=== PATIENT | female | born 1975 | race Caucasian/White ===

== ENCOUNTER → 2019-10-15 14:30 | Outpatient (CLI) | payer OTHER, SELFPAY ==
--- NOTE | ~2019-10-15 | XR_ITS ---
XR chest 2V DATE: 10/15/2019 14:45 INDICATION: Cough for a few months. Smoker. History of COPD. TECHNIQUE: 2 views COMPARISON: 08/19/2018 2 view chest FINDINGS: There is moderate bilateral hyperinflation. No pulmonary infiltrate or consolidation, pleur al effusion or pulmonary vascular congestion or pneumothorax is detected. Normal heart size. No hilar or mediastinal enlargement. Moderate osteopenia. IMPRESSION: Moderate bilateral hyperinflation; no active cardiopulmonary disease Reviewed, dictated and finalized at location A. IMPRESSION: Moderate bilateral hyperinflation; no active cardiopulmonary diseas e
== END ==
PROVIDERS: PCP Emergency Medicine; Visit Provider Emergency Medicine
DX: R05 Cough (principal); R91.8 Other nonspecific abnormal finding of lung field
CPT/HCPCS: 71046

== ENCOUNTER 2019-10-26 08:35 | Outpatient (CLI) | payer OTHER, SELFPAY ==
--- NOTE | ~2019-10-26 | MM_ITS ---
EXAMINATION: MM screening [facility] BI w hiram HISTORY: Screening mammogram TECHNIQUE: Craniocaudal and mediolateral oblique 3-D tomosynthesis images were obtained and synthetic 2-D images were generated. CAD analysis was submitted and interpreted. COMPARISON: 09/07/2018, 08/25/2018 BREAST PARENCHYMAL COMPOSITION: The breasts are extremely dense, which lowers the sensitivity of mamm ography. FINDINGS: There are changes of interval right breast biopsy. Scattered benign-appearing calcification s are present. There is no evidence of suspicious mass, calcification, or architectural distortion t o suggest malignancy in either breast. There has been no suspicious interval change. IMPRESSION: 1. No mammographic evidence of malignancy. 2. Recommend routine screening mammography in one year. BI-RADS Category 2: Benign finding(s). Reviewed, dictated and finalized at location A.
== END 2019-10-26 08:36 | disposition home or self-care (01) ==
LOC: ANHIMG 08:38
PROVIDERS: PCP Emergency Medicine; Visit Provider Emergency Medicine
DX: Z12.31 Encounter for screening mammogram for malignant neoplasm of breast (principal)
CPT/HCPCS: 77063; 77067

== ENCOUNTER → 2019-12-23 18:48 | Outpatient (CLI) | payer OTHER, SELFPAY ==
--- NOTE | ~2019-12-23 | XR_ITS ---
EXAMINATION: XR foot RT min 3V, XR ankle RT min 3V EXAM DATE: 12/23/2019 19:17 (accession [id number]), 12/23/2019 19:19 (accession [id number]) INDICATION: No known recent injury provided at this time. Pain of the feet and ankles. TECHNIQUE: Right foot dorsoplantar, lateral and oblique projections obtained and reviewed. Right ank le frontal, lateral and oblique projections obtained and reviewed. There is no prior study for elie jones. FINDINGS: Right metatarsal bones unremarkable. The right ankle mortise appears intact. There are no bony erosions identified. The joint spaces are uniform. There are no acute fractures or dislocatio ns identified. There is no subcutaneous gas. The soft tissue is unremarkable. There are no radiop aque foreign bodies. IMPRESSION: 1. Unremarkable right foot, ankle exam. Reviewed, dictated and finalized at location . IMPRESSION: 1. Unremarkable right foot, ankle exam.
--- NOTE | ~2019-12-23 | XR_ITS ---
EXAMINATION: XR foot LT min 3V, XR ankle LT min 3V EXAM DATE: 12/23/2019 19:18 (accession [id number]), 12/23/2019 19:19 (accession [id number]) INDICATION: No known recent injury provided at this time. Pain of the left foot and ankle. Bilateral malleolar pain. Symptoms for years. TECHNIQUE: Left foot dorsoplantar, lateral and oblique projections obtained and reviewed. Left ankle frontal, lateral and oblique projections obtained and reviewed. Correlation is made to contralateral exams same date. FINDINGS: Left metatarsal bones unremarkable. The left ankle mortise appears intact. There are n o bony erosions identified. The joint spaces are uniform. There are no acute fractures or dislocation s identified. There is no subcutaneous gas. The soft tissue is unremarkable. There are no radiopa que foreign bodies. IMPRESSION: 1. Unremarkable left foot, ankle exam. Reviewed, dictated and finalized at location G. IMPRESSION: 1. Unremarkable left foot, ankle exam.
== END ==
DX: M15.0 Primary generalized (osteo)arthritis (principal); R60.0 Localized edema; R26.89 Other abnormalities of gait and mobility
CPT/HCPCS: 73610; 73630

== ENCOUNTER 2019-12-25 11:31 | Outpatient (CLI) | payer OTHER, SELFPAY ==
--- NOTE | ~2019-12-25 | CT_ITS ---
EXAMINATION: CT abdomen pelvis wo con DATE: 12/25/2019 11:56 INDICATION: Mid abdominal pain, diarrhea TECHNIQUE: Computed tomography (CT) of the abdomen and pelvis was performed without intravenous contr ast. Automated exposure control and iterative reconstruction technique were employed. Exam dose: 586 .79 mGy-cm total exam DLP. COMPARISON: None. FINDINGS: There is a 3 mm posteromedial right lower lobe nodule (series 4 image 10). There is a 4 mm likely partially calcified pulmonary granuloma in the posteromedial right lower lobe (series 4 image 13). Normal heart size. No pericardial or pleural effusion. The liver, gallbladder, bile ducts, spleen, pancreas, pancreatic duct, and adrenal glands and kidneys are unremarkable. Normal caliber of the abdominal aorta. No intraperitoneal or retroperitoneal or pelvic mass lesion or adenopathy or ascites. The urinary bladder is unremarkable. Status post hysterectomy. No bowel obstruction, bowel wall thickening, pneumatosis or intraperitoneal free air. Small fat-containing umbilical hernia. No suspicious osteolytic or osteoblastic lesions are noted. IMPRESSION: No significant intra-abdominal abnormality Reviewed, dictated and finalized at Location A. Reviewed, dictated and finalized at location A.
== END 2019-12-25 11:32 | disposition home or self-care (01) ==
PROVIDERS: PCP Emergency Medicine; Visit Provider Emergency Medicine
DX: R10.9 Unspecified abdominal pain (principal)
CPT/HCPCS: 74176

== ENCOUNTER 2020-02-15 14:00 | Outpatient (CLI) | payer OTHER, SELFPAY ==
[2020-02-15 14:19] LABS: Basophils Absolute Auto 0.1 K/mm3 (0.0-0.1); Basophils Percent Auto 0.6 % (0.2-1.2); Eosinophils Absolute Auto 0.2 K/mm3 (0-0.3); Eosinophils Percent Auto 1.6 % (0-4.4); Hematocrit 41.5 % (37.0-47.0); Hemoglobin 13.6 g/dL (12.0-15.0); Immature Granulocyte Absolute 0.03 K/mm3 (0.00-0.031); Immature Granulocyte Percent A 0.2 % (0-0.5); Lymphocytes Absolute Auto 5.82 K/mm3 (0.9-3.2); Lymphocytes Percent Auto 44.6 % (18.3-44.2); Mean Corpuscular HGB Conc 32.8 g/dl (32-36); Mean Corpuscular Hemoglobin 29.1 pg (26-34); Mean Corpuscular Volume 88.7 fl (80-100); Mean Platelet Volume 9.2 fl (7.4-10.4); Monocytes Absolute Auto 0.7 K/mm3 (0.1-0.6); Monocytes Percent Auto 5.5 % (2.6-8.5); Neutrophils Absolute Auto 6.2 K/mm3 (1.3-6.7); Neutrophils Percent Auto 47.5 % (45.5-73.1); Platelet Count Result 365 k/mm3 (150-375); Red Blood Count 4.68 M/mm3 (4.2-5.4); Red Cell Distribution Width 13.7 % (11.5-14.5); White Blood Count 13.1 K/mm3 (4.5-10.0)
[2020-02-15 14:27] LABS: Atypical Lymphocytes Present; Platelet Estimate Adequate (Adequate)
[2020-02-15 15:34] LABS: Alanine Aminotransferase 22 U/L (4-35); Albumin Level 4.3 g/dL (3.5-5.1); Alkaline Phosphatase 59 U/L (38-126); Anion Gap 12 mmol/L (8-16); Aspartate Amino Transferase 17 U/L (14-36); Bilirubin,Total 0.2 mg/dL (0.2-1.3); Blood Urea Nitrogen 18 mg/dL (7-17); CRP 0.7 mg/dL (<1.0); Calcium 9.5 mg/dL (8.4-10.2); Carbon Dioxide 25 mmol/L (22-30); Chloride 102 mmol/L (98-107); Estimated Glomerular Filt Rate > 60; Glucose 121 mg/dL (65-105); Lactate Dehydrogenase 371 U/L (313-618); Potassium 3.9 mmol/L (3.4-5.0); Sodium 139 mmol/L (137-145)
[2020-02-16 09:34] LABS: Erythrocyte Sedimentation Rate 14 mm/hr (0-20)
== END 2020-02-15 14:01 | disposition home or self-care (01) ==
LOC: ANHLAB 14:02
PROVIDERS: PCP Emergency Medicine; Visit Provider Internal Medicine Hematology & Oncology
DX: D72.829 Elevated white blood cell count, unspecified (principal)
CPT/HCPCS: 36415; 80053; 83615; 85025; 85652; 86140; 88184

== ENCOUNTER 2020-03-13 11:02 | Outpatient (CLI) | payer OTHER, SELFPAY ==
--- NOTE | ~2020-03-13 | CT_ITS ---
EXAMINATION: CT chest wo con DATE: 03/13/2020 11:42 INDICATION: Pulmonary nodule TECHNIQUE: Computed tomography (CT) of the chest was performed without intravenous contrast. The dose -length product (DLP) was 102.69 mGy-cm. Automated exposure control and iterative reconstruction tech [employer] were employed. COMPARISON: 12/25/2019 FINDINGS: The previously described subpleural nodule of the posterior medial right lower lobe is slig htly decreased in size. There is a 2 mm nodule in the right upper lobe mild dependent atelectasis is noted. The lungs are free of focal airspace opacities. There is no pleural effusion or pneumothorax. No pathologically enlarged thoracic lymph nodes are identified. The heart size is normal. There is mi ld thoracic spondylosis. IMPRESSION: 1. Pulmonary nodules likely reflecting old granulomatous disease. If the patient has no risk factors for malignancy, no further follow up is required. If there are risk factors for malignancy (i.e., hi story of smoking, asbestos or radiation exposure), consider followup CT in 12 months. Reviewed, dictated and finalized at location A. LE BENDER IMPRESSION: 1. Pulmonary nodules likely reflecting old granulomatous disease. If the patien t has no risk factors for malignancy, no further follow up is required. If the re are risk factors for malignancy (i.e., history of smoking, asbestos or radia tion exposure), consider followup CT in 12 months.
== END 2020-03-13 11:03 | disposition home or self-care (01) ==
PROVIDERS: PCP Emergency Medicine
DX: R91.8 Other nonspecific abnormal finding of lung field (principal)
CPT/HCPCS: 71250

== ENCOUNTER 2020-04-13 08:11 | Outpatient (CLI) | payer OTHER, SELFPAY ==
--- NOTE | 2020-05-17 20:04 | WPDHOMESLEEP ---
Sleep Study - Home Unattended Date of Study: 04/13/20 Ordering Provider: Jeff Duque MD Interpreting Physician: Lona Sanchez MD Home Sleep Study Type: Apnea Link Air Height: 1.73 m Weight: 83.007 kg Body Mass Index: 27.8 Marshall: 11 Reason for Sleep Study HAKEEM Sleep History Yanick Dan is a 44 year old female with constant loud snoring which always bothers others at night. She constantly awakening at night with heartburn, belching and coughing. she occasionally awakens from sleep feeling short of breath. She constantly has trouble sleeping with a cold. She occasionally gasp for breath at night. She really has breathing problems at night observed by others. She frequently sweats excessively at night. She occasionally notices her heart pounding or beating irregularly at night. She constantly falls asleep during the day, never involuntarily and never while driving. She does not fall asleep during physical effort. She rarely has loss of muscle tone with strong emotion. She rarely has daytime difficulties due to excessive sleepiness, is a ahjk-ry-yipi . she does not feel paralyzed on waking or falling asleep. She rarely has vivid dreamlike scenes upon awakening or falling asleep. She is not afraid to go to sleep. she rarely has nightmares. She occasionally remembers her dreams. She does not have racing thoughts. She occasionally has feelings of sadness depression and anxiety. She rarely has muscular tension. She does not notice parts of her body jerking. She denies kicking at night. She constantly has crawling and aching feelings in her legs at night and constantly has leg pain at night. She does not have morning jaw pain. She rarely grinds her teeth during sleep. She constantly is bothered by pain during the day, is awakened by pain at night, wakes up feeling stiff in the morning with sore or achy muscles and constantly wakes up with pain in the neck and spine. She has headaches, fatigue, bowel disturbances. She has gained 20 lb in the last year. Normal bedtime is between 10:00 p,m, and 11:00 p,m, falling asleep immediately, usually waking up 1-2 times at night to urinate, smoke or watch television. She wakes in the morning at 5:00 a.m.. She estimates that she gets between 5 and 6 hours of sleep at night. She does take naps in the early afternoon or evening. A short 10 or 15 minutes nap is not refreshing. She is usually drowsy in the morning for 2 hours. Habits: She smokes 1 pack per day cigarettes for about 30 years. She drinks more than 2 caffeinated beverages a day. No alcohol or recreational drugs. [facility] Past Medical History Medical History (Updated 05/17/20 @ 20:19 by Lona Sanchez MD) Allergic rhinitis Diabetes mellitus Hypercholesterolemia Hypertension Surgical History Surgical History (Updated 05/17/20 @ 20:13 by Lona Sanchez MD) History of partial hysterectomy Family History Family History (Updated 05/17/20 @ 20:14 by Lona Sanchez MD) Mother Heart disease Hypertension Diabetes mellitus COPD (chronic obstructive pulmonary disease) Father Heart disease Diabetes mellitus Cancer Other Acute myocardial infarction Medications Medications: hydrochlorothiazide 12.5 mg daily Claritin 10 mg daily metformin 500 mg daily with a meal simvastatin 40 mg a day tramadol 50 mg every 4 hours as needed for pain albuterol HFA 2 puffs Q 6 hours p.r.n. shortness of breath estradiol 0.1 milligram/gram vaginal cream 2-3 times a week at bedtime fluticasone propionate 50 mcg per spray 1 spray each nostril daily Sleep Procedure This test was performed using 4 channel monitoring including respiratory effort channel, snoring channel, heart rate channel, and oxygen saturation channel. This study was scored using [facility] guidelines. Sleep Architecture Not applicable for home sleep test. Respiratory Analysis The recording time is 6 hours 55 minutes. The evaluation time is 3 hours 3
[2020-05-17 20:24] VITALS: BMI 27.8
== END 2020-04-13 08:12 | disposition home or self-care (01) ==
LOC: ANHCSM 08:12
PROVIDERS: PCP Emergency Medicine
DX: G47.33 Obstructive sleep apnea (adult) (pediatric) (principal)
CPT/HCPCS: 95806

== ENCOUNTER 2020-04-18 12:39 | Outpatient (CLI) | payer OTHER, SELFPAY ==
--- NOTE | 2020-04-28 12:26 | WPDPFTINT ---
PFT Interpretation PFT Interpretation: This PFT met all criteria for ATS standards and reproducibility FEV/FVC 73% pre bronchodilator FEV1 109% FVC 106% FEV1 improved by 10% and 290 ml TLC 109% RV 107% RV/TLC 34% DLCO 76% when adjusted for alveolar volume but not adjusted for hemoglobin Flow volume loops were normal Impression: Possible mild small airway reactive disease. This pattern maybe seen in Asthma but mild/early COPD cannot be ruled out. Clinical correlation is advised.
== END 2020-04-18 12:40 | disposition home or self-care (01) ==
PROVIDERS: PCP Emergency Medicine
DX: J44.9 Chronic obstructive pulmonary disease, unspecified (principal)
CPT/HCPCS: 94060; 94726; 94729

== ENCOUNTER 2020-05-31 06:45 | Outpatient (CLI) | payer OTHER, SELFPAY ==
--- NOTE | ~2020-05-31 | MR_ITS ---
EXAMINATION: MR ankle LT wo con DATE: 05/31/2020 08:37 INDICATION: Left foot pain, edema and abnormal gait/mobility.. TECHNIQUE: Magnetic resonance imaging (MRI) of the left ankle was performed without intravenous contr ast. Sequences included sagittal, coronal, and axial proton-density weighted fast spin echo without a nd with fat saturation. COMPARISON: None. FINDINGS: Medial ankle ligaments: Deep and superficial deltoid ligaments as well as the spring ligament are normal. Lateral ankle ligaments: The anterior and posterior inferior tibiofibular ligaments are normal. The anterior talofibular, calc aneofibular and posterior talofibular ligaments are normal. Tendons: Tiny enthesophyte and minimal enthesopathic ossification at the calcaneal insertion of the otherwise normal Achilles tendon. The peroneus longus and brevis tendons are normal. The tibialis anterior and extensor hallucis longus and extensor digitorum longus tendons are normal. The tibialis posterior, fl exor digitorum longus and flexor hallucis longus tendons are normal. Plantar fascia: Latter aponeurosis is normal. Bones/other: Similar though less prominent pattern of edema at the sinus Tarsi without loss of T1 fat signal. Also similar though smaller are a few ganglion cysts and mild cystic change at the talar insertion of the interosseous talocalcaneal ligament with intact appearing ligament fibers. The cervical ligament and lateral, medial and intermediate roots of the inferior extensor retinaculum appear normal. Minimal t o mild osteoarthritis at the tibiotalar and subtalar joints. With small region of subarticular edema along the lateral process of the talus. No fracture or pathologic marrow replacing process. IMPRESSION: 1. Changes in the sinus Tarsi as detailed above consistent with sinus Tarsi which appear milder than in the contralateral right hindfoot. The bilaterality would favor inflammatory arthritides, crystalli ne arthropathy or altered biomechanics over trauma as potential etiologies. 2. Minimal to mild osteoarthritis at the ankle and subtalar joints. Reviewed, dictated and finalized at location A. RUNNER IMPRESSION: 1. Changes in the sinus Tarsi as detailed above consistent with sinus Tarsi whi ch appear milder than in the contralateral right hindfoot. The bilaterality wou ld favor inflammatory arthritides, crystalline arthropathy or altered biomechan ics over trauma as potential etiologies. 2. Minimal to mild osteoarthritis at the ankle and subtalar joints.
--- NOTE | ~2020-05-31 | MR_ITS ---
EXAMINATION: MR ankle RT wo con DATE: 05/31/2020 08:37 INDICATION: Right foot pain, edema and abnormal gait. TECHNIQUE: Magnetic resonance imaging (MRI) of the right ankle was performed without intravenous cont rast. Sequences included sagittal, coronal, and axial proton-density weighted fast spin echo without and with fat saturation. COMPARISON: Right foot and ankle radiographs dated 12/23/2019 FINDINGS: Medial ankle ligaments: Deep and superficial deltoid ligaments as well as the spring ligament are normal. Lateral ankle ligaments: The anterior and posterior inferior tibiofibular ligaments are normal. The anterior talofibular, calc aneofibular and posterior talofibular ligaments are normal. Tendons: Tiny enthesophyte and minimal enthesopathic ossification at the calcaneal insertion of the otherwise normal-appearing Achilles tendon. The peroneus longus and brevis tendons are normal. The tibialis ant erior and extensor hallucis longus and extensor digitorum longus tendons are normal. The tibialis pos terior, flexor digitorum longus and flexor hallucis longus tendons are normal. Plantar fascia: Plantar aponeurosis is normal. Bones/other: There is edema throughout the sinus Tarsi with ganglion cysts extending along the intact appearing fi bers of the intraosseous talocalcaneal ligament with cystic change at its calcaneal insertion. Additi onal small ganglion cyst extending along the periphery of the intact appearing fibers of the medial r oot of the intermediate root of the inferior extensor retinaculum. Increased signal throughout the ce rvical ligament with intact contiguous appearing ligament fibers. 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 Mild osteoarthritis of the right ankle and subtalar joints with mild nonunif orm joint space narrowing at the anteromedial aspect of the tibiotalar articulation and at the traffic engineering technician ior medial aspect of the posterior facet of the subtalar joint. There is an additional small ganglion cyst along the lateral aspect of the calcaneus arising from the subtalar joint at the lateral side o f the angle of Gissane. IMPRESSION: 1. 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 This could be rela garrett to either trauma although the ligaments appear grossly intact or other nonspecific inflammatory p rocess including inflammatory arthritides, crystalline arthropathy or altered biomechanics. 2. Mild osteoarthritis at the ankle and subtalar joints. Reviewed, dictated and finalized at location A. 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 This could be related to either trauma although the ligaments appear grossly intact or other nonspecific infla mmatory process including inflammatory arthritides, crystalline arthropathy or altered biomechanics. 2. Mild osteoarthritis at the ankle and subtalar joints.
== END 2020-05-31 06:46 | disposition home or self-care (01) ==
LOC: ANHIMG 07:01
PROVIDERS: PCP Emergency Medicine
DX: M79.672 Pain in left foot (principal); R26.89 Other abnormalities of gait and mobility; R60.0 Localized edema; M19.071 Primary osteoarthritis, right ankle and foot
CPT/HCPCS: 73721

== ENCOUNTER 2020-06-27 16:00 | Emergency (ER) | payer OTHER, SELFPAY ==
--- NOTE | ~2020-06-27 | CT_ITS ---
EXAMINATION: CT abdomen pelvis w con EXAM DATE: 06/27/2020 19:50 INDICATION: Right lower quadrant pain. TECHNIQUE: Spiral CT of the abdomen and pelvis was performed following intravenous injection of 100 m L Omnipaque 350. Axial, coronal and sagittal images were reviewed. The dose-length product (DLP) fo r this examination was 508.02 mGy-cm. The exposure was tailored according to patient size (auto mA e xposure control), and iterative reconstruction (ASIR) was used as additional dose reduction technique . Comparison is made to prior examination from 12/25/2019. FINDINGS: The liver, spleen, adrenal glands and pancreas are unremarkable. Gallbladder is unremarkab le. No biliary obstruction. Portal and splenic veins are patent. Kidneys enhance symmetrically. T here is no hydronephrosis. The uterus is not identified and has likely been surgically resected. T he bladder is unremarkable. There is no retroperitoneal or pelvic lymphadenopathy. There is mild s cattered arteriosclerotic disease. The appendix is not positively visualized. There is no pericecal inflammatory change to suggest appe ndicitis. The stomach and small bowel are unremarkable. There is expected amount of colonic stool. No free intraperitoneal gas. The heart is normal in size. There are no pericardial or pleural e ffusions. Some dependent groundglass opacity, atelectasis. The bones are unremarkable. IMPRESSION: 1. No acute intra-abdominal findings. Reviewed, dictated and finalized at location A. LOPMENT DIRECTOR
[2020-06-27 16:15] VITALS: BP 110/77; PULSE 83; RESP 18; TEMP 36.4; O2SAT 99
--- NOTE | 2020-06-27 16:15 | PC.NURSE ---
pt. give ua cup, aware need specimen. cannot cath at triage.
[2020-06-27 16:20] LABS: Basophils Absolute Auto 0.1 K/mm3 (0.0-0.1); Basophils Percent Auto 0.7 % (0.2-1.2); Eosinophils Absolute Auto 0.2 K/mm3 (0-0.3); Eosinophils Percent Auto 1.5 % (0-4.4); Hematocrit 39.2 % (37.0-47.0); Hemoglobin 13.4 g/dL (12.0-15.0); Immature Granulocyte Absolute 0.04 K/mm3 (0.00-0.031); Immature Granulocyte Percent A 0.3 % (0-0.5); Lymphocytes Absolute Auto 5.13 K/mm3 (0.9-3.2); Lymphocytes Percent Auto 44.7 % (18.3-44.2); Mean Corpuscular HGB Conc 34.2 g/dl (32-36); Mean Corpuscular Hemoglobin 30.6 pg (26-34); Mean Corpuscular Volume 89.5 fl (80-100); Monocytes Absolute Auto 0.7 K/mm3 (0.1-0.6); Monocytes Percent Auto 5.7 % (2.6-8.5); Neutrophils Absolute Auto 5.4 K/mm3 (1.3-6.7); Neutrophils Percent Auto 47.1 % (45.5-73.1); Platelet Count Result 345 k/mm3 (150-375); Red Blood Count 4.38 M/mm3 (4.2-5.4); Red Cell Distribution Width 13.2 % (11.5-14.5); White Blood Count 11.5 K/mm3 (4.5-10.0)
[2020-06-27 16:31] LABS: Alanine Aminotransferase 18 U/L (4-35); Albumin Level 3.9 g/dL (3.5-5.1); Alkaline Phosphatase 47 U/L (38-126); Anion Gap 7 mmol/L (8-16); Aspartate Amino Transferase 17 U/L (14-36); Bilirubin,Total 0.2 mg/dL (0.2-1.3); Blood Urea Nitrogen 12 mg/dL (7-17); Calcium 8.7 mg/dL (8.4-10.2); Carbon Dioxide 24 mmol/L (22-30); Chloride 107 mmol/L (98-107); Estimated CRCL calculation 77 ml/min; Estimated Glomerular Filt Rate > 60; Glucose 151 mg/dL (65-105); Lipase 169 U/L (23-300); Potassium 3.8 mmol/L (3.4-5.0); Sodium 138 mmol/L (137-145)
[2020-06-27 16:43] LABS: Add Urine Microscopic? YES; Appearance Urine Clear (Clear); Bilirubin Urine Negative (Negative); Blood Urine 1+ (Negative); Color Urine Yellow (Yellow); Glucose Urine UA Negative (Negative); Ketones Urine Negative (Negative); Leukocyte Esterase Ur Negative LEU/UL (Negative); Mucus Urine Rare /lpf; Nitrate Urine Negative (Negative); Protein Urine Negative (Negative); Specific Grav Ur 1.017 (1.001-1.035); Squamous Epithelial Cell Urine Few /hpf (Few); Urobilinogen Urine Negative mg/dL (<2.0); WBC Urine 0-3 /hpf
[2020-06-27 18:45] VITALS: PULSE 83; RESP 16; TEMP 36.2; O2SAT 100
--- NOTE | 2020-06-27 18:45 | PC.NURSE ---
patient brought back to ED room 1 with c/o abdomen pain. see initial notes. alert. oriented. denies N/V/D. denies known fever at home. patient has been in our waiting area for 2 hours due to no beds available in ED. on BP and O2 monitors now. no change in condition since triage done. patient updated on current treatment plan and expected wait time.
--- NOTE | 2020-06-27 18:46 | ED.ABDPAIN ---
HPI - Abdominal Pain General Chief Complaint: Abdominal Pain Stated Complaint: abd pain Time Seen by Provider: 06/27/20 18:43 Source: patient Mode of arrival: ambulatory Limitations: no limitations History of Present Illness HPI narrative: 44-year-old female Patient states that she has been seeing her PCP and complaining about lower abdominal pain for weeks Pain is relatively constant, daily, sometimes radiates around to the back, not really accompanied by any bowel or bladder symptoms She does not have periods and reports a prior hysterectomy She was in the office today and given requisitions for outpatient testing including extremity ultrasounds and a CT scan of the abdomen and pelvis however instead of going to radiology to schedule them she came to the ER Related Data Home Medications Medication Instructions Recorded Confirmed albuterol sulfate 90 mcg/actuation g INHALATION 06/19/20 aerosol inhaler bupropion HCl 150 mg tablet,12 hr 150 mg PO DAILY 06/19/20 sustained-release ergocalciferol (vitamin D2) 50,000 unit PO 06/19/20 unit tablet gabapentin 100 mg capsule 100 mg PO DAILY 06/19/20 hydrochlorothiazide 12.5 mg capsule 12.5 mg PO DAILY 06/19/20 metformin 500 mg tablet 500 mg PO DAILY 06/19/20 simvastatin 40 mg tablet 40 mg PO DAILY 06/19/20 Allergies Allergy/AdvReac Type Severity Reaction Status Date / Time omeprazole Allergy Unknown Verified 06/27/20 19:02 Review of Systems Review of Systems: All systems reviewed & are unremarkable except as noted in HPI and below Constitutional: Constitutional: Denies chills, Reports fatigue, Denies fever(s), Denies headache(s) and Denies weakness Eyes: Eyes: Reports no additional eye complaints and Denies change in vision ENT: Denies headache(s), Denies epistaxis, Denies nasal congestion and Denies sore throat Cardiovascular: Cardiovascular: Denies chest pain, Denies leg edema, Denies palpitations and Denies dyspnea Respiratory: Respiratory: Denies cough, Denies dyspnea and Denies wheezing Gastrointestinal: Gastrointestinal: Reports abdominal pain, Denies diarrhea, Reports nausea and Denies vomiting Genitourinary: Genitourinary: Denies abnormal vaginal bleeding, Denies hematuria, Denies urinary frequency, Denies dysuria, Reports flank pain and Denies vaginal discharge Musculoskeletal: Musculoskeletal: Denies deformity, Denies arthralgias, Denies joint swelling, Denies muscle weakness and Denies numbness Integumentary/Breasts: Skin/Breast: Denies rash and Denies wounds Neurologic: Denies headache(s), Denies focal weakness, Denies numbness and Denies weakness Psychiatric: Psychiatric: Reports no additional psychiatric complaints Endocrine: Endocrine: Denies fatigue and Denies palpitations Hematologic/Lymphatic: Hematologic/Lymphatic: Denies easy bleeding and Denies easy bruising Allergic/Immunologic: Allergic/Immunologic: Denies wheezing PMFSH Past Medical History Medical History Allergic rhinitis Bulging disc Diabetes mellitus Hypercholesterolemia Hypertension Plantar fasciitis, bilateral Surgical History Surgical History H/O tubal ligation History of partial hysterectomy Family History Family History Mother Heart disease Hypertension Diabetes mellitus COPD (chronic obstructive pulmonary disease) Kidney disease Father Heart disease Diabetes mellitus Cancer Sibling Lupus Other Acute myocardial infarction Social History Social History Smoking status: Current every day smoker Tobacco type: cigarettes Alcohol intake: never Substance use: never 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
--- NOTE | 2020-06-27 19:24 | PC.NURSE ---
unsuccessful for peripheral IV placement by this RN. report given to Sheeba KNOWLES.
[2020-06-27 20:42] VITALS: BP 117/78; PULSE 79; RESP 16; O2SAT 99
--- NOTE | 2020-06-27 20:59 | PC.NURSE ---
Pt states she feels like shes ready to leave. HAYLEE Gordon notified.
== END 2020-06-27 21:10 | disposition home or self-care (01) ==
PROVIDERS: Emergency Medicine; Emergency Provider Emergency Medicine; PCP Emergency Medicine
DX: R10.30 Lower abdominal pain, unspecified (principal); E11.9 Type 2 diabetes mellitus without complications; E78.00 Pure hypercholesterolemia, unspecified; I10 Essential (primary) hypertension; M72.2 Plantar fascial fibromatosis; F17.210 Nicotine dependence, cigarettes, uncomplicated; Z79.84 Long term (current) use of oral hypoglycemic drugs
CPT/HCPCS: 36415; 74177; 80053; 81001; 81025; 83690; 84443; 85025; 99284; Q9967

== ENCOUNTER 2020-08-28 13:14 | Outpatient (CLI) | payer OTHER, SELFPAY ==
[2020-08-28 13:33] LABS: Basophils Absolute Auto 0.1 K/mm3 (0.0-0.1); Basophils Percent Auto 0.4 % (0.2-1.2); Eosinophils Absolute Auto 0.3 K/mm3 (0-0.3); Eosinophils Percent Auto 1.4 % (0-4.4); Hematocrit 39.7 % (37.0-47.0); Hemoglobin 13.2 g/dL (12.0-15.0); Immature Granulocyte Absolute 0.06 K/mm3 (0.00-0.031); Immature Granulocyte Percent A 0.3 % (0-0.5); Lymphocytes Absolute Auto 6.52 K/mm3 (0.9-3.2); Lymphocytes Percent Auto 35.8 % (18.3-44.2); Mean Corpuscular HGB Conc 33.2 g/dl (32-36); Mean Corpuscular Hemoglobin 29.7 pg (26-34); Mean Corpuscular Volume 89.4 fl (80-100); Mean Platelet Volume 8.9 fl (7.4-10.4); Monocytes Absolute Auto 0.8 K/mm3 (0.1-0.6); Monocytes Percent Auto 4.3 % (2.6-8.5); Neutrophils Absolute Auto 10.5 K/mm3 (1.3-6.7); Neutrophils Percent Auto 57.8 % (45.5-73.1); Platelet Count Result 390 k/mm3 (150-375); Red Blood Count 4.44 M/mm3 (4.2-5.4); Red Cell Distribution Width 13.7 % (11.5-14.5); White Blood Count 18.2 K/mm3 (4.5-10.0)
== END 2020-08-28 13:15 | disposition home or self-care (01) ==
LOC: ANHLAB 13:15
PROVIDERS: PCP Emergency Medicine; Visit Provider Internal Medicine Hematology & Oncology
DX: D72.829 Elevated white blood cell count, unspecified (principal)
CPT/HCPCS: 36415; 85025

== ENCOUNTER 2020-11-27 12:16 | Outpatient (CLI) | payer OTHER, SELFPAY ==
--- NOTE | ~2020-11-27 | US_ITS ---
EXAMINATION: US arterial ankle brachial ind DATE: 11/27/2020 13:09 INDICATION: Diabetes, medicated hypercholesterolemia, 1 pack per day smoker. Atherosclerosis. TECHNIQUE: Segmental pressures and plethysmographic and Doppler waveforms of the brachial and lower e xtremity arteries were obtained. COMPARISON: None. FINDINGS: Right and left brachial artery pressures of 111 mm Hg and 108 mm Hg, respectively, are concordant (no rmal difference <= 30 mmHg). The right ankle-brachial index (ABA) is 1.22 (normal >= 0.9-1.0). The right great toe-brachial index (TBI) is 1.05 (normal >= 0.65). Arterial Doppler waveforms are biphasic. The left ABA is 1.21. The left TBI is 1.01. Arterial Doppler waveforms are biphasic. IMPRESSION: Bilateral normal ABA and TBI Reviewed, dictated and finalized at Location A. Reviewed, dictated and finalized at location A.
== END 2020-11-27 12:17 | disposition home or self-care (01) ==
LOC: ANHIMG 12:20
PROVIDERS: PCP Emergency Medicine
DX: I70.213 Atherosclerosis of native arteries of extremities with intermittent claudication, bilateral legs (principal); R26.89 Other abnormalities of gait and mobility; R60.0 Localized edema; M79.671 Pain in right foot; M79.672 Pain in left foot
CPT/HCPCS: 93922

== ENCOUNTER 2021-03-06 09:48 | Outpatient (CLI) | payer OTHER, SELFPAY ==
[2021-03-06 10:06] LABS: Basophils Absolute Auto 0.1 K/mm3 (0.0-0.1); Basophils Percent Auto 0.8 % (0.2-1.2); Eosinophils Absolute Auto 0.2 K/mm3 (0-0.3); Eosinophils Percent Auto 1.7 % (0-4.4); Hematocrit 38.2 % (37.0-47.0); Hemoglobin 12.5 g/dL (12.0-15.0); Immature Granulocyte Absolute 0.03 K/mm3 (0.00-0.031); Immature Granulocyte Percent A 0.3 % (0-0.5); Lymphocytes Absolute Auto 4.67 K/mm3 (0.9-3.2); Mean Corpuscular HGB Conc 32.7 g/dl (32-36); Mean Corpuscular Hemoglobin 30.4 pg (26-34); Mean Corpuscular Volume 92.9 fl (80-100); Mean Platelet Volume 8.9 fl (7.4-10.4); Monocytes Absolute Auto 0.8 K/mm3 (0.1-0.6); Monocytes Percent Auto 6.8 % (2.6-8.5); Neutrophils Absolute Auto 5.7 K/mm3 (1.3-6.7); Neutrophils Percent Auto 49.4 % (45.5-73.1); Platelet Count Result 357 k/mm3 (150-375); Red Blood Count 4.11 M/mm3 (4.2-5.4); Red Cell Distribution Width 14.1 % (11.5-14.5); White Blood Count 11.4 K/mm3 (4.5-10.0)
== END 2021-03-06 09:49 | disposition home or self-care (01) ==
LOC: ANHLAB 09:51
PROVIDERS: PCP Emergency Medicine; Visit Provider Internal Medicine Hematology & Oncology
DX: D72.829 Elevated white blood cell count, unspecified (principal)
CPT/HCPCS: 36415; 85025

== ENCOUNTER 2021-05-30 07:55 | Outpatient (CLI) | payer OTHER, SELFPAY ==
--- NOTE | ~2021-05-30 | MM_ITS ---
EXAMINATION: MM screening [facility] BI w hiram HISTORY: Screening TECHNIQUE: Craniocaudal and mediolateral oblique 3-D tomosynthesis images were obtained and synthetic 2-D images were generated. CAD analysis was submitted and interpreted. COMPARISON: Comparison to multiple prior studies sequentially, with oldest reviewed study dated 08/25. BREAST PARENCHYMAL COMPOSITION: The breasts are heterogeneously dense, which may obscure small masses . FINDINGS: There is no evidence of suspicious mass, calcification, or architectural distortion to sugg est malignancy in either breast. There has been no suspicious interval change. IMPRESSION: 1. No mammographic evidence of malignancy. 2. Recommend routine screening mammography in one year. BI-RADS Category 1: Negative Reviewed, dictated and finalized at location A. 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
== END 2021-05-30 07:56 | disposition home or self-care (01) ==
LOC: ANHIMG 07:58
PROVIDERS: PCP Emergency Medicine; Visit Provider Emergency Medicine
DX: Z12.31 Encounter for screening mammogram for malignant neoplasm of breast (principal)
CPT/HCPCS: 77063; 77067

== ENCOUNTER 2021-09-05 13:39 | Outpatient (CLI) | payer OTHER, SELFPAY ==
[2021-09-05 13:52] LABS: Basophils Absolute Auto 0.1 K/mm3 (0.0-0.1); Basophils Percent Auto 0.6 % (0.2-1.2); Eosinophils Absolute Auto 0.1 K/mm3 (0-0.3); Eosinophils Percent Auto 0.8 % (0-4.4); Hematocrit 42.4 % (37.0-47.0); Hemoglobin 13.7 g/dL (12.0-15.0); Immature Granulocyte Absolute 0.06 K/mm3 (0.00-0.031); Immature Granulocyte Percent A 0.5 % (0-0.5); Lymphocytes Absolute Auto 5.61 K/mm3 (0.9-3.2); Lymphocytes Percent Auto 43.4 % (18.3-44.2); Mean Corpuscular HGB Conc 32.3 g/dl (32-36); Mean Corpuscular Hemoglobin 32.8 pg (26-34); Mean Corpuscular Volume 101.4 fl (80-100); Mean Platelet Volume 9.1 fl (7.4-10.4); Monocytes Absolute Auto 0.9 K/mm3 (0.1-0.6); Monocytes Percent Auto 6.7 % (2.6-8.5); Neutrophils Absolute Auto 6.2 K/mm3 (1.3-6.7); Platelet Count Result 296 k/mm3 (150-375); Red Blood Count 4.18 M/mm3 (4.2-5.4); Red Cell Distribution Width 14.2 % (11.5-14.5); White Blood Count 12.9 K/mm3 (4.5-10.0)
[2021-09-05 17:07] LABS: Folic Acid > 20.0 ng/mL (2.76->20)
== END 2021-09-05 13:40 | disposition home or self-care (01) ==
PROVIDERS: PCP Emergency Medicine; Visit Provider Internal Medicine Hematology & Oncology
DX: D72.829 Elevated white blood cell count, unspecified (principal)
CPT/HCPCS: 36415; 82607; 82746; 84443; 85025

== ENCOUNTER 2021-09-12 07:54 | Outpatient (CLI) | payer OTHER, SELFPAY ==
[2021-09-12 08:48] LABS: Hematocrit 40.5 % (37.0-47.0); Hemoglobin 13.5 g/dL (12.0-15.0); Mean Corpuscular HGB Conc 33.3 g/dl (32-36); Mean Corpuscular Hemoglobin 32.8 pg (26-34); Mean Corpuscular Volume 98.3 fl (80-100); Mean Platelet Volume 9.1 fl (7.4-10.4); Platelet Count Result 293 k/mm3 (150-375); Red Blood Count 4.12 M/mm3 (4.2-5.4); Red Cell Distribution Width 14.3 % (11.5-14.5); White Blood Count 12.4 K/mm3 (4.5-10.0)
[2021-09-12 08:50] LABS: Alanine Aminotransferase 17 U/L (4-35); Albumin Level 4.4 g/dL (3.5-5.1); Alkaline Phosphatase 57 U/L (38-126); Anion Gap 5 mmol/L (8-16); Aspartate Amino Transferase 21 U/L (14-36); Bilirubin,Total 0.2 mg/dL (0.2-1.3); Blood Urea Nitrogen 20 mg/dL (7-17); Carbon Dioxide 26 mmol/L (22-30); Chloride 107 mmol/L (98-107); Cholesterol 135 mg/dL (0-200); Estimated Glomerular Filt Rate > 60; Glucose 117 mg/dL (65-110); HDL Direct 36 mg/dL; Potassium 3.8 mmol/L (3.4-5.0); Sodium 138 mmol/L (137-145); Triglycerides 118 mg/dL (<150)
[2021-09-12 08:52] LABS: Rheumatoid Factor < 8.6 IU/ML (<12)
[2021-09-12 09:04] LABS: LDL Cholesterol Direct 67 mg/dL
[2021-09-12 09:05] LABS: Creatinine Urine 51.1 mg/dL
[2021-09-12 09:21] LABS: Free T4 Free Thyroxine 1.23 ng/mL (0.78-2.19); Vitamin D 25 Hydroxy 61.1 ng/mL
[2021-09-12 10:05] LABS: MALB Creatinine Ratio < 11.7 mg/g (0-30); Microalbumin Urine Random < 6.0 mg/L (0-16.7)
[2021-09-12 10:19] LABS: Appearance Urine Clear (Clear); Bilirubin Urine Negative (Negative); Blood Urine Trace-lysed (Negative); Color Urine Yellow (Yellow); Glucose Urine UA Negative (Negative); Ketones Urine Negative (Negative); Leukocyte Esterase Ur Negative LEU/UL (NEGATIVE); Nitrate Urine Negative (Negative); Protein Urine Negative (Negative); Specific Grav Ur 1.015 (1.001-1.035); Urobilinogen Urine 0.2 mg/dL (<2.0)
[2021-09-12 10:28] LABS: Add Urine Microscopic? YES
[2021-09-12 10:42] LABS: Mucus Urine Rare /lpf; Squamous Epithelial Cell Urine Rare /hpf (Few); WBC Urine 0-3 /hpf (0-3)
[2021-09-12 10:56] LABS: Erythrocyte Sedimentation Rate 13 mm/hr (0-20)
[2021-09-16 13:52] LABS: ANA Pattern Nuclear, Speckled; ANA Titer 1:40 (Negative); Anti Nuclear Antibody Titer 1:40 (Negative)
== END 2021-09-12 07:55 | disposition home or self-care (01) ==
LOC: ANHLAB 07:57
PROVIDERS: PCP Emergency Medicine; Visit Provider Emergency Medicine
DX: R10.9 Unspecified abdominal pain (principal); R42 Dizziness and giddiness; E11.9 Type 2 diabetes mellitus without complications; G47.33 Obstructive sleep apnea (adult) (pediatric); K21.9 Gastro-esophageal reflux disease without esophagitis; D72.829 Elevated white blood cell count, unspecified
CPT/HCPCS: 36415; 80053; 80061; 81001; 82043; 82306; 83036; 84439; 84443; 85027; 85652; 86038; 86039; 86430

== ENCOUNTER 2021-09-20 14:01 | Outpatient (CLI) | payer OTHER, SELFPAY ==
--- NOTE | ~2021-09-20 | US_ITS ---
EXAMINATION: US art doppler w press LE BI DATE: 09/20/2021 15:07 INDICATION: Arterial atherosclerosis of the [place] arteries of the extremities. Diabetes, hypercholes terolemia and prior smoking TECHNIQUE: Segmental pressures and plethysmographic and Doppler waveforms of the brachial and lower e xtremity arteries were obtained. COMPARISON: None. FINDINGS: Right and left brachial artery pressures of 102 mm Hg and 112 mm Hg, respectively, are concordant (no rmal difference <= 30 mmHg). The right and left high-thigh pressure indices are 1.21 and 1.13, respec tively (normal > 1.2). The right ankle-brachial index (ABA) is 1.15 (normal >= 0.9-1). The right great toe-brachial index (T BI) is 0.63 (normal >= 0.6-0.8). The right lower extremity segmental pressure gradients are normal (n ormal gradients <= 20-30 mmHg between adjacent levels on the same leg or the same levels on the two l egs). Arterial waveforms are triphasic at the right common femoral, superficial femoral and popliteal arteries and biphasic at the right posterior tibial and dorsalis pedis arteries with brisk systolic upstrokes throughout. The left ABA is 1.17. The left TBI is 0.87. The left lower extremity segmental pressure gradients are normal. Arterial waveforms are triphasic at the left common femoral and superficial femoral arteries and biphasic at the left popliteal, posterior tibial and dorsalis pedis arteries with brisk systolic upstrokes throughout. IMPRESSION: 1. Normal ABA's and TBI's bilaterally. No significant occlusive disease. Reviewed, dictated and finalized at location A.
== END 2021-09-20 14:02 | disposition home or self-care (01) ==
PROVIDERS: PCP Emergency Medicine; Visit Provider Emergency Medicine
DX: I73.9 Peripheral vascular disease, unspecified (principal)
CPT/HCPCS: 93923

== ENCOUNTER 2021-09-25 08:02 | Outpatient (CLI) | payer OTHER, SELFPAY ==
--- NOTE | ~2021-09-25 | US_ITS ---
EXAMINATION: US aorta DATE: 09/25/2021 08:47 INDICATION: Arterial atherosclerosis per x-ray TECHNIQUE: Grayscale, color Doppler, and pulsed Doppler images of the aorta and common iliac arteries were obtained. COMPARISON: None. FINDINGS: The proximal aorta measures 2.2 cm. The mid aorta measures 1.5 cm. The distal aorta measures 1.8 cm. Minimal nonhemodynamically significant atherosclerotic plaque along the distal abdominal aorta. The r ight common iliac artery measures 11 mm. The left common iliac artery measures 11 mm. IMPRESSION: 1. Normal caliber abdominal aorta. Reviewed, dictated and finalized at location A.
== END 2021-09-25 08:03 | disposition home or self-care (01) ==
LOC: ANHIMG 08:06
PROVIDERS: PCP Emergency Medicine; Visit Provider Emergency Medicine
DX: I70.209 Unspecified atherosclerosis of native arteries of extremities, unspecified extremity (principal)
CPT/HCPCS: 76775

== ENCOUNTER 2021-09-26 07:47 | Outpatient (CLI) | payer OTHER, SELFPAY ==
--- NOTE | ~2021-09-26 | CT_ITS ---
EXAMINATION: CT chest abdomen pelvis w con DATE: 09/26/2021 08:17 INDICATION: Abdominal pain. Shortness of breath. TECHNIQUE: Computed tomography (CT) of the chest, abdomen, and pelvis was performed with 100 mL Omnip aque 300 intravenous contrast. Automated exposure control and iterative reconstruction technique were employed. The dose-length product was 442.21 mGy-cm. COMPARISON: CT abdomen and pelvis 06/27/2020 FINDINGS: CHEST CT: There is mild emphysema. There is mild dependent atelectasis bilaterally. No pleural effusion. The he art size is normal. No pericardial effusion. There are coronary artery calcifications. There is mild thoracic spondylosis. ABDOMEN/PELVIS CT: The liver, gallbladder, spleen, pancreas, adrenal glands, and kidneys are normal. There are no dilate d loops of bowel. The appendix is not visualized. There are no pathologically enlarged lymph nodes. T here is no free intraperitoneal fluid. There is mild lumbar spondylosis. IMPRESSION: 1. No etiology for the patient's symptoms. Reviewed, dictated and finalized at location B.
== END 2021-09-26 07:48 | disposition home or self-care (01) ==
PROVIDERS: PCP Emergency Medicine; Visit Provider Internal Medicine Hematology & Oncology
DX: R06.02 Shortness of breath (principal); R10.31 Right lower quadrant pain
CPT/HCPCS: 71260; 74177; Q9967

== ENCOUNTER 2022-03-11 09:27 | Outpatient (CLI) | payer OTHER, SELFPAY ==
--- NOTE | ~2022-03-11 | XR_ITS ---
EXAM: XR cervical spine 4-5V DATE: 03/11/2022 09:47 HISTORY: NON TRAUMA NECK PAIN FOR SEVERAL YEARS RADIATING DOWN ARMS . COMPARISON: None available. FINDINGS: Craniocervical association and atlantoaxial joint are aligned. No prevertebral soft tissue swelling. 2 mm anterolisthesis of C6 on C7, remaining vertebral bodies are aligned. Mild disc space narrowing at C6-7. Vertebral body heights and remaining disc spaces are maintained. Normal facets and posterior elements. IMPRESSION: Grade 1 anterolisthesis and mild degenerative disc disease at C6-7. Reviewed, dictated and finalized at location K.
== END 2022-03-11 09:28 | disposition home or self-care (01) ==
PROVIDERS: PCP Emergency Medicine; Visit Provider Emergency Medicine
DX: R20.2 Paresthesia of skin (principal); M50.323 Other cervical disc degeneration at C6-C7 level
CPT/HCPCS: 72050

== ENCOUNTER 2022-04-08 08:39 | Outpatient (CLI) | payer OTHER, SELFPAY ==
[2022-04-08 09:14] LABS: Basophils Absolute Auto 0.1 K/mm3 (0.0-0.1); Basophils Percent Auto 0.8 % (0.2-1.2); Eosinophils Absolute Auto 0.3 K/mm3 (0-0.3); Hematocrit 40.1 % (37.0-47.0); Hemoglobin 13.1 g/dL (12.0-15.0); Immature Granulocyte Absolute 0.02 K/mm3 (0.00-0.031); Immature Granulocyte Percent A 0.2 % (0-0.5); Lymphocytes Absolute Auto 3.63 K/mm3 (0.9-3.2); Lymphocytes Percent Auto 39.8 % (18.3-44.2); Mean Corpuscular HGB Conc 32.7 g/dl (32-36); Mean Platelet Volume 8.8 fl (7.4-10.4); Monocytes Absolute Auto 0.8 K/mm3 (0.1-0.6); Monocytes Percent Auto 8.4 % (2.6-8.5); Neutrophils Absolute Auto 4.4 K/mm3 (1.3-6.7); Neutrophils Percent Auto 47.8 % (45.5-73.1); Platelet Count Result 314 k/mm3 (150-375); Red Blood Count 4.22 M/mm3 (4.2-5.4); Red Cell Distribution Width 13.8 % (11.5-14.5); White Blood Count 9.1 K/mm3 (4.5-10.0)
[2022-04-08 18:38] LABS: Alanine Aminotransferase 35 U/L (6-35); Albumin Level 4.7 g/dL (3.5-5.1); Alkaline Phosphatase 57 U/L (38-126); Anion Gap 9 mmol/L (8-16); Aspartate Amino Transferase 27 U/L (14-36); Bilirubin,Total 0.4 mg/dL (0.2-1.3); Blood Urea Nitrogen 22 mg/dL (7-17); Calcium 9.3 mg/dL (8.4-10.2); Carbon Dioxide 24 mmol/L (22-30); Chloride 106 mmol/L (98-107); Estimated Glomerular Filt Rate > 60; Glucose 111 mg/dL (65-110); Sodium 139 mmol/L (137-145)
[2022-04-08 20:03] LABS: Folic Acid > 20.0 ng/mL (2.76->20)
== END 2022-04-08 08:40 | disposition home or self-care (01) ==
LOC: ANHLAB 08:40
PROVIDERS: PCP Emergency Medicine; Visit Provider Internal Medicine Hematology & Oncology
DX: R53.83 Other fatigue (principal); D72.829 Elevated white blood cell count, unspecified
CPT/HCPCS: 36415; 80053; 82607; 82746; 84443; 85025

== ENCOUNTER 2022-07-20 11:45 | Outpatient (CLI) | payer OTHER, SELFPAY ==
--- NOTE | ~2022-07-20 | XR_ITS ---
Left Knee Technique: AP, lateral, and sunrise views were obtained. Clinical History: Pain Findings: No fracture or dislocation is seen. Osseous alignment is anatomic. Joint spaces are preserv ed without degenerative or erosive change. Soft tissues are unremarkable. No joint effusion is seen. Impression: Unremarkable left knee radiographs. Reviewed, dictated and finalized at location . 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
--- NOTE | ~2022-07-20 | XR_ITS ---
Right Knee Technique: AP, lateral, and sunrise views were obtained. Clinical History: Pain Findings: No fracture or dislocation is seen. Osseous alignment is anatomic. Joint spaces are preserv ed without degenerative or erosive change. Soft tissues are unremarkable. No joint effusion is seen. Impression: Unremarkable right knee radiographs. Reviewed, dictated and finalized at location . 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
== END 2022-07-20 11:46 | disposition home or self-care (01) ==
PROVIDERS: PCP Emergency Medicine; Visit Provider Emergency Medicine
DX: M25.561 Pain in right knee (principal); M25.562 Pain in left knee; M79.89 Other specified soft tissue disorders
CPT/HCPCS: 73564

== ENCOUNTER 2022-11-20 08:00 | Outpatient (CLI) | payer OTHER, SELFPAY ==
--- NOTE | ~2022-11-20 | XR_ITS ---
EXAMINATION: XR chest 2V DATE: 11/20/2022 08:23 INDICATION: Left chest pain TECHNIQUE: PA and lateral views of the chest are obtained. COMPARISON: 10/15/2019 FINDINGS: The lungs are free of acute opacities. No pleural effusion or pneumothorax. The cardiomedia stinal silhouette is normal. There is mild thoracic spondylosis. IMPRESSION: 1. No acute cardiopulmonary abnormality. Reviewed, dictated and finalized at location B.
== END 2022-11-20 08:01 | disposition home or self-care (01) ==
PROVIDERS: PCP Emergency Medicine; Visit Provider Emergency Medicine
DX: R07.89 Other chest pain (principal)
CPT/HCPCS: 71046

== ENCOUNTER 2023-01-28 19:12 | Emergency (ER) | payer OTHER, SELFPAY ==
[2023-01-28 19:28] VITALS: BP 122/74; PULSE 79; RESP 16; TEMP 36.9; O2SAT 99
[2023-01-28 19:38] VITALS: BP 122/74; PULSE 79; RESP 16; TEMP 36.9; O2SAT 99
--- NOTE | 2023-01-28 19:44 | ED.EYEPROB ---
HPI - Eye Problem General Chief complaint: Eye Problems Stated complaint: Left Eye Irritation/Headache Time Seen by Provider: 01/28/23 19:44 Source: patient, RN notes reviewed and old records reviewed Mode of arrival: ambulatory Limitations: no limitations History of Present Illness HPI Narrative: 47-year-old female presents to the [facility] with left eye, temporal area headache. States that this feels similar to her eye migraines but not bilateral currently. Has taken her Imitrex and states it has gotten any better. Denies any blurry vision or change in vision. Patient is PERRLA. States that she is sensitive to light No conjunctival changes. Onset (ago): day(s) (1) Related Data Home Medications Medication Instructions Recorded Confirmed metformin 500 mg tablet 500 mg PO DAILY 06/19/20 04/30/21 simvastatin 40 mg tablet 40 mg PO DAILY 06/19/20 04/30/21 fluticasone propionate 50 1 spray intranasal BID 07/05/20 04/30/21 mcg/actuation nasal spray,suspension loratadine 10 mg capsule 10 mg PO DAILY 07/05/20 04/30/21 hydroxychloroquine 200 mg tablet 200 mg PO BID 04/30/21 04/30/21 etanercept 50 mg/mL (1 mL) 50 mg subcut WEEKLY 01/28/23 01/28/23 subcutaneous syringe (Enbrel) famotidine 40 mg tablet mg 01/28/23 gabapentin 300 mg capsule mg 01/28/23 leflunomide 10 mg tablet mg 01/28/23 meloxicam 7.5 mg tablet 7.5 mg PO BID 01/28/23 01/28/23 ropinirole 0.25 mg tablet 0.25 mg PO DAILY 01/28/23 01/28/23 sumatriptan 50 mg tablet and ea 01/28/23 menthol 10 %-camphor 4 % topical gel Allergies Allergy/AdvReac Type Severity Reaction Status Date / Time omeprazole Allergy Unknown Verified 01/28/23 19:32 Review of Systems Review of Systems: All systems reviewed & are unremarkable except as noted in HPI and below Constitutional: Constitutional: Reports no additional constitutional complaints Eyes: Eyes: Reports as per HPI ENT: Reports system reviewed and no additional complaints, except as documented Cardiovascular: Cardiovascular: Reports no additional cardiovascular complaints, Denies chest pain and Denies dyspnea Respiratory: Respiratory: Reports no additional respiratory complaints, Denies chest congestion, Denies cough and Denies dyspnea Gastrointestinal: Gastrointestinal: Reports no additional gastrointestinal complaints, Denies abdominal pain, Denies nausea and Denies vomiting Musculoskeletal: Musculoskeletal: Reports no additional musculoskeletal complaints Integumentary/Breasts: Skin/Breast: Reports system reviewed and no additional complaints, except as docu Neurologic: Reports system reviewed and no additional complaints, except as documented Psychiatric: Psychiatric: Reports no additional psychiatric complaints Allergic/Immunologic: Allergic/Immunologic: Reports no additional allergic/immunologic complaints [facility] Past Medical History Medical History Allergic rhinitis Bulging disc Diabetes mellitus Hypercholesterolemia Hypertension Plantar fasciitis, bilateral Surgical History Surgical History H/O tubal ligation History of partial hysterectomy Family History Family History Mother Heart disease Hypertension Diabetes mellitus COPD (chronic obstructive pulmonary disease) Kidney disease Father Heart disease Diabetes mellitus Cancer Sibling Lupus Other Acute myocardial infarction Social History Social History Smoking status: Current every day smoker Tobacco type: cigarettes Alcohol intake: never Substance use: never Occupation/Education: occupation 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 There is no
== END 2023-01-28 20:01 | disposition home or self-care (01) ==
PROVIDERS: Emergency Provider Nurse Practitioner; PCP Emergency Medicine
DX: H57.12 Ocular pain, left eye (principal); G43.909 Migraine, unspecified, not intractable, without status migrainosus; F17.210 Nicotine dependence, cigarettes, uncomplicated; E11.9 Type 2 diabetes mellitus without complications; E78.00 Pure hypercholesterolemia, unspecified; I10 Essential (primary) hypertension; Z90.711 Acquired absence of uterus with remaining cervical stump
CPT/HCPCS: 99212; G0463

== ENCOUNTER 2023-01-30 08:52 | Outpatient (CLI) | payer OTHER, SELFPAY ==
--- NOTE | ~2023-01-30 | MM_ITS ---
EXAMINATION: MM screening [facility] BI w hiram HISTORY: Screening TECHNIQUE: Craniocaudal and mediolateral oblique 3-D tomosynthesis images were obtained and synthetic 2-D images were generated. CAD analysis was submitted and interpreted. COMPARISON: Comparison to multiple prior studies sequentially, with oldest reviewed study dated 08/25. BREAST PARENCHYMAL COMPOSITION: The breasts are heterogeneously dense, which may obscure small masses FINDINGS: There are benign-appearing bilateral granular calcifications which are relatively symmetric and unchanged. There is no evidence of suspicious mass, calcification, or architectural distortion t o suggest malignancy in either breast. There has been no suspicious interval change. IMPRESSION: 1. No mammographic evidence of malignancy. 2. Recommend routine screening mammography in one year. BI-RADS Category 2: Benign finding(s). Reviewed, dictated and finalized at location A.
== END 2023-01-30 08:53 | disposition home or self-care (01) ==
PROVIDERS: PCP Emergency Medicine; Visit Provider Emergency Medicine
DX: Z12.31 Encounter for screening mammogram for malignant neoplasm of breast (principal)
CPT/HCPCS: 77063; 77067

== ENCOUNTER 2023-04-08 12:45 | Outpatient (CLI) | payer OTHER, SELFPAY ==
[2023-04-08 13:09] LABS: Basophils Absolute Auto 0.1 K/mm3 (0.0-0.1); Basophils Percent Auto 0.6 % (0.2-1.2); Eosinophils Absolute Auto 0.2 K/mm3 (0-0.3); Eosinophils Percent Auto 1.3 % (0-4.4); Hematocrit 40.3 % (37.0-47.0); Hemoglobin 13.1 g/dL (12.0-15.0); Immature Granulocyte Absolute 0.04 K/mm3 (0.00-0.031); Immature Granulocyte Percent A 0.3 % (0-0.5); Lymphocytes Absolute Auto 4.09 K/mm3 (0.9-3.2); Lymphocytes Percent Auto 33.1 % (18.3-44.2); Mean Corpuscular HGB Conc 32.5 g/dl (32-36); Mean Corpuscular Hemoglobin 31.7 pg (26-34); Mean Corpuscular Volume 97.6 fl (80-100); Mean Platelet Volume 8.7 fl (7.4-10.4); Monocytes Absolute Auto 0.8 K/mm3 (0.1-0.6); Monocytes Percent Auto 6.8 % (2.6-8.5); Neutrophils Absolute Auto 7.2 K/mm3 (1.3-6.7); Neutrophils Percent Auto 57.9 % (45.5-73.1); Platelet Count Result 281 k/mm3 (150-375); Red Blood Count 4.13 M/mm3 (4.2-5.4); Red Cell Distribution Width 13.9 % (11.5-14.5); White Blood Count 12.4 K/mm3 (4.5-10.0)
[2023-04-08 13:15] LABS: Blood Urea Nitrogen 12 mg/dL (8-26); Carbon Dioxide 28 mmol/L (22-30); Chloride 102 mmol/L (98-109); Estimated Glomerular Filt Rate > 60; Glucose 106 mg/dL (70-105); Ionized Calcium (POC) 1.18 mmol/L (1.11-1.31); Potassium 3.8 mmol/L (3.5-4.9); Sodium 142 mmol/L (138-146)
[2023-04-08 13:56] LABS: Alanine Aminotransferase 43 U/L (6-35); Albumin Level 4.2 g/dL (3.5-5.1); Alkaline Phosphatase 54 U/L (38-126); Anion Gap 6 mmol/L (8-16); Aspartate Amino Transferase 27 U/L (14-36); Bilirubin,Total 0.3 mg/dL (0.2-1.3); Blood Urea Nitrogen 12 mg/dL (7-17); Calcium 9.2 mg/dL (8.4-10.2); Carbon Dioxide 29 mmol/L (22-30); Chloride 104 mmol/L (98-107); Estimated Glomerular Filt Rate > 60; Glucose 109 mg/dL (65-110); Potassium 3.8 mmol/L (3.4-5.0); Sodium 139 mmol/L (137-145)
== END 2023-04-08 12:46 | disposition home or self-care (01) ==
PROVIDERS: PCP Emergency Medicine; Visit Provider Internal Medicine Hematology & Oncology
DX: D72.829 Elevated white blood cell count, unspecified (principal)
CPT/HCPCS: 36415; 80047; 80053; 85025

== ENCOUNTER 2023-04-22 10:57 | Emergency (ER) | payer OTHER, SELFPAY ==
[2023-04-22 10:58] VITALS: BP 112/74; PULSE 91; RESP 18; TEMP 36.7; O2SAT 100
--- NOTE | 2023-04-22 13:34 | ED.GENADULT ---
HPI - General Adult General Chief complaint: Unspecified Stated complaint: left sided facial swelling Time Seen by Provider: 04/22/23 13:11 History of Present Illness HPI narrative: Patient is a 47-year-old female with a history of rheumatoid arthritis, migraines, hypertension, diabetes presenting with facial swelling. Patient's son is at bedside and assists with the history. Patient has been struggling with intermittent left-sided facial swelling for the last 4 months. States that it seems to randomly worsen without obvious aggravating factors. States that she also often gets headaches with them. Today she woke up and the left side of her face is more swollen than normal so they became concerned and brought her in for evaluation. States that the swelling has gone down significantly since being here. She complains of a mild left-sided headache that is normal for her. She denies eye pain or drainage, painful EOM, dental pain, fevers, neck or back pain, numbness or weakness. No further complaints. Related Data Home Medications Medication Instructions Recorded Confirmed metformin 500 mg tablet 500 mg PO DAILY 06/19/20 04/30/21 simvastatin 40 mg tablet 40 mg PO DAILY 06/19/20 04/30/21 fluticasone propionate 50 1 spray intranasal BID 07/05/20 04/30/21 mcg/actuation nasal spray,suspension loratadine 10 mg capsule 10 mg PO DAILY 07/05/20 04/30/21 hydroxychloroquine 200 mg tablet 200 mg PO BID 04/30/21 04/30/21 etanercept 50 mg/mL (1 mL) 50 mg subcut WEEKLY 01/28/23 01/28/23 subcutaneous syringe (Enbrel) famotidine 40 mg tablet mg 01/28/23 gabapentin 300 mg capsule mg 01/28/23 leflunomide 10 mg tablet mg 01/28/23 meloxicam 7.5 mg tablet 7.5 mg PO BID 01/28/23 01/28/23 ropinirole 0.25 mg tablet 0.25 mg PO DAILY 01/28/23 01/28/23 sumatriptan 50 mg tablet and ea 01/28/23 menthol 10 %-camphor 4 % topical gel Allergies Allergy/AdvReac Type Severity Reaction Status Date / Time omeprazole Allergy Unknown Verified 01/28/23 19:32 Review of Systems Review of Systems: All systems reviewed & are unremarkable except as noted in HPI and below PMFSH Past Medical History Medical History Allergic rhinitis Bulging disc Diabetes mellitus Hypercholesterolemia Hypertension Plantar fasciitis, bilateral Surgical History Surgical History H/O tubal ligation History of partial hysterectomy Family History Family History Mother Heart disease Hypertension Diabetes mellitus COPD (chronic obstructive pulmonary disease) Kidney disease Father Heart disease Diabetes mellitus Cancer Sibling Lupus Other Acute myocardial infarction Social History Social History Smoking status: Current every day smoker Tobacco type: cigarettes Alcohol intake: never Substance use: never Occupation/Education: occupation 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 EYES: PERRLA and EOMI. normal conjunctiva ENT: Mucous membranes moist. +left sided facial swelling particularly around left eye, no erythema or tenderness, no right sided swelling, no pain with EOM, no proptosis; +dentures NECK: Supple. no nuchal rigidity CHEST: No respiratory distress. HEART: Regular rate and rhythm EXTREMITIES: Normal range of motion. SKIN: Warm, dry, no rash. NEURO: No focal deficits. Alert and oriented x3. 5/5 strength in all extremities, [id number] intact, no pronator drift PSYCH: Normal mood and affect. Course Vital Signs Vital signs: Vital Signs Temperature 98.1 F 04/22/23 10:58 Pulse Rate 91 04/22/23 10:58 Respiratory Rate 18 04/22/23
== END 2023-04-22 13:54 | disposition home or self-care (01) ==
PROVIDERS: Emergency Provider Emergency Medicine; PCP Emergency Medicine
DX: R51.9 Headache, unspecified (principal); R22.0 Localized swelling, mass and lump, head; I10 Essential (primary) hypertension; E11.9 Type 2 diabetes mellitus without complications; Z79.84 Long term (current) use of oral hypoglycemic drugs
CPT/HCPCS: 99281

== ENCOUNTER → 2023-09-30 12:26 | Outpatient (CLI) | payer OTHER, SELFPAY ==
--- NOTE | ~2023-09-30 | XR_ITS ---
XR hip LT min 2V DATE: 09/30/2023 13:15 INDICATION: Bilateral hip pain for years TECHNIQUE: AP and lateral views of each hip COMPARISON: None FINDINGS: Normal alignment at the pubic symphysis and sacroiliac joints. Hip joint spaces appear symm etric and relatively well preserved. There is minimal periarticular spurring of the left femoral head . No fracture, dislocation, avascular necrosis or bone destruction of either hip is detected. IMPRESSION: Mild left hip osteoarthritis Reviewed, dictated and finalized at location B.
--- NOTE | ~2023-09-30 | XR_ITS ---
EXAMINATION: XR chest 2V DATE: 09/30/2023 13:15 INDICATION: Cough. TECHNIQUE: Frontal and lateral views of the chest were obtained. COMPARISON: Chest 2 views 11/20/2022 FINDINGS: There is no pneumonia, pleural effusion, or pneumothorax. The heart size is normal. IMPRESSION: 1. No acute cardiopulmonary disease. Reviewed, dictated and finalized at location A.
--- NOTE | ~2023-09-30 | XR_ITS ---
EXAMINATION: XR hip RT min 2V DATE: 09/30/2023 13:15 INDICATION: Chronic bilateral hip pain TECHNIQUE: Anteroposterior , frog leg and cross-table lateral views of the right hip were obtained. COMPARISON: None. FINDINGS: Alignment is normal. No fracture or suspected osteonecrosis. Minimal right hip osteoarthritis with ti ny marginal osteophytes about the acetabulum and femoral head but with relatively preserved joint spa ce. Mild right sacroiliac osteoarthritis. Phlebolith in the right hemipelvis. Soft tissues are otherw ise unremarkable. IMPRESSION: 1. Minimal right hip osteoarthritis and mild osteoarthritis at the right sacroiliac joint. Reviewed, dictated and finalized at location A. IMPRESSION: 1. Minimal right hip osteoarthritis and mild osteoarthritis at the right sacroi liac joint.
== END ==
PROVIDERS: PCP Emergency Medicine; Visit Provider Emergency Medicine
DX: R05.3 Chronic cough (principal); M16.0 Bilateral primary osteoarthritis of hip
CPT/HCPCS: 71046; 73502

== ENCOUNTER 2023-10-27 16:25 | Emergency (ER) | payer OTHER, SELFPAY ==
--- NOTE | ~2023-10-27 | XR_ITS ---
EXAM: XR hip LT 2V w AP pelvis DATE: 10/27/2023 17:33 HISTORY: left groin pain, no injury . COMPARISON: 09/30/2023. FINDINGS: Normal mineralization. No fracture or dislocation. No lytic or blastic lesion. Mild degene rative changes in the bilateral hips. Minimal enthesopathy or tendon calcification at the left greate r trochanter. No erosion or periosteal change. Soft tissues within normal limits. IMPRESSION: No acute osseous finding in the pelvis or left hip. Reviewed, dictated and finalized at location K.
--- NOTE | ~2023-10-27 | US_ITS ---
EXAMINATION: US venous doppler [facility] DATE: 10/27/2023 17:44 INDICATION: pain, swelling . TECHNIQUE: Grayscale images without and with compression and Doppler images of the left lower extremi ty veins were obtained. COMPARISON: None FINDINGS: The left common femoral vein, profunda (deep) femoral vein, femoral vein, popliteal vein, peroneal v ein, posterior tibial veins, gastrocnemius vein, and greater saphenous vein are patent. IMPRESSION: Patent left lower extremity veins. No evidence of deep venous thrombosis. Reviewed, dictated and finalized at location K.
[2023-10-27 16:40] VITALS: BP 114/73; PULSE 88; RESP 16; TEMP 36.5; O2SAT 98
[2023-10-27 17:19] VITALS: BP 104/66; PULSE 80; RESP 15; O2SAT 97
--- NOTE | 2023-10-27 17:26 | ED.EXTPRO ---
HPI - Extremity Problem General Chief complaint: Extremity Problem,Nontraumatic Stated complaint: pain in leg Time Seen by Provider: 10/27/23 17:10 Source: patient Mode of arrival: ambulatory Limitations: no limitations History of Present Illness HPI Narrative: This is a 48-year-old female that presents to the emergency department for left hip pain. Ongoing over the last couple of days. No known injury or trauma. Does report history of pain in her back and left hip for which she is currently seeing orthopedics. She has a follow-up appointment with them next week and further imaging scheduled. Reports worsening pain in her left groin/hip the last couple of days. Reports some swelling in her leg that is not unusual. Denies fever, erythema, or numbness. Related Data Home Medications Medication Instructions Recorded Confirmed metformin 500 mg tablet 500 mg PO DAILY 06/19/20 04/30/21 simvastatin 40 mg tablet 40 mg PO DAILY 06/19/20 04/30/21 fluticasone propionate 50 1 spray intranasal BID 07/05/20 04/30/21 mcg/actuation nasal spray,suspension loratadine 10 mg capsule 10 mg PO DAILY 07/05/20 04/30/21 hydroxychloroquine 200 mg tablet 200 mg PO BID 04/30/21 04/30/21 etanercept 50 mg/mL (1 mL) 50 mg subcut WEEKLY 01/28/23 01/28/23 subcutaneous syringe (Enbrel) famotidine 40 mg tablet mg 01/28/23 gabapentin 300 mg capsule mg 01/28/23 leflunomide 10 mg tablet mg 01/28/23 meloxicam 7.5 mg tablet 7.5 mg PO BID 01/28/23 01/28/23 ropinirole 0.25 mg tablet 0.25 mg PO DAILY 01/28/23 01/28/23 sumatriptan 50 mg tablet and ea 01/28/23 menthol 10 %-camphor 4 % topical gel Allergies Allergy/AdvReac Type Severity Reaction Status Date / Time omeprazole Allergy Unknown Verified 01/28/23 19:32 Review of Systems Review of Systems: CONSTITUTIONAL: Denies fever SKIN: Denies rash MUSCULOSKELETAL: Reports back pain, joint pain, and myalgia. NEUROLOGIC: Denies numbness, or weakness. All systems reviewed & are unremarkable except as noted in HPI and below PMFSH Past Medical History Medical History Allergic rhinitis Bulging disc Diabetes mellitus Hypercholesterolemia Hypertension Plantar fasciitis, bilateral Surgical History Surgical History H/O tubal ligation History of partial hysterectomy Family History Family History Mother Heart disease Hypertension Diabetes mellitus COPD (chronic obstructive pulmonary disease) Kidney disease Father Heart disease Diabetes mellitus Cancer Sibling Lupus Other Acute myocardial infarction Social History Social History Smoking status: Current every day smoker Tobacco type: cigarettes Alcohol intake: never Substance use: never Occupation/Education: occupation 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 HEAD: Normocephalic, atraumatic. EYES: EOMI. CHEST: Clear to auscultation. No respiratory distress. No wheezes rales or rhonchi HEART: Regular rate and rhythm. No murmur heard. Normal peripheral pulses. BACK: No midline spinal tenderness EXTREMITIES: Normal range of motion. No edema or erythema. Normal DP pulse. Normal sensation SKIN: Warm, dry, no rash. NEURO: No focal deficits. Alert and oriented x3. PSYCH: Normal mood and affect Course Course Emergency Course: patient and family updated on workup and agree with plan of care Vital Signs Vital signs: Vital Signs Temperature 97.7 F 10/27/23 16:40 Pulse Rate 88 10/27/23 16:40 Respiratory Rate 16 10/27/23 16:40 Blood Pressure 114/73 10/27/23 16:40 Pulse Oximetry 98 10/27/23 16:40 Oxygen Delivery Room Air 10/27/23 16:40 Temperatur
[2023-10-27] MEDS: ACETAMINOPHEN 500 MG TABLET 1000 MG PO (17:49)
[2023-10-27] MEDS: diazePAM INJ (*CRX) 10 MG/2 ML SYRINGE 5 MG IM (17:50)
[2023-10-27 19:20] VITALS: BP 118/73; PULSE 70; RESP 16; O2SAT 100
== END 2023-10-27 19:21 | disposition home or self-care (01) ==
PROVIDERS: Emergency Provider Physician Assistant; PCP Emergency Medicine
DX: M25.552 Pain in left hip (principal); I10 Essential (primary) hypertension; E11.9 Type 2 diabetes mellitus without complications; E78.00 Pure hypercholesterolemia, unspecified; F17.210 Nicotine dependence, cigarettes, uncomplicated; Z90.710 Acquired absence of both cervix and uterus; Z79.84 Long term (current) use of oral hypoglycemic drugs; Z79.899 Other long term (current) drug therapy
CPT/HCPCS: 73502; 93971; 96372; 99284; A9270; J3360

== ENCOUNTER 2024-04-12 15:03 | Outpatient (CLI) | payer OTHER, SELFPAY ==
[2024-04-12 15:16] LABS: Basophils Absolute Auto 0.1 K/mm3 (0.0-0.1); Basophils Percent Auto 0.7 % (0.2-1.2); Eosinophils Absolute Auto 0.2 K/mm3 (0-0.3); Eosinophils Percent Auto 1.8 % (0-4.4); Hematocrit 37.6 % (37.0-47.0); Hemoglobin 12.7 g/dL (12.0-15.0); Immature Granulocyte Absolute 0.04 K/mm3 (0.00-0.031); Immature Granulocyte Percent A 0.4 % (0-0.5); Lymphocytes Absolute Auto 3.97 K/mm3 (0.9-3.2); Lymphocytes Percent Auto 43.6 % (18.3-44.2); Mean Corpuscular HGB Conc 33.8 g/dl (32-36); Mean Corpuscular Hemoglobin 30.6 pg (26-34); Mean Corpuscular Volume 90.6 fl (80-100); Mean Platelet Volume 8.3 fl (7.4-10.4); Monocytes Absolute Auto 0.7 K/mm3 (0.1-0.6); Monocytes Percent Auto 7.7 % (2.6-8.5); Neutrophils Absolute Auto 4.2 K/mm3 (1.3-6.7); Neutrophils Percent Auto 45.8 % (45.5-73.1); Platelet Count Result 337 k/mm3 (150-375); Red Blood Count 4.15 M/mm3 (4.2-5.4); Red Cell Distribution Width 13.9 % (11.5-14.5); White Blood Count 9.1 K/mm3 (4.5-10.0)
[2024-04-12 16:46] LABS: Anion Gap 5 mmol/L (4-12); Blood Urea Nitrogen 13 mg/dL (7-17); Calcium 9.7 mg/dL (8.4-10.2); Carbon Dioxide 27 mmol/L (22-30); Chloride 104 mmol/L (98-107); Estimated Glomerular Filt Rate > 60; Glucose 106 mg/dL (65-110); Sodium 136 mmol/L (137-145)
== END 2024-04-12 15:04 | disposition home or self-care (01) ==
LOC: ANHLAB 15:03
PROVIDERS: PCP Emergency Medicine; Visit Provider Internal Medicine Hematology & Oncology
DX: D72.829 Elevated white blood cell count, unspecified (principal)
CPT/HCPCS: 36415; 80048; 85025

== ENCOUNTER 2024-07-20 15:39 | Emergency (ER) | payer OTHER, SELFPAY ==
[2024-07-20 15:49] VITALS: BP 137/81; PULSE 96; RESP 16; TEMP 36.8; O2SAT 96
--- NOTE | 2024-07-20 16:50 | ED.ABDPAIN ---
HPI - Abdominal Pain General Chief Complaint: Abdominal Pain <Torie Webber PA-C - Last Filed: 07/23/24 13:01> Stated Complaint: abd pain, pain with urination <Torie Webber PA-C - Last Filed: 07/23/24 13:01> Time Seen by Provider: 07/20/24 16:50 <Torie Webber PA-C - Last Filed: 07/23/24 13:01> Focused HPI: This is a 48 year old female that presents to the ER for abdominal pain. Reports associated dysuria, nausea, chills. Ongoing over the last 4 days. Reports elevated blood sugars. GENERAL: Well-appearing, well-nourished, and in no acute distress. HEAD: Normocephalic, atraumatic. CHEST: Clear to auscultation. ?No respiratory distress. HEART: Regular rate and rhythm.? NEURO: ?Alert and oriented x3. Patient screened in triage and initial orders placed.? ?Additional care and disposition to be based upon?diagnostic testing and treatment. <Torie Webber PA-C - Last Filed: 07/23/24 13:01> History of Present Illness HPI narrative: Agree with the HPI above. Patient has no history of previous urinary infections, no recent urological procedures. Denies chance of . Was otherwise in her normal state of health. Endorses polyuria, incomplete voiding and dysuria with pain and burning with urination. No bleeding. <Neil Mayes MD - Last Filed: 07/20/24 20:23> Related Data Home Medications: Home Medications ?Medication ?Instructions ?Recorded ?Confirmed ?Last Taken ?Type metformin 500 mg tablet 500 mg PO DAILY 06/19/20 04/30/21 Unknown History simvastatin 40 mg tablet 40 mg PO DAILY 06/19/20 04/30/21 Unknown History fluticasone propionate 50 1 spray intranasal BID 07/05/20 04/30/21 Unknown History mcg/actuation nasal spray,suspension loratadine 10 mg capsule 10 mg PO DAILY 07/05/20 04/30/21 Unknown History hydroxychloroquine 200 mg tablet 200 mg PO BID 04/30/21 04/30/21 Unknown History etanercept 50 mg/mL (1 mL) 50 mg subcut WEEKLY 01/28/23 01/28/23 Unknown History subcutaneous syringe (Enbrel) famotidine 40 mg tablet mg 01/28/23 Unknown History gabapentin 300 mg capsule mg 01/28/23 Unknown History leflunomide 10 mg tablet mg 01/28/23 Unknown History meloxicam 7.5 mg tablet 7.5 mg PO BID 01/28/23 01/28/23 Unknown History ropinirole 0.25 mg tablet 0.25 mg PO DAILY 01/28/23 01/28/23 Unknown History sumatriptan 50 mg tablet and ea 01/28/23 Unknown History menthol 10 %-camphor 4 % topical gel <Torie Webber PA-C - Last Filed: 07/23/24 13:01> Allergies/Adverse Reactions: Allergies Allergy/AdvReac Type Severity Reaction Status Date / Time omeprazole Allergy Unknown Verified 01/28/23 19:32 <Torie Webber PA-C - Last Filed: 07/23/24 13:01> Review of Systems Review of Systems: As reviewed above in HPI <Neil Mayes MD - Last Filed: 07/20/24 20:23> [facility] Past Medical History Medical History: Medical History Plantar fasciitis, bilateral Bulging disc Allergic rhinitis Hypercholesterolemia Hypertension Diabetes mellitus <Torie Webber PA-C - Last Filed: 07/23/24 13:01> Surgical History Surgical History: Surgical History H/O tubal ligation History of partial hysterectomy <PATEL Richard Last Filed: 07/23/24 13:01> Family History Family History: Family History Mother Heart disease Hypertension Diabetes mellitus COPD (chronic obstructive pulmonary disease) Kidney disease Father Heart disease Diabetes mellitus Cancer Sibling Lupus Other Acute myocardial infarction <Torie Webber PA-C - Last Filed: 07/23/24 13:01> Social History Social History: Social History Smoking status: Current every day smoker Tobacco type: cigarettes Alcohol intake: never Substance use: never Occupation/Education: occupation 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 Mucous membranes moist. NECK: Supple. CHEST: [Clear to auscultation. No respiratory distress.] HEART: [Regular rate and rhythm]. No murmur heard. [Normal peripheral pulses.] ABDOMEN: [Soft, nondistended], [nontender], [No rigidity or guarding] negative CVA tenderness bilaterally. EXTREMITIES: Normal range of motion. [No edema.] SKIN: Warm, dry, no rash. NEURO: [No focal deficits]. Alert and oriented [x3.] PSYCH: [Normal mood and affect.] <Neil Mayes MD - Last Filed: 07/20/24 20:23> Course Vital Signs Vital signs: Vital Signs Temperature 98.3 F 07/20/24 15:49 Pulse Rate 96 07/20/24 15:49 Respiratory Rate 16 07/20/24 15:49 Blood Pressure 137/81 07/20/24 15:49 Pulse Oximetry 96 07/20/24 15:49 Oxygen Delivery Room Air 07/20/24 15:49 Temperature 98 F 07/20/24 19:53 Pulse Rate 91 07/20/24 19:53 Respiratory Rate 16 07/20/24 19:53 Blood Pressure 114/68 07/20/24 19:53 Pulse Oximetry 100 07/20/24 19:53 Oxygen Delivery Room Air 07/20/24 15:49 <Torie Webber PA-C - Last Filed: 07/23/24 13:01> Vital Signs Temperature 98.3 F 07/20/24 15:49 Pulse Rate 96 07/20/24 15:49 Respiratory Rate 16 07/20/24 15:49 Blood Pressure 137/81 07/20/24 15:49 Pulse Oximetry 96 07/20/24 15:49 Oxygen Delivery Room Air 07/20/24 15:49 Temperature 98 F 07/20/24 19:53 Pulse Rate 91 07/20/24 19:53 Respiratory Rate 16 07/20/24 19:53 Blood Pressure 114/68 07/20/24 19:53 Pulse Oximetry 100 07/20/24 19:53 Oxygen Delivery Room Air 07/20/24 15:49 <Neil Mayes MD - Last Filed: 07/20/24 20:23> MDM - Abdominal Pain MDM Narrative Medical decision making narrative: 48-year-old female presenting to the emergency department for dysuria and lower abdominal/pelvic pain. Endorses dysuria, incomplete voiding and pain during urination and after voiding. Denies any foul odor, fever, chills, back pain. She is otherwise well-appearing not any acute distress, normal vital signs without any fever, tachycardia, blood pressure concerns or hypoxia. She has a soft nontender nondistended abdomen. No appreciable CVA tenderness. No pelvic tenderness. Suspicion presently is for urinary tract infection, cystitis, low likelihood pyelonephritis. She reports a history of diabetes which makes her high risk for infection. CBC, CMP, urinalysis and test obtained. Workup shows a with small leukocytosis of 11.8, no anemia. Normal platelet count. Electrolytes within normal limits, normal glucose, normal LFTs and normal renal function panel. Negative lipase. Urinalysis shows leukocyte esterase, bacteria and greater than 100 white blood cells consistent with a urinary infection. test is negative. Patient will be started on Bactrim and be sent home with a prescription for this as well as return precautions and PCP follow-up instructions. Patient verbalized understanding of the diagnosis, instructions and return precautions and she was safely discharged home at this time. <Neil Mayes MD - Last Filed: 07/20/24 20:23> Medical Records Attestation: I reviewed the patient's medical records. <Neil Mayes MD - Last Filed: 07/20/24 20:23> Lab Data Attestation: I reviewed the patient's lab results. <Neil Mayes MD - Last Filed: 07/20/24 20:23> Result diagrams: 07/20/24 17:14 07/20/24 17:14 <Torie Webber PA-C - Last Filed: 07/23/24 13:01> Labs: Lab Results 07/20/24 Range/Units 17:14 WBC 11.8 H (4.5-10.0) K/mm3 RBC 4.36 (4.2-5.4) M/mm3 Hgb 13.1 (12.0-15.0) g/dL Hct 40.0 (37.0-47.0) % MCV 91.7 (80-100) fl MCH 30.0 (26-34) pg MCHC 32.8 (32-36) g/dl RDW 14.2 (11.5-14.5) % Plt Count 333 (150-375) k/mm3 MPV 8.3 (7.4-10.4) fl Immature Gran % (Auto) 0.3 (0-0.5) % Neut % (Auto) 59.9 (45.5-73.1) % Lymph % (Auto) 31.8 (18.3-44.2) % [place] % (Auto) 6.3 (2.6-8.5) % Eos % (Auto) 1.4 (0-4.4) % Baso % (Auto) 0.3 (0.2-1.2) % Lymph # (Auto) 3.76 H (0.9-3.2) K/mm3 [place] # (Auto) 0.7 H (0.1-0.6) K/mm3 Eos # (Auto) 0.2 (0-0.3) K/mm3 Baso # (Auto) 0.0 (0.0-0.1) K/mm3 Abs Immat Gran (auto) 0.03 (0.00-0.031) K/mm3 Absolute Neuts (auto) 7.1 H (1.3-6.7) K/mm3 Absolute Nucleated RBC 0.000 (0.0-0.012) K/mm3 Nucleated RBC % 0.0 (0.0-0.2) % Sodium 140 (137-145) mmol/L Potassium 3.7 (3.4-5.0) mmol/L Chloride 103 (98-107) mmol/L Carbon Dioxide 25 (22-30) mmol/L Anion Gap 12 (4-12) mmol/L BUN 11 (7-17) mg/dL Creatinine 0.71 (0.7-1.0) mg/dL Estim Creat Clear Calc 92 ml/min Estimated GFR > 60 (59 - ) Glucose 129 H (65-110) mg/dL Calcium 9.6 (8.4-10.2) mg/dL Total Bilirubin 0.4 (0.2-1.3) mg/dL AST 22 (14-36) U/L ALT 32 (6-35) U/L Alkaline Phosphatase 87 (38-126) U/L Total Protein 8.0 (6.3-8.2) g/dL Albumin 4.5 (3.5-5.1) g/dL Lipase 293 (23-300) U/L Urine Color Yellow (Yellow) Urine Appearance Clear (Clear) Urine pH 5.5 (5.0-9.0) Ur Specific [place] 1.006 (1.001-1.035) Urine Protein Trace (Negative) mg/dL Urine Glucose (UA) Negative (Negative) mg/dL Urine Ketones Negative (Negative) mg/dL Ur Blood (Man) 3+ H (Negative) Urine Nitrate Negative (Negative) Urine Bilirubin Negative (Negative) Urine Urobilinogen 0.2 (<2.0) mg/dL Leukocyte Esterase Rfl 3+ H (Negative) GLYNN/UL Urine RBC 3-5 H (0-2) /hpf Urine WBC >100 H (0-3) /hpf Ur Squamous Epith Cells None seen (Few) /hpf Urine Bacteria Rare /hpf Urine Casts 0-2 Urine Test Negative <Torie Webber PA-C - Last Filed: 07/23/24 13:01> Lab Results 07/20/24 Range/Units 17:14 WBC 11.8 H (4.5-10.0) K/mm3 RBC 4.36 (4.2-5.4) M/mm3 Hgb 13.1 (12.0-15.0) g/dL Hct 40.0 (37.0-47.0) % MCV 91.7 (80-100) fl MCH 30.0 (26-34) pg MCHC 32.8 (32-36) g/dl RDW 14.2 (11.5-14.5) % Plt Count 333 (150-375) k/mm3 MPV 8.3 (7.4-10.4) fl Immature Gran % (Auto) 0.3 (0-0.5) % Neut % (Auto) 59.9 (45.5-73.1) % Lymph % (Auto) 31.8 (18.3-44.2) % [place] % (Auto) 6.3 (2.6-8.5) % Eos % (Auto) 1.4 (0-4.4) % Baso % (Auto) 0.3 (0.2-1.2) % Lymph # (Auto) 3.76 H (0.9-3.2) K/mm3 [place] # (Auto) 0.7 H (0.1-0.6) K/mm3 Eos # (Auto) 0.2 (0-0.3) K/mm3 Baso # (Auto) 0.0 (0.0-0.1) K/mm3 Abs Immat Gran (auto) 0.03 (0.00-0.031) K/mm3 Absolute Neuts (auto) 7.1 H (1.3-6.7) K/mm3 Absolute Nucleated RBC 0.000 (0.0-0.012) K/mm3 Nucleated RBC % 0.0 (0.0-0.2) % Sodium 140 (137-145) mmol/L Potassium 3.7 (3.4-5.0) mmol/L Chloride 103 (98-107) mmol/L Carbon Dioxide 25 (22-30) mmol/L Anion Gap 12 (4-12) mmol/L BUN 11 (7-17) mg/dL Creatinine 0.71 (0.7-1.0) mg/dL Estim Creat Clear Calc 92 ml/min Estimated GFR > 60 (59 - ) Glucose 129 H (65-110) mg/dL Calcium 9.6 (8.4-10.2) mg/dL Total Bilirubin 0.4 (0.2-1.3) mg/dL AST 22 (14-36) U/L ALT 32 (6-35) U/L Alkaline Phosphatase 87 (38-126) U/L Total Protein 8.0 (6.3-8.2) g/dL Albumin 4.5 (3.5-5.1) g/dL Lipase 293 (23-300) U/L Urine Color Yellow (Yellow) Urine Appearance Clear (Clear) Urine pH 5.5 (5.0-9.0) Ur Specific [place] 1.006 (1.001-1.035) Urine Protein Trace (Negative) mg/dL Urine Glucose (UA) Negative (Negative) mg/dL Urine Ketones Negative (Negative) mg/dL Ur Blood (Man) 3+ H (Negative) Urine Nitrate Negative (Negative) Urine Bilirubin Negative (Negative) Urine Urobilinogen 0.2 (<2.0) mg/dL Leukocyte Esterase Rfl 3+ H (Negative) GLYNN/UL Urine RBC 3-5 H (0-2) /hpf Urine WBC >100 H (0-3) /hpf Ur Squamous Epith Cells None seen (Few) /hpf Urine Bacteria Rare /hpf Urine Casts 0-2 Urine Test Negative <Neil Mayes MD - Last Filed: 07/20/24 20:23> Critical Care Time Critical Care Time Critical Care Time: No <Torie Webber PA-C - Last Filed: 07/23/24 13:01> Discharge Plan Discharge Clinical Impression: Cystitis Urinary tract infection Qualifiers: Urinary tract infection type: acute cystitis Hematuria presence: without hematuria Qualified Code(s): N30.00 - Acute cystitis without hematuria <Torie Webber PA-C - Last Filed: 07/23/24 13:01> Patient Disposition: Home, Self-Care <Torie Webber PA-C - Last Filed: 07/23/24 13:01> Condition: Stable <Torie Webber PA-C - Last Filed: 07/23/24 13:01> Instructions: Antibiotic Form, Urinary Tract Infection in Women (DC) <Torie Webber PA-C - Last Filed: 07/23/24 13:01> Additional Instructions: You have a urinary tract infection consistent with her symptoms. We will send you home with antibiotics for next week. Take these as prescribed, follow-up with regular doctor. Return if you develop any back pain, fever, intractable nausea vomiting or any worsening abdominal pain. <Torie Webber PA-C - Last Filed: 07/23/24 13:01> Patient Language: Trinidadian <Torie Webber PA-C - Last Filed: 07/23/24 13:01> Prescriptions: New sulfamethoxazole-trimethoprim [Bactrim DS] 800-160 mg tablet 1 tablet PO Q12H Qty: 14 0RF No Action famotidine 40 mg tablet leflunomide 10 mg tablet meloxicam 7.5 mg Tablet 7.5 mg PO BID ropinirole 0.25 mg Tablet 0.25 mg PO DAILY gabapentin 300 mg capsule Enbrel 50 mg/mL (1 mL) Syringe 50 mg SUBCUT WEEKLY sumatriptan [id number] 50 mg- 10 %-4 % Kit,Gel And Tablet hydroxychloroquine 200 mg tablet 200 mg PO BID simvastatin 40 mg tablet 40 mg PO DAILY metformin 500 mg tablet 500 mg PO DAILY loratadine 10 mg capsule 10 mg PO DAILY fluticasone propionate 50 mcg/actuation spray,suspension 1 spray intranasal BID Rx Instructions: administer into each nostril cyclobenzaprine 10 mg tablet 10 mg PO TID PRN (Reason: muscle spasm) Qty: 14 0RF albuterol sulfate 90 mcg/actuation HFA aerosol inhaler See Rx Instructions .ROUTE .COMPLEX Qty: 8.5 3RF Dose Instruction: INHALE 2 PUFFS EVERY 4 HOURS NEEDED FOR SHORTNESS OF BREATH OR WHEEZING Rx Instructions: INHALE 2 PUFFS EVERY 4 HOURS NEEDED FOR SHORTNESS OF BREATH OR WHEEZING <Torie Webber PA-C - Last Filed: 07/23/24 13:01> Follow-up/Referrals: Jeff Duque MD [Primary Care Provider] - <Torie Webber PA-C - Last Filed: 07/23/24 13:01> Time of Disposition: 20:23 <Torie Webber PA-C - Last Filed: 07/23/24 13:01> 20:23 <Neil Mayes MD - Last Filed: 07/20/24 20:23>
[2024-07-20 17:22] LABS: Basophils Percent Auto 0.3 % (0.2-1.2); Eosinophils Absolute Auto 0.2 K/mm3 (0-0.3); Eosinophils Percent Auto 1.4 % (0-4.4); Hemoglobin 13.1 g/dL (12.0-15.0); Immature Granulocyte Absolute 0.03 K/mm3 (0.00-0.031); Immature Granulocyte Percent A 0.3 % (0-0.5); Lymphocytes Absolute Auto 3.76 K/mm3 (0.9-3.2); Lymphocytes Percent Auto 31.8 % (18.3-44.2); Mean Corpuscular HGB Conc 32.8 g/dl (32-36); Mean Corpuscular Volume 91.7 fl (80-100); Mean Platelet Volume 8.3 fl (7.4-10.4); Monocytes Absolute Auto 0.7 K/mm3 (0.1-0.6); Monocytes Percent Auto 6.3 % (2.6-8.5); Neutrophils Absolute Auto 7.1 K/mm3 (1.3-6.7); Neutrophils Percent Auto 59.9 % (45.5-73.1); Platelet Count Result 333 k/mm3 (150-375); Red Blood Count 4.36 M/mm3 (4.2-5.4); Red Cell Distribution Width 14.2 % (11.5-14.5); White Blood Count 11.8 K/mm3 (4.5-10.0)
[2024-07-20 17:29] LABS: Add Urine Microscopic? YES; Appearance Urine Clear (Clear); Bacteria Urine Rare /hpf; Bilirubin Urine Negative (Negative); Blood Urine 3+ (Negative); Color Urine Yellow (Yellow); Glucose Urine UA Negative (Negative); Ketones Urine Negative (Negative); Leukocyte Esterase Ur 3+ LEU/UL (Negative); Nitrate Urine Negative (Negative); Non Pathogenic Casts 0-2; Protein Urine Trace mg/dL (Negative); Specific Grav Ur 1.006 (1.001-1.035); Squamous Epithelial Cell Urine None Seen /hpf (Few); Urobilinogen Urine 0.2 mg/dL (<2.0); WBC Urine >100 /hpf (0-3); pH Urine 5.5 (5.0-9.0)
[2024-07-20 17:32] LABS: Alanine Aminotransferase 32 U/L (6-35); Albumin Level 4.5 g/dL (3.5-5.1); Alkaline Phosphatase 87 U/L (38-126); Anion Gap 12 mmol/L (4-12); Aspartate Amino Transferase 22 U/L (14-36); Bilirubin,Total 0.4 mg/dL (0.2-1.3); Blood Urea Nitrogen 11 mg/dL (7-17); Calcium 9.6 mg/dL (8.4-10.2); Carbon Dioxide 25 mmol/L (22-30); Chloride 103 mmol/L (98-107); Estimated CRCL calculation 92 ml/min; Estimated Glomerular Filt Rate > 60; Glucose 129 mg/dL (65-110); Lipase 293 U/L (23-300); Potassium 3.7 mmol/L (3.4-5.0); Sodium 140 mmol/L (137-145)
--- OUTSIDE RECORDS SUMMARY | 2024-07-20 17:38 | XMS_ITS | Patient Health Summary ---
Author Organization [facility] Address [address] [place] [place] [address] Care Team Providers Care Recruiting Specialist Name Role Phone Jeff Duque MD Primary Care Provider [phone] Jeff Duque MD Unavailable Note from Formerly named [facility],non-owned Affiliates and Associated Physician Practices is amultiple site organization consisting of ambulatory clinics and hospital sitesin [place], [place], [place] and [place]. This disclosure is being madepursuant to the Care Everywhere program and may not contain all information available regarding this patient. Last updated 18.[facility] Allergies * Omeprazole(Rash,Nausea and/or Vomiting,Dizziness) -Medium Criticality * Omeprazole,Inactive Medications * Be aware that medications may not be up to date on this document. Alwaysverify current medications with the patient. * albuterol HFA (PROVENTIL;VENTOLIN;PROAIR) 108 (90 Base) MCG/ACT inhaler (Started 11/12/2019) Inhale 2 (two) puffs by mouth every 6 hours as needed * metFORMIN (Glucophage) 500 MG tablet Take 1 (one) tablet by mouth once daily * fluticasone propionate (Flonase) 50 MCG/ACT nasal spray [place] 2 (two) sprays into each nostril once daily * loratadine (Claritin) 10 MG tablet(Started 05/17/2022) Take 1 (one) tablet by mouth once daily * Symbicort 160-4.5 MCG/ACT inhaler(Started 07/27/2023) INHALE 2 PUFFS BY MOUTH 2 TIMES A DAY RINSE MOUTH WITH WATER AFTER USE. DO NOT SWALLOW. * triamcinolone acetonide (Kenalog) 0.1 % ointment(Started 11/11/2023) Apply to affected area on body twice daily for 2 weeks. 30 day supply 4 refills by 11/10/2024 * rOPINIRole (Requip) 0.5 MG tablet(Started 01/20/2024) Take 1 (one) tablet by mouth once daily * hydroxychloroquine (Plaquenil) 200 MG tablet(Started 03/15/2024) Take 2 (two) tablets by mouth once daily 3 refills by 03/15/2025 * nortriptyline (Pamelor) 25 MG capsule(Started 04/15/2024) Take 1 (one) capsule by mouth at bedtime 4 refills by 04/15/2025 * SUMAtriptan (Imitrex) 50 MG tablet(Started 04/15/2024) 1 tablet at the onset of migraine; may repeat after 2 hours once in a 24 hour period if needed 5 refills by 04/15/2025 * gabapentin (Neurontin) 300 MG capsule(Started 04/15/2024) Take 300 mg in am, 300 mg in afternoon and 600 mg at night 5 refills by 04/15/2025 * rosuvastatin (Crestor) 20 MG tablet(Started 04/30/2024) rosuvastatin 20 mg tablet * cetirizine (ZyrTEC) 10 MG tablet(Started 06/03/2024) Take 1 (one) tablet by mouth 2 times daily Reasons: Angioedema 4 refills by 06/03/2025 * famotidine (Pepcid) 20 MG tablet(Started 07/05/2024) Take 1 (one) tablet by mouth 2 times daily Reasons: Hives, angioedema 4 refills by 07/05/2025 * atorvastatin (Lipitor) 20 MG tablet Take 1 (one) tablet by mouth at bedtime * abatacept (Orencia ClickJect) 125 MG/ML auto-injector pen(Started 07/12/2024) Inject 1 mL subcutaneously every 7 days Pen 5 refills by 07/12/2025 Ended Medications* famotidine (Pepcid) 40 MG tablet(Started 02/18/2024) (Discontinued) Take 0.5 (one-half) tablet by mouth once daily Reasons: Heartburn * famotidine (Pepcid) 20 MG tablet(Started 06/03/2024)(Discontinued) Take 1 (one) tablet by mouth at bedtime Reasons: Hives, angioedema 4 refills by 06/03/2025 Active Problems Problem Noted Date Diagnosed Date Periodic limb movement 01/08/2022 Hypersomnia 05/30/2021 Obstructive sleep apnea 05/30/2021 Psychophysiological insomnia 05/30/2021 Teeth grinding 05/30/2021 Inflammatory arthritis 03/05/2021 Asthma 09/08/2020 Chest pain 09/08/2020 Family history of stroke 09/08/2020 Fatigue 09/08/2020 Leg edema 09/08/2020 Nicotine dependence 09/08/2020 Palpitations 09/08/2020 Dyspnea on exertion 09/08/2020 Type 2 diabetes mellitus without complications 0 09/08/2020 Leukocytosis (leucocytosis) 08/29/2020 Chronic cough 03/02/2020 Pulmonary nodules 03/02/2020 Resolved Problems Problem Noted Date Diagnosed Date Resolved Date High blood pressure 10/19/2020 02/02/20 24 Social History Tobacco Use Types Packs/Day Years Used Date Smoking Tobacco: Every Day Cigarettes 1 37.2 Started: 1987 Smokeless Tobacco: Never Tobacco Cessation:Ready to Q uit: Not Asked; Counseling Given: Not Answered Alcohol Use Standard Drinks/Week Comments Never 0 (1 standard drink = 0.6 oz pur e alcohol) PHQ-2 Answer Date Recorded Patient Health Questionnaire-2 Score 0 07/12/2024 Sex and Gender Information Value Date Recorded Sex Assigned at Not on file Gender Identity Female 05/10/2021 10:24 PM DIRECTOR DIGITAL [employer]NALYTICS Sexual Orientation Not on file Last Filed Vital Signs Vital Sign Reading Time Taken Comments Blood Pressure 126/82 07/12/2024 3:00 PM DIRECTOR [employer]ITAL [employer] Pulse 90 07/12/2024 3:00 PM DIRECTOR [employer]NALYT[employer] Temperature 36.3 C (97.3 F) 07/12/2024 3:00 PM DIRECTOR [employer]ITAL [employer]LYT[employer] Respiratory Rate 16 07/12/2024 3:00 PM DIRECTOR [employer]ITAL [employer]NALYT[employer] Oxygen Saturation 95% 07/12/2024 3:00 PM DIRECTOR [employer]ITAL [employer] Inhaled Oxygen Concentration - - Weight 83 kg (183 lb) 07/12/2024 3:00 PM DIRECT[employer]ITAL [employer]NA[employer] Height 170.2 cm (5' 7 ) 07/06/2024 1:24 PM DIRECTOR [employer] Body Mass Index 28.66 07/06/2024 1:24 PM DIRECTOR [employer] Procedures * WI DRAIN INJ MAJOR JOINT BURSA W US(Performed 07/06/2024) Performed for Pain of both hip joints * FUNDUS PHOTO BOTH EYES(Performed 06/17/2024) Performed for Long-term use of Plaquenil * DORMAN AUTO VISUAL FIELD EXTENDED(Performed 06/17/2024) Performed for Long-term use of Plaquenil * RETINAL ANALYSIS OCT(Performed 06/17/2024) Performed for Long-term use of Plaquenil * XR HIP RIGHT 2VW OR MORE(Performed 06/15/2024) Performed for Groin pain, right * XR HIP LEFT 2VW OR MORE(Performed 06/15/2024) Performed for Groin pain, right * XR LUMBAR SPINE 2 OR 3VW(Performed 06/15/2024) Performed for Low back pain, unspecified back pain laterality, unspecified chronicity, unspecified whether sciatica present * FA ICG ANGIOGRAPHY(Performed 05/21/2024) Performed for Retinal lesion of both eyes * FUNDUS PHOTO BOTH EYES(Performed 05/21/2024) Performed for Retinal lesion of both eyes * RETINAL ANALYSIS OCT(Performed 05/21/2024) Performed for Retinal lesion of both eyes * TSH(Performed 04/20/2024) * T4 FREE(Performed 04/20/2024) * CORTISOL BLOOD AM(Performed 04/20/2024) * ACTH(Performed 04/20/2024) * FUNDUS PHOTO BOTH EYES(Performed 02/02/2024) Performed for Choroiditis of both eyes * VAS CAROTID DUPLEX BILATERAL(Performed 01/15/2024) Performed for Bilateral carotid artery stenosis * ENDOSCOPY, COLON, DIAGNOSTIC(Performed 01/13/2024) * PATHOLOGY TISSUE(Performed 01/13/2024) Performed for Generalized abdominal pain * EGD(Performed 01/13/2024) * WI COLONOSCOPY, DIAGNOSTIC(Performed 01/13/2024) Performed for Generalized abdominal pain * WI ED EGD FLEX TRANSORAL DX(Performed 01/13/2024) Performed for Generalized abdominal pain * GLUCOSE - POINT OF CARE(Performed 01/13/2024) * QUANTIFERON-TB GOLD PLUS 1-TUBE(Performed 11/18/2023) * C-REACTIVE PROTEIN(Performed 11/18/2023) Performed for 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 factor (HCC) * ERYTHROCYTE SEDIMENTATION RATE(Performed 11/18/2023) Performed for 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 factor (HCC) * COMPREHENSIVE METABOLIC PANEL(Performed 11/18/2023) Performed for 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 factor (HCC) * CBC W AUTO DIFFERENTIAL(Performed 11/18/2023) Performed for 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 factor (HCC) * VITAMIN B12(Performed 11/18/2023) Performed for 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 factor (HCC) * HEPATITIS SCREEN ACUTE(Performed 11/18/2023) Performed for 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 factor (HCC) * COMPLEMENT C3 C4 PANEL(Performed 11/18/2023) Performed for 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 factor (HCC) * HOLDEN PANEL COMPREHENSIVE(Performed 11/18/2023) Performed for 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 factor (HCC) * VAS ARTERIAL ANKLE ARM INDEX(Performed 11/14/2023) Performed for Claudication of both lower extremities (HCC) * PROC ENDOSCOPY-LARYNX(Performed 10/23/2023) Performed for Malika's edema of vocal folds, Hoarseness, Smoking, Chronic maxillary sinusitis, Chronic rhinitis, Nasal congestion, Deviated septum * XR CERVICAL SPINE 2 OR 3VW(Performed 10/14/2023) Performed for Low back pain, unspecified back pain laterality, unspecified chronicity, unspecified whether sciatica present * XR THORACIC SPINE 2VW(Performed 10/14/2023) Performed for Low back pain, unspecified back pain laterality, unspecified chronicity, unspecified whether sciatica present * XR LUMBAR SPINE 2 OR 3VW(Performed 10/14/2023) Performed for Low back pain, unspecified back pain laterality, unspecified chronicity, unspecified whether sciatica present * URINALYSIS AUTO - POINT OF CARE (AMB) [facility](Performed 09/25/2023) Performed for Adrenal mass (HCC) * CORTISOL BLOOD AM(Performed 08/29/2023) * METANEPHRINES FRACTIONATED PLASMA(Performed 08/29/2023) * ALDOSTERONE/RENIN RATIO PANEL(Performed 08/29/2023) * HOLDEN BLOOD TITER(Performed 08/26/2023) * EXTENDED MYOSITIS PANEL(Performed 08/26/2023) Performed for 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 factor (HCC) * HOLDEN PANEL COMPREHENSIVE(Performed 08/26/2023) Performed for 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 factor (HCC) * CK BLOOD(Performed 08/26/2023) Performed for 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 factor (HCC) * COMPLEMENT C3 C4 PANEL(Performed 08/26/2023) Performed for 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 factor (HCC) * HISTONE ANTIBODY(Performed 08/26/2023) Performed for 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 factor (HCC) * URINALYSIS AUTO - POINT OF CARE (AMB) [facility](Performed 08/14/2023) Performed for Gross hematuria * WI PUNCH BX SKIN SINGLE LESION(Performed 08/06/2023) Performed for Rash and other nonspecific skin eruption * WI PUNCH BX SKIN EA SEP ADDL(Performed 08/06/2023) Performed for Rash and other nonspecific skin eruption * DERMATOPATHOLOGY(Performed 08/05/2023) Performed for Rash and other nonspecific skin eruption * CT ABDOMEN PELVIS W CONTRAST(Performed 07/11/2023) Performed for Generalized abdominal pain * CALPROTECTIN FECAL(Performed 07/11/2023) Performed for Generalized abdominal pain * HEPATITIS A ANTIBODY(Performed 07/04/2023) Performed for Generalized abdominal pain * CELIAC DISEASE PROFILE W RFLX(Performed 07/04/2023) Performed for Generalized abdominal pain * HEPATITIS B CORE ANTIBODY TOTAL(Performed 07/04/2023) Performed for Generalized abdominal pain * CBC W AUTO DIFFERENTIAL(Performed 07/04/2023) Performed for Inflammatory arthritis * COMPREHENSIVE METABOLIC PANEL(Performed 07/04/2023) Performed for Inflammatory arthritis * C-REACTIVE PROTEIN(Performed 07/04/2023) Performed for Inflammatory arthritis * ERYTHROCYTE SEDIMENTATION RATE(Performed 07/04/2023) Performed for Inflammatory arthritis * CT SINUS WO CONTRAST(Performed 04/28/2023) Performed for Hoarseness, Malika's edema of vocal folds, Smoking, Left facial swelling * ERYTHROCYTE SEDIMENTATION RATE(Performed 04/25/2023) Performed for 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 factor (HCC) * C-REACTIVE PROTEIN(Performed 04/25/2023) Performed for 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 factor (HCC) * COMPREHENSIVE METABOLIC PANEL(Performed 04/25/2023) Performed for 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 factor (HCC) * CBC W AUTO DIFFERENTIAL(Performed 04/25/2023) Performed for 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 factor (HCC) * ANGIOTENSIN CONVERTING ENZYME BLOOD(Performed 04/25/2023) Performed for 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 factor (HCC) * WI LARYNGOSCOPY,FLEX FIBER,DIAGNOSTIC(Performed 04/14/2023) Performed for Hoarseness, Malika's edema of vocal folds, Smoking, Left facial swelling * C-REACTIVE PROTEIN(Performed 01/20/2023) Performed for 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 factor (HCC) * ERYTHROCYTE SEDIMENTATION RATE(Performed 01/20/2023) Performed for 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 factor (HCC) * COMPREHENSIVE METABOLIC PANEL(Performed 01/20/2023) Performed for 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 factor (HCC) * CBC W AUTO DIFFERENTIAL(Performed 01/20/2023) Performed for 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 factor (HCC) * VAS CAROTID DUPLEX BILATERAL(Performed 01/15/2023) Performed for Bilateral carotid artery stenosis * COMPREHENSIVE METABOLIC PANEL(Performed 11/26/2022) Performed for 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 factor (HCC) * CBC W AUTO DIFFERENTIAL(Performed 11/26/2022) Performed for 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 factor (HCC) * WI LARYNGOSCOPY,FLEX FIBER,DIAGNOSTIC(Performed 10/28/2022) Performed for Hoarseness, Malika's edema of vocal folds, Smoking * WI LARYNGOSCOPY,FLEX FIBER,DIAGNOSTIC(Performed 08/01/2022) Performed for Hoarseness, Malika's edema of vocal folds * QUANTIFERON TB-GOLD(Performed 07/15/2022) Performed for Inflammatory arthritis * INTERPRETATION REFLEXED(Performed 07/15/2022) Performed for Inflammatory arthritis * HEPATITIS SCREEN ACUTE ([facility])(Performed 07/15/2022) Performed for Inflammatory arthritis * VITAMIN B12(Performed 07/15/2022) Performed for Inflammatory arthritis * VITAMIN D 25-HYDROXY(Performed 07/15/2022) Performed for Inflammatory arthritis * COMPREHENSIVE METABOLIC PANEL(Performed 05/08/2022) Performed for 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 factor (HCC), Cough, unspecified type * CBC W AUTO DIFFERENTIAL(Performed 05/08/2022) Performed for 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 factor (HCC), Cough, unspecified type * CBC W AUTO DIFFERENTIAL(Performed 03/28/2022) Performed for High risk medication use * COMPREHENSIVE METABOLIC PANEL(Performed 03/28/2022) Performed for High risk medication use * LAB(Performed 02/12/2022) * C-REACTIVE PROTEIN(Performed 11/14/2021) Performed for Inflammatory arthritis * ERYTHROCYTE SEDIMENTATION RATE(Performed 11/14/2021) Performed for Inflammatory arthritis * ANCA VASCULITIS PANEL(Performed 11/14/2021) Performed for Inflammatory arthritis * COMPREHENSIVE METABOLIC PANEL(Performed 11/14/2021) Performed for Inflammatory arthritis * CBC W AUTO DIFFERENTIAL(Performed 11/14/2021) Performed for Inflammatory arthritis * LAB(Performed 09/12/2021) * LAB(Performed 09/12/2021) * LAB(Performed 09/12/2021) * AUDIOLOGY/TYMPANOMETRY ORDER(Performed 09/06/2021) * LAB(Performed 09/06/2021) * ANGIOTENSIN CONVERTING ENZYME BLOOD(Performed 08/08/2021) Performed for 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 factor (HCC) * COMPREHENSIVE METABOLIC PANEL(Performed 08/08/2021) Performed for 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 factor (HCC) * CBC W AUTO DIFFERENTIAL(Performed 08/08/2021) Performed for 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 factor (HCC) * C-REACTIVE PROTEIN(Performed 05/09/2021) Performed for Inflammatory arthritis * ERYTHROCYTE SEDIMENTATION RATE(Performed 05/09/2021) Performed for Inflammatory arthritis * COMPREHENSIVE METABOLIC PANEL(Performed 05/09/2021) Performed for Inflammatory arthritis * CBC W AUTO DIFFERENTIAL(Performed 05/09/2021) Performed for Inflammatory arthritis * WI MSR PVR U&/BLADD CAPCTY US NON(Performed 04/12/2021) Performed for Hematuria, unspecified type * PROC UROFLOWMETRY(Performed 04/12/2021) Performed for Hematuria, unspecified type * WI CYSTOURETHROSCOPY(Performed 04/12/2021) Performed for Hematuria, unspecified type * URINALYSIS AUTO - POINT OF CARE (AMB) [facility](Performed 04/12/2021) Performed for Hematuria, unspecified type * PATHOLOGY/CYTOLOGY REPORT ORDER(Performed 03/27/2021) * PATHOLOGY/CYTOLOGY REPORT ORDER(Performed 03/26/2021) * CULTURE URINE(Performed 03/22/2021) * URINALYSIS AUTO - POINT OF CARE (AMB) [facility](Performed 03/22/2021) Performed for Hematuria, unspecified type * CT UROGRAM(Performed 03/21/2021) Performed for Hematuria, unspecified type * CREATININE - POCT INTERFACED(Performed 03/21/2021) * LAB RESULTS ORDER(Performed 03/13/2021) * LAB RESULTS ORDER(Performed 03/13/2021) * URINALYSIS W/MICROSCOPIC NO CULTURE(Performed 03/08/2021) * URINALYSIS AUTO - POINT OF CARE (AMB) [facility](Performed 03/08/2021) Performed for Hematuria, unspecified type * HEPATITIS SCREEN ACUTE(Performed 02/12/2021) Performed for Inflammatory arthritis * C-REACTIVE PROTEIN(Performed 02/12/2021) Performed for Inflammatory arthritis * ERYTHROCYTE SEDIMENTATION RATE(Performed 02/12/2021) Performed for Inflammatory arthritis * COMPREHENSIVE METABOLIC PANEL(Performed 02/12/2021) Performed for Inflammatory arthritis * CBC W AUTO DIFFERENTIAL(Performed 02/12/2021) Performed for Inflammatory arthritis * TRYPTASE(Performed 11/22/2020) Performed for Inflammatory arthritis * EARLY SJOGREN'S SYNDROME PROFILE(Performed 11/22/2020) Performed for Inflammatory arthritis * IGG SUBCLASSES PANEL(Performed 11/22/2020) Performed for Inflammatory arthritis * VITAMIN D 25-HYDROXY(Performed 11/22/2020) Performed for Polyarthralgia * ANCA VASCULITIS PANEL(Performed 11/22/2020) Performed for Inflammatory arthritis * CYTOMEGALOVIRUS QUAL PCR(Performed 11/22/2020) Performed for Inflammatory arthritis * URINALYSIS MICROSCOPIC ONLY REFLEXED(Performed 11/22/2020) Performed for Frequent urination * QUANTIFERON TB-GOLD(Performed 11/22/2020) Performed for Cough * URINALYSIS REFLEX MICROSCOPIC REFLEX CULTURE(Performed 11/22/2020) Performed for Frequent urination * XR WRIST BILAT 3VW OR MORE(Performed 10/11/2020) Performed for Polyarthralgia * XR HAND BILAT 3VW OR MORE(Performed 10/11/2020) Performed for Polyarthralgia * XR SI JOINTS 3VW OR MORE(Performed 10/11/2020) Performed for Polyarthralgia * URINALYSIS MICROSCOPIC ONLY REFLEXED(Performed 10/11/2020) Performed for Polyarthralgia * URIC ACID BLOOD(Performed 10/11/2020) Performed for Polyarthralgia * URINALYSIS REFLEX MICROSCOPIC REFLEX CULTURE(Performed 10/11/2020) Performed for Polyarthralgia * CYCLIC CITRUL PEPTIDE ANTIBODY IGG/IGA ([facility])(Performed 10/11/2020) Performed for Polyarthralgia * RHEUMATOID FACTOR BLOOD QUANTITATIVE(Performed 10/11/2020) Performed for Polyarthralgia * INES ANTIBODY PANEL(Performed 10/11/2020) Performed for Polyarthralgia * BETA-2 GLYCOPROTEIN 1 ANTIBODY IGG/IGM PANEL(Performed 10/11/2020) Performed for Polyarthralgia * CARDIOLIPIN ANTIBODY IGG/IGM PANEL(Performed 10/11/2020) Performed for Polyarthralgia * LUPUS ANTICOAGULANT PANEL W RFLX(Performed 10/11/2020) Performed for Polyarthralgia * HOLDEN BLOOD SCREEN W/REFLEX TITER(Performed 10/11/2020) Performed for Polyarthralgia * C-REACTIVE PROTEIN(Performed 10/11/2020) Performed for Polyarthralgia * ERYTHROCYTE SEDIMENTATION RATE(Performed 10/11/2020) Performed for Polyarthralgia * HLA TYPING B27(Performed 10/11/2020) Performed for Polyarthralgia * COMPREHENSIVE METABOLIC PANEL(Performed 10/11/2020) Performed for Polyarthralgia * CBC W AUTO DIFFERENTIAL(Performed 10/11/2020) Performed for Polyarthralgia Results * WI DRAIN INJ MAJOR JOINT BURSA W US (07/06/2024 1:53 PM DIRECTOR [employer]ITAL [employer]LYTICS) Narrative Darion Camp MD - 07/06/2024 1:53 PM DIRECTOR [employer]ITAL [employer]NALYTICS Darion Camp MD 07/07/2024 5:11 PM U/S-GUIDED INJECTION PROCEDURE NOTE Risks/benefits of injection discussed, including bleeding, infection, site reaction, and possible flare. Pt. Expresses understanding and verbally consents for injection. U/S used to visualize anatomic area first. Next area prepped with chloroprep in usual sterile fashion. Ethyl chloride for local anesthesia. 2 cc of Kenalog (triamcinalone 40mg/ml) + 3 cc of bupivacaine .5% was injected into Bilateral hip Joint using a anterior approach under ultrasound guidance. Pt. Tolerated well. No complications. An ultrasound image was saved demonstrating the successful needle localization. Darion Camp MD PROCEDURE/MINOR LAINEZ RGICAL ORDERABLES * FUNDUS PHOTO BOTH EYES (06/17/2024 11:00 AM DIRECTOR [employer]ITAL [employer]LYTICS) Anatomical Region Laterality Modality Head External-Camera Photography Narrative 06/17/2024 12:40 PM DIRECTOR [employer]ITAL [employer]LYTICS Images from the original result were not included. Jose Newby MD OPHTHALMOLOGY SCHED ORD W PACS * DORMAN AUTO VISUAL FIELD EXTENDED (06/17/2024 10:17 AM DIRECTOR [employer]ITAL [employer]) Anatomical Region Laterality Modality Head External-Camera Photography Narrative 06/17/2024 12:40 PM DIRECTOR [employer]ITAL [employer]LYTICS Images from the original result were not included. Jose Newby MD OPHTHALMOLOGY SCHED ORD W PACS * RETINAL ANALYSIS OCT (06/17/2024 10:17 AM DIRECTOR [employer]LYT[employer]) Anatomical Region Laterality Modality Head External-Camera Photography Narrative 06/17/2024 12:32 PM DIRECTOR [employer]ITAL [employer]LYTICS Images from the original result were not included. Jose Newby MD OPHTHALMOLOGY SCHED ORD W PACS * XR Hip Right 2Vw or More (06/15/2024 12:42 PM DIRECTOR [employer]LY[employer]) Anatomical Region Laterality Modality Pelvis, Lower Extremity Computed Radiography 06/15/2024 2:24 PM DIRECTOR [employer] Impressions 06/15/2024 2:27 PM DIRECTOR [employer]ITAL [employer]LYTICS IMPRESSION: No acute osseous abnormality. Mild degenerative changes. Report dictated by Won Pastrana MD (president ceo & founder). IRisa MD have personally reviewed and interpreted this examination/study. > Interpreting Provider: Risa No MD on 06/15/2024 2:27 PM Narrative 06/15/2024 2:27 PM DIRECTOR [employer] PROCEDURE: XR HIP RIGHT 2VW OR MORE, DATE/TIME OF EXAM: 06/15/2024 12:43 PM, LOCATION [facility] INDICATION: R10.31: Groin pain, right ADDITIONAL CLINICAL INFORMATION: Ordering Provider Reason For Exam: right hip pain COMPARISON: None. FINDINGS: No acute fracture or dislocation. Mild degenerative changes small spurring along the lateral acetabular margin. The hip joint space is preserved. Bone density and texture are normal. Procedure Note Risa No MD - 06/15/2024 PROCEDURE: XR HIP RIGHT 2VW OR MORE, DATE/TIME OF EXAM: 06/15/2024 12:43 PM, LOCATION [facility] INDICATION: R10.31: Groin pain, right ADDITIONAL CLINICAL INFORMATION: Ordering Provider Reason For Exam: right hip pain COMPARISON: None. FINDINGS: No acute fracture or dislocation. Mild degenerative changes smallspurring along the lateral acetabular margin. The hip joint space is preserved.Bone density and texture are normal. IMPRESSION: No acute osseous abnormality. Mild degenerative changes. Report dictated by Won Pastrana MD (president ceo & founder). Risa Prescott MD have personally reviewed and interpreted this examination/study. > Interpreting Provider: Risa No MD on 06/15/2024 2:27 PM Frantz Nicole MD DIAGNOSTIC IMAGING O RDERABLES * XR Hip Left 2Vw or More (06/15/2024 12:42 PM DIRECTOR [employer]LYT[employer]) Anatomical Region Laterality Modality Pelvis, Lower Extremity Computed Radiography 06/15/2024 2:23 PM DIRECTOR [employer] Impressions 06/15/2024 2:28 PM DIRECTOR [employer]ITAL [employer]NALYTICS IMPRESSION: No acute osseous abnormality. Mild degenerative changes. Report dictated by Won Pastrana MD (president ceo & founder). Risa Prescott MD have personally reviewed and interpreted this examination/study. > Interpreting Provider: Risa No MD on 06/15/2024 2:28 PM Narrative 06/15/2024 2:28 PM DIRECTOR [employer]ICS PROCEDURE: XR HIP LEFT 2VW OR MORE, DATE/TIME OF EXAM: 06/15/2024 12:42 PM, LOCATION [facility] INDICATION: R10.31: Groin pain, right ADDITIONAL CLINICAL INFORMATION: Ordering Provider Reason For Exam: left hip pain COMPARISON: None. FINDINGS: No acute fracture or dislocation. Mild degenerative changes with small osteophytosis along the superior acetabular margin. The hip joint space is preserved. Bone density is normal. Procedure Note Risa No MD - 06/15/2024 PROCEDURE: XR HIP LEFT 2VW OR MORE, DATE/TIME OF EXAM: 06/15/2024 12:42PM, LOCATION [facility] INDICATION: R10.31: Groin pain, right ADDITIONAL CLINICAL INFORMATION: Ordering Provider Reason For Exam: left hip pain COMPARISON: None. FINDINGS: No acute fracture or dislocation. Mild degenerative changes with small osteophytosis along the superior acetabular margin. The hip joint spaceis preserved. Bone density is normal. IMPRESSION: No acute osseous abnormality. Mild degenerative changes. Report dictated by Won Pastrana MD (president ceo & founder). Risa Prescott MD have personally reviewed and interpreted this examination/study. > Interpreting Provider: Risa No MD on 06/15/2024 2:28 PM Frantz Nicole MD DIAGNOSTIC IMAGING O RDERABLES * XR Lumbar Spine 2 or 3Vw (06/15/2024 11:26 AM DIRECTOR DIGITAL ANALYTICS) Only the most recent of2 resultswithin the time period is included. Anatomical Region Laterality Modality Spine Computed Radiogr aphy 06/15/2024 11:5 1 AM DIRECTOR DIGITAL ANALYTICS Impressions 06/15/2024 1:00 PM DIRECT[employer]ITAL [employer]LYT[employer] IMPRESSION: Grade 1 anterolisthesis of L5 on S1, unchanged. Mild multilevel degenerative changes. Report dictated by Won Pastrana MD, (president ceo & founder). Risa Prescott MD have personally reviewed and interpreted this examination/study. > Interpreting Provider: Risa No MD on 06/15/2024 1:00 PM Narrative 06/15/2024 1:00 PM [employer]LYT[employer] PROCEDURE: XR LUMBAR SPINE 2 OR 3VW, DATE/TIME OF EXAM: 06/15/2024 11:26 AM, LOCATION [facility] INDICATION: M54.50: Low back pain, unspecified back pain laterality, unspecified chronicity, unspecified whether sciatica present ADDITIONAL CLINICAL INFORMATION: Ordering Provider Reason For Exam: low back pain COMPARISON: Lumbar spine radiographs dated 10/14/2023. FINDINGS: Grade 1 anterolisthesis of L5 on S1, unchanged. Lumbar lordosis is maintained. There is no fracture or compression deformity. Mild multilevel degenerative disc and joint disease. Procedure Note Risa No MD - 06/15/2024 PROCEDURE: XR LUMBAR SPINE 2 OR 3VW, DATE/TIME OF EXAM: 06/15/2024 11:26 AM, LOCATION [facility] INDICATION: M54.50: Low back pain, unspecified back pain laterality, unspecified chronicity, unspecified whether sciatica present ADDITIONAL CLINICAL INFORMATION: Ordering Provider Reason For Exam: low back pain COMPARISON: Lumbar spine radiographs dated 10/14/2023. FINDINGS: Grade 1 anterolisthesis of L5 on S1, unchanged. Lumbar lordosis is maintained. There is no fracture or compression deformity. Mildmultilevel degenerative disc and joint disease. IMPRESSION: Grade 1 anterolisthesis of L5 on S1, unchanged. Mild multilevel degenerative changes. Report dictated by Won Pastrana MD, (president ceo & founder). I, Risa No MD have personally reviewed and interpreted this examination/study. > Interpreting Provider: Risa No MD on 06/15/2024 1:00 PM Frantz Nicole MD DIAGNOSTIC IMAGING O RDERABLES * FA ICG ANGIOGRAPHY (05/21/2024 11:56 AM DIRECTOR DIGITAL ANALYTICS) Anatomical Region Laterality Modality Head External-Camera Photography Narrative 05/22/2024 3:51 PM DIRECTOR DIGITAL ANALYTICS Images from the original result were not included. indocyanine green angiography (05/21/2024) - no hypocyanescence seen in late stage- these findings confirm no choroiditis where lesions are seen in retina Fluorescein Angiography (05/21/2024) - no vascular leakage seen Reina Beckford MD OPHTHALMOLOGY SCHED ORD W PACS * FUNDUS PHOTO BOTH EYES (05/21/2024 10:51 AM DIRECTOR DIGITAL ANALYTICS) Anatomical Region Laterality Modality Head External-Camera Photography Narrative 05/22/2024 3:51 PM DIRECTOR DIGITAL ANALYTICS Images from the original result were not included. Fundus photo (05/21/2024) - Yellow stippling seen nasally OU- stable Reina Beckford MD OPHTHALMOLOGY SCHED ORD W PACS * RETINAL ANALYSIS OCT (05/21/2024 8:50 AM DIRECTOR DIGITAL ANALYTICS) Anatomical Region Laterality Modality Head External-Camera Photography Narrative 05/22/2024 3:52 PM DIRECTOR DIGITAL ANALYTICS Images from the original result were not included. OD (top 02/02/24, bottom 05/21/2024) Normal retina crosssection with preservation of fovea, clivus, and cellular lamina OS (top 02/02/24, bottom 05/21/2024) Normal retina crosssection with preservation of fovea, clivus, and cellular lamina Reina Beckford MD OPHTHALMOLOGY SCHED ORD W PACS * ACTH (04/20/2024 7:58 AM DIRECTOR DIGITAL ANALYTICS) ACTH 29 6 - 50 pg/mL [facility] Comment: Reference range applies only to specimens collected between 7am-10am. Test Performed at: [facility] [address] TAMERA ADKINS MD,PHD 04/20/2024 7:58 AM DIRECTOR DIGITAL ANALYTICS 04/20/2024 7:59 AM DIRECTOR DIGITAL ANALYTICS Naseem Garcia MD LAB - CHEMISTRY MICHAEL NELSON [facility] [address] [place] [address] * TSH (04/20/2024 7:58 AM DIRECTOR DIGITAL ANALYTICS) TSH 2.45 mIU/L [facility] Comment: Reference Range > or = 20 Years 0.40-4.50 Ranges First trimester 0.26-2.66 Second trimester 0.55-2.73 Third trimester 0.43-2.91 Test Performed at: [facility] [address] ASIF BLACKWOOD MD 04/20/2024 7:58 AM DIRECTOR DIGITAL ANALYTICS 04/20/2024 7:59 AM DIRECTOR DIGITAL ANALYTICS Naseem Garcia MD LAB - CHEMISTRY MICHAEL NELSON Performing Organization Address [facility] Co de Phone Number [address] [address] * T4 FREE (04/20/2024 7:58 AM DIRECTOR DIGITAL ANALYTICS) T4 Free 1.1 0.8 - 1.8 ng/dL [facility] Comment: Test Performed at: [facility] [address] ASIF BLACKWOOD MD 04/20/2024 7:58 AM DIRECTOR DIGITAL ANALYTICS 04/20/2024 7:59 AM DIRECTOR DIGITAL ANALYTICS Naseem Garcia MD LAB - CHEMISTRY MICHAEL NELSON Performing Organization Address [facility] de Phone Number [address] [address] * CORTISOL BLOOD AM (04/20/2024 7:58 AM DIRECTOR DIGITAL ANALYTICS) Only the most recent of2 resultswithin the time period is included. Cortisol AM 16.9 mcg/dL [facility] Comment: Reference Range 8 a.m. (7-9 a.m.) Specimen: 4.0-22.0 Test Performed at: [facility] [address] [address] ASIF BLACKWOOD MD 04/20/2024 7:58 AM DIRECTOR DIGITAL ANALYTICS 04/20/2024 7:59 AM DIRECTOR DIGITAL ANALYTICS Naseem Garcia MD LAB - CHEMISTRY MICHAEL NELSON Performing Organization Address [facility] Co de Phone Number [address] [address] * FUNDUS PHOTO BOTH EYES (02/02/2024 1:52 PM CDT) Anatomical Region Laterality Modality Head External-Camera Photography Narrative 02/09/2024 1:08 PM CDT Images from the original result were not included. Fundus photo OU deep nasal midperipheral yellow spots Reina Beckford MD OPHTHALMOLOGY SCHED ORD W PACS * VAS CAROTID DUPLEX BILATERAL (01/15/2024 9:46 AM CDT) Only the most recent of2 resultswithin the time period is included. Anatomical Region Laterality Modality Neck Intravascular Ul trasound 01/15/2024 9:17 AM CDT Narrative Procedure Note Terence Gleason MD - 01/15/2024 Tg Mckee MD VASCULAR LAB ORDERA BLES * ENDOSCOPY, COLON, DIAGNOSTIC (01/13/2024 11:04 AM CDT) Report Endoscopy POC Endoscopy Department Report _ Patient Name: Yanick Chou Procedure Date: 01/13/2024 11:04 AM Date of : 1975 Classification: Outpatient Gender: Female Ethnicity: Not or Race: White _ Providers: Samara Carrero (Fellow) Referring MD: Jeff Duque (Referring MD) Procedure: Colonoscopy Indications: Screening for colorectal malignant neoplasm Medications: Propofol per Anesthesia Description of Procedure: After I obtained informed consent, the scope was passed under direct vision. Throughout the procedure, the patient's blood pressure, pulse, and oxygen saturations were monitored continuously. The Colonoscope was introduced through the anus and advanced to the cecum, identified by appendiceal orifice and ileocecal valve. The colonoscopy was performed without difficulty. The patient tolerated the procedure well. The quality of the bowel preparation was evaluated using the BBPS ([place] Bowel Preparation Scale) with scores of: Right Colon = 1 (portion of mucosa seen, but other areas not well seen due to staining, residual stool and/or opaque liquid), Transverse Colon = 2 (minor amount of residual staining, small fragments of stool and/or opaque liquid, but mucosa seen well) and Left Colon = 2 (minor amount of residual staining, small fragments of stool and/or opaque liquid, but mucosa seen well). The total BBPS score equals 5. The quality of the bowel preparation was fair. Findings: The perianal and digital rectal examinations were normal. Three sessile polyps were found in the cecum. The polyps were 2 to 4 mm in size. These polyps were removed with a cold snare. Resection and retrieval were complete. Three sessile polyps were found in the sigmoid colon and ascending colon. The polyps were 2 to 5 mm in size. These polyps were removed with a cold snare. Resection and retrieval were complete. Estimated Blood Loss: Estimated blood loss: none. Complications: No immediate complications. Impression: - Preparation of the colon was fair. - Three 2 to 4 mm polyps in the cecum, removed with a cold snare. Resected and retrieved. - Three 2 to 5 mm polyps in the sigmoid colon and in the ascending colon, removed with a cold snare. Resected and retrieved. Recommendation: - Await pathology results. - Repeat colonoscopy in 1 year because the bowel preparation was poor. Attending Participation: I was present and participated during the entire procedure, including non-mcfarland portions. Procedure Code(s): --- Professional --- 63800, Colonoscopy, flexible; with removal of tumor(s), polyp(s), or other lesion(s) by snare technique Diagnosis Code(s): --- Professional --- Z12.11, Encounter for screening for malignant neoplasm of colon D12.0, Benign neoplasm of cecum D12.5, Benign neoplasm of sigmoid colon D12.2, Benign neoplasm of ascending colon CPT copyright 2021 [employer]. All rights reserved. The codes documented in this report are preliminary and upon oyster farmer review may be revised to meet current compliance requirements. Dylan Jessica, 01/13/2024 11:59:59 AM Note Initiated On: 01/13/2024 11:04 AM Number of Addenda: [id number] [place] [address] [employer]ATION 01/13/2024 11:0 4 AM CDT Dylan Jessica MD GI PROCEDURE O RDERABLES [facility] * PATHOLOGY TISSUE (01/13/2024 10:55 AM CDT) Case Report Surgical Pathology Report Case: [id number] Authorizing Provider: Dylan Jessica, Collected: 01/13/2024 10:55 AM Ordering Location: [facility] ENDOSCOPY Received: 01/13/2024 01:42 PM Pathologist: Taya Currie MD Specimens: A) - Duodenum, duodenal biopsies B) - Gastric, gastric biopsies r/o H. Pylori C) - Polyp Rectal, rectal polyps D) - Polyp Cecum, cecal polyps 01/14/2024 1:55 PM CDT [facility] Final Diagnosis Small intestine, duodenum, biopsy (A): - Focal peptic injury (scant sample) Stomach, biopsy (B): - No histopathologic abnormality - No active inflammation or H. pylori organisms (H&E examination) Large intestine, rectal polyps, biopsy (C): - Hyperplastic polyp Large intestine, cecal polyps, biopsy (D): - Tubular adenoma(s), fragmented 01/14/2024 1:55 PM CDT [facility] Microscopic Description and Comment Microscopic examination including multiple deeper levels on parts C and D substantiates the final diagnosis. 01/14/2024 1:55 PM CDT [facility] Clinical History The patient is a 48-year-old woman with generalized abdominal pain and suspected gastroesophageal reflux disease who also presents for screening for colorectal malignant neoplasm. Operative procedure/findings: EGD - irregular Z-line 34 cm from the incisors, 2 cm hiatal hernia; gastritis, biopsied to rule out H. pylori; erythematous duodenopathy, biopsied. Colonoscopy - three 2-4 mm cecal polyps and three 2-5 mm sigmoid and ascending colon polyps, all resected and retrieved. 01/14/2024 1:55 PM [facility] Gross Description The requisition and specimen(s) are identified with the patient's name, Yanick Chou. Received in formalin, specimen A , is a single fragment of fisher-pink tissue, measuring 0.4 x 0.3 x 0.2 cm. The specimen is submitted in toto in cassette A1. Received in formalin, specimen B is 2 fisher-white fragments of tissue, ranging from 0.4 to 0.5 cm in greatest dimension and measuring 0.5 x 0.5 x 0.2 cm in aggregate. The specimen is submitted in toto in cassette B1. Received in formalin, specimen C is a single fisher-white tissue fragment, measuring 0.4 x 0.2 x 0.2 cm. The specimen is submitted in toto in cassette C1. Received in formalin, specimen D is 5 fisher-white tissue fragments admixed with mucus material, ranging from 0.2 to 0.6 cm in greatest dimension and measuring 1.1 x 0.6 x 0.2 cm in aggregate. The specimen is submitted in toto in cassette D1. 01/14/2024 1:55 PM [facility] Pathologist Location at [facility] 01/14/2024 1:55 PM [facility] Disclaimer The performance characteristics of all immunohistochemical and indirect immunofluorescence stains (if any) cited in this report were determined by the Histopathology Laboratory of [facility]. Some of these tests were developed by our own laboratory and have not been cleared or approved by the US Food and Drug Administration. The FDA does not require this test to go through premarket FDA review. These tests are used for clinical purposes. They should not be regarded as investigational or for research. This laboratory is certified under the Clinical Laboratory Improvement Amendments (CLIA) as qualified to perform high complexity clinical laboratory testing. This case has been personally reviewed and interpreted by the attending (teaching) pathologist. 01/14/2024 1:55 PM CDT [facility] Embedded Images 01/14/2024 1:55 PM CDT [facility] Biopsy, NOS PART OF DUODENUM / Unknown 01/13/2024 10:55 AM CDT 01/13/2024 1:42 PM CDT Comment:Pre-op diagnosis: Generalized abdominal pain [R10.84] Biopsy, NOS GASTRIC CONTENTS SPECIMEN / Unknown 01/13/2024 10:57 AM CDT 01/13/2024 1:42 PM CDT Comment:Pre-op diagnosis: Generalized abdominal pain [R10.84] Biopsy, NOS POLYP OF CECUM / Unknown 01/13/2024 11:22 AM CDT 01/13/2024 1:42 PM CDT Comment:Pre-op diagnosis: Generalized abdominal pain [R10.84] Biopsy, NOS RECTAL POLYP / Unknown 01/13/2024 11:55 AM CDT 01/13/2024 1:42 PM CDT Comment:Pre-op diagnosis: Generalized abdominal pain [R10.84] Dylan Jessica MD LAB - PATHOLOG Y/CYTOLOGY ORDERABLES Performing Organization Address City/State/[facility] Co de Phone Number [facility] [address] [phone] * EGD (01/13/2024 10:41 AM CDT) Report Endoscopy POC Endoscopy Department Report _ Patient Name: Yanick Chou Procedure Date: 01/13/2024 10:41 AM Date of : 1975 Classification: Outpatient Gender: Female Ethnicity: Not or Race: White _ Providers: Samara Carrero (Fellow) Referring MD: Jeff Duque (Referring MD) Procedure: Upper GI endoscopy Indications: Generalized abdominal pain, Suspected gastro-esophageal reflux disease Medications: Propofol per Anesthesia Description of Procedure: Pre-Anesthesia Assessment: - Prior to the procedure, a History and Physical was performed, and patient medications and allergies were reviewed. The patient's tolerance of previous anesthesia was also reviewed. The risks and benefits of the procedure and the sedation options and risks were discussed with the patient. All questions were answered, and informed consent was obtained. Prior Anticoagulants: The patient has taken no anticoagulant or antiplatelet agents. ASA Grade Assessment: III - A patient with severe systemic disease. After reviewing the risks and benefits, the patient was deemed in satisfactory condition to undergo the procedure. After obtaining informed consent, the endoscope was passed under direct vision. Throughout the procedure, the patient's blood pressure, pulse, and oxygen saturations were monitored continuously. The [id number]-[id number] was introduced through the mouth, and advanced to the second part of duodenum. The upper GI endoscopy was accomplished without difficulty. The patient tolerated the procedure well. Findings: The Z-line was regular and was found 34 cm from the incisors. A 2 cm hiatal hernia was present. The exam of the esophagus was otherwise normal. Diffuse mild inflammation characterized by congestion (edema), erythema, friability, granularity and mucus was found in the gastric antrum and at the pylorus. Biopsies were taken with a cold forceps for Helicobacter pylori testing. Patchy mildly erythematous mucosa without active bleeding and with no stigmata of bleeding was found in the duodenal bulb. Biopsies were taken with a cold forceps for histology. The first portion of the duodenum and second portion of the duodenum were normal. Estimated Blood Loss: Estimated blood loss: none. Complications: No immediate complications. Impression: - Z-line regular, 34 cm from the incisors. - 2 cm hiatal hernia. - Gastritis. Biopsied. - Erythematous duodenopathy. Biopsied. - Normal first portion of the duodenum and second portion of the duodenum. Recommendation: - Resume previous diet. - Await pathology results. - Return to GI office. Attending Participation: I was present and participated during the entire procedure, including non-mcfarland portions. Procedure Code(s): --- Professional --- 07684, Esophagogastroduo denoscopy, flexible, transoral; with biopsy, single or multiple Diagnosis Code(s): --- Professional --- K44.9, Diaphragmatic hernia without obstruction or gangrene K29.70, Gastritis, unspecified, without bleeding K31.89, Other diseases of stomach and duodenum R10.84, Generalized abdominal pain CPT copyright 2021 [employer]. All rights reserved. The codes documented in this report are preliminary and upon oyster farmer review may be revised to meet current compliance requirements. Dylan Jessica, 01/13/2024 11:06:04 AM Note Initiated On: 01/13/2024 10:41 AM Number of Addenda: [id number] [place] [address] 01/13/2024 10:4 1 AM CDT Dylan Jessica MD GI PROCEDURE O RDERABLES Performing Organization Address [facility] Co de Phone Number [facility] * GLUCOSE - POINT OF CARE (01/13/2024 9:10 AM CDT) Glucose WB/POC 109 70 - 115 mg/dL 01/13/2024 9:38 AM CDT [facility] Specimen Type Venous 01/13/2024 9:38 AM CDT [facility] Blood BLOOD SPECIMEN / Unknown 01/13/2024 9:10 AM CDT 01/13/2024 9:38 AM CDT Dylan Jessica MD LAB - POINT OF CARE ORDERABLES Performing Organization Address [facility]/ZIP Co de Phone Number [address] [address] [phone] * QUANTIFERON-TB GOLD PLUS 1-TUBE (11/18/2023 8:13 AM CDT) [facility] QuantiFERON TB Gold Plus NEGATIVE NEGATIVE [facility] Comment: Negative test result. M. tuberculosis complex infection unlikely. NIL 0.16 IU/mL [facility] MITOGEN MINUS NIL RESULT >10.00 IU/mL [facility] TB1-NIL 0.06 IU/mL [facility] TB2-NIL 0.00 IU/mL [facility] Comment: The Nil tube value reflects the background interferon gamma immune response of the patient's blood sample. This value has been subtracted from the patient's displayed TB and Mitogen results. Lower than expected results with the Mitogen tube prevent false-negative Quantiferon readings by detecting a patient with a potential immune suppressive condition and/or suboptimal pre-analytical specimen handling. The TB1 Antigen tube is coated with the M. tuberculosis-specific antigens designed to elicit responses from TB antigen primed CD4+ helper T-lymphocytes. The TB2 Antigen tube is coated with the M. tuberculosis-specific antigens designed to elicit responses from TB antigen primed CD4+ helper and CD8+ cytotoxic T-lymphocytes. For additional information, please refer to https://education.Brainloop/faq/DEY030 (This link is being provided for informational/ educational purposes only.) REPORT COMMENT: FASTING:YES Test Performed at: [facility] [address] [place] [address] ASIF BLACKWOOD MD 11/18/2023 8:13 AM CDT 11/18/2023 8:14 AM CDT Mikala العلي MD LAB - CHEMISTRY MICHAEL NELSON [facility] Organization Address City/State/ZIP Co de Phone Number [facility] [address] [place] [address] * HOLDEN PANEL COMPREHENSIVE (11/18/2023 8:13 AM CDT) Only the most recent of2 resultswithin the time period is included. [facility] HOLDEN Screen NEGATIVE NEGATIVE [facility] Comment: HOLDEN IFA is a first line screen for detecting the presence of up to approximately 150 autoantibodies in various autoimmune diseases. A negative HOLDEN IFA result suggests an HOLDEN-associated autoimmune disease is not present at this time, but is not definitive. If there is high clinical suspicion for Sjogren's syndrome, testing for anti-SS-A/Ro antibody should be considered. Anti-Wendy-1 antibody should be considered for clinically suspected inflammatory myopathies. AC-0: Negative International Consensus on HOLDEN Patterns (https://doi.org/10.1515/fiih-5343-3575) For additional information, please refer to http://education.MediSafe Project/faq/RRX993 (This link is being provided for informational/ educational purposes only.) dsDNA Antibody 4 IU/mL [facility] Comment: IU/mL Interpretation < or = 4 Negative 5-9 Indeterminate > or = 10 Positive SCL-70 Antibody <1.0 NEG <1.0 NEG AI [facility] SM Antibody <1.0 NEG <1.0 NEG AI [facility] SM/RN [facility] Antibody <1.0 NEG <1.0 NEG AI [facility] Sjogren's Antibodies (SSA) <1.0 NEG <1.0 NEG AI [facility] Sjogren's Antibodies (SSB) <1.0 NEG <1.0 NEG AI [facility] Comment: Test Performed at: [place] [address] ASIF BLACKWOOD MD Blood BLOOD SPECIMEN / Unknown 11/18/2023 8:13 AM CDT 11/18/2023 8:14 AM CDT Mikala العلي MD LAB - SEROLOGY ORDER OLAMIDE [facility] [address] [place] [address] * C-REACTIVE PROTEIN (11/18/2023 8:13 AM CDT) Only the most recent of8 resultswithin the time period is included. C-Reactive Protein <3.0 <8.0 mg/L [facility] Comment: Test Performed at: [facility] [address] [place] [employer] [address] ASIF BLACKWOOD MD Blood BLOOD SPECIMEN / Unknown 11/18/2023 8:13 AM CDT 11/18/2023 8:14 AM CDT Mikala العلي MD LAB - CHEMISTRY MICHAEL NELSON Performing Organization Address [facility]/ZIP Co de Phone Number [address] [address] * ERYTHROCYTE SEDIMENTATION RATE (11/18/2023 8:13 AM CDT) Only the most recent of8 resultswithin the time period is included. [facility] Erythrocyte Sedimentation Rate Westergren 11 < OR = 20 mm/h [facility] Comment: Test Performed at: [facility] [address] ASIF BLACKWOOD MD Blood BLOOD SPECIMEN / Unknown 11/18/2023 8:13 AM CDT 11/18/2023 8:14 AM CDT Mikala العلي MD LAB - HEMATOLOGY [facility] Performing Organization Address [facility] Co de Phone Number [address] [address] * CBC WITH DIFFERENTIAL (11/18/2023 8:13 AM CDT) Only the most recent of12 resultswithin the time period is included. [facility] White Blood Cell Count 8.9 3.8 - 10.8 Thousand/u L [facility] RBC 3.83 3.80 - 5.10 Million/uL [facility] Hemoglobin 12.2 11.7 - 15.5 g/dL [facility] Hematocrit 36.8 35.0 - 45.0 % [facility] MCV 96.1 80.0 - 100.0 fL [facility] MCH 31.9 27.0 - 33.0 pg [facility] MCHC 33.2 32.0 - 36.0 g/dL [facility] RDW 13.5 11.0 - 15.0 % [facility] Platelet Count 300 140 - 400 Thousand/u L [facility] MPV 9.2 7.5 - 12.5 fL [facility] Neutrophil Absolute 4601 1500 - 7800 cells/uL [facility] Lymphocytes Absolute 3240 850 - 3900 cells/uL [facility] Absolute Monocytes 846 200 - 950 cells/uL [facility] Eosinophils Absolute 151 15 - 500 cells/uL [facility] Basophils Absolute 62 0 - 200 cells/uL [facility] Granulocytes % 51.7 % [facility] Lymphocytes % 36.4 % [facility] Monocytes % 9.5 % [facility] Eosinophils % 1.7 % [facility] Basophils % 0.7 % [facility] Comment: Test Performed at: [facility] [address] [place] [address] ASIF BLACKWOOD MD Blood BLOOD SPECIMEN / Unknown 11/18/2023 8:13 AM CDT 11/18/2023 8:14 AM CDT Mikala العلي MD LAB - HEMATOLOGY ORD ERABLES [address] [address] * (ABNORMAL) COMPREHENSIVE METABOLIC PANEL (11/18/2023 8:13 AM CDT) Only the most recent of12 resultswithin the time period is included. Glucose 115(H) 65 - 99 mg/dL [facility] Comment: Fasting reference interval For someone without known diabetes, a glucose value between 100 and 125 mg/dL is consistent with prediabetes and should be confirmed with a follow-up test. BUN 15 7 - 25 mg/dL [facility] Creatinine 0.73 0.50 - 1.03 mg/dL [facility] eGFR by Cystatin C 100 > OR = 60 mL/min/1. 73m2 [facility] BUN/Creatinine Ratio SEE NOTE: 6 - 22 (calc) [facility] Comment: Not Reported: BUN and Creatinine are within reference range. Sodium 138 135 - 146 mmol/L [facility] Potassium 4.1 3.5 - 5.3 mmol/L [facility] Chloride 103 98 - 110 mmol/L [facility] CO2 27 20 - 32 mmol/L [facility] Calcium 9.7 8.6 - 10.4 mg/dL [facility] Protein Total 6.6 6.1 - 8.1 g/dL [facility] Albumin 4.4 3.6 - 5.1 g/dL [facility] Globulin Total 2.2 1.9 - 3.7 g/dL (calc) [facility] Albumin/Globulin Ratio 2.0 1.0 - 2.5 (calc) [facility] Bilirubin Total 0.4 0.2 - 1.2 mg/dL [facility] Alkaline Phosphatase 48 37 - 153 U/L [facility] AST 16 10 - 35 U/L [facility] ALT 33(H) 6 - 29 U/L [facility] Comment: Test Performed at: [facility] [address] ASIF BLACKWOOD MD Blood BLOOD SPECIMEN / Unknown 11/18/2023 8:13 AM CDT 11/18/2023 8:14 AM CDT Mikala العلي MD LAB - CHEMISTRY MICHAEL NELSON Performing Organization Address [facility]/ZIP Co de Phone Number [facility] [address] [place] [phone] * VITAMIN B12 (11/18/2023 8:13 AM CDT) Only the most recent of2 resultswithin the time period is included. Pathologist [facility] Vitamin B12 572 200 - 1100 pg/mL [facility] Comment: Test Performed at: [facility] [address] [place] [address] ASIF BLACKWOOD MD Blood BLOOD SPECIMEN / Unknown 11/18/2023 8:13 AM CDT 11/18/2023 8:14 AM CDT Mikala العلي MD LAB - CHEMISTRY MICHAEL NELSON Performing Organization Address [facility] de Phone Number [address] [address] * COMPLEMENT C3 C4 PANEL (11/18/2023 8:13 AM CDT) Only the most recent of2 resultswithin the time period is included. Pathologist [facility] Complement C3 100 83 - 193 mg/dL [facility] Complement C4 25 15 - 57 mg/dL [facility] Comment: Test Performed at: [facility] [address] [facility] [place] [address] ASIF BLACKWOOD MD Blood BLOOD SPECIMEN / Unknown 11/18/2023 8:13 AM CDT 11/18/2023 8:14 AM CDT Mikala العلي MD LAB - CHEMISTRY MICHAEL NELSON Performing Organization Address [facility] Co de Phone Number [facility] [address] [place] [address] * HEPATITIS SCREEN ACUTE (11/18/2023 8:13 AM CDT) Only the most recent of2 resultswithin the time period is included. Hepatitis A Virus Antibody IgM NON-REACTI VE NON-REACT AZUL [facility] Comment: For additional information, please refer to http://Informative/faq/TIN362 (This link is being provided for informational/ educational purposes only.) Hepatitis B Virus Surface Antigen NON-REACTI VE NON-REACT AZUL [facility] Comment: For additional information, please refer to http://Informative/faq/MNO184 (This link is being provided for informational/ educational purposes only.) Hepatitis B Core Virus Antibody IgM NON-REACTI VE NON-REACT AZUL [facility] Comment: For additional information, please refer to http://Informative/faq/NZR387 (This link is being provided for informational/ educational purposes only.) Hepatitis C Antibody NON-REACTI VE NON-REACT AZUL [facility] Comment: HCV antibody was non-reactive. There is no laboratory evidence of HCV infection. In most cases, no further action is required. However, if recent HCV exposure is suspected, a test for HCV RNA (test code 71064) is suggested. For additional information please refer to http://Informative/faq/OJD28a7 (This link is being provided for informational/ educational purposes only.) Test Performed at: [facility] [place] [address] [place] [address] ASIF BLACKWOOD MD Blood BLOOD SPECIMEN / Unknown 11/18/2023 8:13 AM CDT 11/18/2023 8:14 AM CDT Mikala العلي MD LAB - CHEMISTRY MICHAEL NELSON [facility] Organization Address City/State/ZIP Co de Phone Number [facility] [address] [place] [address] * VAS ARTERIAL ANKLE ARM INDEX (11/14/2023 11:53 AM CDT) Anatomical Region Laterality Modality Ankle / Foot, Upper Extremity In travascular Ultrasound 11/14/2023 11:0 0 AM CDT Narrative Procedure Note Miguel Barfield MD - 11/18/2023 Frantz Nicole MD VASCULAR LAB ORDERAB LES * PROC ENDOSCOPY-LARYNX (10/23/2023 9:00 AM CDT) Narrative Vinny Milner MD - 10/23/2023 9:00 AM CDT Vinny Milner MD 10/23/2023 9:03 AM Due to the findings on physical examination, in correlation with the patient's symptomatology, the decision was made to perform a procedure today in clinic. Verbal consent obtained prior to starting procedure. Procedure note: Pre Op Dx: nasal congestion, deviated septum, renke's edema Post Op: Same Procedure: Flexible laryngoscopy Surgeon: Annia After consent was obtained, a flexible fiberoptic endoscopy was performed. The patient's nose was sprayed with lidocaine and decongestant. After giving several minutes to allow the medications to work, the scope was introduced into the biltateral nasal cavity. Normal mucosa was identified, there were no masses, no pus or polyps were seen. Next we proceeded with the remainder of laryngoscopy. The hypopharynx was normal. The bilateral vocal cords were mobile and symmetric with significant renke's edema. There was significant reflux/smoking changes, including edema of the cords and/or supraglottic swelling. No masses or lesions were identified. The remainder of the flexible laryngoscopy was normal. I (Dr. Milner), was present for the entire procedure and verify that the patient tolerated the procedure well. Vinny Milner MD PROCEDURE/MINOR LAINEZ RGICAL ORDERABLES * XR CERVICAL SPINE 2 OR 3VW (10/14/2023 8:27 AM CDT) Anatomical Region Laterality Modality Spine Radiographic Petrona ging 10/14/2023 8:37 AM CDT Impressions 10/14/2023 1:25 PM CDT IMPRESSION: Trace anterolisthesis of C6 on C7 possibly related to slight rotation on the lateral view. Otherwise relatively normal-appearing examination. Report dictated by Christiano Gallo MD (president ceo & founder). IZen MD have personally reviewed and interpreted this examination/study. > Interpreting Provider: Zen Hudson MD on 10/14/2023 1:25 PM Narrative 10/14/2023 1:25 PM CDT PROCEDURE: XR CERVICAL SPINE 2 OR 3VW, DATE/TIME OF EXAM: 10/14/2023 8:28 AM, LOCATION [facility] INDICATION: M54.50: Low back pain, unspecified back pain laterality, unspecified chronicity, unspecified whether sciatica present ADDITIONAL CLINICAL INFORMATION: Ordering Provider Reason For Exam: neck pain COMPARISON: None. FINDINGS: There is questionable trace anterolisthesis of C6 on C7 possibly related to slight rotation on the lateral projection. No acute fracture or compression deformity is identified. No evidence of significant disc height loss. The predental interval and prevertebral soft tissues are normal. Bone density and texture are normal. AP alignment appear normal. The C1 ring, C1-C2 articulation and C2 and C3 levels cannot be adequately assessed on the AP view. Procedure Note Zen Hudson MD - 10/14/2023 PROCEDURE: XR CERVICAL SPINE 2 OR 3VW, DATE/TIME OF EXAM: 48:28 AM, LOCATION [facility] INDICATION: M54.50: Low back pain, unspecified back pain laterality, unspecified chronicity, unspecified whether sciatica present ADDITIONAL CLINICAL INFORMATION: Ordering Provider Reason For Exam: neck pain COMPARISON: None. FINDINGS: There is questionable trace anterolisthesis of C6 on C7 possibly relatedto slight rotation on the lateral projection. No acute fracture orcompression deformity is identified. No evidence of significant disc height loss.The predental interval and prevertebral soft tissues are normal. Bonedensity and texture are normal. AP alignment appear normal. The C1 ring, C1-C2 articulation and C2 and C3 levels cannot be adequately assessed on theAP view. IMPRESSION: Trace anterolisthesis of C6 on C7 possibly related to slight rotation on the lateral view. Otherwise relatively normal-appearing examination. Report dictated by Christiano Gallo MD (president ceo & founder). I, Zen Hudson MD have personally reviewed and interpreted this examination/study. > Interpreting Provider: Zen Hudson MD on 10/14/2023 1:25 PM Frantz Nicole MD DIAGNOSTIC IMAGING O RDERABLES * XR THORACIC SPINE 2VW (10/14/2023 8:27 AM CDT) Anatomical Region Laterality Modality Spine Radiographic Petrona ging 10/14/2023 8:39 AM CDT Impressions 10/14/2023 1:22 PM CDT IMPRESSION: No acute fracture, significant compression deformity, or malalignment identified. Minimal scattered endplate spurring noted. Report dictated by Christiano Gallo MD (president ceo & founder). Zen Prescott MD have personally reviewed and interpreted this examination/study. > Interpreting Provider: Zen Hudson MD on 10/14/2023 1:22 PM Narrative 10/14/2023 1:22 PM CDT PROCEDURE: XR THORACIC SPINE 2VW, DATE/TIME OF EXAM: 10/14/2023 8:27 AM, LOCATION [facility] INDICATION: M54.50: Low back pain, unspecified back pain laterality, unspecified chronicity, unspecified whether sciatica present ADDITIONAL CLINICAL INFORMATION: Ordering Provider Reason For Exam: back pain COMPARISON: None. FINDINGS: The vertebral bodies are normally aligned and appear normal in height. There is no fracture or compression deformity. The intervertebral disc spaces are maintained. Procedure Note Zen Hudson MD - 10/14/2023 PROCEDURE: XR THORACIC SPINE 2VW, DATE/TIME OF EXAM: 10/14/2023 8:27 AM, LOCATION [facility] INDICATION: M54.50: Low back pain, unspecified back pain laterality, unspecified chronicity, unspecified whether sciatica present ADDITIONAL CLINICAL INFORMATION: Ordering Provider Reason For Exam: back pain COMPARISON: None. FINDINGS: The vertebral bodies are normally aligned and appear normal in height. There is no fracture or compression deformity. The intervertebral disc spaces are maintained. IMPRESSION: No acute fracture, significant compression deformity, or malalignment identified. Minimal scattered endplate spurring noted. Report dictated by Christiano Gallo MD (president ceo & founder). Zen Prescott MD have personally reviewed and interpreted this examination/study. > Interpreting Provider: Zen Hudson MD on 10/14/2023 1:22 PM Frantz Nicole MD DIAGNOSTIC IMAGING O RDERABLES * URINALYSIS AUTO - POINT OF CARE (AMB) [facility] (09/25/2023 8:50 AM CDT) Only the most recent of5 resultswithin the time period is included. Glucose UA - [facility] [address] Bilirubin UA POCT - [facility] [address] Ketones UA POCT - [facility] [address] Specific [place] UA 1.[address] [facility] [address] Blood Urine POCT + [facility] [address] pH UA 6.0 [facility] [address] Protein UA - [facility] [address] Urobilinogen UA - [facility] ARE [address] Nitrite UA - [facility] [address] WBC UA - [facility] [address] Urine URINE / Unknown 09/25/2023 8 :50 AM CDT Courtney Palumbo DO LAB - POINT OF CAR E ORDERABLES [facility] [address] [place] [address], [facility] [phone] * METANEPHRINES FRACTIONATED PLASMA (08/29/2023 8:31 AM CDT) Pathologist [facility] Metanephrine Fract Free <25 <=57 pg/mL [facility] Comment: This test was developed and its analytical performance characteristics have been determined by [employer] [place], [place]. It has not been cleared or approved by the U.S. Food and Drug Administration. This assay has been validated pursuant to the CLIA regulations and is used for clinical purposes. Normetanephrine Free 45 <=148 pg/mL [facility] Comment: This test was developed and its analytical performance characteristics have been determined by [employer] [place], [place]. It has not been cleared or approved by the U.S. Food and Drug Administration. This assay has been validated pursuant to the CLIA regulations and is used for clinical purposes. Free Metanephrine + Normetanephrine 45 <=205 pg/mL [facility] Comment: For additional information, please refer to http://education.[employer]/faq/MetFractFree (This link is being provided for informational/educatio informational/educational purposes only.) Elevations >4-fold upper reference range: strongly suggestive of a pheochromocytoma(1). Elevations >1- 4-fold upper reference range: significant but not diagnostic, may be due to medications or stress. Suggest running 24 hr urine fractionated metanephrines and/or serum Chromagranin A for confirmation. Reference: (1)Teddy Lopez et al, Plasma Chromogranin A or Urine Fractionated Metanephrines Follow-Up Testing Improves the Diagnostic Accuracy of Plasma Fractionated Metanephrines for Pheochromocytoma. The Journal of Clinical Endocrinology # Metabolism 93(1), 91-95, 2008. This test was developed and its analytical performance characteristics have been determined by [employer] [place], [place]. It has not been cleared or approved by the U.S. Food and Drug Administration. This assay has been validated pursuant to the CLIA regulations and is used for clinical purposes. Test Performed at: [facility] [address] TAMERA ADKINS MD,PHD 08/29/2023 8:31 AM CDT 08/29/2023 8:32 AM CDT Courtney Palumbo DO LAB - CHEMISTRY OR DERABLES Performing Organization Address City/State/[facility] Co de Phone Number [facility] [address] [place] [address] * ALDOSTERONE/RENIN RATIO PANEL (08/29/2023 8:31 AM CDT) Aldosterone 8 ng/dL [facility] Comment: Adult Reference Ranges for Aldosterone: Upright 8:00-10:00 am < or = 28 ng/dL Upright 4:00-6:00 pm < or = 21 ng/dL Supine 8:00-10:00 am 3-16 ng/dL This test was developed and its analytical performance characteristics have been determined by [employer]. It has not been cleared or approved by FDA. This assay has been validated pursuant to the CLIA regulations and is used for clinical purposes. Plasma Renin Activity 2.03 0.25 - 5.82 ng/mL/h [facility] ODUG/PRA Ratio 3.9 0.9 - 28.9 Ratio [facility] Comment: Test Performed at: [facility] [address] [place] [address] MARTA KESSLER MD,PHD,JAQUI 08/29/2023 8:31 AM CDT 08/29/2023 8:32 AM CDT Courtney Palumbo DO LAB - CHEMISTRY OR DERABLES [facility] [address] [place] [address] * EXTENDED MYOSITIS PANEL (08/26/2023 11:56 AM CDT) Wendy-1 Antibody <11 <[address]-7 Antibody <11 <[address]-12 Antibody <11 <11 SI [facility] EJ Antibody <11 <11 SI [facility] OJ Antibody <11 <11 SI [facility] SRP Antibody <11 <11 SI [facility] VT-2 Alpha Antibody <11 <11 SI [facility] VT-2 Beta Antibody <11 <11 SI [facility] MDA-5 Antibody <11 <11 SI [facility] TIF-1Y Antibody <11 <11 SI [facility] NXP-2 Antibody <11 <11 SI [facility] Comment: Myositis-specific autoantibodies (MSAs) are highly selective, generally mutually exclusive, and are associated with a particular clinical phenotype within the myositis spectrum. Anti-synthetase syndrome is associated with MSAs to cytoplasmic enzymes and tRNAs involved with the synthesis of proteins. Target antigens include Wendy-1, PL-7, PL-12, EJ, and OJ. Clinically, anti-synthetase syndrome is primarily characterized by myositis and lung inflammation. Dermatomyositis is associated with MSAs to SRP, Mi-2A, Mi-2B, and clinically this disease is characterized by myositis in association with a rash. Additionally, MSAs to MDA5 ([id number]) have been identified in patients with clinically amyopathic dermatomyositis and rapidly progressive lung disease. MSAs to TIF1-y and NXP-2, collectively, are seen in >40% of children with dermatomyositis and appear to identify those with more severe disease. Finally, TIF1-y Ab has been reported in adults with dermatomyositis and is associated with malignancy, but not in children. SRP Ab has also been associated with necrotizing myopathy, a disease with unique histological features and an aggressive clinical course. This test was developed and its analytical performance characteristics have been determined by [employer]. It has not been cleared or approved by the FDA. This assay has been validated pursuant to the CLIA regulations and is used for clinical purposes. HMGCR AB IGG <2 <20 CU [facility] Comment: 6-Ugtlexl-4-Methylglutaryl-Coenzyme A Reductase (HMGCR) Ab is associated with necrotizing myopathy and is often found with the use of statin medications. Rarely, HMGCR Ab associated myositis has also been seen in patients ingesting mushrooms and other foods. Anti-cN-1A IGG <5 Units [facility] Comment: Reference Range: <15: NEGATIVE 15-19: BORDERLINE > OR = 20: POSITIVE The cN-1A Ab assay is a useful aid for the diagnosis of inclusion body myositis (IBM). The analytical sensitivity of this assay is 35-70%, based on published reports. In our internal validation study with 120 healthy adult subjects, 1.7% had a positive cN-1A Ab result and 6.7% had an equivocal result. However, published reports and our own internal studies suggest that patients with Sjogren's syndrome, systemic lupus erythematosus, dermatomyositis (DM), or polymyositis (PM), are significantly more likely to have a positive cN-1A Ab result. In contrast, patients presenting clinically with IBM rarely produce autoantibodies associated with a diagnosis of DM or PM. Therefore, cN-1A Ab results must be interpreted in context with other details of the patient's clinical evaluation. This test was developed and its analytical performance characteristics have been determined by [employer]. It has not been cleared or approved by FDA. This assay has been validated pursuant to the CLIA regulations and is used for clinical purposes. Test Performed at: [facility] [address] [place] [address] MARTA KESSLER MD,PHD,JAQUI Blood BLOOD SPECIMEN / Unknown 08/26/2023 11:56 AM CDT 08/26/2023 11:56 AM CDT Mikala Song MD LAB - CHEMISTRY MICHAEL NELSON Performing Organization Address [facility] Co de Phone Number [facility] [address] [place] [address] * (ABNORMAL) HOLDEN BLOOD TITER (08/26/2023 11:56 AM CDT) HOLDEN 1:80(H) titer [facility] Comment: A low level HOLDEN titer may be present in pre-clinical autoimmune diseases and normal individuals. Reference Range <1:40 Negative 1:40-1:80 Low Antibody Level >1:80 Elevated Antibody Level HOLDEN Pattern Nuclear, Speckled( A) [facility] Comment: Speckled pattern is associated with mixed connective tissue disease (MCTD), systemic lupus erythematosus (SLE), Sjogren's syndrome, dermatomyositis, and systemic sclerosis/polymyositis overlap. AC-2,4,5,29: Speckled International Consensus on HOLDEN Patterns (https://doi.org/10.1515/gbuq-0455-5047) HOLDEN Titer 1:80(H) titer [facility] Comment: A low level HOLDEN titer may be present in pre-clinical autoimmune diseases and normal individuals. Reference Range <1:40 Negative 1:40-1:80 Low Antibody Level >1:80 Elevated Antibody Level HOLDEN Pattern Mitotic, Centrosom e(A) [facility] Comment: Distinct centrioles (1-2/cell) in cytoplasm and at the poles of mitotic spindle. Pattern is rare in systemic sclerosis, Raynaud's phenomenon, and some infections (viral and mycoplasma). AC-24: Centrosome International Consensus on HOLDEN Patterns (https://doi.org/10.1515/yoza-1395-4573) Test Performed at: [facility] [address] [address] ASIF BLACKWOOD MD 08/26/2023 11:5 6 AM CDT 08/26/2023 11:56 AM CDT Mikala العلي MD LAB - CHEMISTRY MICHAEL NELSON Performing Organization Address [facility]/ZIP Co de Phone Number [facility] [address] [place] [address] * HISTONE ANTIBODY (08/26/2023 11:56 AM CDT) Pathologist [facility] Histone Antibodies <1.0 U [facility] Comment: Value Explanation of Results ------ <1.0 Negative 1.0-1.5 Weak Positive 1.6-2.5 Moderate Positive >2.5 Strong Positive Test Performed at: [facility] [place] [address] [place] [phone] ALLEN HENDRIX Blood BLOOD SPECIMEN / Unknown 08/26/2023 11:56 AM CDT 08/26/2023 11:56 AM CDT Mikala العلي MD LAB - CHEMISTRY MICHAEL NELSON Performing Organization Address [facility] Co de Phone Number [address] [address] * CK BLOOD (08/26/2023 11:56 AM CDT) Pathologist [facility] CK 42 29 - 143 U/L [facility] Comment: Test Performed at: [address] [address] ASIF BLACKWOOD MD Blood BLOOD SPECIMEN / Unknown 08/26/2023 11:56 AM CDT 08/26/2023 11:56 AM CDT Mikala العلي MD LAB - CHEMISTRY MICHAEL NELSON Performing Organization Address [facility] Co de Phone Number [address] [address] * WI PUNCH BX SKIN EA SEP ADDL, WI PUNCH BX SKIN SINGLE LESION (08/06/2023 9:35 AM CDT) Narrative Torie Holm MD - 08/06/2023 9:35 AM CDT Zay Chavez DO 08/06/2023 9:39 AM Risks, benefits and alternatives to punch biopsy were discussed with the patient. Verbal consent was obtained. Encounter Diagnoses Name Primary? Rash and other nonspecific skin eruption Yes Seborrheic keratoses Location: 2 total: L shoulder, L mid back Punch biopsy: 4 mm Skin prep: Alcohol Anesthesia: 1% lidocaine with epinephrine 1:100,000 buffered with sodium bicarbonate 8.4% in a 1:10 ratio, 1.5 mL used in total Closure: 4-0 nylon suture Dressing and wound care discussed. Specimen(s) placed in a patient labeled container and sent to [facility] Dermatopathology. Patient agrees to phone call for results and message if not available. Zay Chavez DO PGY-4 Dermatology Resident Torie Holm MD PROCEDURE/MINOR SURG ICAL ORDERABLES * DERMATOPATHOLOGY (08/05/2023 3:30 PM CDT) Case Report Dermatopathology Report Case: [id number] Authorizing Provider: Torie Holm MD Collected: 08/05/2023 03:30 PM Ordering Location: [facility] - Received: 08/06/2023 07:04 AM Dermatology Pathologist: Flor Sharma MD Specimens: A) - Skin, left shoulder B) - Skin, left mid back 4 5:11 PM CDT DERMATOPATHOLOGY LABORATORY Final Diagnosis Specimen A. SKIN, left shoulder: SUPERFICIAL AND DEEP PERIVASCULAR LYMPHOCYTIC INFILTRATE (R21) (see microscopic description and comment) Specimen B. 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 other CTD vs. Other B: r/o nmsc 4 5:11 PM CDT DERMATOPATHOLOGY LABORATORY Gross Description Specimen A: Received is one formalin filled container labeled with the patient's name and designated left shoulder. The specimen consists of a punch biopsy measuring 4x4x6 mm. Jar 0. Specimen B: Received is one formalin filled container labeled with the patient's name and designated left mid back. The specimen consists of a punch biopsy measuring 4x4x6 mm. Jar 0. 4 5:11 PM CDT DERMATOPATHOLOGY LABORATORY Microscopic Description Specimen A. SKIN, left shoulder: The epidermis is unremarkable. In the dermis there is a superficial and deep perivascular lymphocytic infiltrate without eosinophils. Colloidal iron shows increased mucin. COMMENT: The histological differential diagnosis is extensive and includes an infectious related exanthem, a drug eruption, gyrate erythemas, and a connective tissue disorder such as tumid lupus which is favored due to the increased mucin.. Clinical correlation is recommended. Specimen B. SKIN, left mid back: In the dermis, there is a perivascular, mainly lymphohistiocytic inflammatory infiltrate. Colloidal iron shows increased mucin. COMMENT: The histologic findings in Specimen B are less developed than in Specimen A. The findings are favored to be those of an early or resolving lesion. 4 5:11 PM CDT DERMATOPATHOLOGY LABORATORY Disclaimer An external and internal positive and negative controls are appropriate for the histochemical, immunohistochemical and immunofluorescence stain(s) in this case (if any), except where stated explicitly. The performance characteristics of the stain(s) cited in this report were developed and its performance characteristic determined by the Dermatopathology Laboratory at [facility], directed by Dr. Stephanie Sharma. These tests need not be, and therefore are not, approved by the [place] Food and Drug Administration. The tests are used for clinical purposes. Billing Codes Specimen Charges Stain Charges 61816 84776 1 1 98588 04140 1 1 4 5:11 PM CDT DERMATOPATHOLOGY LABORATORY Embedded Images 4 5:11 PM CDT DERMATOPATHOLOGY LABORATORY Pathology/Cytology TISSUE SPECIMEN FROM SKIN / Unknown 08/05/2023 3:30 PM CDT 08/06/2023 7:04 AM CDT Miscellaneous samples (specimen) TISSUE SPECIMEN FROM SKIN / Unknown 08/05/2023 3:30 PM CDT 08/06/2023 7:04 AM CDT Torie Holm MD LAB - PATHOLOGY/CYTO LOGY ORDERABLES DERMATOPATHOLOGY LABORATORY [facility] - Department of Dermatology [address], [address] [phone] * CT ABDOMEN PELVIS W CONTRAST (07/11/2023 7:15 AM DIRECTOR DIGITAL ANALYTICS) Anatomical Region Laterality Modality Abdomen, Pelvis Computed Tomogra phy 07/11/2023 7:24 AM DIRECTOR DIGITAL ANALYTICS Impressions 07/11/2023 9:20 AM DIRECTOR DIGITAL ANALYTICS Impression: 1.No acute process identified in the abdomen or pelvis. > Dictated by Garth Mera MD (president ceo & founder). I, Brandon Andersen MD have personally reviewed and interpreted this examination/study. > Interpreting Provider: Brandon Andersen MD on 07/11/2023 9:20 AM Narrative 07/11/2023 9:20 AM DIRECTOR DIGITAL ANALYTICS PROCEDURE: CT ABDOMEN PELVIS W CONTRAST, DATE/TIME OF EXAM: 07/11/2023 7:16 AM, LOCATION [facility] INDICATION: R10.84: Generalized abdominal pain ADDITIONAL CLINICAL INFORMATION: Ordering Provider Reason For Exam: abdominal pain, smoker, mutliple rhemuatological disorders, paternal history of pancreas cancer COMPARISON: CT urogram from 03/21/2021 TECHNIQUE: CT of the abdomen and pelvis was performed following the uneventful administration of 100 mL of Isovue 370 intravenous contrast according to standard protocol. Findings: Lower Chest: Mild bilateral dependent atelectasis is present in the visualized lung bases. Liver: Patchy enhancement noted in the segment 4 and 2 of the left lobe, likely perfusion change. Gallbladder and Bile Ducts: Normal without CT evidence of cholelithiasis, wall thickening or pericholecystic fluid. Spleen: Normal. Pancreas: Normal. Adrenals: Stable mild nodularity of the adrenal glands bilaterally up to 1.[address] urogram from 2020, likely adrenal adenomas. Kidneys: No evidence of nephrolithiasis or hydronephrosis. Gastrointestinal: The stomach and visualized loops of large and small bowel are unremarkable. The appendix is not seen; however, no inflammatory changes are seen in the right lower quadrant. Mesentery/Peritoneum/Retroperitoneum: Normal. Bladder: Normal. Reproductive Organs: The uterus is surgically absent. Vasculature: Atherosclerotic calcification of the aorta and its branch vessels. Bones: Bone windows demonstrate no suspicious lytic or blastic lesions. The visible osseous structures are intact. Mild degenerative changes are seen in the spine. Soft tissues: Tiny fat-containing umbilical hernia, otherwise normal. Procedure Note Brandon Andersen MD - 07/11/2023 PROCEDURE: CT ABDOMEN PELVIS W CONTRAST, DATE/TIME OF EXAM: 47:16 AM, LOCATION [facility] INDICATION: R10.84: Generalized abdominal pain ADDITIONAL CLINICAL INFORMATION: Ordering Provider Reason For Exam: abdominal pain, smoker, mutliple rhemuatological disorders, paternal history of pancreas cancer COMPARISON: CT urogram from 03/21/2021 TECHNIQUE: CT of the abdomen and pelvis was performed following the uneventful administration of 100 mL of Isovue 370 intravenous contrast according to standard protocol. Findings: Lower Chest: Mild bilateral dependent atelectasis is present in the visualized lung bases. Liver: Patchy enhancement noted in the segment 4 and 2 of the left lobe, likely perfusion change. Gallbladder and Bile Ducts: Normal without CT evidence of cholelithiasis, wall thickening or pericholecystic fluid. Spleen: Normal. Pancreas: Normal. Adrenals: Stable mild nodularity of the adrenal glands bilaterally up to 1.[address] urogram from 2020, likely adrenal adenomas. Kidneys: No evidence of nephrolithiasis or hydronephrosis. Gastrointestinal: The stomach and visualized loops of large and small bowel areunremarkable. The appendix is not seen; however, no inflammatory changes are seen inthe right lower quadrant. Mesentery/Peritoneum/Retroperitoneum: Normal. Bladder: Normal. Reproductive Organs: The uterus is surgically absent. Vasculature: Atherosclerotic calcification of the aorta and its branch vessels. Bones: Bone windows demonstrate no suspicious lytic or blastic lesions. The visible osseous structures are intact. Mild degenerative changes areseen in the spine. Soft tissues: Tiny fat-containing umbilical hernia, otherwise normal. Impression: 1.No acute process identified in the abdomen or pelvis. > Dictated by Garth Mera MD (president ceo & founder). I, Brandon Andersen MD have personally reviewed and interpreted this examination/study. > Interpreting Provider: Brandon Andersen MD on 07/11/2023 9:20AM Provider Unknown CT ORDERABLES * CALPROTECTIN FECAL (07/11/2023 6:58 AM DIRECTOR DIGITAL ANALYTICS) Calprotectin Fecal 9 <=49 ug/g 07/14/2023 9:25 PM DIRECTOR DIGITAL ANALYTICS [employer] ([facility]) Comment: REFERENCE INTERVAL: Calprotectin, Fecal by Immunoassay Less than 50 ug/g.........Normal 50-120 ug/g...............Borderline elevated, test should be re-evaluated in 4-6 weeks. 121 ug/g or greater.......Elevated Performed By: [facility] [address] [place] [address] Asthma Educator: Iker Fraga MD, PhD CLIA Number: [id number] Stool STOOL SPECIMEN / Unknown Collection / Unknown 07/11/2023 6:58 AM DIRECTOR DIGITAL ANALYTICS 07/11/2023 7:58 AM DIRECTOR DIGITAL ANALYTICS Provider Unknown LAB - BODY FLUID ORD ERABLES [facility] Tellyo [facility]) [address] [place] [address], [facility] * CELIAC DISEASE PROFILE W RFLX (07/04/2023 9:15 AM DIRECTOR DIGITAL ANALYTICS) Endomysial Antibody IgA Negative Negative 07/07/2023 2:09 PM DIRECTOR DIGITAL ANALYTICS [facility] ([facility]) TTG Antibody IgA <2 0 - 3 U/mL 07/07/19 2:09 PM [facility] ([facility]) Comment: Negative 0 - 3 Weak Positive 4 - 10 Positive >10 Tissue Transglutaminase (tTG) has been identified as the endomysial antigen. Studies have demonstr- ated that endomysial IgA antibodies have over 99% specificity for gluten sensitive enteropathy. IgA Quantitative 230 87 - 352 mg/dL 07/07/2023 2:09 PM DIRECTOR DIGITAL ANALYTICS [facility] ([facility]) Blood BLOOD SPECIMEN / Unknown Lab Venipuncture / Unknown 07/04/2023 9:15 AM DIRECTOR DIGITAL ANALYTICS 07/04/2023 9:19 AM DIRECTOR DIGITAL ANALYTICS Narrative [facility] ([facility]) - 07/07/2023 2:09 PM DIRECTOR DIGITAL ANALYTICS Performed at: [address] [place] [address] [id number] Transportation Escort: Jr Be PhD, Phone: [phone] Provider Unknown LAB - CHEMISTRY ORDE OMAR [facility] ([facility]) [address] [place] [address] * HEPATITIS B CORE ANTIBODY TOTAL (07/04/2023 9:15 AM DIRECTOR DIGITAL ANALYTICS) HBc Antibody Total Non-reacti ve Non-reacti ve 07/04/2023 11:23 AM DIRECTOR DIGITAL ANALYTICS [facility] Blood BLOOD SPECIMEN / Unknown Lab Venipuncture / Unknown 07/04/2023 9:15 AM DIRECTOR DIGITAL ANALYTICS 07/04/2023 9:19 AM DIRECTOR DIGITAL ANALYTICS Provider Unknown LAB - CHEMISTRY ORDE OMAR Performing Organization Address City/[facility] Co de Phone Number [address] [address], [facility] [phone] * (ABNORMAL) HEPATITIS A ANTIBODY (07/04/2023 9:15 AM DIRECTOR DIGITAL ANALYTICS) Pathologist [facility] Hepatitis A Virus Antibody Total Positive( A) Negative 07/05/2023 5:04 PM DIRECTOR DIGITAL ANALYTICS [employer] ([facility]) Comment: The positive anti-HAV is consistent with recent or remote Hepatitis A infection or antibody response to HAV vaccination. False positive anti-HAV can occur. Performed By: [facility] [address] [place] [address] Asthma Educator: Iker Fraga MD, PhD CLIA Number: [id number] Blood BLOOD SPECIMEN / Unknown Lab Venipuncture / Unknown 07/04/2023 9:15 AM DIRECTOR DIGITAL ANALYTICS 07/04/2023 9:19 AM DIRECTOR DIGITAL ANALYTICS Provider Unknown LAB - CHEMISTRY ORDE OMAR Performing Organization Address City/[facility]/ZIP Co de Phone Number [employer] [facility]) [address] [place] [address] * CT SINUS WO CONTRAST (04/28/2023 1:22 PM DIRECTOR DIGITAL ANALYTICS) Anatomical Region Laterality Modality Head Computed Tomogra phy 04/28/2023 3:19 PM DIRECTOR DIGITAL ANALYTICS Impressions 04/28/2023 3:22 PM DIRECTOR DIGITAL ANALYTICS IMPRESSION: 1. No acute facial bone fractures identified. 2. Mild left preseptal periorbital soft tissue swelling, which could represent mild cellulitis. 3. Mild mucosal thickening in the dependent portion of the left maxillary sinus. The paranasal sinuses are otherwise clear. 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 COMPARISON: No prior study is available for comparison at the time of this dictation. FINDINGS: There is mild left preseptal periorbital soft tissue swelling, which could represent mild cellulitis. There is mild mucosal thickening in the dependent portion of the left maxillary sinus. The paranasal sinuses are otherwise clear. No bone erosions. The ostiomeatal complexes are patent. The frontal recesses are patent. The sphenoethmoidal recesses are patent. The nasal septum is at midline. The orbits including the globes, optic nerves, retrobulbar fat and extraocular muscles appear otherwise normal. The hard palate, mandible, and temporomandibular joints appear normal. The mastoid air cells are clear. No acute facial bone fractures are identified. No soft tissue abnormality is identified. 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 COMPARISON: No prior study is available for comparison at the time ofthis dictation. FINDINGS: There is mild left preseptal periorbital soft tissue swelling, whichcould represent mild cellulitis. There is mild mucosal thickening in the dependent portion of the left maxillary sinus. The paranasal sinuses are otherwise clear. No bone erosions. The ostiomeatal complexes arepatent. The frontal recesses are patent. The sphenoethmoidal recesses arepatent. The nasal septum is at midline. The orbits including the globes, optic nerves, retrobulbar fat and extraocular muscles appear otherwise normal. The hard palate, mandible,and temporomandibular joints appear normal. The mastoid air cells are clear.No acute facial bone fractures are identified. No soft tissue abnormality is identified. IMPRESSION: 1. No acute facial bone fractures identified. 2. Mild left preseptal periorbital soft tissue swelling, which could represent mild cellulitis. 3. Mild mucosal thickening in the dependent portion of the leftmaxillary sinus. The paranasal sinuses are otherwise clear. > Interpreting Provider: Loan Meyer MD on 04/28/2023 3:22 PM Vinny Milner MD CT ORDERABLES * ANGIOTENSIN CONVERTING ENZYME BLOOD (04/25/2023 11:59 AM DIRECTOR DIGITAL ANALYTICS) Only the most recent of2 resultswithin the time period is included. Angiotensin-Conv erting Enzyme 39 9 - 67 U/L [facility] Comment: Test Performed at: [facility] [id number] [place] [phone] ASIF BLACKWOOD MD Blood BLOOD SPECIMEN / Unknown 04/25/2023 11:59 AM DIRECTOR DIGITAL ANALYTICS 04/25/2023 12:00 PM DIRECTOR DIGITAL ANALYTICS Mikala العلي MD LAB - CHEMISTRY MICHAEL NELSON [facility] [address] [place] [address] * WI LARYNGOSCOPY,FLEX FIBER,DIAGNOSTIC (04/14/2023 1:20 PM DIRECTOR DIGITAL ANALYTICS) Narrative Vinny Milner MD - 04/14/2023 1:20 PM DIRECTOR DIGITAL ANALYTICS Vinny Milner MD 04/14/2023 1:24 PM Due to the findings on physical examination, in correlation with the patient's symptomatology, the decision was made to perform a procedure today in clinic. Verbal consent obtained prior to starting procedure. Procedure note: Pre Op Dx: smoker, left facial swelling, septal deviation Post Op: Same Procedure: Flexible laryngoscopy Surgeon: Annia After consent was obtained, a flexible fiberoptic endoscopy was performed. The patient's nose was sprayed with lidocaine and decongestant. After giving several minutes to allow the medications to work, the scope was introduced into the bilateral nasal cavity. Left severe nasal septal deviation Next we proceeded with the remainder of laryngoscopy. The hypopharynx was normal. The bilateral vocal cords were mobile and symmetric. There was her chronic edema of the cords and/or supraglottic swelling. No masses or lesions were identified. The remainder of the flexible laryngoscopy was normal. Findings: 1. Severe left septal deviation, 2. Known stable vocal cord edema. I (Dr. Milner), was present for the entire procedure and verify that the patient tolerated the procedure well. Vinny Milner MD PROCEDURE/MINOR LAINEZ RGICAL ORDERABLES * WI LARYNGOSCOPY,FLEX FIBER,DIAGNOSTIC (10/28/2022 3:37 PM CDT) Narrative Vinny Milner MD - 10/28/2022 3:37 PM CDT Vinny Milner MD 10/28/2022 3:39 PM Due to the findings on physical examination, in correlation with the patient's symptomatology, the decision was made to perform a procedure today in clinic. Verbal consent obtained prior to starting procedure. Procedure note: Pre Op Dx: Malika's edema Post Op: Same Procedure: Flexible laryngoscopy Surgeon: Annia After consent was obtained, a flexible fiberoptic endoscopy was performed. The patient's nose was sprayed with lidocaine and decongestant. After giving several minutes to allow the medications to work, the scope was introduced into the right nasal cavity. Normal mucosa was identified, there were no masses, no pus or polyps were seen. Next we proceeded with the remainder of laryngoscopy. The hypopharynx was normal. The bilateral vocal cords were mobile and symmetric. There was no significant reflux changes, including edema of the cords and/or supraglottic swelling. No masses or lesions were identified. The remainder of the flexible laryngoscopy was normal. Findings: 1. No abnormalities found. Normal flexible laryngoscopy. Improved from prior scope exam. I (Dr. Milner), was present for the entire procedure and verify that the patient tolerated the procedure well. Vinny Milner MD PROCEDURE/MINOR LAINEZ RGICAL ORDERABLES * WI LARYNGOSCOPY,FLEX FIBER,DIAGNOSTIC (08/01/2022 9:23 AM CDT) Narrative Larisa Segura MD - 08/01/2022 9:23 AM CDT Lairsa Segura MD 08/01/2022 9:31 AM Due to the findings on physical examination, in correlation with the patient's symptomatology, the decision was made to perform a procedure today in clinic. Consent obtained prior to starting procedure. Procedure Note: Pre Op Dx: Hoarseness, chronic smoker Post Op Dx: same Surgeon: Annia Procedure in detail: Yanick Chou is a 46 year old female with a history of chronic smoking who presented today with a chief complaint of hoarseness. The risks, benefits, alternatives, and indications of the procedure were discussed in great detail and the patient understood these and wished to proceed. Endoscopy Type: Laryngoscopy without stroboscopy Endoscope: Flexible 4mm Scope Anesthesia: Lidocaine 2% and Neosynephrine 1/2% (nasal) Procedure Details: The patient was sitting upright in a chair with the head in a slightly anterior sniffing position. The topical anesthesia was administered and then adequate time was allowed for an anesthetic effect. The endoscope was passed through the nasal cavity with the tongue retracted anteriorly. The tip of the endoscope was positioned in the oropharynx which allowed a complete view of the base of tongue, vallecula, pyriform recesses, epiglottis, bilateral true and false vocal folds, the interarytenoid and post cricoid region, and the immediate subglottis. Findings: Malika's edema of bilateral vocal cords with hemorrhagic appearance of the right vocal cord, no definitive masses or lesions. Bilateral TVC mobile. Condition: Stable. Patient tolerated procedure well. Complications: None Dr. Milner was present for the entire procedure Vinny Milner MD PROCEDURE/MINOR LAINEZ RGICAL ORDERABLES * QUANTIFERON TB-GOLD (07/15/2022 3:46 PM DIRECTOR DIGITAL ANALYTICS) Only the most recent of2 resultswithin the time period is included. QuantiFERON Incubation Incubation performed. [facility] ACCOUNT BILL QuantiFERON Criteria [facility] ACCOUNT BILL Comment: QuantiFERON-TB Gold Plus is a qualitative indirect test for M tuberculosis infection (including disease) and is intended for use in conjunction with risk assessment, radiography, and other medical and diagnostic evaluations. The QuantiFERON-TB Gold Plus result is determined by subtracting the Nil value from either TB antigen (Ag) value. The Mitogen tube serves as a control for the test. QuantiFERON TB1 Ag Value 0.07 IU/mL [facility] ACCOUNT BILL QuantiFERON TB2 Ag Value 0.07 IU/mL [facility] ACCOUNT BILL QuantiFERON Nil Value 0.06 IU/mL [facility] ACCOUNT BILL QuantiFERON Mitogen Value >10.00 IU/mL [facility] ACCOUNT BILL QuantiFERON-TB Gold Plus Negative Negative [facility] ACCOUNT BILL Comment: No response to M tuberculosis antigens detected. Infection with M tuberculosis is unlikely, but high risk individuals should be considered for additional testing (ATS/IDSA/CDC Clinical Practice Guidelines, 2017). The reference range is an Antigen minus Nil result of <0.35 IU/mL. Chemiluminescence immunoassay methodology Blood BLOOD SPECIMEN / Unknown 07/15/2022 3:46 PM DIRECTOR DIGITAL ANALYTICS 07/15/2022 Narrative Resulting Agency Comment Lab Testing performed at: [facility] [address] [facility] [phone] Mikala العلي MD LAB - CHEMISTRY MICHAEL NELSON [facility] Organization Address City/State/ZIP Co de Phone Number [facility] ACCOUNT BILL [address] [place] [address] * HEPATITIS SCREEN ACUTE ([facility]) (07/15/2022 3:45 PM DIRECTOR DIGITAL ANALYTICS) Pathologist [facility] Hepatitis A Virus Antibody IgM Negative Negative [facility] INSURANCE BILL Hepatitis B Virus Surface Antigen Negative Negative [facility] INSURANCE BILL Hepatitis B Core Virus Antibody IgM Negative Negative [facility] INSURANCE BILL Hepatitis C Antibody Non Reactive Non Reactive [facility] INSURANCE BILL Blood BLOOD SPECIMEN / Unknown 07/15/2022 3:45 PM DIRECTOR DIGITAL ANALYTICS 07/15/2022 Narrative Resulting Agency Comment Lab Testing performed at: [facility] [address] [facility] [phone] Mikala العلي MD LAB - CHEMISTRY ORDE RABLES [facility] INSURANCE BILL [address] [place] [address] * INTERPRETATION REFLEXED (07/15/2022 3:45 PM DIRECTOR DIGITAL ANALYTICS) Interpretation [facility] INSURANCE BILL Comment: Not infected with HCV unless early or acute infection is suspected (which may be delayed in an immunocompromised individual), or other evidence exists to indicate HCV infection. 07/15/2022 3:45 PM DIRECTOR DIGITAL ANALYTICS 07/15/2022 Narrative Resulting Agency Comment Lab Testing performed at: [facility] [address] [facility] [phone] Mikala العلي MD LAB - SEROLOGY ORDER OLAMIDE Performing Organization Address [facility] Co de Phone Number [facility] INSURANCE BILL [address] [place] [address] * VITAMIN D 25-HYDROXY (07/15/2022 3:45 PM DIRECTOR DIGITAL ANALYTICS) Only the most recent of2 resultswithin the time period is included. Vitamin D, 25 Hydroxy 45.9 30.0 - 100.0 ng/mL [facility] ACCOUNT BILL Comment: Vitamin D deficiency has been defined by the [place] of [employer] and an Endocrine Society practice guideline as a level of serum 25-OH vitamin D less than 20 ng/mL (1,2). The Endocrine Society went on to further define vitamin D insufficiency as a level between 21 and 29 ng/mL (2). 1. IOM ([place] of [employer]). 2010. Dietary reference intakes for calcium and D. [place]: The National Academies Press. 2. Julianne MF, Madeline BENITO, Kieran JAIME, et al. Evaluation, treatment, and prevention of vitamin D deficiency: an Endocrine Society clinical practice guideline. JCEM. 2010; 96(7):1911-30. Blood BLOOD SPECIMEN / Unknown 07/15/2022 3:45 PM DIRECTOR DIGITAL ANALYTICS 07/15/2022 Narrative Resulting Agency Comment Lab Testing performed at: [facility] [place] [address] [facility] [phone] Mikala العلي MD LAB - CHEMISTRY MICHAEL NELSON [facility] ACCOUNT BILL [address] [place] [address] * LAB (02/12/2022) Only the most recent of5 resultswithin the time period is included. Mikala العلي MD SCANNING ONLY * ANCA VASCULITIS PANEL (11/14/2021 10:01 AM CDT) Only the most recent of2 resultswithin the time period is included. Myeloperoxidase Antibody <0.2 0.0 - 0.9 units [facility] INSURANCE BILL Proteinase 3 Antibody <0.2 0.0 - 0.9 units [facility] INSURANCE BILL Cytoplasmic (C-ANCA) <1:20 Neg:<1:20 titer [facility] INSURANCE BILL p-ANCA Titer <1:20 Neg:<1:20 titer [facility] INSURANCE BILL Comment: The presence of positive fluorescence exhibiting P-ANCA or C-ANCA patterns alone is not specific for the diagnosis of Veronica's Granulomatosis (WG) or microscopic polyangiitis. Decisions about treatment should not be based solely on ANCA IFA results. The International ANCA Group Consensus recommends follow up testing of positive sera with both WI-3 and MPO-ANCA enzyme immunoassays. As many as 5% serum samples are positive only by EIA. Ref. AM J Clin Pathol 1999;111:507-513. Atypical p-ANCA Titer <1:20 Neg:<1:20 titer [facility] INSURANCE BILL Comment: The atypical pANCA pattern has been observed in a significant percentage of patients with ulcerative colitis, primary sclerosing cholangitis and autoimmune hepatitis. Blood BLOOD SPECIMEN / Unknown 11/14/2021 10:01 AM CDT 11/14/2021 Narrative Resulting Agency Comment Lab Testing performed at: [employer] [address] [phone] Mikala العلي MD LAB - CHEMISTRY MICHAEL NELSON [facility] INSURANCE BILL [address] [place] [address] * AUDIOLOGY/TYMPANOMETRY ORDER (09/06/2021 11:17 AM CDT) Gely Santiago AuD - 09/06/2021 11:18 AM CDT History: Yanick Chou arrived for a hearing evaluation. Patient reports issues with hearing loss, dizziness, and otalgia. She reports sharp, shooting ear pain as well as ear pressure. She denies tinnitus and ototoxicity. There is not a history of noise exposure. There is not a family history of hearing loss. There is not a history of surgery on either ear(s). Results: Puretone air/bone conduction testing revealed normal sloping to mild SN hearing loss at 8000 Hz in the right ear and a normal sloping to mild SN hearing loss at 8000 Hz in the left ear. Speech understanding was excellent in the right ear and excellent in the left ear. Immittance measures revealed a Type A tympanogram in the right ear, indicating normal middle ear function. Results for the left ear revealed a Type A tympanogram, indicating normal middle ear function in that ear. These results were discussed in detail with the patient and all pertinent questions were answered. Recommendations: 1) ENT consult. 2) Hearing evaluation annually or if a change in hearing is suspected. Anna Arechiga. CCC-A Clinical Ring Attacher [facility]-Department of Otolaryngology/[facility] [address] [place] [id number] Gely Castillo AUDIOLOGY SERVICES O RDERABLES * [place] MSR PVR U&/BLADD CAPCTY US NON (04/12/2021 11:59 AM DIRECTOR DIGITAL ANALYTICS) Myah Middleton - 04/12/2021 11:59 AM DIRECTOR DIGITAL ANALYTICS Myah Callahan 04/12/2021 12:00 PM PVR = 18 mL Courtney Palumbo DO PROCEDURE/MINOR LAINEZ RGICAL ORDERABLES * PROC UROFLOWMETRY (04/12/2021 11:59 AM DIRECTOR DIGITAL ANALYTICS) Myah Middleton - 04/12/2021 11:59 AM DIRECTOR DIGITAL ANALYTICS Myah Callahan 04/12/2021 11:59 AM Voided Volume (mL) = 241 (Qmax - mL/s) = 19 Avg. Flow (Qavg - mL/s) = 11 Voided Time (s) = 22 Flow Time (s) = 22 Time to Peak (s) = 6 Hesitancy (s) = 0 Courtney Palumbo DO PROCEDURE/MINOR LAINEZ RGICAL ORDERABLES * WI CYSTOURETHROSCOPY (04/12/2021 11:50 AM DIRECTOR DIGITAL ANALYTICS) Narrative Courtney Palumbo DO - 04/12/2021 11:50 AM DIRECTOR DIGITAL ANALYTICS Courtney Palumbo DO 04/12/2021 12:04 PM DOS : 04/12/2021 Indication for procedure: Microscopic hematuria. Cystoscopy: The urethral meatus was cleaned with betadine and the patient was draped. Lidocaine urojet was injected into the urethra and given sufficient time to take effect. The flexible cystoscope was passed through the urethral meatus and carried proximally to reveal a normal urethra. There was a well coapting sphincter.The bladder was entered and carefully inspected. Bladder wall was mildly trabeculated. Bladder mucosa was normal with no tumors, polyps, inflammatory changes or other abnormalities. No bladder stones or bladder diverticuli. The ureteral orifices were easily identified. There was no bloody efflux appreciated from either ureteral orifice. I retroflexed the scope and looked at the bladder outlet and saw no abnormal lesions. I removed the cystoscope. The patient tolerated the procedure well. CTU negative. 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 No sloughed papillae identified in the renal collecting system. No mass lesions seen in the kidneys and urinary system. 2.Soft tissue stranding noted in the upper retroperitoneum along with mildly enlarged lymph nodes. Uroflow: voided 241cc Max flow 19 PVR per bladder scanner 18ml Plan: She is voiding well. Reassured regarding voiding symptoms Hematuria workup negative. Continue microscopic UAs annually with PCP. If still positive in 3 years, will need repeat workup. Can consider Cxbladder triage/detect. RTC pRN Courtney Palumbo DO 04/12/2021 11:51 AM Courtney Palumbo DO PROCEDURE/MINOR LAINEZ RGICAL ORDERABLES * PATHOLOGY/CYTOLOGY REPORT ORDER (03/27/2021) Only the most recent of2 resultswithin the time period is included. 03/27/2021 Narrative 03/27/2021 Ordered by an unspecified provider. Scanned Document LAB - PATHOLOGY/CYTO LOGY ORDERABLES * CULTURE URINE (03/22/2021 11:33 AM DIRECTOR DIGITAL ANALYTICS) Culture [facility] Comment: CULTURE, URINE, ROUTINE Micro Number: [id number] Test Status: Final Specimen Source: Urine, clean catch Specimen Quality: Adequate Result: No Growth Test Performed at: [facility] [id number] ASIF BLACKWOOD MD 03/22/2021 11:3 3 AM DIRECTOR DIGITAL ANALYTICS 03/23/2021 5:29 AM DIRECTOR DIGITAL ANALYTICS Courtney Ray Linwood [facility] - MICROBIOLOGY ORDERABLES [address] [address] * CT UROGRAM (03/21/2021 11:15 AM DIRECTOR DIGITAL ANALYTICS) Anatomical Region Laterality Modality Abdomen, Pelvis Computed Tomogra phy 03/21/2021 2:06 PM DIRECTOR DIGITAL ANALYTICS Impressions 03/21/2021 5:08 PM DIRECTOR DIGITAL ANALYTICS Impression: 1.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 No sloughed papillae identified in the renal collecting system. No mass lesions seen in the kidneys and urinary system. 2.Soft tissue stranding noted in the upper retroperitoneum along with mildly enlarged lymph nodes. Report drafted by Trevon Vang (resident) Dr. BRANDON Prescott MD, FRCR have personally reviewed and interpreted this examination/study. This report was electronically signed by BRANDON ANDERSEN MD, FRCR on 03/21/2021 5:08 PM . Narrative 03/21/2021 5:08 PM DIRECTOR DIGITAL ANALYTICS Procedure Information DATE: 03/21/2021 11:16 AM EXAMINATION: Computed tomography (CT) urography of the abdomen and pelvis without and with contrast TECHNIQUE: CT urography of the abdomen and pelvis was performed prior to and after the uneventful administration of 100 mL of Isovue 370 intravenous contrast according to a urography protocol. Multiplanar reconstructions and MIP images were produced. Clinical Information HISTORY: R31.9: Hematuria, unspecified type COMPARISON: None. Findings Lower Chest: There are bullae in the posterior right lower lobe. Bilateral dependent atelectasis. Hepatobiliary: The liver is normal with no focal liver lesions. The main portal vein is patent. The gallbladder is partially decompressed with no evidence of cholelithiasis. Pancreas: There is no pancreatic duct dilation. Spleen: There are no focal lesions. Genitourinary The kidneys are symmetric in size exhibit with no nephrolithiasis, no hydronephrosis. During nephrogenic phase, the kidneys exhibit symmetric contrast enhancement. 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 No significant papillary seen in the renal collecting system. The ureters are not dilated. Urinary bladder was partially distended at the time of examination. Adrenals: Normal. Retroperitoneum/Peritoneum: Soft tissue stranding noted in the retroperitoneum along with a few mildly enlarged lymph nodes. Gastrointestinal: The stomach and visualized loops of large and small bowel are unremarkable. The appendix is normal (series 7, image 40). Pelvic Structures: Pelvic structures are unremarkable. Vasculature: There are scattered mild atherosclerotic vasculature changes. Bones: The visible osseous structures are intact. There are mild degenerative changes of the spine. Soft tissues: Normal. Procedure Note Brandon Andersen MD - 03/21/2021 Procedure Information DATE: 03/21/2021 11:16 AM EXAMINATION: Computed tomography (CT) urography of the abdomen andpelvis without and with contrast TECHNIQUE: CT urography of the abdomen and pelvis was performed prior to and after the uneventful administration of 100 mL of Isovue 370 intravenouscontrast according to a urography protocol. Multiplanar reconstructions and MIP images were produced. Clinical Information HISTORY: R31.9: Hematuria, unspecified type COMPARISON: None. Findings Lower Chest: There are bullae in the posterior right lower lobe. Bilateral dependent atelectasis. Hepatobiliary: The liver is normal with no focal liver lesions. The main portal vein is patent. The gallbladder is partially decompressed with no evidence of cholelithiasis. Pancreas: There is no pancreatic duct dilation. Spleen: There are no focal lesions. Genitourinary The kidneys are symmetric in size exhibit with no nephrolithiasis, no hydronephrosis. During nephrogenic phase, the kidneys exhibit symmetric contrast enhancement. 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 No significant papillary seenin the renal collecting system. The ureters are not dilated. Urinary bladder was partially distended at the time of examination. Adrenals: Normal. Retroperitoneum/Peritoneum: Soft tissue stranding noted in the retroperitoneum along with a fewmildly enlarged lymph nodes. Gastrointestinal: The stomach and visualized loops of large and small bowel are unremarkable. The appendix is normal (series 7, image 40). Pelvic Structures: Pelvic structures are unremarkable. Vasculature: There are scattered mild atherosclerotic vasculature changes. Bones: The visible osseous structures are intact. There are mild degenerative changes of the spine. Soft tissues: Normal. 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 No sloughed papillae identified in the renal collecting system. No mass lesions seen in the kidneys and urinary system. 2.Soft tissue stranding noted in the upper retroperitoneum along with mildly enlarged lymph nodes. Report drafted by Trevon Vang (resident) Dr. BRANDON Prescott MD, FRCR have personally reviewedand interpreted this examination/study. This report was electronically signed by BRANDON ANDERSEN MD, FRCR on 03/21/2021 5:08 PM . [facility] ORDERABLES * CREATININE - POCT INTERFACED (03/21/2021 10:48 AM DIRECTOR DIGITAL ANALYTICS) Creatinine POCT 0.65 0.30 - 1.30 mg/dL 03/21/2021 10:50 AM [facility] eGFR >60 >60 mL/min/1.7 3 m2 03/21/2021 10:50 AM [facility] Blood BLOOD SPECIMEN / Unknown 03/21/2021 10:48 AM DIRECTOR DIGITAL ANALYTICS 03/21/2021 10:50 AM DIRECTOR DIGITAL ANALYTICS Courtney Palumbo DO LAB - POINT OF CAR E ORDERABLES [facility] [address] [place] [address], [facility] [phone] * LAB RESULTS ORDER (03/13/2021) Only the most recent of2 resultswithin the time period is included. 03/13/2021 Narrative 03/13/2021 Ordered by an unspecified provider. Scanned Document LAB - THERAPEUTIC DR BETRA MONITORING ORDERABLES * URINALYSIS W/MICROSCOPIC NO CULTURE (03/08/2021 9:33 AM CDT) Pathologist [facility] Color UA YELLOW YELLOW [facility] Appearance CLEAR CLEAR [facility] Specific [place] UA 1.004 1.001 - 1.035 [facility] pH UA 6.0 5.0 - 8.0 [facility] Glucose UA NEGATIVE NEGATIVE [facility] Bilirubin UA NEGATIVE NEGATIVE [facility] Ketone UA NEGATIVE NEGATIVE [facility] Blood UA NEGATIVE NEGATIVE [facility] Protein UA NEGATIVE NEGATIVE [facility] Nitrite UA NEGATIVE NEGATIVE [facility] Leukocyte UA NEGATIVE NEGATIVE [facility] WBC UA NONE SEEN < OR = 5 /HPF [facility] RBC UA NONE SEEN < OR = 2 /HPF [facility] Epithelial Cell UA NONE SEEN < OR = 5 /HPF [facility] Bacteria UA NONE SEEN NONE SEEN /HPF [facility] Hyaline Casts NONE SEEN NONE SEEN /LPF [facility] Comment: Test Performed at: [facility] [id number] ASIF BLACKWOOD MD 03/08/2021 9:33 AM CDT 03/09/2021 5:13 AM CDT Courtney M Linwood DO LAB - URINALYSIS O RDERABLES [facility] [address] [place] [address] * EARLY SJOGREN'S SYNDROME PROFILE (11/22/2020 10:48 AM CDT) Salivary Protein 1 Antibody IgG 6.6 EU/ml [facility] INSURANCE BILL Comment: Reference Range: Negative:< 20 EU/ml Borderline:20-25 EU/ml Positive:> 25 EU/ml Salivary Protein 1 Antibody IgA 1.2 EU/ml [facility] INSURANCE BILL Comment: Reference Range: Negative:< 20 EU/ml Borderline:20-25 EU/ml Positive:> 25 EU/ml Salivary Protein 1 Antibody IgM 3.7 EU/ml [facility] INSURANCE BILL Comment: Reference Range: Negative:< 20 EU/ml Borderline:20-25 EU/ml Positive:> 25 EU/ml Carbonic Anhydrase Antibody IgG 10.7 EU/ml [facility] INSURANCE BILL Comment: Reference Range: Negative:< 20 EU/ml Borderline:20-25 EU/ml Positive:> 25 EU/ml Carbonic Anhydrase Antibody IgA <1.0 EU/ml [facility] INSURANCE BILL Comment: Reference Range: Negative:< 20 EU/ml Borderline:20-25 EU/ml Positive:> 25 EU/ml Carbonic Anhydrase Antibody IgM 6.0 EU/ml [facility] INSURANCE BILL Comment: Reference Range: Negative:< 20 EU/ml Borderline:20-25 EU/ml Positive:> 25 EU/ml Parotid Specific Protein Antibody IgG 8.1 EU/ml [facility] INSURANCE BILL Comment: Reference Range: Negative:< 20 EU/ml Borderline:20-25 EU/ml Positive:> 25 EU/ml Parotid Specific Protein Antibody IgA <1.0 EU/ml [facility] INSURANCE BILL Comment: Reference Range: Negative:< 20 EU/ml Borderline:20-25 EU/ml Positive:> 25 EU/ml Parotid Specific Protein Antibody IgM <1.0 EU/ml [facility] INSURANCE BILL Comment: Reference Range: Negative:< 20 EU/ml Borderline:20-25 EU/ml Positive:> 25 EU/ml The novel antibodies salivary gland protein 1 (SP-1), carbonic anhydrase 6 (CA ) and parotid secretory protein (PSP) have shown to be present in animal models for Sjogren's syndrome (SS) and patients with the disease. The antibodies SP-1, CA and PSP occurred earlier in the course of the disease than antibodies to Ro or La. These antibodies were found in 45% of patients meeting the criteria for SS who lacked antibodies to Ro or La. Furthermore, in patients with idiopathic xerostomia and xerophthalmia for less than 2 years, 76% had antibodies to SP-1 and/or CA while only 31% had antibodies to Ro or La. Antibodies to SP-1, CA and PSP may be useful markers for identifying patients with SS at early stages of the disease or those that lack antibodies to either Ro or La. The presence of the antibodies to SP-1, CA and PSP should be correlated with clinical (dry mouth, dry eyes), serological (Ro, La, HOLDEN, RF) and histological (positive lymphocytic focus scores) findings in establishing a definitive diagnosis for SS. Aline Dias et al. (2010). A role of lymphotxin in primary sjogren's syndrome. J Immunol; 185: 5002-0085. Aline Dias et al. (2012). Novel autoantibodies in Sjogren's syndrome. Clinical Immunology;145, 251-255. *This test has been developed and performance parameters have been validated by [employer], [employer]. This test has not been approved by the U.S. Food and Drug Administration (FDA); however, US FDA approval is not required for clinical use. It is not intended that clinical diagnosis and patient management decisions be made using these results alone. This test has been validated using serum samples. The pattern checker has not determined the efficacy of this test when performed on CSF, plasma, joint or pleural fluid specimens. The performance characteristics of this test were determined by [employer]. Blood BLOOD SPECIMEN / Unknown 11/22/2020 10:48 AM CDT 11/22/2020 Narrative Resulting Agency Comment Lab Testing performed at: [employer] [address] [place] [id number] Mikala العلي MD LAB - SEROLOGY ORDER [facility] INSURANCE BILL [address] [place] [address] * IGG SUBCLASSES PANEL (11/22/2020 10:48 AM CDT) IgG Quantitative 792 586 - 1,602 mg/dL [facility] INSURANCE BILL IgG Subclass 1 448 248 - 810 mg/dL [facility] INSURANCE BILL IgG Subclass 2 200 130 - 555 mg/dL [facility] INSURANCE BILL IgG Subclass 3 87 15 - 102 mg/dL [facility] INSURANCE BILL IgG Subclass 4 13 2 - 96 mg/dL [facility] INSURANCE BILL Blood BLOOD SPECIMEN / Unknown 11/22/2020 10:48 AM CDT 11/22/2020 Narrative Resulting Agency Comment Lab Testing performed at: [facility] [address] [facility] [phone] Mikala العلي MD LAB - CHEMISTRY MICHAEL NELSON Performing Organization Address City/[facility]/ZIP Co de Phone Number [facility] INSURANCE BILL [address] [place] [address] * TRYPTASE (11/22/2020 10:48 AM CDT) Pathologist [facility] Tryptase 6.9 2.2 - 13.2 ug/L [facility] INSURANCE BILL Blood BLOOD SPECIMEN / Unknown 11/22/2020 10:48 AM CDT 11/22/2020 Narrative Resulting Agency Comment Lab Testing performed at: [facility] [id number] Mikala العلي MD LAB - CHEMISTRY MICHAEL NELSON Performing Organization Address City/[facility]/ZIP Co de Phone Number [facility] INSURANCE BILL [address] [place] [address] * CYTOMEGALOVIRUS QUAL PCR (11/22/2020 10:47 AM CDT) Pathologist [facility] Cytomegalovirus Detection PCR Negative Negative [facility] INSURANCE BILL Comment: No Cytomegalovirus DNA Detected. This test was developed and its performance characteristics determined by [facility]. It has not been cleared or approved by the Food and Drug Administration. The FDA has determined that such clearance or approval is not necessary. Microbiology BLOOD SPECIMEN / Unknown 11/22/2020 10:47 AM CDT 11/22/2020 Narrative Resulting Agency Comment Lab Testing performed at: [facility] [address] [id number] Mikala العلي MD LAB - BODY FLUID ORD ERABLES [facility] INSURANCE BILL [address] [place] [address] * URINALYSIS MICROSCOPIC ONLY REFLEXED (11/22/2020 10:46 AM CDT) Only the most recent of2 resultswithin the time period is included. WBC UA None seen 0 - 5 /hpf [facility] INSURANCE BILL RBC UA 0-2 0 - 2 /hpf [facility] INSURANCE BILL Epithelial Cells (non renal) 0-10 0 - 10 /hpf [facility] INSURANCE BILL Epithelial Cells (renal) NOT NEEDED [facility] INSURANCE BILL Comment:Ancillary determined the test is not needed. Casts ua None seen None seen /lpf [facility] INSURANCE BILL Casts UA NOT NEEDED [facility] INSURANCE BILL Comment:Ancillary determined the test is not needed. Crystals UA NOT NEEDED [facility] INSURANCE BILL Comment:Ancillary determined the test is not needed. Crystals UA NOT NEEDED [facility] INSURANCE BILL Comment:Ancillary determined the test is not needed. Mucus UA NOT NEEDED [facility] INSURANCE BILL Comment:Ancillary determined the test is not needed. Bacteria UA None seen None seen/Few [facility] INSURANCE BILL Yeast UA NOT NEEDED [facility] INSURANCE BILL Comment:Ancillary determined the test is not needed. Trichomonas UA NOT NEEDED [facility] INSURANCE BILL Comment:Ancillary determined the test is not needed. Comment Urine NOT NEEDED [facility] INSURANCE BILL Comment:Ancillary determined the test is not needed. 11/22/2020 10:4 6 AM CDT 11/22/2020 Narrative Resulting Agency Comment Lab Testing performed at: [facility] [address] [facility] [phone] Mikala العلي MD LAB - URINALYSIS ORD ERABLES Performing Organization Address City/[facility]/ZIP Co de Phone Number [facility] INSURANCE BILL [address] [place] [address] * URINALYSIS REFLEX MICROSCOPIC REFLEX CULTURE (11/22/2020 10:46 AM CDT) Only the most recent of2 resultswithin the time period is included. Specific [place] UA 1.012 1.005 - 1.030 [facility] INSURANCE BILL pH UA 6.5 5.0 - 7.5 [facility] INSURANCE BILL Color UA Yellow Yellow [facility] INSURANCE BILL Appearance Clear Clear [facility] INSURANCE BILL Leukocyte UA Negative Negative [facility] INSURANCE BILL Protein UA Negative Negative/Tra ce [facility] INSURANCE BILL Glucose UA Negative Negative [facility] INSURANCE BILL Ketone UA Negative Negative [facility] INSURANCE BILL Occult Blood Urine Negative Negative [facility] INSURANCE BILL Bilirubin UA Negative Negative [facility] INSURANCE BILL Urobilinogen 0.2 0.2 - 1.0 mg/dL [facility] INSURANCE BILL Nitrite UA Negative Negative [facility] INSURANCE BILL Microscopic Examination Urine [facility] INSURANCE BILL Comment:Microscopic follows if indicated. Microscopic Examination Urine See below: [facility] INSURANCE BILL Comment:Microscopic was roberto cated and was performed. Urinalysis Reflex [facility] INSURANCE BILL Comment:This specimen will n ot reflex to a Urine Culture. Urine URINE SPECIMEN OBTAINED BY CLEAN CATCH PROCEDURE / Unknown 11/22/2020 10:46 AM CDT 11/22/2020 Narrative Resulting Agency Comment [facility] performed [facility]: [facility] [address] [facility] [phone] Mikala العلي MD LAB - URINALYSIS ORD ERABLES [facility] INSURANCE BILL [address] [place] [address] * XR WRIST BILAT 3VW OR MORE (10/11/2020 3:03 PM CDT) Anatomical Region Laterality Modality Wrist / Hand, Upper Extremity Ra diographic Imaging 10/11/2020 4:22 PM CDT Narrative 10/11/2020 4:42 PM CDT EXAM: Bilateral wrists, three views. HISTORY: Wrist pain. FINDINGS/IMPRESSION: No acute fracture or dislocation is identified. The soft tissues appear unremarkable. No focal erosions are seen. Edited by Zoe Bassett on 10/11/2020 4:41 PM *Reading Radiologist: Jayson Maher on 10/11/2020 at 4:42 PM Procedure Note Jayson Maher MD - 10/11/2020 EXAM: Bilateral wrists, three views. HISTORY: Wrist pain. FINDINGS/IMPRESSION: No acute fracture or dislocation is identified. The soft tissues appear unremarkable. No focal erosions are seen. Edited by Zoe Bassett on 10/11/2020 4:41 PM *Reading Radiologist: Jayson Maher on 10/11/2020 at 4:42 PM Mikala العلي MD DIAGNOSTIC IMAGING O RDERABLES * XR HAND BILAT 3VW OR MORE (10/11/2020 3:03 PM CDT) Anatomical Region Laterality Modality Upper Extremity, Wrist / Hand Ra diographic Imaging 10/11/2020 4:22 PM CDT Narrative 10/11/2020 4:42 PM CDT EXAM: Bilateral hands, two views. HISTORY: Hand pain. FINDINGS/IMPRESSION: No definite acute fracture or dislocation is seen in the right hand or the left hand. The soft tissues appear unremarkable. No focal erosions are identified. Edited by Zoe Bassett on 10/11/2020 4:41 PM *Reading Radiologist: Jayson Maher on 10/11/2020 at 4:42 PM Procedure Note Jayson Maher MD - 10/11/2020 EXAM: Bilateral hands, two views. HISTORY: Hand pain. FINDINGS/IMPRESSION: No definite acute fracture or dislocation is seen in the right hand or the left hand. The soft tissues appear unremarkable. No focal erosions are identified. Edited by Zoe Bassett on 10/11/2020 4:41 PM *Reading Radiologist: Jayson Maher on 10/11/2020 at 4:42 PM Mikala العلي MD DIAGNOSTIC IMAGING O RDERABLES * XR SI JOINTS 3VW OR MORE (10/11/2020 3:03 PM CDT) Anatomical Region Laterality Modality Pelvis, Lower Extremity Radiogra phic Imaging 10/11/2020 3:36 PM CDT Impressions 10/11/2020 3:47 PM CDT Minimal degenerative change. Edited by Belkis Jett on 10/11/2020 3:45 PM *Reading Radiologist: Frantz Jones on 10/11/2020 at 3:47 PM Narrative 10/11/2020 3:47 PM CDT SACROILIAC JOINTS, 3 VIEW HISTORY: Pain There is minimal degenerative change without evidence of erosions or joint space narrowing. Procedure Note Frantz Jones MD - 10/11/2020 SACROILIAC JOINTS, 3 VIEW HISTORY: Pain There is minimal degenerative change without evidence of erosions or joint space narrowing. IMPRESSION Minimal degenerative change. Edited by Belkis Jett on 10/11/2020 3:45 PM *Reading Radiologist: Frantz Jones on 10/11/2020 at 3:47 PM Mikala العلي MD DIAGNOSTIC IMAGING O RDERABLES * CYCLIC CITRUL PEPTIDE ANTIBODY IGG/IGA (CCP) (10/11/2020 2:20 PM CDT) CCP Antibodies IgG/IgA 4 0 - 19 units [facility] INSURANCE BILL Comment: Negative <20 Weak positive 20 - 39 Moderate positive 40 - 59 Strong positive >59 Blood BLOOD SPECIMEN / Unknown 10/11/2020 2:20 PM CDT 10/11/2020 Narrative Resulting Agency Comment Lab Testing performed at: [facility] [phone] Mikala العلي MD LAB - SEROLOGY ORDER OLAMIDE [facility] INSURANCE BILL [address] [place] [address] * URIC ACID BLOOD (10/11/2020 2:20 PM CDT) Uric Acid 3.0 2.6 - 6.2 mg/dL [facility] INSURANCE BILL Comment:Therapeutic target f or gout patients: <6.0 Blood BLOOD SPECIMEN / Unknown 10/11/2020 2:20 PM CDT 10/11/2020 Narrative Resulting Agency Comment Lab Testing performed at: [facility] [address] [facility] [phone] Mikala العلي MD LAB - CHEMISTRY ORDE RABLES Performing Organization Address City/[facility]/ZIP Co de Phone Number [facility] INSURANCE BILL [address] [place] [address] * CARDIOLIPIN ANTIBODY IGG/IGM PANEL (10/11/2020 2:20 PM CDT) Pathologist [facility] Cardiolipin Antibody IgG <9 0 - 14 GPL U/mL [facility] INSURANCE BILL Comment: Negative: <15 Indeterminate: 15 - 20 Low-Med Positive: >20 - 80 High Positive: >80 Cardiolipin Antibody IgM 9 0 - 12 MPL U/mL [facility] INSURANCE BILL Comment: Negative: <13 Indeterminate: 13 - 20 Low-Med Positive: >20 - 80 High Positive: >80 Blood BLOOD SPECIMEN / Unknown 10/11/2020 2:20 PM CDT 10/11/2020 Narrative Resulting Agency Comment Lab Testing performed at: [facility] [address] [facility] [id number] Mikala العلي MD LAB - SEROLOGY ORDER OLAMIDE Performing Organization Address [facility] Co de Phone Number [facility] INSURANCE BILL [address] [place] [address] * LUPUS ANTICOAGULANT PANEL W RFLX (10/11/2020 2:20 PM CDT) Pathologist [facility] PTT-LA 33.7 0.0 - 51.9 sec [facility] INSURANCE BILL dRVVT 28.3 0.0 - 47.0 sec [facility] INSURANCE BILL Interpretation Comment: [facility] INSURANCE BILL Comment:No lupus anticoagula nt was detected. Blood BLOOD SPECIMEN / Unknown 10/11/2020 2:20 PM CDT 10/11/2020 Narrative Resulting Agency Comment Lab Testing performed at: [facility] [id number] Mikala العلي MD LAB - HEMATOLOGY ORD ERABLES Performing Organization Address City/[facility]/ZIP Co de Phone Number [facility] INSURANCE BILL [address] [place] [address] * RHEUMATOID FACTOR BLOOD QUANTITATIVE (10/11/2020 2:20 PM CDT) Pathologist [facility] Rheumatoid Factor <10.0 0.0 - 13.9 IU/mL [facility] INSURANCE BILL Blood BLOOD SPECIMEN / Unknown 10/11/2020 2:20 PM CDT 10/11/2020 Narrative Resulting Agency Comment Lab Testing performed at: [facility] [address] [facility] [id number] Mikala العلي MD LAB - CHEMISTRY MICHAEL NELSON Performing Organization Address City/[facility]/ZIP Co de Phone Number [facility] INSURANCE BILL [address] [place] [address] * HOLDEN BLOOD SCREEN W/REFLEX TITER (10/11/2020 2:20 PM CDT) Pathologist [facility] HOLDEN Negative [facility] INSURANCE BILL Comment: Negative <1:80 Borderline 1:80 Positive >1:80 Blood BLOOD SPECIMEN / Unknown 10/11/2020 2:20 PM CDT 10/11/2020 Narrative Resulting Agency Comment Lab Testing performed at: [facility] [address] [place] [id number] Mikala العلي MD LAB - CHEMISTRY MICHAEL NELSON [facility] INSURANCE BILL [address] [place] [address] * INES ANTIBODY PANEL (10/11/2020 2:20 PM CDT) Pathologist [facility] RN [facility] Antibody 0.3 0.0 - 0.9 AI [facility] INSURANCE BILL Holm (INES) Antibody <0.2 0.0 - 0.9 AI [facility] INSURANCE BILL Sjogren's Antibodies (SSA) <0.2 0.0 - 0.9 AI [facility] INSURANCE BILL Sjogren's Antibodies (SSB) <0.2 0.0 - 0.9 AI [facility] INSURANCE BILL Blood BLOOD SPECIMEN / Unknown 10/11/2020 2:20 PM CDT 10/11/2020 Narrative Resulting Agency Comment Lab Testing performed at: [facility] [address] [facility] [id number] Mikala العلي MD LAB - CHEMISTRY MICHAEL NELSON Performing Organization Address [facility] de Phone Number [facility] INSURANCE BILL [address] [place] [address] * BETA-2 GLYCOPROTEIN 1 ANTIBODY IGG/IGM PANEL (10/11/2020 2:20 PM CDT) Beta-2 Glycoprotein I Antibody IgG <9 0 - 20 GPI IgG units [facility] INS[facility] B[facility] Comment: The reference interval reflects a 3SD or 99th percentile interval, which is thought to represent a potentially clinically significant result in accordance with the International Consensus Statement on the classification criteria for definitive antiphospholipid syndrome (APS). J Thromb Haem 2006;4:295-306. Beta-2 Glycoprotein I Antibody IgM <9 0 - 32 GPI IgM units [facility] INSURANCE BILL Comment: The reference interval reflects a 3SD or 99th percentile interval, which is thought to represent a potentially clinically significant result in accordance with the International Consensus Statement on the classification criteria for definitive antiphospholipid syndrome (APS). J Thromb Haem 2006;4:295-306. Blood BLOOD SPECIMEN / Unknown 10/11/2020 2:20 PM CDT 10/11/2020 Narrative Resulting Agency Comment Lab Testing performed at: [address] [id number] Mikala العلي MD LAB - CHEMISTRY MICHAEL NELSON Performing Organization Address [facility] Co de Phone Number [facility] INSURANCE BILL [address] [place] [address] * HLA TYPING B27 (10/11/2020 2:19 PM CDT) HLA-B27 Negative [facility] INSURANCE BILL Comment: HLA-B*27 Negative B27 allele interpretation for all loci based on IMGT/HLA database version 3.38 This test was developed and its performance characteristics determined by [employer]. It has not been cleared or approved by the Food and Drug Administration. [facility] CLIA ID Number [id number] . This test was performed using PCR (Polymerase Chain Reaction)/SSOP (Sequence Specific Oligonucleotide Probes) technique. SBT (Sequence Based Typing) and/or SSP (Sequence Specific Primers) may be used as supplemental methods when necessary. Please contact [facility] Customer Service at if you have any questions. . Director of HLA Laboratory Dr Nicanor Aaron, PhD Blood BLOOD SPECIMEN / Unknown 10/11/2020 2:19 PM CDT 10/11/2020 Narrative Resulting Agency Comment Lab Testing performed at: [facility] [address] [facility] [id number] Mikala العلي MD LAB - CHEMISTRY MICHAEL NELSON [facility] INSURANCE BILL [address] [place] [address] Care Teams Recruiting Specialist Relationship Specialty Start Date End Date Jeff Duque MD [address] [facility] [address] [place] [address] PCP - General 08/30/21 Jeff Duque MD [address] [facility] [address] [place] [address] Family Medicine 08/30/21
--- OUTSIDE RECORDS SUMMARY | 2024-07-20 17:38 | XMS_ITS | Referral Summary ---
Author Organization [facility] Address [address] [place] [address] Care Team Providers Care Manager Community Name Role Phone Jeff Duque MD Primary Care Provider Encounters Date Type Department Care Team Description 06/01/2024 3:00 PM [employer] Imaging Exam [facility] Ophthalmology [facility] [address] [phone] Retinal lesion 05/24/2024 Telephone [facility] Ophthalmology [address] [phone] Alexandre Ames MD 04/27/2024 11:30 AM [employer] Office Visit [facility] Pulmonology [address] [facility] [address] [place] [phone] Danny Cunningham MD Obstructive sleep apnea (Primary Dx); Chronic cough; Multiple pulmonary nodules; Psychophysiological insomnia; Restless legs; Hyperinflation of lungs; Pulmonary air trapping; Mucopurulent chronic bronchitis (HCC); Non-seasonal allergic rhinitis due to pollen; Personal history of nicotine dependence from Last 3 Months Allergies Active Allergy Reactions Criticality Noted Date Comments Omeprazole Rash,Dizziness,Nausea And Vomiting Medium 0 12/18/2020 Medications albuterol 1.25 mg/3 mL nebulizer solution Inhale 0 Active albuterol HFA (PROVENTIL HFA,VENTOLIN HFA,PROAIR HFA) 90 mcg/actuation inhaler Inhale 2 puffs every 6 (six) hours as needed 0 Active folic acid (FOLVITE) 1 mg tablet Take by mouth daily 1 Active metFORMIN (GLUCOPHAGE) 500 mg tablet TAKE 1 TABLET BY MOUTH DAILY WITH A MEAL 0 Active methotrexate 2.5 mg tablet TAKE 4 TABLETS BY MOUTH ONCE IN WEEK 1, AND THEN 6 TABLETS BY MOUTH ONCE EVERY WEEK 1 Active dicyclomine (BENTYL) syrup 10 mg/5 mL Take 10 mg by mouth 4 (four) times a day Active leflunomide (ARAVA) 10 mg tablet Take 1 tablet (10 mg total) by mouth daily 1 Active famotidine (PEPCID) 40 mg tablet Take 1 tablet (40 mg total) by mouth daily Active hydrOXYchloroQU INE (PLAQUENIL) 200 mg tablet Take by mouth daily Active leflunomide (ARAVA) 20 mg tablet Take 1 tablet (20 mg total) by mouth daily 2 Active dicyclomine (BENTYL) 10 mg capsule TAKE 1 CAPSULE (10 MG) BY ORAL ROUTE 4 TIMES PER DAY NEEDED FOR ABDOMINAL PAIN. 1 Active adalimumab (HUMIRA, CF, PEN) 40 mg/0.4 mL pen injector kit Inject 0.4 mL (40 mg total) under the skin once a week 2 Active atorvastatin (LIPITOR) 40 mg tablet Take 1 tablet (40 mg total) by mouth daily 3 Active EnbreL SureClick 50 mg/mL (1 mL) pen injector 3 Active gabapentin (NEURONTIN) 300 mg capsule Take 1 capsule (300 mg total) by mouth 3 (three) times a day 3 Active simvastatin (ZOCOR) 20 mg tablet Take 1 tablet (20 mg total) by mouth daily 3 Active SUMAtriptan (IMITREX) 50 mg tablet Take 1 tablet (50 mg total) by mouth once as needed for migraine 3 Active rOPINIRole (REQUIP) 0.25 mg tablet TAKE 1 TABLET BY MOUTH EVERY DAY tablet 3 3 Active fluticasone propionate (FLONASE) 50 mcg/actuation nasal spray ADMINISTER 1 SPRAY INTO EACH NOSTRIL 2 TIMES A DAY. 48 mL 2 4 Active meloxicam (MOBIC) 7.5 mg tabletIndicatio ns:Chronic neck and back pain TAKE 1 TABLET BY MOUTH TWICE A DAY NEEDED 60 tablet 3 4 Active rOPINIRole (REQUIP) 0.5 mg tablet TAKE 1 TABLET BY MOUTH EVERY DAY 30 tablet 6 4 Active loratadine (CLARITIN) 10 mg tablet TAKE 1 TABLET BY MOUTH EVERY DAY 30 tablet 3 4 Active Symbicort 160-4.5 mcg/actuation inhaler INHALE 2 PUFFS BY MOUTH 2 TIMES A DAY RINSE MOUTH WITH WATER AFTER USE. DO NOT SWALLOW. 10.2 each 4 4 Active Active Problems Problem Noted Date Diagnosed Date Chronic bronchitis 03/04/2024 Allergic rhinitis 03/04/2024 Hyperinflation of lungs 12/30/2023 Mucopurulent chronic bronchitis 06/18/2022 Pulmonary air trapping 06/18/2022 Periodic limb movement 01/08/2022 Obstructive sleep apnea 05/30/2021 Psychophysiological insomnia 05/30/2021 Teeth grinding 05/30/2021 Restless legs 05/30/2021 Hypersomnia 05/30/2021 Inflammatory arthritis 03/05/2021 Multiple pulmonary nodules 12/18/2020 High blood pressure 10/19/2020 Dyspnea on exertion 09/08/2020 Nicotine dependence 09/08/2020 Type 2 diabetes mellitus without complications 0 09/08/2020 Asthma 09/08/2020 Chest wall pain 09/08/2020 Family history of stroke 09/08/2020 Family history of cardiovascular disease 021 Fatigue 09/08/2020 Palpitations 09/08/2020 Leg edema 09/08/2020 Leukocytosis (leucocytosis) 08/29/2020 Chronic cough 03/02/2020 Immunizations Immunization Administration Dates Next Due Pfizer SARS-CoV-2 Monovalent Vaccination (12+ Yrs) PURPLE 09/09/2020,08/19/2020 Social History Tobacco Use Types Packs/Day Years Used Date Smoking Tobacco: Every Day Cigarettes 1 30.5 Started: 01/01/1994 Smokeless Tobacco: Never Tobacco Cessation:Ready to Q uit: Not Asked; Counseling Given: Not Answered AUDIT-C Answer Date Recorded Q1: How often do you have a drink containing alcohol? Never 12/24/2022 Q2: How many drinks containi ng alcohol do you have on a typical day when you are drinking? Patient does not drink Q3: How often do you have si x or more drinks on one occasion? Never 12/24/2022 Personal Safety Answer Date Recorded Have you ever been in or are you currently in a harmful physical or emotional relationship or is someone making you feel afraid or unsafe? 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 Not on file Not on file Not on file Last Filed Vital Signs Vital Sign Reading Time Taken Comments Blood Pressure 118/62 04/27/2024 11:26 AM [employer] Pulse 90 04/27/2024 11:26 AM [employer] Temperature 36.2 C (97.2 F) 04/27/2024 11:26 AM [employer] Respiratory Rate 16 04/27/2024 11:26 AM [employer] Oxygen Saturation 93% 04/27/2024 11:26 AM [employer] Inhaled Oxygen Concentration - - Weight 80.9 kg (178 lb 6.4 oz) 04/27/2024 11:26 AM [employer] Height 170.2 cm (5' 7 ) 04/27/2024 11:26 AM [employer] Body Mass Index 27.94 04/27/2024 11:26 AM [employer] Plan of Treatment Not on file Procedures Procedure Name Priority Date/Time Associated Diagnosis Comments MULTIFOCAL ELECTRORETINOGRAPHY (ERG) - OU - BOTH EYES Routine 06/01/2024 3:48 PM [employer] Retinal lesion CT CHEST WO CONTRAST F/U LUNG SCREEN PROTOCOL Schedule Routine, Read Routine (OP Routine) 04/20/2024 10:31 AM [employer] Abnormal CT lung screening EGFR STAT 08/29/2022 1:38 PM CDT HEMOGLOBIN A1C Routine 01/18/2022 9:11 AM CDT LIPID PANEL Routine 01/18/2022 9:11 AM CDT ALBUMIN CREATININE RATIO, URINE Routine 01/18/2022 9:11 AM CDT from Last 3 Months or Most Recently Relevant to Health Maintenance Results * Multifocal Electroretinography (ERG) - OU - Both Eyes (06/01/2024 3:48 PM [employer]) Anatomical Region Laterality Modality Head Other Narrative 06/08/2024 2:31 PM [employer] VISUAL DIAGNOSTIC REPORT: Patient: Yanick Dan : 71 Referring Physician: Reina Beckford MD Date of Examination: 06/01/24 Clinical History: This is a 48 y/o woman referred for Visual Diagnostic testing 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 Multi-focal ERG was performed. Multi-focal ERG: Multifocal ERG testing was conducted using the Archive Electrodiagnostic Imaging System with 61hexagons covering the central 45 of the visual field. This was performed according to standard ISCEV protocol. Both eyes were fully dilated. Responses were obtained and analyzed with trace array and two-dimensional P1 latency plots. Cooperation and fixation were felt to be good for each eye. Ring averages were compared with normative control data from this laboratory. Results: Multifocal ERG recordings demonstrated normal ERG signal across the entire testing field. Ring averages 4 rings 1-5 were normal OU. Impression: There is no electrophysiologic evidence of central cone or macular dysfunction in either eye. These results significantly lower the likelihood of Plaquenil related maculopathy. Clinical correlation is recommended. Thank you so much for referring this patient for electrodiagnostic testing. If you would like to review the full set of tracings from this study, please contact our office at [phone], and we would be happy to send these to your office. Please feel free to contact my office if you would like to discuss these results further. Alexandre Ames M.D. Professor, Departments of Ophthalmology and Visual Sciences and Neurology Director, Visual Electrophysiology Service [facility] E-mail: [email or web address] Alexandre Ames MD OPHTH ELECTRORETINOG GWENDOLYN Final Result * CT Chest WO Contrast F/U Lung Screen Protocol (04/20/2024 10:31 AM [employer]) Anatomical Region Laterality Modality Chest N/A Computed Tomogra phy 04/26/2024 8:10 AM [employer] Narrative 04/26/2024 8:56 AM [employer] EXAM DESCRIPTION: CT CHEST WO CONTRAST F/U LUNG SCREEN PROTOCOL REASON FOR STUDY: Screening CT of the chest in a current smoker with a 30 pack year smoking history. Additional history: Chronic cough. TECHNIQUE: Low dose CT scan of the chest was performed without intravenous contrast using helical scanning technique. The exam extends from the lung apices through the lung bases. Automatic exposure control was used as a dose optimization technique. NOTE: This study was performed for the specific purposes of lung cancer screening and is not an alternative to diagnostic chest CT. RADIATION DOSE: CT dose index volume (CTDIvol) = 2.05 mGy COMPARISON: Chest CT 01/16/2024 FINDINGS: SMOKING RELATED LUNG DISEASE: Mild emphysema. Bronchial wall thickening with persistent mucous plugging in the left lower lobe. LUNG NODULES: Several small pulmonary nodules that are unchanged from the prior. For example a 4 mm right upper lobe nodule, image 72. 3 mm subpleural right upper lobe nodule, image 100. 4 mm subpleural anterior right upper lobe nodule, image 131. 3 mm left upper lobe nodule, image 62. 3 mm left lower lobe nodule is grossly unchanged but partially obscured by opacity, image 176. No new suspicious nodules. CORONARY ARTERY CALCIFICATION: Mild. OTHER: Large airways are patent. Persistent but improved bibasilar ground-glass opacities with bandlike opacities in the left lower lobe are likely subsegmental atelectasis. No evidence of pneumonia. Unchanged prominent mediastinal, right hilar, and axillary lymph nodes. Normal heart size with no pericardial effusion. Normal diameter aorta. No significant finding in the imaged abdomen. No acute fracture or aggressive osseous lesion. IMPRESSION: Stable small pulmonary nodules measuring up to 4 mm. No new suspicious pulmonary nodule. Mild emphysema. Persistent bronchial wall thickening and mucous plugging with decreased ground-glass opacities in the left lower lobe compared to 01/16/2024. Lung-RADS category 2: Benign appearance or behavior. Recommendation: Low dose Screening CT of chest in 12 months. THIS IS AN ELECTRONICALLY VERIFIED FINAL REPORT 04/26/2024 8:56 AM - Electronically signed by Juan Novoa M.D. AG T: Report ID: [id number] Reading Location: [place] [address] us Danny Cunningham MD IMG CT PROCEDURES Final Res ult * eGFR (08/29/2022 1:38 PM CDT) eGFR 107 mL/min/1. 73 m2 [facility] FRANKLIN Comment: Interpretive Data Reference Interval Normal >/= 90 mL/min/1.73m2 Mildly decreased* 60 - 89 mL/min/1.73m2 Mildly to moderately decreased 45 - 59 mL/min/1.73m2 Moderately to severely decreased 30 - 44 mL/min/1.73m2 Severely decreased 15 - 29 mL/min/1.73m2 Kidney Failure < 15 mL/min/1.73m2 *Relative to young adult level Estimated glomerular filtration rate is determined by the 2020 CKD-EPI equation recommended by the National Kidney Foundation (A Unifying Approach to GFR Estimation: Recommendations of the NKF-ASK Task Force on Reassessing the Inclusion of Race in Diagnosing Kidney Disease, JASN 202). The CKD-EPI equation should not be used for patients with unstable renal function and has not been validated in children and those over 70. Current interpretive data was last reviewed 2021. Blood 08/29/2022 1:38 PM CDT 08/29/2022 1:42 PM CDT us Misty FUNES LAB BLOOD ORDERABLES Final Resul t DINESH [address] [facility] Department [place] [address] * Albumin Creatinine Ratio, Urine (01/18/2022 9:11 AM CDT) Albumin Ur <12.0 mg/L DINESH Comment: Interpretive Data No reference range established. Current interpretive data was last revised 2018. Creatinine Ur 120.0 mg/dL DINESH Comment: Interpretive Data No reference range established. Current interpretive data was last revised 2018. Albumin Creatinine Ratio, Ur <10 1 - 29 mg/g DINESH Urine 01/18/2022 9:11 AM CDT 01/18/2022 9:17 AM CDT Jeff Duque MD LAB URINE ORDERABLES Final Resul t Performing Organization Address City/[facility] de Phone Number [address] [place] [address] * (ABNORMAL) Hemoglobin A1c (01/18/2022 9:11 AM CDT) [facility] Hgb A1C 5.7(H) 4.0 - 5.6 % DINESH Estimated Average Glucose 117 mg/dL DINESH Comment: The ADA recommends reporting an estimated Average Glucose (eAG) with all Hemoglobin A1c results using the equation derived from a study of 507 normal and diabetic adults. Minority populations were underrepresented and children were not included. (Diabetes Care 31:3245-8860, 2008). The eAG is not equivalent to a fasting glucose. Blood 01/18/2022 9:11 AM CDT 01/18/2022 9:44 AM CDT Jeff Duque MD LAB BLOOD ORDERABLES Final Resul t Performing Organization Address City/[facility] Co de Phone Number [address] [place] [address] * (ABNORMAL) Lipid panel (01/18/2022 9:11 AM CDT) [facility] Cholesterol 169 30 - 199 mg/dL DINESH Comment: Interpretive Data Ages < or = 19 years Acceptable: <170 mg/dL Borderline high: 170-199 mg/dL High: >or= 200 mg/dL Ages > or = 20 years Desirable: <200 mg/dL Borderline high: 200-239 mg/dL High: >or= 240 mg/dL Literature References: 1. Expert Panel on Integrated Guidelines for Cardiovascular Health and Risk Reduction in Children and Adolescents. Pediatrics 2011;128:S213 2. NCEP Expert Panel. Circulation 2004;110:227 Current Interpretive Data was last revised on 2017. Triglycerides 159(H) <=149 mg/dL DINESH Comment: Interpretive Data Ages < or = 9 years Acceptable: <75 mg/dL Borderline high: 75-99 mg/dL High: >or= 100 mg/dL Ages 10 to 20 years Acceptable: <90 mg/dL Borderline high: 90-129 mg/dL High: >or= 130 mg/dL Ages > or = 20 years Desirable: <150 mg/dL Borderline high: 150-199 mg/dL High: 200-499 mg/dL Very high: >or= 499 mg/dL Literature References: 1. Expert Panel on Integrated Guidelines for Cardiovascular Health and Risk Reduction in Children and Adolescents. Pediatrics 2011;128:S213 2. NCEP Expert Panel. Circulation 2003;110:227 Current Interpretive Data was last revised on 2017. HDL 39(L) >=40 mg/dL DINESH Comment: Interpretive Data Ages < or = 19 years Acceptable: >45 mg/dL Borderline low: 40-45 mg/dL Low: <40 mg/dL Ages > or = 20 years Desirable: >or= 60 mg/dL Low: <40 mg/dL Literature References: 1. Expert Panel on Integrated Guidelines for Cardiovascular Health and Risk Reduction in Children and Adolescents. Pediatrics 2011;128:S213 2. NCEP Expert Panel. Circulation 2004;110:227 Current Interpretive Data was last revised on 2017. LDL, calculated 98 <=129 mg/dL DINESH Comment: Interpretive Data Ages < or = 19 years Acceptable: <110 mg/dL Borderline high: 110-129 mg/dL High: >or= 130 mg/dL Ages > or = 20 years Optimal: <100 mg/dL Near optimal: 100-129 mg/dL Borderline high: 130-159 mg/dL High: >160 mg/dL Literature References: 1. Expert Panel on Integrated Guidelines for Cardiovascular Health and Risk Reduction in Children and Adolescents. Pediatrics 2011;128:S213 2. NCEP Expert Panel. Circulation 2004;110:227 Current Interpretive Data was last revised on 2017. Non-HDL Cholesterol 130 mg/dL DINESH FRANKLIN Comment: Interpretive Data Ages < or = 19 years Acceptable: <120 mg/dL Borderline high: 120-144 mg/dL High: >145 mg/dL Ages > or = 20 years When triglycerides are >200 mg/dL, Non-HDL cholesterol is a secondary target of therapy with treatment goals that are 30 mg/dL greater than the LDL cholesterol target. Literature References: 1. Expert Panel on Integrated Guidelines for Cardiovascular Health and Risk Reduction in Children and Adolescents. Pediatrics 2011;128:S213 2. NCEP Expert Panel. Circulation 2004;110:227 Current Interpretive Data was last revised on 2017. Chol/HDL ratio 4 DINESH FRANKLIN Blood 01/18/2022 9:11 AM CDT 01/18/2022 9:44 AM CDT us Jeff Duque MD LAB BLOOD ORDERABLES Final Resul t DINESH FRANKLIN [address] [facility] Department [place] [address] from Last 3 Months or Most Recently Relevant to Health Maintenance Insurance [facility] Care Teams Manager Community Relationship Specialty Start Date End Date Jeff Duque MD PCP - General 10/14/19
--- OUTSIDE RECORDS SUMMARY | 2024-07-20 17:38 | XMS_ITS | Clinical Summary ---
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 This disclosure is being madepursuant to the Care Everywhere program and may not contain all information available regarding this patient. Last updated 18.[facility] Allergies Active Allergy Reactions Criticality Noted Date Comments Omeprazole Rash,Nausea and/or Vomiting,Dizziness Medium 12/18/2020 Medications * Be aware that medications may not be up to date on this document. Alwaysverify current medications with the patient. Medication Sig Dispensed Refills Start Date End Date Status albuterol HFA (PROVENTIL;VENTOL IN;PROAIR) 108 (90 Base) MCG/ACT inhaler Inhale 2 (two) puffs by mouth every 6 hours as needed 11/12/19 20 Active metFORMIN (Glucophage) 500 MG tablet Take 1 (one) tablet by mouth once daily Active fluticasone propionate (Flonase) 50 MCG/ACT nasal spray [place] 2 (two) sprays into each nostril once daily Active loratadine (Claritin) 10 MG tablet Take 1 (one) tablet by mouth once daily 05/17/19 23 Active Symbicort 160-4.5 MCG/ACT inhaler INHALE 2 PUFFS BY MOUTH 2 TIMES A DAY RINSE MOUTH WITH WATER AFTER USE. DO NOT SWALLOW. 07/27/19 24 Active triamcinolone acetonide (Kenalog) 0.1 % ointmentIndicatio ns:Lupus erythematosus tumidus Apply to affected area on body twice daily for 2 weeks. 30 day supply 80 g 4 11/11/19 24 Active rOPINIRole (Requip) 0.5 MG tablet Take 1 (one) tablet by mouth once daily 01/20/20 24 Active hydroxychloroquin e (Plaquenil) 200 MG tabletIndications :Inflammatory arthritis Take 2 (two) tablets by mouth once daily 180 tablet 3 03/15/20 24 Active nortriptyline (Pamelor) 25 MG capsuleIndication s:Migraine equivalent,Migrai ne without aura and without status migrainosus, not intractable,Cervi calgia,Cervicogen ic headache,Rebound headache Take 1 (one) capsule by mouth at bedtime 30 capsule 4 04/15/20 24 Active Additional Information Patient not taking.Reported on 07/05/2024 SUMAtriptan (Imitrex) 50 MG tabletIndications :Migraine equivalent,Migrai ne without aura and without status migrainosus, not intractable,Cervi calgia,Cervicogen ic headache,Rebound headache 1 tablet at the onset of migraine; may repeat after 2 hours once in a 24 hour period if needed 9 tablet 5 04/15/20 24 Active Additional Information Patient not taking.Reported on 07/12/2024 gabapentin (Neurontin) 300 MG capsuleIndication s:Migraine equivalent,Migrai ne without aura and without status migrainosus, not intractable,Cervi calgia,Cervicogen ic headache,Rebound headache Take 300 mg in am, 300 mg in afternoon and 600 mg at night 120 capsule 5 04/15/20 24 Active rosuvastatin (Crestor) 20 MG tablet rosuvastatin 20 mg tablet 04/30/20 24 Active cetirizine (ZyrTEC) 10 MG tabletIndications :Angioedema Take 1 (one) tablet by mouth 2 times daily Reasons: Angioedema 180 tablet 4 06/03/19 25 Active famotidine (Pepcid) 20 MG tabletIndications :Urticaria,angioe sheyla Take 1 (one) tablet by mouth 2 times daily Reasons: Hives, angioedema 180 tablet 4 07/05/19 25 Active atorvastatin (Lipitor) 20 MG tablet Take 1 (one) tablet by mouth at bedtime Active abatacept (Orencia ClickJect) 125 MG/ML auto-injector penIndications:Rh eumatoid arthritis of multiple sites with negative rheumatoid factor (HCC) Inject 1 mL subcutaneously every 7 days Pen 4 mL 5 07/13/19 25 Active famotidine (Pepcid) 40 MG tabletIndications :Heartburn Take 0.5 (one-half) tablet by mouth once daily Reasons: Heartburn 15 tablet 02/18/20 24 025 Discontinued([facility] Clean-Up) famotidine (Pepcid) 20 MG tabletIndications :Urticaria,angioe sheyla Take 1 (one) tablet by mouth at bedtime Reasons: Hives, angioedema 180 tablet 4 06/03/19 25 025 Discontinued Hospital, Clinic, or Other Facility Administered Medication Ordered Dose Route Frequency Start Date End Date Status BUPivacaine PF (Marcaine PF) 0.5 % injectionIndications :Pain of both hip joints IX NOW FOR MULTIPLE DOSES 07/06/2024 07/06/2024 Ended triamcinolone acetonide (Kenalog-40) injection 80 mgIndications:Pain of both hip joints 80 mg IX NOW FOR MULTIPLE DOSES 07/06/2024 07/06/2024 Ended Active Problems Problem Noted Date Diagnosed Date [...] Date High blood pressure 10/19/2020 02/02/20 24 Encounters Date Type Department Care Team Description 07/12/2024 3:00 PM PROCESS DEVELOPMENT ASSOCIATE Office Visit [facility] - Rheumatology [address], [address] [place] [phone] Mikala العلي MD 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 factor (HCC) (Primary Dx) 07/08/2024 Telephone [facility] - Rheumatology [address], [address] [place] [phone] Mikala العلي MD Appointment 07/06/2024 1:00 PM PROCESS DEVELOPMENT ASSOCIATE Office Visit [facility] - Family Medicine [address] [place] [phone] Darion Camp MD Pain of both hip joints (Primary Dx) 07/06/2024 Travel 07/05/2024 3:30 PM PROCESS DEVELOPMENT ASSOCIATE Office Visit [facility] - GI [address] [place] [phone] Generalized abdominal pain (Primary Dx) 07/05/2024 Travel 06/17/2024 11:00 AM PROCESS DEVELOPMENT ASSOCIATE Clinical Support [facility] - Ophthalmology [address] [place] [phone] Jose Newby MD Long-term use of Plaquenil (Primary Dx) 06/17/2024 10:30 AM PROCESS DEVELOPMENT ASSOCIATE Office Visit [facility] - Ophthalmology [address] [place] [phone] Jose Newby MD Long-term use of Plaquenil (Primary Dx); Diabetes mellitus without ophthalmic manifestations (HCC) 06/17/2024 10:25 AM PROCESS DEVELOPMENT ASSOCIATE Clinical Support [facility] - Ophthalmology [address] [place] [phone] Jose Newby MD Long-term use of Plaquenil (Primary Dx) 06/17/2024 10:20 AM PROCESS DEVELOPMENT ASSOCIATE Clinical Support [facility] - Ophthalmology [address] [place] [phone] Jose Newby MD Long-term use of Plaquenil (Primary Dx) 06/15/2024 12:32 PM PROCESS DEVELOPMENT ASSOCIATE - 06/15/2024 11:59 PM PROCESS DEVELOPMENT ASSOCIATE Hospital Encounter [facility] [address] [place] [phone] Fratnz Nicole MD Discharge Disposition: Home or Self Care 06/15/2024 12:31 PM PROCESS DEVELOPMENT ASSOCIATE Hospital Encounter [facility] [address] [facility] [phone] Frantz Nicole MD Discharge Disposition: Home or Self Care 06/15/2024 11:19 AM PROCESS DEVELOPMENT ASSOCIATE - 06/15/2024 12:30 PM PROCESS DEVELOPMENT ASSOCIATE Hospital Encounter [facility] [address] [facility] [place] [phone] Frantz Nicole MD Discharge Disposition: Home or Self Care 06/15/2024 10:30 AM PROCESS DEVELOPMENT ASSOCIATE Office Visit [facility] - Orthopedics [address] [place] [address], [place] [phone] Frantz Nicole MD Low back pain, unspecified back pain laterality, unspecified chronicity, unspecified whether sciatica present (Primary Dx); Groin pain, right 06/15/2024 Travel 06/14/2024 Orders Only [facility] - Orthopedics [address] [place] [phone] Frantz Nicole MD Low back pain, unspecified back pain laterality, unspecified chronicity, unspecified whether sciatica present 06/03/2024 2:00 PM PROCESS DEVELOPMENT ASSOCIATE Office Visit [facility] - Allergy [address] [place] [address], [place] [phone] Eleno Montoya MD Non-seasonal allergic rhinitis due to other allergic trigger (Primary Dx); Angioedema, subsequent encounter; Asthma-COPD overlap syndrome (HCC) 06/03/2024 Travel 05/24/2024 Telephone [facility] - Rheumatology [address] [place] [address], [address] [place] [address] Mikala العلي MD Medication Problem 05/21/2024 12:00 PM PROCESS DEVELOPMENT ASSOCIATE Clinical Support [facility] - Ophthalmology [address] [place] [phone] Reina Beckford MD Retinal lesion of both eyes (Primary Dx) 05/21/2024 11:00 AM PROCESS DEVELOPMENT ASSOCIATE Clinical Support [facility] - Ophthalmology [address] [place] [phone] Reina Beckford MD Retinal lesion of both eyes (Primary Dx); Choroiditis of both eyes 05/21/2024 10:55 AM PROCESS DEVELOPMENT ASSOCIATE Clinical Support [facility] - Ophthalmology [address] [place] [phone] Reina Beckford MD Choroiditis of both eyes (Primary Dx) 05/21/2024 9:15 AM PROCESS DEVELOPMENT ASSOCIATE Office Visit [facility] - Ophthalmology [address] [place] [phone] Reina Beckford MD Retinal lesion of both eyes (Primary Dx); Diabetes mellitus without ophthalmic manifestations (HCC) 05/21/2024 8:50 AM PROCESS DEVELOPMENT ASSOCIATE Clinical Support [facility] - Ophthalmology [address] [place] [phone] Reina Beckford MD Retinal lesion of both eyes (Primary Dx); Choroiditis of both eyes 05/21/2024 Travel 05/18/2024 1:20 PM PROCESS DEVELOPMENT ASSOCIATE Office Visit [facility] - Dermatology [address] [place] [phone] Torie Holm MD Lupus erythematosus tumidus (Primary Dx) 05/18/2024 Travel from Last 3 Months Family History Medical History Relation Name Comments Asthma Father Cancer - Pancreatic Father Diabetes - Type 2 Father Diabetes - Type 2 Mother Hypertension Mother Thyroid Disease Mother Lupus Sister 1 Sister S Thyroid Disease Sister 1 Sister S Thyroid Disease Sister 2 Sister M Relation Name Status Comments Father Mother Alive Sister 1 Sister S Sister 2 Sister M Alive Social History Tobacco Use Types Packs/Day Years [...] file Gender Identity Female 05/10/2021 10:24 PM PROCESS DEVELOPMENT ASSOCIATE Sexual Orientation Not on file Last Filed Vital Signs Vital Sign Reading Time Taken Comments Blood Pressure 126/82 07/12/2024 3:00 PM PROCESS DEVELOPMENT ASSOCIATE Pulse 90 07/12/2024 3:00 PM PROCESS DEVELOPMENT ASSOCIATE Temperature 36.3 C (97.3 F) 07/12/2024 3:00 PM PROCESS DEVELOPMENT ASSOCIATE Respiratory Rate 16 07/12/2024 3:00 PM PROCESS DEVELOPMENT ASSOCIATE Oxygen Saturation 95% 07/12/2024 3:00 PM PROCESS DEVELOPMENT ASSOCIATE Inhaled Oxygen Concentration - - Weight 83 kg (183 lb) 07/12/2024 3:00 PM PROCESS DEVELOPMENT ASSOCIATE Height 170.2 cm (5' 7 ) 07/06/2024 1:24 PM PROCESS DEVELOPMENT ASSOCIATE Body Mass Index 28.66 07/06/2024 1:24 PM PROCESS DEVELOPMENT ASSOCIATE Plan of Treatment Upcoming Encounters Date Type Department Care Team (Late st Contact Info) Description 08/05/2024 3:00 PM CDT Office Visit [facility] - Allergy [address] [place] [phone] Eleno Montoya MD [address] [place] [address] 08/17/2024 11:30 AM CDT Office Visit [facility] - Orthopedics [address] [place] [phone] Frantz Nicole MD [address] [place] [phone] 08/19/2024 10:30 AM CDT Office Visit [facility] - Neurology [address] [place] [phone] Moiz Briones, [employer] ADMINISTRATOR-[employer]ENCH WEAVER [address] [place] [address] [address] [place] [phone] 08/19/2024 11:20 AM CDT Office Visit [facility] - Endocrinology [address] [place] [address] [place] [phone] Naseem Garcia MD [address] [place] [address] [address] [place] [phone] 10/21/2024 10:00 AM CDT Office Visit [facility] - ENT [address] [place] [phone] Vinny Milner MD [address] [place] [address] 2[address] [place] [address] 11/01/2024 3:20 PM CDT Office Visit [facility] - Rheumatology [address] [place] [address], [address] [place] [phone] Mikala العلي MD [address] [place] [phone] 11/16/2024 1:00 PM CDT Office Visit [facility] - Dermatology [address] [place] [phone] Torie Holm MD [address] [place], [place] [address]T [place] [phone] 11/19/2024 9:45 AM CDT Office Visit [facility] - Ophthalmology [address] [place] [phone] Reina Beckford MD [address] [place] [address] DE[place] [phone] 01/20/2025 10:00 AM CDT Office Visit [facility] - Ophthalmology [address], [place] [phone] Jose Newby MD [address] [place] [address] [place] [phone] 01/24/2025 3:00 PM CDT Office Visit [facility] - GI [address] [place] [phone] Health Maintenance Due Date Last Done Comments COLOGUARD (AGES 45-75) - COLON CA SCREENING 1973 CT COLONOGRAPHY - COLON CA SCREENING 1973 FIT - COLON CA SCREENING 1973 FLEX SIG - COLON CA SCREENING 1973 MAMMOGRAM 1973 PAP SMEAR 1973 HIV SCREENING 1988 DTAP/TDAP/TD VACCINES (1 - Tdap) 1992 HEPATITIS B VACCINE (1 of 3 - 19+ 3-dose series) 1992 PNEUMOCOCCAL VACCINE 50+ (1 of 2 - PCV) 1992 DIABETES-FOOT EXAM WITH MONOFILAMENT 03/14/2022 DIABETES-HGB A1C 07/18/2022 01/18/2022 ZOSTER VACCINE (1 of 2) 09/05/2023 COVID-19 VACCINE (3 - season) 2024 09/09/2020, 08/19/2020 INFLUENZA VACCINE (#1) 2024 DIABETES - URINE PROTEIN SCREENING 05/12/2024 03/12/2022 DIABETES-SERUM CREATININE 11/17/20242023, 07/04/2023, 04/25/2023, Additional history exists LUNG CANCER SCREENING 01/15/2025 01/16/2024 DIABETES RETINOPATHY SCREENING 06/17/2026 06/17/2024, 06/17/2024, 05/21/2024, Additional history exists COLON MONITORING 01/12/2034 01/13/2024, 01/13/2024 COLONOSCOPY - COLON CA SCREENING 01/12/2034 01/13/2024, 01/13/2024 Colorectal Cancer Screening 01/12/2034 HEPATITIS C SCREENING Completed 11/18/2023 , 07/15/2022, 02/12/2021 DEPRESSION SCREENING Completed 07/12/2024, 07/15/2022, 05/08/2022 HIB VACCINE Aged Out No longer eligi ble based on patient's age to complete this topic HPV VACCINE Aged Out No longer eligi ble based on patient's age to complete this topic MENINGOCOCCAL (Group B) VACCINE Aged Out No longer eligible based on patient's age to complete this topic MENINGOCOCCAL VACCINE Aged Out No maura sissy eligible based on patient's age to complete this topic Goals Goal Patient Goal Type Associated Problems Recent Progress Patient-Stated? Author Medication Management General On track( 025 3:22 PM PROCESS DEVELOPMENT ASSOCIATE) No Melonie Lynch, RN Note: Expected end date: Ongoing Interventions: Take all medications as prescribed Let your doctor know right away about any changes in your medications Make sure to request a refill of your medication at least one week prior to your last dose Procedures Procedure Name Priority Date/Time Associated Diagnosis Comments [place] DRAIN INJ MAJOR JOINT BURSA W US Routine 07/06/2024 1:53 PM PROCESS DEVELOPMENT ASSOCIATE Pain of both hip joints FUNDUS PHOTO BOTH EYES Routine 11:00 AM PROCESS DEVELOPMENT ASSOCIATE Long-term use of Plaquenil DORMAN AUTO VISUAL FIELD EXTENDED Routine 06/17/2024 10:17 AM PROCESS DEVELOPMENT ASSOCIATE Long-term use of Plaquenil RETINAL ANALYSIS OCT Routine 06/17/2024 10:17 AM PROCESS DEVELOPMENT ASSOCIATE Long-term use of Plaquenil XR HIP RIGHT 2VW OR MORE Routine 06/15/2024 12:42 PM PROCESS DEVELOPMENT ASSOCIATE Groin pain, right XR HIP LEFT 2VW OR MORE Routine 06/15/2024 12:42 PM PROCESS DEVELOPMENT ASSOCIATE Groin pain, right XR LUMBAR SPINE 2 OR 3VW Routine 06/15/2024 11:26 AM PROCESS DEVELOPMENT ASSOCIATE Low back pain, unspecified back pain laterality, unspecified chronicity, unspecified whether sciatica present FA ICG ANGIOGRAPHY Routine 05/21/2024 11 :56 AM PROCESS DEVELOPMENT ASSOCIATE Retinal lesion of both eyes FUNDUS PHOTO BOTH EYES Routine 10:51 AM PROCESS DEVELOPMENT ASSOCIATE Retinal lesion of both eyes RETINAL ANALYSIS OCT Routine 05/21/2024 8:50 AM PROCESS DEVELOPMENT ASSOCIATE Retinal lesion of both eyes ENDOSCOPY, COLON, DIAGNOSTIC Routine 01/13/2024 11:04 AM CDT COMPREHENSIVE METABOLIC PANEL Routine 11/18/2023 8:13 AM CDT 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 factor (HCC) HEPATITIS SCREEN ACUTE Routine 8:13 AM CDT 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 factor (HCC) from Last 3 Months or Most Recently Relevant to Health Maintenance Results * [place] DRAIN INJ MAJOR JOINT BURSA W US (07/06/2024 1:53 PM PROCESS DEVELOPMENT ASSOCIATE) Narrative Darion Camp MD - 07/06/2024 1:53 PM PROCESS DEVELOPMENT ASSOCIATE Darion Camp MD 07/07/2024 5:11 PM U/S-GUIDED [...] FUNDUS PHOTO BOTH EYES (06/17/2024 11:00 AM PROCESS DEVELOPMENT ASSOCIATE) Anatomical Region Laterality Modality Head External-Camera Photography Narrative 06/17/2024 12:40 PM PROCESS DEVELOPMENT ASSOCIATE Images from the original result were not included. Jose Newby MD OPHTHALMOLOGY SCHED ORD W PACS * DORMAN AUTO VISUAL FIELD EXTENDED (06/17/2024 10:17 AM PROCESS DEVELOPMENT ASSOCIATE) Anatomical Region Laterality Modality Head External-Camera Photography Narrative 06/17/2024 12:40 PM PROCESS DEVELOPMENT ASSOCIATE Images from the original result were not included. Jose Newby MD OPHTHALMOLOGY SCHED ORD W PACS * RETINAL ANALYSIS OCT (06/17/2024 10:17 AM PROCESS DEVELOPMENT ASSOCIATE) Anatomical Region Laterality Modality Head External-Camera Photography Narrative 06/17/2024 12:32 PM PROCESS DEVELOPMENT ASSOCIATE Images from the original result were not included. Jose Newby MD OPHTHALMOLOGY SCHED ORD W PACS * XR Hip Right 2Vw or More (06/15/2024 12:42 PM PROCESS DEVELOPMENT ASSOCIATE) Anatomical Region Laterality Modality Pelvis, Lower Extremity Computed Radiography 06/15/2024 2:24 PM PROCESS DEVELOPMENT ASSOCIATE Impressions 06/15/2024 2:27 PM PROCESS DEVELOPMENT ASSOCIATE IMPRESSION: No acute osseous abnormality. Mild degenerative changes. Report dictated by Won Pastrana MD (resident associate). IRisa MD have personally reviewed and interpreted this examination/study. > Interpreting Provider: Risa No MD on 06/15/2024 2:27 PM Narrative 06/15/2024 2:27 PM PROCESS DEVELOPMENT ASSOCIATE PROCEDURE: XR HIP RIGHT 2VW OR MORE, DATE/TIME OF EXAM: 06/15/2024 12:43 PM, LOCATION [facility] INDICATION: R10.31: Groin pain, right ADDITIONAL [...] DATE/TIME OF EXAM: 06/15/2024 12:43 PM, LOCATION [facility] INDICATION: R10.31: Groin pain, right ADDITIONAL CLINICAL INFORMATION: Ordering Provider Reason For Exam: right hip pain COMPARISON: None. FINDINGS: No acute fracture or dislocation. Mild degenerative changes smallspurring along the lateral acetabular margin. The hip joint space is preserved.Bone density and texture are normal. IMPRESSION: No acute osseous abnormality. Mild degenerative changes. Report dictated by Won Pastrana MD (resident associate). Risa Prescott MD have personally reviewed and interpreted this examination/study. > Interpreting Provider: Risa No MD on 06/15/2024 2:27 PM Frantz Nicole MD DIAGNOSTIC IMAGING O RDERABLES * XR Hip Left 2Vw or More (06/15/2024 12:42 PM PROCESS DEVELOPMENT ASSOCIATE) Anatomical Region Laterality Modality Pelvis, Lower Extremity Computed Radiography 06/15/2024 2:23 PM PROCESS DEVELOPMENT ASSOCIATE Impressions 06/15/2024 2:28 PM PROCESS DEVELOPMENT ASSOCIATE IMPRESSION: No acute osseous abnormality. Mild degenerative changes. Report dictated by Won Pastrana MD (resident associate). Risa Prescott MD have personally reviewed and interpreted this examination/study. > Interpreting Provider: Risa No MD on 06/15/2024 2:28 PM Narrative 06/15/2024 2:28 PM PROCESS DEVELOPMENT ASSOCIATE PROCEDURE: XR HIP LEFT 2VW OR MORE, DATE/TIME OF EXAM: 06/15/2024 12:42 PM, LOCATION [facility] INDICATION: R10.31: Groin pain, right ADDITIONAL [...] MORE, DATE/TIME OF EXAM: 06/15/2024 12:42PM, LOCATION [facility] INDICATION: R10.31: Groin pain, right ADDITIONAL CLINICAL INFORMATION: Ordering Provider Reason For Exam: left hip pain COMPARISON: None. FINDINGS: No acute fracture or dislocation. Mild degenerative changes with small osteophytosis along the superior acetabular margin. The hip joint spaceis preserved. Bone density is normal. IMPRESSION: No acute osseous abnormality. Mild degenerative changes. Report dictated by Won Pastrana MD (resident associate). Risa Prescott MD have personally reviewed and interpreted this examination/study. > Interpreting Provider: Risa No MD on 06/15/2024 2:28 PM Frantz Nicole MD DIAGNOSTIC IMAGING O RDERABLES * XR Lumbar Spine 2 or 3Vw (06/15/2024 11:26 AM PROCESS DEVELOPMENT ASSOCIATE) Anatomical Region Laterality Modality Spine Computed Radiogr aphy 06/15/2024 11:5 1 AM PROCESS DEVELOPMENT ASSOCIATE Impressions 06/15/2024 1:00 PM PROCESS DEVELOPMENT ASSOCIATE IMPRESSION: Grade 1 anterolisthesis of L5 on S1, unchanged. Mild multilevel degenerative changes. Report dictated by Won Pastrana MD, (resident associate). Risa Prescott MD have personally reviewed and interpreted this examination/study. > Interpreting Provider: Risa No MD on 06/15/2024 1:00 PM Narrative 06/15/2024 1:00 PM PROCESS DEVELOPMENT ASSOCIATE PROCEDURE: XR LUMBAR SPINE 2 OR 3VW, DATE/TIME OF EXAM: 06/15/2024 11:26 AM, LOCATION [facility] INDICATION: M54.50: Low back pain, unspecified [...] DATE/TIME OF EXAM: 06/15/2024 11:26 AM, LOCATION [facility] INDICATION: M54.50: Low back pain, unspecified [...] changes. Report dictated by Won Pastrana MD, (resident associate). I, Risa No MD have personally reviewed and interpreted this examination/study. > Interpreting Provider: Risa No MD on 06/15/2024 1:00 PM Frantz Nicole MD DIAGNOSTIC IMAGING O RDERABLES * FA ICG ANGIOGRAPHY (05/21/2024 11:56 AM PROCESS DEVELOPMENT ASSOCIATE) Anatomical Region Laterality Modality Head External-Camera Photography Narrative 05/22/2024 3:51 PM PROCESS DEVELOPMENT ASSOCIATE Images from the original result were not included. indocyanine green angiography (05/21/2024) - no hypocyanescence seen in late stage- these findings confirm no choroiditis where lesions are seen in retina Fluorescein Angiography (05/21/2024) - no vascular leakage seen Reina Beckford MD OPHTHALMOLOGY SCHED ORD W PACS * FUNDUS PHOTO BOTH EYES (05/21/2024 10:51 AM PROCESS DEVELOPMENT ASSOCIATE) Anatomical Region Laterality Modality Head External-Camera Photography Narrative 05/22/2024 3:51 PM PROCESS DEVELOPMENT ASSOCIATE Images from the original result were not included. Fundus photo (05/21/2024) - Yellow stippling seen nasally OU- stable Reina Beckford MD OPHTHALMOLOGY SCHED ORD W PACS * RETINAL ANALYSIS OCT (05/21/2024 8:50 AM PROCESS DEVELOPMENT ASSOCIATE) Anatomical Region Laterality Modality Head External-Camera Photography Narrative 05/22/2024 3:52 PM PROCESS DEVELOPMENT ASSOCIATE Images from the original result were not included. OD (top 02/02/24, bottom 05/21/2024) Normal retina crosssection with preservation of fovea, clivus, and cellular lamina OS (top 02/02/24, bottom 05/21/2024) Normal retina crosssection with preservation of fovea, clivus, and cellular lamina Reina Beckford MD OPHTHALMOLOGY SCHED ORD W PACS * ENDOSCOPY, COLON, DIAGNOSTIC (01/13/2024 11:04 AM [...] bowel preparation was evaluated using the BBPS (Canmer Bowel Preparation Scale) with scores of: Right [...] non-mcfarland portions. Procedure Code(s): --- Professional --- 55309, Colonoscopy, flexible; with removal of tumor(s), polyp(s), or other lesion(s) by snare technique Diagnosis Code(s): --- Professional --- Z12.11, Encounter for screening for malignant neoplasm of colon D12.0, Benign neoplasm of cecum D12.5, Benign neoplasm of sigmoid colon D12.2, Benign neoplasm of ascending colon CPT copyright 2021 [employer]. All rights reserved. The codes documented in this report are preliminary and upon clay plant treater review may be revised to meet current compliance requirements. Dylan Jessica, 01/13/2024 11:59:59 AM Note Initiated On: 01/13/2024 11:04 AM Number of Addenda: [id number] [place] [address] BARB 01/13/2024 11:0 4 AM CDT Dylan Jessica MD GI PROCEDURE O RDERABLES [facility] BARB * (ABNORMAL) COMPREHENSIVE METABOLIC PANEL (11/18/2023 8:13 AM CDT) Glucose 115(H) 65 - 99 mg/dL [facility] [...] 29 U/L [facility] Comment: Test Performed at: [facility] [id number] [place] [phone] ASIF BLACKWOOD MD Blood BLOOD SPECIMEN / Unknown 11/18/2023 8:13 AM CDT 11/18/2023 8:14 AM CDT Mikala العلي MD LAB - CHEMISTRY MICHAEL NELSON Performing Organization Address [facility] [place] [address] [place] [address] * HEPATITIS SCREEN ACUTE (11/18/2023 8:13 AM CDT) Hepatitis A Virus Antibody IgM NON-REACTI VE NON-REACT AZUL [facility] Comment: For additional information, please refer to http://[employer]faq/DHJ987 (This link is being provided for informational/ educational purposes only.) Hepatitis B Virus Surface Antigen NON-REACTI VE NON-REACT AZUL [facility] Comment: For additional information, please refer to http://[employer]faq/DAG399 (This link is being provided for informational/ educational purposes only.) Hepatitis B Core Virus Antibody IgM NON-REACTI VE NON-REACT AZUL [facility] Comment: For additional information, please refer to http://[employer]faq/AFD471 (This link is being provided for informational/ educational purposes only.) Hepatitis C Antibody NON-REACTI VE NON-REACT AZUL [facility] Comment: HCV antibody was non-reactive. There is no laboratory evidence of HCV infection. In most cases, no further action is required. However, if recent HCV exposure is suspected, a test for HCV RNA (test code 33026) is suggested. For additional information please refer to http://[employer]faq/MBD20p3 (This link is being provided for informational/ educational purposes only.) Test Performed at: [employer] [facility] [address] [place] [address] ASIF BLACKWOOD MD Blood BLOOD SPECIMEN / Unknown 11/18/2023 8:13 AM CDT 11/18/2023 8:14 AM CDT Mikala العلي MD LAB - CHEMISTRY MICHAEL NELSON Performing Organization Address [facility]/[place] [address] [place] [address] from Last 3 Months or Most Recently Relevant to Health Maintenance Insurance Payer Benefit Plan / Group Subscriber ID Effective Dates Phone Address Type [facility] [facility] MEDICAID [id number] 02/15/2020-Pre sent 132 ATTN CLAIMS DEPARTMENT [address] [place] [address] Medicaid Managed Care [facility] [facility] MEDICAID [id number] 02/15/2020-Pre sent 132 ATTN CLAIMS DEPARTMENT [address] [place] [address] Medicaid Managed Care [facility] [place] [facility] MEDICAID [id number] 02/15/2020-Pre sent 132 ATTN CLAIMS DEPARTMENT [address] [place] [address] Medicaid Managed Care [facility] MEDICAID [id number] 02/15/2020-Pre sent 132 ATTN CLAIMS DEPARTMENT [address] [place] [address] Medicaid Managed Care [facility] [facility] MEDICAID [id number] 02/15/2020-Pre sent 132 ATTN CLAIMS DEPARTMENT [address] [place] [address] Medicaid Managed Care [facility] MEDICAID [id number] 02/15/2020-Pre sent 132 ATTN CLAIMS DEPARTMENT [address] [place] [address] Medicaid Managed Care [facility] [place] [facility] MEDICAID [id number] 02/15/2020-Pre sent 132 ATTN CLAIMS DEPARTMENT [address] [place] [address] Medicaid Managed Care [facility] [place] [facility] MEDICAID [id number] 02/15/2020-Pre sent 132 ATTN CLAIMS DEPARTMENT [address] [place] [address] Medicaid Managed Care [facility] [place] [facility] MEDICAID [id number] 02/15/2020-Pre sent 132 ATTN CLAIMS DEPARTMENT [address] [place] [address] Medicaid Managed Care [facility] [place] [facility] MEDICAID [id number] 02/15/2020-Pre sent ATTN CLAIMS DEPARTMENT [address] [place] [address] Medicaid Managed Care [facility] [place] MEDICAID [id number] 11/09/2020-Pres ent ATTN CLAIMS DEPARTMENT [address] [place] [address] Medicaid Managed Care Care Teams Auger Mill Operator Relationship Specialty Start Date End Date Jeff Duque MD [address] [facility] [address] [place] [address] PCP - General 08/30/21 Jeff Duque MD [address] [facility] [address] [place] [address] Family Medicine 08/30/21
--- OUTSIDE RECORDS SUMMARY | 2024-07-20 17:38 | XMS_ITS | Clinical Summary ---
Author Organization [facility] Address [address] [place] [address] Care Team Providers Care Vocational Nurse Name Role Phone Jeff Duque MD Primary Care Provider Allergies No known active allergies Medications estradiol 0.1 MG/GM vaginal cream APPLY 1 GRAM NIGHTLY 2 3 TIMES PER WEEK AT BEDTIME 0 Active simvastatin 40 MG tablet TAKE 1 TABLET BY MOUTH EVERY DAY IN THE EVENING 0 Active nystatin cream APPLY TO AFFECTED AREA TWICE A DAY 0 Active traMADol 50 MG tablet Take 50 mg by mouth every 4 (four) hours as needed. 0 Active metFORMIN 500 MG tablet TAKE 1 TABLET BY MOUTH DAILY WITH A MEAL 0 Active hydroCHLOROthiaz darrell 12.5 MG tablet Take 12.5 mg by mouth every morning. 0 Active albuterol sulfate HFA 108 (90 Base) MCG/ACT inhaler Inhale 2 puffs into the lungs every 6 (six) hours as needed. 0 Active loratadine (CLARITIN) 10 MG tabletIndication s:Allergic rhinitis, unspecified seasonality, unspecified trigger Take 1 tablet (10 mg total) by mouth daily. 90 tablet 3 0 Active fluticasone propionate (FLONASE) 50 MCG/ACT nasal sprayIndications :Allergic rhinitis, unspecified seasonality, unspecified trigger 1 spray by Nasal route daily. 50 mL 3 0 Active Active Problems Problem Noted Date Diagnosed Date Chronic cough 03/02/2020 Pulmonary nodules 03/02/2020 Family History Medical History Relation Comments Cancer Father Diabetes Father Heart Disease Father COPD Mother Diabetes Mother Heart Disease Mother Hypertension Mother Relation Status Comments Father Mother Social History Tobacco Use Types Packs/Day Years Used Date Smoking Tobacco: Every Day Cigarettes 2 30 Smokeless Tobacco: Never Alcohol Use Standard Drinks/Week Comments Not Currently 0 (1 standard drink = 0.6 oz pur e alcohol) PHQ-2 Answer Date Recorded PHQ-2 Score - If the patient scores above 3, please move on to questions 3-9 0 03/02/2020 Comments Unknown Sex and Gender Information Value Date Recorded Sex Assigned at Not on file Legal Sex Female 11:53 AM CDT Gender Identity Not on file Sexual Orientation Not on file Last Filed Vital Signs Vital Sign Reading Time Taken Comments Blood Pressure 124/82 03/02/2020 2:07 PM CDT Pulse 99 03/02/2020 2:07 PM CDT Temperature 36.2 C (97.1 F) 03/02/2020 2:07 PM CDT Respiratory Rate 16 03/02/2020 2:07 PM CDT Oxygen Saturation 98% 03/02/2020 2:07 PM CDT Inhaled Oxygen Concentration - - Weight 81.6 kg (180 lb) 03/02/2020 2:07 PM CDT Height 170.2 cm (5' 7 ) 03/02/2020 2:07 PM CDT Body Mass Index 28.19 03/02/2020 2:07 PM CDT Plan of Treatment Health Maintenance Due Date Last Done Comments Colorectal Cancer Screening Colonoscopy (10 Years) 1973 Annual Physical 1976 Pneumococcal Vaccine: Pediat rics (0 to 5 Years) and At-Risk Patients (6 to 64 Years) (1 of 2 - PCV) 09/05/1979 Hepatitis C 09/05/1991 DTaP, Tdap and Td Vaccines ( 1 - Tdap) 1992 Hepatitis B Vaccines (1 of 3 - 19+ 3-dose series) 1992 Mammogram Screening 2013 Zoster Vaccines (1 of 2) 09/05/2023 COVID-19 Vaccine ( - 2023-2 5 season) 2024 Influenza Adult (#1) 2024 Meningococcal B Vaccine Aged Out No l onger eligible based on patient's age to complete this topic Meningococcal Vaccine Aged Out No maura sissy eligible based on patient's age to complete this topic RSV Immunizations Under 20 Months Aged Out No longer eligible based on patient's age to complete this topic Insurance [employer] Care Teams Vocational Nurse Relationship Specialty Start Date End Date Jeff Duque MD [address] [address] PCP - General FAMILY PRACTICE 03/02/20
--- OUTSIDE RECORDS SUMMARY | 2024-07-20 17:38 | XMS_ITS | Encounter Summary ---
Author Organization [facility] Address [address] [facility] [place] [address] Care Team Providers Care Profile Stitching Machine Operator Name Role Phone Jeff Duque MD Primary Care Provider [phone] Jeff Duque MD Unavailable Reason for Referral * Consultation (Routine) - Closed Specialty Diagnoses / Procedures Referred By Contac t Referred To Contact Allergy and Immunology Diagnoses Swollen face Jeff Duque MD [address] [place] [address] [facility] [address] [place] [address] Referral ID Status Reason Start Date Expiration Date V isits Requested Visits Authorized [id number] Closed Specialty Services Required 04/12/2024 04/12/2025 1 1 LE EXAMINER Encounter Details Date Type Department Care Team ([facility] st Contact Info) Description 04/12/2024 Transcribe Orders [facility] - Centralized Scheduling [address] [place] [phone] Jeff Duque MD [address] [place] [address] Swollen face Social History Tobacco Use Types Packs/Day Years Used Date Smoking Tobacco: Every Day Cigarettes Smokeless Tobacco: Never Alcohol Use Standard Drinks/Week Comments Never 0 (1 standard drink = 0.6 oz pur e alcohol) PHQ-2 Answer Date Recorded Patient Health Questionnaire-2 Score 6 10/28/2023 Sex and Gender Information Value Date Recorded Sex Assigned at Not on file Gender Identity Female 05/10/2021 10:24 PM SAMPLE EXAMINER Sexual Orientation Not on file documented as of this encounter Functional Status Functional Status Response Date of Assess ment Is person deaf or have serious hearing difficult y? No 01/13/2024 Is person blind or have serious difficulty seein g? No 01/13/2024 Does person have serious dif ficulty walking/climbing stairs? No 01/13/2024 Does person have difficulty dressing/bathing? No 01/13/2024 Does person have difficulty doing errands alone? No 01/13/2024 Cognitive Status Response Date of Assessm ent Does person have difficulty concentrating/remembering/making decisions? No 01/13/2024 documented as of this encounter Plan of Treatment Upcoming Encounters Date Type Department Care Team (Late st Contact Info) Description 08/05/2024 3:00 PM CDT Office Visit [facility] - Allergy [address] [place] [phone] Eleno Montoya MD [address] [place] [address] 08/17/2024 11:30 AM CDT Office Visit [facility] - Orthopedics [address] [place] [phone] Frantz Nicole MD [address] [place] [address] 08/19/2024 10:30 AM CDT Office Visit [facility] - Neurology [address] [place] [phone] Moiz Briones, LOG HOOKER-ENGINEER ASSISTANT [address] [place] [address] [place] [phone] 08/19/2024 11:20 AM CDT Office Visit [facility] - Endocrinology [address] [place] [address] [place] [phone] Naseem Garcia MD [address] [place] [address] [address] [place] [phone] 10/21/2024 10:00 AM CDT Office Visit [facility] - ENT [address] [place] [phone] Vinny Milner MD [address] [place] [address] [place] [address] 11/01/2024 3:20 PM CDT Office Visit [facility] - Rheumatology [address] [place] [address], [address] [place] [phone] Mikala العلي MD [facility] [place] [phone] 11/16/2024 1:00 PM CDT Office Visit [facility] - Dermatology [address] [place] [phone] Torie Holm MD [address] [place] [address] [place] [phone] 11/19/2024 9:45 AM CDT Office Visit [facility] - Ophthalmology [address] [place] [phone] Reina Beckford MD [address] [place] [address] [place] [phone] 01/20/2025 10:00 AM CDT Office Visit [facility] - Ophthalmology [address] [facility] [place] [phone] Jose Newby MD [address] [place] [address] [place] [phone] 01/24/2025 3:00 PM CDT Office Visit [facility] - GI [address] [place] [phone] Scheduled Referrals Name Type Priority Associated Diagnoses Order Schedule AMB REFERRAL TO ALLERGY Outpatient Referral Routine Swollen face 1 Occurrences starting 04/12/2024 until 04/12/2025 documented as of this encounter Goals Goal Patient Goal Type Associated Problems Recent Progress Patient-Stated? Author Medication Management General On track( 025 3:22 PM SAMPLE EXAMINER) Melonie Castillo, RN Note: Expected end date: Ongoing Interventions: Take all medications as prescribed Let your doctor know right away about any changes in your medications Make sure to request a refill of your medication at least one week prior to your last dose documented as of this encounter Visit Diagnoses Diagnosis Swollen face- Primary Swelling, mass, or lump in head and neck documented in this encounter Care Teams Profile Stitching Machine Operator Relationship Specialty Start Date End Date Jeff Duque MD [address] [address] PCP - General 08/30/21 Jeff Duque MD [address] [address] Family Medicine 08/30/21 documented as of this encounter
--- OUTSIDE RECORDS SUMMARY | 2024-07-20 17:38 | XMS_ITS | Clinical Summary ---
Author Organization [facility] Address [address] [place] [address] Care Team Providers Care Cloth Colors Examiner Name Role Phone Jeff Duque MD Primary Care Provider [phone] Allergies Active Allergy Reactions Criticality Noted Date [...] BY MOUTH EVERY DAY 30 tablet 3 3 Active fluticasone propionate (FLONASE) [...] 09/08/2020 Leukocytosis (leucocytosis) 08/29/2020 Chronic cough 03/02/2020 Encounters Date Type Department Care Team Description 06/01/2024 3:00 PM SALES OPERATIONS MANAGER Imaging Exam [facility] [address] [phone] Retinal lesion 05/24/2024 Telephone [facility] [address] [phone] Alexandre Ames MD 04/27/2024 11:30 AM SALES OPERATIONS MANAGER Office Visit [facility] Pulmonology [facility] [address] [place] [phone] Danny Cunningham MD Obstructive sleep apnea (Primary Dx); Chronic cough; Multiple pulmonary nodules; Psychophysiological insomnia; Restless legs; Hyperinflation of lungs; Pulmonary air trapping; Mucopurulent chronic bronchitis (HCC); Non-seasonal allergic rhinitis due to pollen; Personal history of nicotine dependence from Last 3 Months Immunizations Immunization Administration Dates Next Due Pfizer SARS-CoV-2 Monovalent Vaccination (12+ Yrs) PURPLE 09/09/2020,08/19/2020 Surgical History Surgery Date Site/Laterality Comments HYSTERECTOMY APPENDECTOMY BREAST BIOPSY 09/21/2018 Right Medical History Medical History Date Comments Diabetes (HCC) Asthma DDD (degenerative disc disease), thoracic 2020 Multilevel, mild Arterial atherosclerosis DDD (degenerative disc disease), lumbar Cigarette nicotine dependence Emphysema of lung (HCC) DDD (degenerative disc disease), cervical Family History Medical History Relation Name Comments Cancer Father Diabetes Father Heart disease Father Pancreatic cancer Father Stroke Father Arthritis Mother Diabetes Mother Heart disease Mother Hypertension Mother Stroke Mother Lupus Sister Relation Name Status Comments Father Mother Sister Social History Tobacco Use Types Packs/Day Years [...] 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 Not on file Not on file Obstetrics History Last Filed Vital Signs Vital Sign Reading Time Taken Comments Blood Pressure 118/62 04/27/2024 11:26 AM SALES OPERATIONS MANAGER Pulse 90 04/27/2024 11:26 AM SALES OPERATIONS MANAGER Temperature 36.2 C (97.2 F) 04/27/2024 11:26 AM SALES OPERATIONS MANAGER Respiratory Rate 16 04/27/2024 11:26 AM SALES OPERATIONS MANAGER Oxygen Saturation 93% 04/27/2024 11:26 AM SALES OPERATIONS MANAGER Inhaled Oxygen Concentration - - Weight 80.9 kg (178 lb 6.4 oz) 04/27/2024 11:26 AM SALES OPERATIONS MANAGER Height 170.2 cm (5' 7 ) 04/27/2024 11:26 AM SALES OPERATIONS MANAGER Body Mass Index 27.94 04/27/2024 11:26 AM SALES OPERATIONS MANAGER Plan of Treatment Health Maintenance Due Date Last Done Comments Breast Cancer Screening-Mammogram 1973 Colon Cancer Screening-Colonoscopy 1973 Depression Screening 1973 Hepatitis C Screening 1973 Dilated Eye Exam 1973 Foot Exam 1973 DTaP/Tdap/Td Vaccine (1 - Tdap) 1984 Hepatitis B Screening 09/05/1991 Regular Well Visit/Exam 18-64 09/05/1991 Pneumococcal vaccine <65 (1 of 2 - PCV) 1992 Zoster Vaccine (1 of 2) 1992 Covid-19 Vaccine (3 - Pfizer risk series) 10/07/2020 09/09/2020, 08/19/2020 Hemoglobin A1C 07/18/2022 01/18/2022 Albumin Creatinine Ratio, Urine 01/18/2023 Lipid Panel 01/18/2023 01/18/2022 eGFR 08/30/2023 08/29/2022, 09/0 01/2022, 01/08/2022 Influenza Vaccine (#1) 2024 Lung Cancer Screening 04/21/2025 04/20/2024, 024 Procedures Procedure Name Priority Date/Time Associated Diagnosis Comments MULTIFOCAL ELECTRORETINOGRAPHY (ERG) - OU - BOTH EYES Routine 06/01/2024 3:48 PM SALES OPERATIONS MANAGER Retinal lesion CT CHEST WO CONTRAST F/U LUNG SCREEN PROTOCOL Schedule Routine, Read Routine (OP Routine) 04/20/2024 10:31 AM SALES OPERATIONS MANAGER Abnormal CT lung screening EGFR STAT 08/29/2022 1:38 PM CDT HEMOGLOBIN A1C Routine 01/18/2022 9:11 AM CDT LIPID PANEL Routine 01/18/2022 9:11 AM CDT ALBUMIN CREATININE RATIO, URINE Routine 01/18/2022 9:11 AM CDT from Last 3 Months or Most Recently Relevant to Health Maintenance Results * Multifocal Electroretinography (ERG) - OU - Both Eyes (06/01/2024 3:48 PM SALES OPERATIONS MANAGER) Anatomical Region Laterality Modality Head Other Narrative 06/08/2024 2:31 PM SALES OPERATIONS MANAGER VISUAL DIAGNOSTIC REPORT: Patient: Yanick Dan : 71 Referring Physician: Reina Beckford MD Date of Examination: 06/01/24 Clinical History: This is a 48 y/o woman referred for Visual Diagnostic testing 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 Multi-focal ERG was performed. Multi-focal ERG: Multifocal ERG testing was conducted using the [employer] Electrodiagnostic Imaging System with 61hexagons covering the [...] this study, please contact our office at [phone], and we would be happy to send these to your office. Please feel free to contact my office if you would like to discuss these results further. Alexandre Ames M.D. Professor, Departments of Ophthalmology and Visual Sciences and Neurology Director, Visual Electrophysiology Service [facility] E-mail: [email or web address] Alexandre Ames MD OPHTH ELECTRORETINOG GWENDOLYN Final Result * CT Chest WO Contrast F/U Lung Screen Protocol (04/20/2024 10:31 AM SALES OPERATIONS MANAGER) Anatomical Region Laterality Modality Chest N/A Computed Tomogra phy 04/26/2024 8:10 AM SALES OPERATIONS MANAGER Narrative 04/26/2024 8:56 AM SALES OPERATIONS MANAGER EXAM DESCRIPTION: CT CHEST WO CONTRAST F/U [...] Juan Novoa M.D. AG T: Report ID: [id number] Reading Location: [place] [address] Danny Cunningham MD [facility] [place]EDURES Final Res ult * eGFR (08/29/2022 1:38 PM CDT) eGFR 107 mL/min/1. 73 m2 DINESH FRANKLIN Comment: Interpretive Data Reference Interval Normal [...] of Race in Diagnosing Kidney Disease, JASN 2020). The CKD-EPI equation should not be used for patients with unstable renal function and has not been validated in children and those over 70. Current interpretive data was last reviewed 2021. Blood 08/29/2022 1:38 PM CDT 08/29/2022 1:42 PM CDT Misty FUNES LAB BLOOD ORDERABLES Final Resul t DINESH [address] [facility] Department of Laboratories [place], [place] [id number] * Albumin Creatinine Ratio, Urine (01/18/2022 9:11 AM CDT) Albumin Ur <12.0 mg/L DINESH FRANKLIN Comment: Interpretive Data No reference range established. Current interpretive data was last revised 2018. Creatinine Ur 120.0 mg/dL DINESH FRANKLIN Comment: Interpretive Data No reference range established. Current interpretive data was last revised 2018. Albumin Creatinine Ratio, Ur <10 1 - 29 mg/g DINESH FRANKLIN Urine 01/18/2022 9:11 AM CDT 01/18/2022 9:17 AM CDT Jeff Duque MD LAB URINE ORDERABLES Final Resul t Performing Organization Address [facility] Co de Phone Number DINESH [address] [place] [address] * (ABNORMAL) Hemoglobin A1c (01/18/2022 9:11 AM CDT) Hgb A1C 5.7(H) 4.0 - 5.6 % DINESH Estimated Average Glucose 117 mg/dL DINESH Comment: The ADA recommends reporting an estimated Average Glucose (eAG) with all Hemoglobin A1c results using the equation derived from a study of 507 normal and diabetic adults. Minority populations were underrepresented and children were not included. (Diabetes Care 31:9056-9778, 2008). The eAG is not equivalent to a fasting glucose. Blood 01/18/2022 9:11 AM CDT 01/18/2022 9:44 AM CDT Jeff Duque MD LAB BLOOD ORDERABLES Final Resul t Performing Organization Address [facility] Co de Phone Number DINESH [address] [place] [address] * (ABNORMAL) Lipid panel (01/18/2022 9:11 AM CDT) Cholesterol 169 30 - 199 mg/dL DINESH [...] on 2017. Non-HDL Cholesterol 130 mg/dL DINESH Comment: Interpretive Data Ages < [...] BLOOD ORDERABLES Final Resul t DINESH FRANKLIN [address] [facility] Department [place] [address] from Last 3 Months or Most Recently Relevant to Health Maintenance Insurance [facility] Care Teams Cloth Colors Examiner Relationship Specialty Start Date End Date Jeff Duque MD PCP - General 10/14/19
--- OUTSIDE RECORDS SUMMARY | 2024-07-20 17:38 | XMS_ITS | CONTINUITY OF CARE DOCUMENT ---
Author Name kyle pollyemily Address Unknown Organization [facility] Address [address] [place] [address] Phone [phone] Care Team Providers Care Chuck Tender Name Role Phone Bassam Wright MD Unavailable LETICIA KEY MD Unavailable [phone] LETICIA KEY MD Unavailable [phone] PROBLEMS Condition Status Date Provider Notes Family History of CVA or Stroke: active Mary Ann Damon MD Family History of Hypertension: active Javy Damon MD Shortness of breath active Humaira mendoza MD Diabetes, Type 2 active Humaira [place] Tobacco abuse active Humaira Damon MD Leg edema active Humaira Damon MD Asthma active Humaira Damon MD Chest pain; L sided chest tightness active Humaira Damon MD Palpitations active Humaira Damon MD Dyspnea on exertion active Humaira mendoza MD Fatigue active Humaira Damon MD High blood pressure active Bassam Wright MD Hyperlipidemia active Bassam Wright MD Mental confusion active Bassam Wright MD Diabetes mellitus, Type II active Bassam valencia MD Abnormal routine stress active Bassam Wright MD ENCOUNTERS Date Type Provider Location Encounter Diag nosis - In-person encounter Office Visit Bassam Wright MD [facility] - In-person encounter Office Visit Bassam Wright MD [facility] Abnormal routine stress - In-person encounter Office Visit Bassam Wright MD [facility] Diabetes mellitus, Type II - In-person encounter Office Visit Bassam Wright MD [facility] - In-person encounter Office Visit Bassam Wright MD [facility] Mental confusion - In-person encounter Office Visit Bassam Wright MD [facility] Hyperlipidemia - In-person encounter Office Visit Bassam Wright MD [facility] High blood pressure - In-person encounter Office Visit Humaira Damon MD [facility] Family History of CVA or Stroke:Family History of Hypertension:Shortness of breathDiabetes, Type 2Tobacco abuseLeg edemaAsthmaChest pain; L sided chest tightnessPalpitationsDyspnea on exertionFatigue VITAL SIGNS Date Observation Value Provider Body Mass Index (Ratio) 27.72 kg/m2 Tammy Wright MD blood pressure, cuff size regular Ke rri Yany blood pressure, diastolic 62 mm[Hg] Ke rri Yany blood pressure, systolic 110 mm[Hg] Barbara Slade pulse rate 60 /min Cecy Alfaro lder weight E&M 177 [lb_av] Cecy soner height E&M 67 [in_i] Cecy Alfaro lder Body Mass Index (Ratio) 25.53 kg/m2 Tammy Wright MD blood pressure, cuff size regular Ja rr blood pressure, diastolic 77 mm[Hg] Ja rr blood pressure, systolic 106 mm[Hg] Jar pulse rate 75 /min Valente respiratory rate E&M 16 /min Valente oxygen saturation, oximetry 98 % weight E&M 163 [lb_av] Valente y height E&M 67 [in_i] Valente y weight E&M 168 [lb_av] Maria Esther Rollins g Body Mass Index (Ratio) 26.31 kg/m2 Tammy Wright MD blood pressure, cuff size regular [facility] blood pressure, diastolic 73 mm[Hg] Ja rr blood pressure, systolic 102 mm[Hg] Jar pulse rate 84 /min Valente y oxygen saturation, oximetry 99 % respiratory rate E&M 12 /min weight E&M 168 [lb_av] Valente y height E&M 67 [in_i] Valente y Body Mass Index (Ratio) 25.68 kg/m2 Tammy Wright MD pulse rate 81 /min Sandra Suresh blood pressure, diastolic 77 mm[Hg] Luann Suresh blood pressure, systolic 107 mm[Hg] Esther Suresh oxygen saturation, oximetry 98 % Sandra Suresh respiratory rate E&M 20 /min Sandra Suresh weight E&M 164 [lb_av] Sandra Suresh height E&M 67 [in_i] Sandra Suresh Body Mass Index (Ratio) 27.09 kg/m2 Tammy Wright MD blood pressure, diastolic 84 mm[Hg] [facility] mackenzie Col[place] blood pressure, systolic 116 mm[Hg] Vito negron [place] oxygen saturation, oximetry 96 % Ivelisse Echevarriaman respiratory rate E&M 16 /min Luis F ordonez [place] pulse rate 92 /min Ivelisse Scruggs zully weight E&M 173 [lb_av] Ivelisse Kael andrea blood pressure, cuff size large St mann [place] height E&M 67 [in_i] Ivelisse Kael andrea Body Mass Index (Ratio) 27.56 kg/m2 Tammy Wright MD blood pressure, diastolic 76 mm[Hg] An oren Gleason blood pressure, systolic 110 mm[Hg] Suma Gleason oxygen saturation, oximetry 95 % Christy Gleason pulse rate 99 /min Christy Gleason weight E&M 176 [lb_av] Christy Gleason blood pressure, cuff size large An oren Gleason height E&M 67 [in_i] Christy Gleason Body Mass Index (Ratio) 28.03 kg/m2 Tammy Wright MD blood pressure, resting No Dre ty Antonella blood pressure, cuff size regular Kr isty Romulus blood pressure, diastolic 80 mm[Hg] Kr isty Antonella blood pressure, systolic 110 mm[Hg] Kri stroni Romulus oxygen saturation, oximetry 97 % Marlene Antonella pulse rate 87 /min Marlene Romulus respiratory rate E&M 18 /min Marlene Berman weight E&M 179 [lb_av] Marlene Berman height E&M 67 [in_i] Marlene Berman weight E&M 179 [lb_av] Dre Iban eid Body Mass Index (Ratio) 28.16 kg/m2 Javy Damon MD blood pressure, diastolic 60 mm[Hg] Jose L Subramanian blood pressure, systolic 114 mm[Hg] Tamera Montesinosenson oxygen saturation, oximetry 96 % Brandi Subramanian respiratory rate E&M 16 /min Sharri Subramanian pulse rate 61 /min Brandi Leung ericliam weight E&M 179.8 [lb_av] Brandi juarez height E&M 67 [in_i] Brandi fernandez ALLERGIES Allergy Name Onset Date Reaction Criticality Status OMEPRAZOLE Low Criticality active RESULTS Date Observation Value Provider Reference Range Interpretation Location 1 alanine aminotransferase (SGPT), serum 28 1/L [facility] 6-29 Normal 1 aspartate aminotransferase (SGOT), serum 19 1/L [facility] 10-35 Normal 1 alkaline phosphatase, serum 70 1/L [facility] 37-153 Normal 1 bilirubin, serum, total 0.3 mg/dL [facility] 0.2-1.2 Normal 1 albumin/globulin ratio, serum 1.7 (calc) [facility] 1.0-2.5 Normal 1 globulins, serum, total 2.6 G/DL (CALC) [facility] 1.9-3.7 Normal 1 albumin, serum 4.3 g/dL [facility] 3.6-5.1 Normal 1 protein, total, serum 6.9 g/dL [facility] 6.1-8.1 Normal 1 calcium, serum 9.7 mg/dL [facility] 8.6-10.4 Normal 1 carbon dioxide, venous blood 30 mmol/L [facility] 20-32 Normal 1 chloride, serum 102 mmol/L [facility] 98-110 Normal 1 potassium, serum 4.1 mmol/L [facility] 3.5-5.3 Normal 1 sodium, serum 140 mmol/L [facility] 135-146 Normal 1 urea nitrogen/creatinine ratio, serum SEE NOTE: (calc) [facility] 6-22 1 creatinine, serum 0.71 mg/dL [facility] 0.50-1.03 Normal 1 urea nitrogen, blood 11 mg/dL [facility] 7-25 Normal 1 blood glucose, random 116 mg/dL [facility] 65-99 High 1 cholesterol, non-HDL, total 94 MG/DL (CALC) [facility] <130 Normal 1 cholesterol/HDL ratio, serum, percent 3.2 (calc) [facility] <5.0 Normal 1 LDL cholesterol, serum 75 MG/DL (CALC) [facility] Normal 1 triglyceride, serum, fasting 108 mg/dL [facility] <150 Normal 1 HDL cholesterol, serum 42 mg/dL [facility] > OR = 50 Low 1 cholesterol, serum 136 mg/dL [facility] <200 Normal 1 magnesium, serum 2.0 mg/dL [facility] 1.6-2.3 1 free thyroxine index 1.8 [facility] 1.2-4.9 1 triiodothyronine resin uptake 25 % [facility] 24-39 1 thyroxine, serum, total 7.3 ug/dL [facility] 4.5-12.0 1 thyroid stimulating hormone, serum 1.540 u[IU]/mL [facility] 0.450-4.500 1 lipoprotein, beta, serum, point, quantitative, calculated 107 mg/dL [facility] 0-99 High 1 HDL cholesterol, serum 36 mg/dL [facility] >39 Low 1 triglyceride, serum, random 101 mg/dL [facility] 0-149 1 cholesterol, serum 162 mg/dL [facility] 839-406 0431/05/0 1 platelet count 377 X10E3/UL [facility] 610-653 1660/05/0 1 red blood cell distribution width 13.6 % [facility] 11.7-15.4 1 mean corpuscular hemoglobin concentration, RBC 33.5 G/DL [facility] 31.5-35.7 1 mean corpuscular hemoglobin, RBC 30.7 pg [facility] 26.6-33.0 1 mean corpuscular volume, RBC 92 fL [facility] 79-97 1 hematocrit, blood 40.3 % [facility] 34.0-46.6 1 hemoglobin, blood 13.5 g/dL [facility] 11.1-15.9 1 erythrocyte (RBC) count 4.40 X10E6/UL [facility] 3.77-5.28 1 leukocyte count, blood 11.5 X10E3/UL [facility] 3.4-10.8 High 1 alanine aminotransferase (SGPT), serum 25 1/L [facility] 0-32 1 aspartate aminotransferase (SGOT), serum 17 1/L [facility] 0-40 1 alkaline phosphatase, serum 60 1/L [facility] 39-117 1 bilirubin, serum, total <0.2 mg/dL [facility] 0.0-1.2 1 albumin/globulin ratio, serum 1.8 [facility] 1.2-2.2 1 globulin, serum 2.4 [facility] 1.5-4.5 1 albumin, serum 4.3 g/dL [facility] 3.8-4.8 1 protein, total, serum 6.7 g/dL [facility] 6.0-8.5 1 calcium, serum 9.0 mg/dL [facility] 8.7-10.2 1 carbon dioxide, venous blood 22 mmol/L [facility] 20-29 1 chloride, serum 104 mmol/L [facility] 96-106 1 potassium, serum 4.0 mmol/L [facility] 3.5-5.2 1 sodium, serum 138 mmol/L [facility] 844-922 3318/05/0 1 urea nitrogen/creatinine ratio, serum 21 [facility] 9-23 1 eGFR if 94 mL/min/{1 .73_m2} [facility] >59 1 eGFR if not 82 mL/min/{1 .73_m2} [facility] >59 1 creatinine, serum 0.85 mg/dL [facility] 0.57-1.00 1 urea nitrogen, blood 18 mg/dL [facility] 6-24 1 blood glucose, random 144 mg/dL [facility] 65-99 High HISTORY OF MEDICATION USE Medication Status Instructions Dates Provider Indications Com ments rosuvastatin 20 mg tablet active Take 1 tablet by mouth once a day Bassam Wright MD simvastatin 20 mg tablet completed TAKE 1 TABLET BY MOUTH EVERY DAY - Bassam Wright MD metformin 500 mg tablet active Bassam Wright MD simvastatin 20 mg tablet completed Take 1 tablet by mouth once a day - Maria Esther Barron atorvastatin 40 mg tablet completed Take 1 tablet by mouth once a day - Bassam Wright MD naproxen 500 mg tablet active tablet by mouth as needed Marlene Berman #21, 21 days supply, Prescribed by RASHID HINES, Filled 07/28/2020 albuterol sulfate 90 mcg/actuation HFA aerosol inhaler active Inhale 2 puff every four hours as needed Marlene Berman #8.5, 17 days supply, Prescribed by MARILIA MARQUEZ, Filled 08/16/2020 simvastatin 40 mg tablet completed Take 1 tablet by mouth once a day - Bassam Wright MD #90, 90 days supply, Prescribed by LETICIA KEY, Filled 09/05/2020 methotrexate sodium 2.5 mg tablet active Take 1 tablet by mouth once a day Marlene Berman #30, 30 days supply, Prescribed by PAULINA BROWER, Filled 10/11/2020 gabapentin 300 mg capsule active capsule by mouth Marlene Berman Chest pain; L sided chest tightness #42, 21 days supply, Prescribed by RASHID HINES, Filled 10/12/2020 folic acid 1 mg tablet active Take 1 tablet by mouth once a day Marlene Berman #30, 30 days supply, Prescribed by PAULINA BROWER, Filled 10/12/2020 aspirin 81 mg tablet,chewable active Take 1 tablet by mouth once a day Marlene Berman #30, 30 days supply, Prescribed by HUMAIRA DAMON, Filled 10/15/2020 aspirin 81 mg tablet,chewable active Take 1 tablet by mouth once a day Humaira Damon MD losartan 50 mg tablet completed 1 tablet by mouth every night - Bassam Wright MD albuterol sulfate 1.25 mg/3 mL solution for nebulization active twice a day Brandi Subramanian fluticasone propionate 50 mcg/actuation spray,suspensio n active into both nostrils twice a day Brandi Subramanian Bevespi Aerosphere 9-4.8 mcg HFA aerosol inhaler active 2 puff twice a day Brandi Subramanian Spiriva with HandiHaler 18 mcg capsule, w/inhalation device active twice a day Brandi Subramanian Claritin 10 mg tablet active once a day Brandi Subramanian SOCIAL HISTORY Date Observation Value Provider quit smoking, stage precontemplative Tammy Wright MD smoking/tobacco cess ation, patient education and counseling yes Bassam Wright MD number of years as a smoker 30 a Bassam rWight MD smoking history, tot al pack/day 1 pkg cigs a day Bassam Wright MD cigarette use yes Bassam [place] smoking status Current every day smoker U hiwot Wright MD smoking/tobacco cess ation, patient education and counseling yes Bassam Wright MD number of years as a smoker 30 a Bassam Wright MD smoking history, tot al pack/day 1 pkg cigs a day Bassam Wright MD cigarette use yes Bassam [place] smoking status Current every day smoker U hiwot Wright MD smoking/tobacco cess ation, patient education and counseling yes Bassam Wright MD number of years as a smoker 30 a Bassam Wright MD smoking history, tot al pack/day 1 pkg cigs a day Bassam Wright MD cigarette use yes Bassam [place] smoking status Current every day smoker Natan Wright MD smoking/tobacco cess ation, patient education and counseling yes Bassam Wright MD social history revie wed E&M reviewed - no changes required Bassam Wright MD social history E&M S moking History: Toribio juan currently smokes every day. Toribio pradogold has been counseled to quit. Bassam Wright MD smoking history, tot al pack/day 1 pkg cigs a day Sandra Suresh cigarette use yes Sandra Suresh smoking status Current every day smoker S [place] Suresh social history E&M S moking History: P atient currently smokes every day. P atient has been counseled to quit. Bassam Wright MD social history revie wed E&M reviewed - no changes required Bassam Wright MD smoking/tobacco cess ation, patient education and counseling yes Ivelisse Murdock number of years as a smoker 30 a Ivelisse Murdock smoking history, tot al pack/day 1 Ivelisse Murdock cigarette use yes Ivelisse edward smoking status Current every day smoker S emperatriz Murdock social history E&M S moking History: P atient currently smokes every day. P atient has been counseled to quit. Bassam Wright MD social history revie wed E&M reviewed - no changes required Bassam Wright MD smoking/tobacco cess ation, patient education and counseling yes Christy Victorino number of years as a smoker 30 a Christy Victorino smoking history, tot al pack/day 1 Christy Victorino cigarette use yes Christy Victorino smoking status Current every day smoker A adenike Victorino smoking/tobacco cess ation, patient education and counseling yes Bassam Wright MD smoking status Current every day smoker U hiwot Wright MD social history revie wed E&M reviewed - no changes required Bassam Wright MD social history E&M S moking History: P atient currently smokes every day. P atient has been counseled to quit. Bassam Wright MD number of years as a smoker 30 a Marlene Romulus smoking history, tot al pack/day 1 Marlene Romulus cigarette use yes Marlene Romulus social history E&M S moking History: P atient currently smokes every day. P atient has been counseled to quit. Sandra Garrison NP smoking/tobacco cess ation, patient education and counseling yes Sandra Garrison NP social history revie janae E&M reviewed - no changes required Sandra Garrison NP number of grandchildren Bassam Wright MD [place] Bladimir GALLAGHER number of years as a smoker 30 a Brandi Subramanian smoking history, tot al pack/day 1 Brandi Subramanian cigarette use yes Brandi juarez smoking status Current every day smoker Flor Subramanian FAMILY HISTORY Family Member Condition Mother Family History of Hy pertension: Mother Family History of Di abetes: Father Family History of Di abetes: Father Family History of CV A or Stroke: Father Family History of Di abetes: INSURANCE PROVIDERS Payer name Policy type / Coverage type [place] [employer] [place] [employer] (2) Medicaid [id number] ADVANCE DIRECTIVES Name Date DISCUSSED - NO DECISION MADE TREATMENT PLAN Date Name Performer [id number],C,none today Us piedad Wright MD [id number],C, H er updated medication list for this problem includes: Simvastatin 20 Mg Tablet (Simvastatin) ..... Take 1 tablet by mouth once a day Bassam Wright MD [id number],C,w ell controlled today B P today: 107/77 P rior BP: 116/84 (07/12/2022) Labs Reviewed: C reat: 0.85 (09/09/2020) C hol: 162 (09/09/2020) HDL: 36 (09/09/2020) Bassam Wright MD [id number],C,T he Patient was reencouraged to stop smoking. Bassam Wright MD [id number],C,t his is spisodic and I ordered a ct head to rule out a cva but delicia denied and told us to order an mri. I ordered that and they denied that. so they are not interested in diagnosing a possible structural brain issue. Not sure what to do. Bassam Wright MD [id number],S,T he Patient was reencouraged to stop smoking. Bassam Wright MD [id number],B, B P today: 116/84 P rior BP: 110/76 (06/21/2022) Labs Reviewed: C reat: 0.85 (09/09/2020) C hol: 162 (09/09/2020) HDL: 36 (09/09/2020) Bassam Wright MD [id number],C,c ouldn't tolerate her lipitor but will restart her simva Bassam Wright MD [id number],C,W ill check an echo and carotid H er updated medication list for this problem includes: Aspirin Low Dose 81 Mg Oral Tablet Chewable (Aspirin) ..... Take one tablet by mouth once daily Aspirin 81 Mg Chw Tab (Aspirin) ..... Take one (1) tablet by mouth daily Losartan Potassium 50 Mg Oral Tablet (Losartan potassium) ..... One tablet each night Bassam Wright MD [id number],S,W ill STOP simvastatin and START atorvastatin 40mg once daily The following medications were removed from the medication list: Simvastatin 40 Mg Tablet (Simvastatin) ..... Take 1 tablet by mouth once a day Her updated medication list for this problem includes: Atorvastatin 40 Mg Tablet (Atorvastatin) ..... Take 1 tablet by mouth once a day Bassam Wright MD [id number],S, H er updated medication list for this problem includes: Simvastatin 40 Mg Oral Tablet (Simvastatin) ..... Take one tablet by mouth once daily Bassam Wright MD Cardiology:holter un remarkable Bassam Wright MD Cardiology: H er updated medication list for this problem includes: Simvastatin 20 Mg Tablet (Simvastatin) ..... Take 1 tablet by mouth every day Bassam Wright MD Cardiology: T he Patient was reencouraged to stop smoking. Bassam Wright MD Cardiology:Most recent A1c 6.8% Bassam Wright MD Cardiology:atypical for coronary cause of chest pain Bassam Wright MD Cardiology:She had a nuclear stress that was negative for ischemia N O further workup indicated Bassam Wright MD Cardiology: T he Patient was reencouraged to stop smoking. Bassam Wright MD Cardiology Bassam Wright MD Cardiology: H er updated medication list for this problem includes: Simvastatin 20 Mg Tablet (Simvastatin) ..... Take 1 tablet by mouth once a day Bassam Wright MD Cardiology:Routine s tress test abnormal and showed ischemic response to exericse. Arrange for nuclear stress test. Bassam Wright MD Cardiology: p er PCP H er updated medication list for this problem includes: Metformin 500 Mg Tablet (Metformin) Aspirin 81 Mg Tablet,chewable (Aspirin) ..... Take 1 tablet by mouth once a day Aspirin 81 Mg Tablet,chewable (Aspirin) ..... Take 1 tablet by mouth once a day Losartan 50 Mg Tablet (Losartan) ..... 1 tablet by mouth every night Bassam Wright MD Cardiology:The Patie nt was reencouraged to stop smoking. Bassam Wright MD Cardiology:per PCP H er updated medication list for this problem includes: Metformin 500 Mg Tablet (Metformin) Aspirin 81 Mg Tablet,chewable (Aspirin) ..... Take 1 tablet by mouth once a day Aspirin 81 Mg Tablet,chewable (Aspirin) ..... Take 1 tablet by mouth once a day Losartan 50 Mg Tablet (Losartan) ..... 1 tablet by mouth every night Bassam Wright MD Cardiology: H er updated medication list for this problem includes: Aspirin 81 Mg Tablet,chewable (Aspirin) ..... Take 1 tablet by mouth once a day Aspirin 81 Mg Tablet,chewable (Aspirin) ..... Take 1 tablet by mouth once a day Losartan 50 Mg Tablet (Losartan) ..... 1 tablet by mouth every night BP today: 102/73 P rior BP: 107/77 (01/09/2023) Labs Reviewed: Creat: 0.85 (09/09/2020) C hol: 162 (09/09/2020) HDL: 36 (09/09/2020) LDL: 107 (09/09/2020) T (09/09/2020) Bassam Wright MD Cardiology:The patie nt is on a statin H er updated medication list for this problem includes: Simvastatin 20 Mg Tablet (Simvastatin) ..... Take 1 tablet by mouth once a day Bassam Wright MD Cardiology:check 2 day monitor Natan Wright MD Cardiology:arrange f or routine stress test and 2 day monitor Bassam Wright MD Cardiology:none today Bassam aparicio MD Cardiology: H er updated medication list for this problem includes: Simvastatin 20 Mg Tablet (Simvastatin) ..... Take 1 tablet by mouth once a day Bassam Wright MD Cardiology:well cont rolled today B P today: 107/77 P rior BP: 116/84 (07/12/2022) Labs Reviewed: C reat: 0.85 (09/09/2020) C hol: 162 (09/09/2020) HDL: 36 (09/09/2020) Bassam Wright MD Cardiology:The Patie nt was reencouraged to stop smoking. Bassam Wright MD Cardiology:this is s pisodic and I ordered a ct head to rule out a cva but delicia denied and told us to order an mri. I ordered that and they denied that. so they are not interested in diagnosing a possible structural brain issue. Not sure what to do. Bassam Wright MD Cardiology:The Patie nt was reencouraged to stop smoking. Bassam Wright MD Cardiology: B P today: 116/84 P rior BP: 110/76 (06/21/2022) Labs Reviewed: C reat: 0.85 (09/09/2020) C hol: 162 (09/09/2020) HDL: 36 (09/09/2020) Bassam Wright MD Cardiology:couldn't tolerate her lipitor but will restart her simva Bassam Wright MD Cardiology:Will chec k an echo and carotid H er updated medication list for this problem includes: Aspirin Low Dose 81 Mg Oral Tablet Chewable (Aspirin) ..... Take one tablet by mouth once daily Aspirin 81 Mg Chw Tab (Aspirin) ..... Take one (1) tablet by mouth daily Losartan Potassium 50 Mg Oral Tablet (Losartan potassium) ..... One tablet each night Bassam Wright MD Cardiology:Will STOP simvastatin and START atorvastatin 40mg once daily The following medications were removed from the medication list: Simvastatin 40 Mg Tablet (Simvastatin) ..... Take 1 tablet by mouth once a day Her updated medication list for this problem includes: Atorvastatin 40 Mg Tablet (Atorvastatin) ..... Take 1 tablet by mouth once a day Bassam Wright MD Cardiology: H er updated medication list for this problem includes: Simvastatin 40 Mg Oral Tablet (Simvastatin) ..... Take one tablet by mouth once daily Bassam Wright MD Cardiology:PCP Bassam Wright MD Cardiology Bassam Wright MD Cardiology:She was p ut on losartan 50 mg at bedtime. Told to stop meds and monitor BP at home. Bassam Wright MD Cardiology:stress te st and echo are nml. Would not eval for CAD unless she has new sx Bassam Wright MD Cardiology :Patient is fatigued despite sleeping 12+ hours per night. Sandra Garrison NP Cardiology :Benefits from inhalers Her updated medication list for this problem includes: Albuterol Sulfate 1.25 Mg/3ml Inhalation Nebulization Solution (Albuterol sulfate) ..... Twice daily Bevespi Aerosphere 9-4.8 Mcg/act Inhalation Aerosol (Glycopyrrolate-formoterol) ..... 2 puffs twice daily Spiriva Handihaler 18 Mcg Inhalation Capsule (Tiotropium bromide monohydrate) ..... Twice daily Sandra Garrison NP Cardiology :Worsens throughout the day. As above, will evaluate LV function with Echo Sandra Garrison NP Cardiology :Managed by Dr. Key. Most recent A1c 6.1 Sandra Garrison NP Cardiology :Patient is experiencing multiple sx that may be related to her cardiovascular system including shortness of breath, palpitations, fatigue and L sided chest pressure. We will evalute her cardiac condition with a regadenoson, echocardiogram and obtain LABS. I dr. damon saw and personally discussed problems and plans H er updated medication list for this problem includes: Aspirin 81 Mg Chw Tab (Aspirin) ..... Take one (1) tablet by mouth daily Humaira Damon MD Cardiology :Mild whe ezing bl, sees pulmonary Orders: 9 9204 MOD 45-59 min (CPT-34292) C omplete Echo (CPT-94754) S tress Regadenoson (CPT-70467) C OMPREHENSIVE METABOLIC PANEL, W/EGFR (93138) L IPID PANEL (7600) C BC (H/H, RBC, INDICES, WBC, PLT) (1759) M AGNESIUM (622) T SH, free T4, total T3 (7444) Humaira Damon MD Date Name LIPID PANEL COMPREHENSIVE METABO LIC PANEL, W/EGFR Stress Regadenoson Holter Monitor [address] Head without cont rast Carotid Duplex Bilat eral Complete Echo TSH, free T4, total T3 MAGNESIUM CBC (H/H, RBC, INDIC ES, WBC, PLT) LIPID PANEL COMPREHENSIVE METABO LIC PANEL, W/EGFR Stress Regadenoson Complete Echo HISTORY OF PROCEDURES Procedure Date Procedure Name Provider Procedure Notes S tatus Complex e/m visit ad d on Humaira Damon MD completed EKG Bassam Wright MD completed EKG Bassam Wright MD completed EKG Humaira Damon MD comp leted
--- OUTSIDE RECORDS SUMMARY | 2024-07-20 17:38 | XMS_ITS | Data Portability ---
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 Patient will come back in a year unless there are new symptoms. [email or web address] Not available 11/11/2019 13:19:37 12/21/2020 12/21/2020 Time spent in visit is a total of 28 mins with at least 50% of visit consisting of counseling and review of plan of care. Additional precautionary measures were taken to minimize potential exposure to the Covid-19 virus during this patient s visit, including available hand ladler upon arrive, temperature check and being asked a series of screening questions. All staff wore face coverings during this encounter, as well as provided additional cleaning and sanitizing of all surfaces, including countertops, pens, chairs, door handles, light switches, etc, prior to and following the patient s visit. [email or web address] Not available 12/21/2020 14:50:44 Plan of Treatment Reminders Order Date Submit Date Provider Last Modified By Organization Details Last Modified Time Details Appointments None recorded. Lab lh + FSH, serum 2019 020 [place] ([facility]), [address], [place], [address], 0 04:58:39 Referral None recorded. Procedures None recorded. Surgeries None recorded. Imaging US, pelvis 2020 021 [email or web address], [address], [place], [address], 1 18:31:51 US, transvagina l 2020 021 [email or web address] [address], [address], [place], [address], 18:31:51 US, pelvis, complete 2020 021 [email or web address], [address], [place], [address], 2 11:39:43 Medication Orders estradiol 0.01% (0.1 mg/gram) vaginal cream 2020 021 [id number], [address] [place], [address], 1 14:47:58 Estrace 0.01% (0.1 mg/gram) vaginal cream 2019 020 [id number], [address] [place], [address], 1 14:20:53 Patient TargetsNo targets recorded. Patient Instructions Encounter Date Encounter Id Patient Instructions Last Modified By Organization Details Last Modified Time 02/18/2020 [id number] [email or web address] Not available 14:27:19 Reason for Referral None Reported. Results Created Date Observation Date Name Description Value Unit Range Abnormal Flag Note LastModifiedBy Organization Detail LastModifiedTime 11/11/19 20 11/12/2019 lh + FSH, serum luteinizing hormone 53.10 mIU/m L LH Refer ence Range Men: 1.7 - 8.6 Women : Folli cular phase 2.4 - 12.6 Ovula tion phase 14.0 - 95.6 Lutea l phase 1.0 - 11.4 Postm enopa use 7.7 - 58.5 Not Available [facility] ([facility]) [address], [place], [address], 11/12/2019 04:58:39 11/11/19 20 11/12/2019 lh + FSH, serum FSH 37.40 mIU/m L FSH Refer ence Range Men: 1.5 - 12.4 Women : Folli cular phase 3.5 - 12.5 Ovula tion phase 4.7 - 21.5 Lutea l phase 1.7 - 7.7 Postm enopa use 25.8 - 134.8 Not Available [facility]) [address], [place], [address], 11/12/2019 04:58:39 11/11/1911/15/2019 pap, LB Pap test thin prep Negati ve for Intrae pithel ial Lesion or Malign terry normal ACCES ROLANDO #: [id number] Sour e: Cervi kaden/E ndoce rvica l LMP: 09/28 Date Taken : 11/10 Speci men Type: ThinP rep Vial Date Repor mitchel: 020 Clini kaden Data: Cytot ech: Venus Peter , CT( CP) Date Repor mitchel: Speci men Adequ acy: Satis facto ry for evalu ation No endoc ervic al/tr ansfo rmati on zone compo nent prese nt Gener al Categ oriza tion: NEGAT AZUL FOR INTRA EPITH ELIAL LESIO N OR MALIG SHELBY This speci men has been marnie zed by the ThinP rep Imagi ng Syste m, an inter activ e compu ter syste m which mary ts [facility] of ThinP rep Pap Test slide sAlexis limon imagi ng, the slide was revie wed by a Cytot echno logis t and/o r Patho logis t. D N A A S S A Y S R E P O R T TEST NAME RESUL TS ----- ---- ----- -- HPV High Risk Scree n (TMA) ThinP rep Vial The human papil lomav irus (HPV) High Risk Scree n is an FDA-a pprov ed in-vi tro ampli fied nucle ic acid test for the quali tativ e detec tion of E6/E7 viral mRNA. Resul ts shoul d be corre lated with patie nt prese ntati on, histo ry, cervi kaden cytol ogy and other clini kaden and labor atory findi ngs. See https ://[employer]/s ites/ defau lt/fi les2 018-0 AW- 90844 _002_ 01.pd f for furth er infor matio n. Test perfo rmed by [employer], d/b/a Path rou, [address], [place] [address] , Radhika Sweet ra, DO, Labor atory Direc tor. HPV High Risk *HPV NOT DETEC MITCHEL (TYPE S 16, 18, 31, 33, 35, 39, 45, 51, 52, 56, 58, 59, 66, 68) *HPV: The human papil lomav irus (HPV) High Risk Scree n is an FDA-a pprov ed in-vi tro ampli fied nucle ic acid test for the quali tativ e detec tion of E6/E7 viral mRNA. Resul ts shoul d be corre lated with patie nt prese ntati on, histo ry, cervi kaden cytol ogy and other clini kaden and labor atory findi ngs. See https ://[employer]/s ites/ defau lt/fi 018-0 - 93997 _002_ 01.pd f for furth er infor matio n. Test perfo rmed by [employer], d/b/a [facility], [address], [place] [place] [address] , Radhika Sweet ra, DO, Labor atory Direc tor. End of Repor t Techn ical servi anthony provi ded by [facility], [facility], d/b/a [facility]oup, [address] [place] [address] Chapincito Abernathy MD, [facility]. Case revie wed and diagn osis rende red at [facility] iated Patho logis ts, [employer], d/b/a PathG roup, [address] [place] [address] Chapincito Abernathy MD, [facility] tor. CONFI DENTI AL Not Available [facility] ([facility]) [address], [place], [address], 11/15/2019 14:25:16 11/11/19 20 11/14/2019 HPV DNA, high- risk HPV high risk NOT DETECT ED normal Not Available [facility] ([facility]) [address], [place], [address], 11/15/2019 14:25:16 02/18/20 20 02/19/2020 bacte rial vagin osis + vagin itis panel , vagin al trichomonas vaginalis, aptima (panther) NOT DETECT ED normal Trich omona s vagin tera: DNA testi ng perfo rmed by Trans cript ion Media mitchel Ampli ficat ion (TMA) These resul ts shoul d be inter prete d in light of all clini kaden and labor ator findi ngs. This assay is highl y accur ate, but rare false posit azul and negat azul resul ts may occur . Posit azul resul ts in low preva lence popul ation s may requi re re-ev aluat ion. A negat azul resul t does not precl ude a possi ble infec tion due to a speci men inade quacy or sampl ing error . Test perfo rmed by [facility]o logis ts, [facility], d/b/a [facility]oup, [address], [place] [address] , Radhika Sweet ra, DO, Labor atory Dire tor. Gardn erell a vagin tera, Fern da speci es: Genom ic DNA is isola mitchel from patie nt speci mens by stand sylvia labor atory techn iques and marnie zed using custo m OpenA rray plate s, perfo rmed on the Quant Stud[employer] o 12K Flex Real Time PCR syste m. A posit azul resul t is provi ded for patho genic bacte alison, virus and/o r funga l speci es based on detec tion of ampli ficat ion produ cts. Lesa l vagin al angel resul ts of Lesa l or [place] mitchel are deter mined by calcu latin g the ratio of the organ ism to the total bacte alison prese nt in the speci men, and elie ring that ratio to a PathG roup patie nt popul ation . Overa ll resul ts of Lesa l, Borde rline and Abnor mal are deter mined using a proba bilit y model which was devel oped by an exten sive marnie sis and integ ratio n of clini kaden thres holds for marke r organ isms on a large set of sympt omati c & asymp tomat ic speci mens. Patie nt popul ation s with diffe rent demog raphi cs from the PathG roup model popul ation may have diffe rent indic ator organ isms with diffe rent relat azul ratio s, which would influ ence the final resul ts. Resul ts shoul d be inter prete d in the malik xt of all clini kaden and labor atory findi ngs. The test was devel oped and its perfo rmanc e russel cteri stics deter mined by [employer] [facility] [employer] d/b/a PathG roumichelle. It has not been clear ed or appro violet by the U.S. Food and Drug Admin istra tion. The FDA has deter mined that such clear ance or appro veronique is not neces pebbles. Perti nent refer ence inter vals are avail able from the labor atorroni on reque st. Test( s) perfo rmed by [employer] [facility] log[facility], [facility], d/b/a [facility], [address], [place] [address] , Radhika Sweet ra, DO, Labor atory Direc tor. Not Available [facility] ([facility]) [address], [place], [address], 02/21/2020 16:50:37 02/18/20 20 02/21/2020 bacte rial vagin osis + vagin itis panel , vagin al jackelyn sp. Not Detect ed normal Trich omona s vagin tera: DNA testi ng perfo rmed by Trans cript ion Media mitchel Ampli ficat ion (TMA) These resul ts shoul d be inter prete d in light of all clini kaden and labor atory findi ngs. This assay is highl y accur ate, but rare false posit azul and negat azul resul ts may occur . Posit azul resul ts in low preva lence popul ation s may requi re re-ev aluat ion. A negat azul resul t does not precl ude a possi ble infec tion due to a speci men inade quacy or sampl ing error . Test perfo rmed by [facility], [facility], d/b/a Tracy marcus, [address], [place] [address] , Radhika Sweet ra, DO, Labor atory Direc tor. Gardn erell a vagin tera, Fern da speci es: Genom ic DNA is isola mitchel from patie nt speci mens by stand sylvia labor atory techn iques and marnie zed using custo m OpenA rray plate s, perfo rmed on the Quant Stud[employer] o 12K Flex Real Time PCR syste m. A posit azul resul t is provi ded for patho genic bacte alison, virus and/o r funga l speci es based on detec tion of ampli ficat ion produ cts. Lesa l vagin al angel resul ts of Lesa l or [place] mitchel are deter mined by calcu latin g the ratio of the organ ism to the total bacte alison prese nt in the speci men, and elie ring that ratio to a PathG roup patie nt popul ation . Overa ll resul ts of Lesa l, Borde rline and Abnor mal are deter mined using a proba bilit y model which was devel oped by an exten sive marnie sis and integ ratio n of clini kaden thres holds for marke r organ isms on a large set of sympt omati c & asymp tomat ic speci mens. Patie nt popul ation s with diffe rent demog raphi cs from the PathG roup model popul ation may have diffe rent indic ator organ isms with diffe rent relat azul ratio s, which would influ ence the final resul ts. Resul ts shoul d be inter prete d in the malik xt of all clini kaden and labor atory findi ngs. The test was devel oped and its perfo rmanc e russel cteri stics deter mined by [employer], [employer] d/b/a [facility]Lock[facility] roup. It has not been clear ed or appro violet by the U.S. Food and Drug Admin istra tion. The FDA has deter mined that such clear ance or appro veronique is not neces pebbles. Perti nent refer ence inter vals are avail able from the labor atory on reque st. Test( s) perfo rmed by [employer], [employer], d/b/a [facility], [address], [place] [address] , Radhika Sweet ra, DO, Labor atory Direc tor. Not Available [facility] ([facility]) [address], [place], [address], 02/21/2020 16:50:37 02/18/20 20 02/21/2020 bacte rial vagin osis + vagin itis panel , vagin al gardnerella vaginalis Not Detect ed normal Trich omona s vagin tera: DNA testi ng perfo rmed by Trans cript ion Media mitchel Ampli ficat ion (TMA) These resul ts shoul d be inter prete d in light of all clini kaden and labor atory findi ngs. This assay is highl y accur ate, but rare false posit azul and negat azul resul ts may occur . Posit azul resul ts in low preva lence popul ation s may requi re re-ev aluat ion. A negat azul resul t does not precl ude a possi ble infec tion due to a speci men inade quacy or sampl ing error . Test perfo rmed by [facility], d/b/a Path[facility] roup, [address], [place] [place] [address] , Radhika Sweet ra, DO, Labor atory Direc tor. Dom randolph a vagin tera, Fern da speci es: Genom ic DNA is isola mitchel from patie nt speci mens by stand sylvia labor atory techn iques and marnie zed using custo m OpenA rray plate s, perfo rmed on the Quant Studi o 12K Flex Real Time PCR syste m. A posit azul resul t is provi ded for patho genic bacte alison, virus and/o r funga l speci es based on detec tion of ampli ficat ion produ cts. Lesa l vagin al angel resul ts of Lesa l or [place] mitchel are deter mined by calcu latin g the ratio of the organ ism to the total bacte alison prese nt in the speci men, and elie ring that ratio to a PathG roup patie nt popul ation . Overa ll resul ts of Lesa l, Borde rline and Abnor mal are deter mined using a proba bilit y model which was devel oped by an exten sive marnie sis and integ ratio n of clini kaden thres holds for marke r organ isms on a large set of sympt omati c & asymp tomat ic speci mens. Patie nt popul ation s with diffe rent demog raphi cs from the PathG roup model popul ation may have diffe rent indic ator organ isms with diffe rent relat azul ratio s, which would influ ence the final resul ts. Resul ts shoul d be inter prete d in the malik xt of all clini kaden and labor atory findi ngs. The test was devel oped and its perfo rmanc e russel cteri stics deter mined by [employer] [facility]o logis [employer] d/b/a PathG rou. It has not been clear ed or appro violet by the U.S. Food and Drug Admin istra tion. The FDA has deter mined that such clear ance or appro veronique is not neces pebbles. Perti nent refer ence inter vals are avail able from the labor atory on reque st. Test( s) perfo rmed by [email or web address] [facility] logis [employer], d/b/a PathG rou, [address] [place] [address] , Radhika Sweet ra, DO, Labor atory Direc tor. Not Available [facility] ([facility]) [address], [place], [address], 02/21/2020 16:50:37 12/22/19 21 12/21/2020 CT/GC AND TRICH OMONA S VAGIN TERA (RRNA ), SWAB chlamydia trachomatis, PCR Negati ve negati ve Not Available [facility] (Lab) [address] [place], [address], 12/22/2020 20:14:31 12/22/19 21 12/21/2020 CT/GC AND TRICH OMONA S VAGIN TERA (RRNA ), SWAB neisseria gonorrhoeae, PCR Negati ve negati ve Not Available [facility] (Lab) [address], [place], [address], 12/22/2020 20:14:31 12/22/19 21 12/21/2020 CT/GC AND TRICH OMONA S VAGIN TERA (RRNA ), SWAB trichomonas vaginalis ribosomal RNA (rrna) Negati ve negati ve Not Available [facility] (Lab) [address], [place], [address], 12/22/2020 20:14:31 12/22/19 21 12/21/2020 VAGIN ITIS/ VAGIN OSIS, DNA PROBE jackelyn sp. detection, direct probe Negati ve negati ve Not Available [facility] (Lab) [address], [place], [address], 12/22/2020 20:14:32 12/22/19 21 12/21/2020 VAGIN ITIS/ VAGIN OSIS, DNA PROBE gardnerella vag. detection, direct probe Negati ve negati ve Not Available [facility] (Lab) [address] [facility], [place], [address], 12/22/2020 20:14:32 12/22/19 21 12/21/2020 VAGIN ITIS/ VAGIN OSIS, DNA PROBE trichomonas vag. detection, direct probe Negati ve negati ve Not Available [facility] (Lab) [address], [place], [address], 12/22/2020 20:14:32 12/26/19 21 12/25/2020 US, pelvi s No observ ation record ed. [facility] [address], [place], [address], 12/25/2020 13:12:13 12/26/19 21 12/25/2020 US, trans vagin al No observ ation record ed. [facility] [address], [place], [address], 12/25/2020 13:12:23 12/26/19 21 12/25/2020 US, pelvi s No observ ation record ed. iam [address], [place], [address], 12/27/2020 15:48:04 Result Notes None recorded. Problems Name Problem SNOMED Code Status Onset Date Resolution Date Notes Provider Name and Address Organization Details Recorded Time History of endometrio sis [id number] Active 2019 Stacie Callaway [facility] 0 13:20:44 Problem Notes None recorded. Procedures Surgical History Date Name Laterality Status Provider Name and Address Organization Details Recorded Time 11/11/19 Date of Last Pap Smear completed [facility] 12/21/2020 13:53:43 05/12/19 Date of Last Mammogram completed [facility] 12/21/2020 14:18:49 05/12/19 05 Laparoscopy completed Staciejacinto Callaway [facility] 11/11/2019 13:30:17 05/12/19 04 Laparoscopy completed Stacie [facility] 11/11/2019 13:30:00 05/12/19 03 [facility] 13:29:12 05/12/19 02 Laparoscopy completed Stacie [facility] 11/11/2019 13:28:44 05/12/19 01 Partial Hysterectomy completed [facility] 11/11/2019 13:26:49 05/12/19 01 Laparoscopy completed [facility] 11/11/2019 13:27:48 05/12/19 00 Tubal Ligation completed [facility] 11/11/2019 13:27:03 05/12/18 96 [facility] 11/11/2019 13:27:16 Tubal Ligation completed [facility] 12/21/2020 14:20:35 Partial Hysterectomy completed [facility] 12/21/2020 14:20:35 Appendectomy completed [facility] 12/21/2020 14:20:35 Laparoscopy completed Christina Johnson [facility] 12/21/2020 14:20:35 Imaging Results Imaging Date Name Status LastModified by Organization Details LastModified Time 12/25/2020 US, pelvis completed areli [place] [address], [place], [address], 12/25/2020 13:12:13 12/25/2020 US, transvaginal completed aerli montalvo [address], [place], [address], 12/25/2020 13:12:23 12/25/2020 [facility] [address], [place], [address], 12/27/2020 15:48:04 Procedure Notes None recorded. Medical Equipment None Reported. Allergies Allergen ID Allergen Name Allergen Category Reaction Reaction Severity Criticality Documentation Date Start Date Code Code System Note Provider Name and Address Organization Details Recorded Time 1187 [facility] n Not available Not available Not available 11/11/201967039 5 RxNorm Stacie Callaway [facility] 0 13:20:22 Medications Name Sig Start Date Stop Date Status Note LastModified by Organization Details LastModified Time losartan 50 mg tablet TAKE 1 TABLET BY MOUTH EACH NIGHT 12/21 completed Not Available Not Available Not Available metformin 500 mg tablet TAKE 1 TABLET BY MOUTH DAILY WITH A MEAL active Not Available Not Available No t Available azithromyci n 250 mg tablet 12/21 completed Not Available Not Available Not Available tramadol 50 mg tablet 02/17 completed Not Available Not Available Not Available simvastatin 40 mg tablet TAKE 1 TABLET BY MOUTH EVERY DAY IN THE EVENING active Not Available Not Available No t Available methotrexat e sodium 2.5 mg tablet TAKE 4 TABLETS BY MOUTH ONCE IN WEEK 1, AND THEN 6 TABLETS BY MOUTH ONCE EVERY WEEK active Not Available Not Available No t Available cephalexin 500 mg capsule 02/17 completed Not Available Not Available Not Available nystatin 100,000 unit/gram topical cream APPLY 1 APPLICATI ON ON THE SKIN TWICE A DAY active Not Available Not Available No t Available gabapentin 300 mg capsule TAKE 1 CAPSULE BY MOUTH TWICE A DAY active Not Available Not Available No t Available aspirin 81 mg chewable tablet TAKE 1 TABLET BY MOUTH EVERY DAY 12/21 completed Not Available Not Available Not Available folic acid 1 mg tablet TAKE 1 TABLET BY MOUTH EVERY DAY active Not Available Not Available No t Available gabapentin 100 mg capsule 02/17 completed Not Available Not Available Not Available ergocalcife rol (vitamin D2) 1,250 mcg (50,000 unit) capsule 02/17 completed Not Available Not Available Not Available hydroxychlo roquine 200 mg tablet TAKE 2 TABLETS BY MOUTH EVERY DAY 12/21 completed Not Available Not Available Not Available estradiol 0.01% (0.1 mg/gram) vaginal cream INSERT 1 GRAM VAGINALLY 2 TO 3 TIMES A WEEKS AT BEDTIME FOR MAINTENAN CE active Not Available Not Available No t Available albuterol sulfate HFA 90 mcg/actuati on aerosol inhaler INHALE 2 PUFFS EVERY 4 HOURS NEEDED FOR SHORTNESS OF BREATH OR WHEEZING active Not Available Not Available No t Available fluticasone propionate 50 mcg/actuati on nasal spray,suspe nsion SPRAY 1 SPRAY INTO EACH NOSTRIL EVERY DAY active Not Available Not Available No t Available loratadine 10 mg tablet TAKE 1 TABLET BY MOUTH EVERY DAY active Not Available Not Available No t Available naproxen 500 mg tablet TAKE 1 TABLET BY MOUTH DAILY NEEDED 12/21 completed Not Available Not Available Not Available Spiriva with HandiHaler 18 mcg and inhalation capsules active Not Available Not Available Not Available nitrofurant oin monohydrate /macrocryst als 100 mg capsule 12/21 completed Not Available Not Available Not Available hydrochloro thiazide 12.5 mg tablet 02/17 completed Not Available Not Available Not Available Symbicort 160 mcg-4.5 mcg/actuati on HFA aerosol inhaler active Not Available Not Available Not Available Bevespi Aerosphere 9 mcg-4.8 mcg HFA aerosol inhaler INHALE 2 PUFFS BY MOUTH TWICE A DAY active Not Available Not Available No t Available Vitals Date Recorded Body height Body mass index (BMI) Body weight Systolic blood pressure Diastolic blood pressure Provider Name and Address Organization Details Last Updated DateTime 12/21/2020 167.64 cm 28.5 kg/m2 13585.13 g 97 mm[Hg] 63 mm[Hg] Christina Alex [facility] 1 14:19:57 Date Recorded Body height Body mass index (BMI) Body weight Systolic blood pressure Diastolic blood pressure Provider Name and Address Organization Details Last Updated DateTime 11/11/2019 167.64 cm 29.9 kg/m2 18222.59 g 118 mm[Hg] 80 mm[Hg] Stacie Nilton [facility] 0 13:20:13 Date Recorded Body height Body mass index (BMI) Body weight Systolic blood pressure Diastolic blood pressure Provider Name and Address Organization Details Last Updated DateTime 02/18/2020 167.64 cm 29.2 kg/m2 25683.22 g 115 mm[Hg] 73 mm[Hg] Susan Hidalgo [facility] 0 14:06:35 Social History Question Answer Notes LastModified by Organizat ion Details LastModified Time Tobacco Smoking Status Current Every Day Smoker Jessica ruiz [facility] 12/25/2020 09:19:54 Do You Have An Advance Directive? No Information not available 12/21/2020 What Is Your Level Of Alcohol Consumption? None [email or web address] Information not available 11/11/2019 Are You Blind Or Do You Have Difficulty Seeing? No Information not available 12/21/2020 What Is Your Level Of Caffeine Consumption? Occasional Information not available 12/21/2020 In The 14 Days Before Symptom Onset, Have You Had Close Contact With A Laboratory-confir med COVID-19 While That Case Was Ill? No Information not available 12/21/2020 In The 14 Days Before Symptom Onset, Have You Had Close Contact With A Person Who Is Under Investigation For COVID-19 While That Person Was Ill? No Information not available 12/21/2020 Have You Been To An Area Known To Be High Risk For COVID-19? No Information not available 12/21/2020 Are You Deaf Or Do You Have Serious Difficulty Hearing? No Information not available 12/21/2020 What Type Of Diet Are You Following? REGULAR Information not available 12/21/2020 What Is The Highest Grade Or Level Of School You Have Completed Or The Highest Degree You Have Received? LA61510-7 Information not available 12/21/2020 Are There Any Guns Present In Your Home? No Information not available 12/21/2020 What Was The Date Of Your Most Recent Tobacco Screening? 11/11/2019 [email or web address] Information not available 12/25/2020 Do You Use Protection During Sex? No Information not available 12/21/2020 Do You Use Your Seat Belt Or Car Seat Routinely? Yes Information not available 12/21/2020 Do You Have Smoke And Carbon Monoxide Detectors In Your Home? No Information not available 12/21/2020 At What Age Did You Start Smoking Tobacco? 13 Information not available 12/21/2020 How Much Tobacco Do You Smoke? 1 PPD [email or web address] Information not available 11/11/2019 Do You Feel Stressed (tense, Restless, Nervous, Or Anxious, Or Unable To Sleep At Night)? [id number] Information not available 12/21/2020 Do You Use Any Illicit Or Recreational Drugs? No Information not available 12/21/2020 Do You Use Sunscreen Routinely? No Information not available 12/21/2020 Have You Used IV Drugs? No Information not available 12/21/2020 Sex: Unknown Functional Status Question Answer Note LastModified by Organization D etails LastModified Time Are you able to walk? YESWOREST Information not available 12/21/2020 What is your exercise level? None Information not available 12/21/2020 Mental Status None recorded. Family History Relationship Description Onset Age of this Age Resolved Age Notes LastModified by Organization Details LastModified Time Mother Diabetes mellitus [email or web address] Not available 11/10 13:24:35 Mother Hypercholest erolemia [email or web address] Not available 11/10 13:25:12 Mother Hypertensive disorder [email or web address] Not available 11/10 13:25:23 Father Diabetes mellitus [email or web address] Not available 11/10 13:24:45 Father Heart disease [email or web address] Not available 11/10 13:24:59 Father Hypercholest erolemia [email or web address] Not available 11/10 13:25:12 Sister Disorder of thyroid gland [email or web address] Not available 11/10 13:25:42 Medical History Condition Response Endometriosis Y Gynecological History Statement/Question Response Abnormal Pap N Date of Last Mammogram 05/12/2019 Date of LMP 05/12/2000 On BCP's at Conception? N N Was last menstrual period normal N STIs/STDs N HPV Vaccine N 14 Current Control Method Tubal Ligat ion Age at First Child 19 If Post Menopausal, Age at Menopause 25 Sexually Active? N Age of first menstrual cycle 12 Date of Last Pap Smear 11/11/2019 Sexual Problems? N Desired Control Method Hysterectom y LMP Approximate N Obstetrics History GPAL:G 5 P 2 0 3 2 Type Value Full Term 2 Induced 1 Spontaneous 2 Living 2 Total 5 Past Encounters Encounter ID Performer Location Encounter Start Date Encounter Closed Date Diagnosis/Indication Diagnosis SNOMED-CT Code Diagnosis ICD10 Code Diagnosis Note [id number] Shayna Christian , [facility] [address] [address] 11/11/2019 12:51:28 11/11/2019 16:16:36 Deep pain on intercourse 157595412 N94.12 Exam +muscular tension/my algia levator/ob turator groups. Vag cuff appears intact wnl. Vag cultures sent to r/o infection as some vag d/c present. Partial hyst. FSH/LH to see if menopause. If menopausal range consider adding vag estrogen therapy for dyspareuni a along with PT> Refer to Pelvic floor PT [facility] preferred. Order given. WIll call for appts. Gynecologi c examination 36349290 Z01.419 Suggested Calcium with Vitamin D 1200-1500m g daily. Patient advised to get an annual flu shot in the fall and she could obtain at [facility] or [facility] take care clinic. Also to obtain TDap vaccinatio n if you have not had one in the last 10 years. Recommend yearly mammograms . Encouraged monthly self breast exams. Encourage safe sexual practices, to use condoms and limit partners if not already in a monogamous relationsh ip. Engage in daily exercise of low impact aerobic exercise 45-60 minutes 4-5 times weekly. Avoid tobacco and illicit drugs as well as using moderation with alcohol intake less than 1-2 8 oz beverages daily. This lifestyle behavior pattern will lead to less health conditions and longer life span. If BMI greater than 25 weight watchers or dietary consult advised. All questions have been answered. Patient appears to understand informatio n, but if you have any questions please call or respond to this email. Pap/HPV d/c per asccp Partial hyst for endometroi sis Denies abn PapHPV hx. Good historian. Mammo done History of endometriosis [id number] Z87.42 Partial hyst. FSH/LH to see if menopause. If menopausal range consider adding vag estrogen therapy for dyspareuni a along with PT> [id number] Shayna Christian [facility] [address] [address] 02/18/2020 13:53:47 02/18/2020 14:50:29 Dyspareunia [id number] N94.10 N95.2 We agreed to incorporat e vag moisturizi ng. STOP using OTC KY Jelly. VCG sheet. Call Pelvic floor therapist for PT as previously discussed. Continue estrace cream vag. Will re-evaluat e in 3mos. Swab sent to ensure no vag infection. Time spent in visit is a total of 15 mins with at least 50% of visit consisting of counseling and review of plan of care.m [id number] Shayna Christian [facility] [address] [address] 12/21/2020 14:02:36 12/21/2020 15:23:19 Pelvic and perineal pain [id number] R10.2 Suspect that her current issues might be tied more to GI vs [employer].She has Hx of hysterecto my for non-cancer indication s.She has seen her PCP who has encouraged her to get a colonoscop y as the other testing/im aging they have completed has been neg. Her exam today +Pelvic floor discomfort but it is without spastisity ; only tenderness ; neg d/c but will send swabs to r/o infection. Abdominal pain 00995171 R10.[address] Scan by PCP alreadyWas requested to do a colonoscop y but has not scheduled this test.Encou raged patient to return to PCP & schedule this test for further exploratio n of GI related issues. Dyspareunia [id number] N94 .10 N95.2 RF sent of vag estrogen cream.She has avoided sex x 4 mos b/c it is so uncomforta ble.Spouse is still very much Sexually active.Enc ouraged smoking cessation as even the very low dose of vag estrogen can increase risks of cardiovasu clar events (i.e. stroke, Clots etc). Menopausal symptom 22195 002 N95.1 Having hot flashes daily1-5 a day.Not as much at night.We can revisit her options once we get US & address current pain issues. [id number] [facility] [address] [address] 12/25/2020 09:19:37 12/25/2020 10:06:11 Pain in pelvis [id number] R10.2 Health Concerns Section Related Observation LastModified by Organization Detai ls LastModified Time None Recorded Concern Status LastModified by Organization Details LastModified Time None Recorded Advance Directives Directive N: Payers Encounter Date Sequence Insurance Name Policy Number Policy Thomas Covered Member ID Thomas Member ID Guarantor Name 11/11/2019 1 [facility] PRIOR TO 11/09/2020 (MEDICAID REPLACEMENT - HMO) Hanife Spahiu [id number] Morganife Spahiu 02/18/2020 1 [facility] PRIOR TO 11/09/2020 (MEDICAID REPLACEMENT - HMO) Hanife Spahiu [id number] Hanife Spahiu 12/21/2020 1 [facility] ON OR AFTER 11/09/20 (MEDICAID REPLACEMENT - HMO) Hanife Spahiu [id number] Hanife Spahiu 12/25/2020 1 [facility] ON OR AFTER 11/09/20 (MEDICAID REPLACEMENT - HMO) Hanife Spahiu [id number] Hanromario Spaaditiu Notes Date Note Type Note Provider Name and Address Organization Details Recorded Time 11/11/2019 text/html Annual GYNReport ed bypatient.History:De ep dyspareunia Hx partial hyst for endometrioisis 2000 Menstrual cycle:Normal menses Urinary symptoms:No hematuria; No incontinence Vulva:No genital lesion Vagina:Normal vaginal discharge Breast:No breast pain; No breast lump; No nipple discharge Current Contraception:partia l hyst Sexual complaints:No sexual complaints; No pain during intercourse; Normal libido Menopausal Symptoms:No menopausal symptoms; Normal vaginal lubrication Psychological symptoms:No depression; No anxiety; No PMDD Preventive measures:Encourage self breast examination; Encourage regular exercise; Encourage no tobacco use; Encourage regular mammograms starting age 40; Mammogram performed within the past year LILLY Tyler [address], [place], [address], [facility] 11/11/2019 16:07:58 02/18/2020 text/html Patient is a 44y o white female here today to follow up for medication check. She has made some progress but dyspareunia is only 30-40% improved. She did not go to PT as instructed. She did not use vag moisturizer as instructed. LILLY Tyler [address], [place], [address], [facility] 02/18/2020 14:33:00 12/21/2020 text/html Beer-Pelvic PainReported bypatient.Location:a bdominal; lower abdominal; mid pelvis Onset/Timin-6 months Duration:intermitten t Quality:sharp; stabbing; cramping; throbbing Severity:moderate; pain level 4/10 Context:unrelated to menstrual cycle; postmenopausal (Hx of hysterectomy); history of hysterectomy Aggravating Factors:intercourse; Randomly occurs without any specific event Associated Symptoms:no chills; no constipation; no diarrhea; no vaginal discharge; no pain with urination; normal emptying of bladder; no feelings of urgency; no blood in the urine; no sexual abuse; no ectopic pregnancies; no endometriosis; no urinary frequency; no vaginal itching or irritation;abdominal pain;back pain;dyspareunia [address] [place], [address], [facility] 12/21/2020 15:25:00 OBGyn Episode Ob Episode Information Episode Created Date Number of Fetuses Patient Bloodtype Patient rh Status Prepregnancy Weight lbs Domestic Partner Domestic Partner Phone Father Name Timber Rider Status 11/11/19 20 1 CLOSED Fetus Data First Name Last Name Admitted to NICU Weight (g) Sex Living Outcome Pediatric Complications Fetus ID Race Codes Race Delivery Type , Spontane ous [id number] Umair Calculation Initial Umair Date Initial Exam Date Initial Exam Provider Initial Ultrasound Date Last Menstrual Period Date Ultra Sound Weeks Gestation 0 Eighteen To Twenty Week Umair Update Ultra Sound Date Fundal Height At Umbil Quickening Date Ultra Sound Latest Weeks Gestation Final Umair Confirmed By Final Umair Confirmed Date Final Umair Date Ultra Sound Latest Days Gestation 0 0 Menstrual History Last Menstrual Date Menses Monthly On Bcp Conception Prior Menses Frequency Hcg Plus Date Menarche Onset Age Delivery Information Delivery Date Delivery Type Labor Anesthesia Weeks Gestation Incision Type Labor Labor Length Hrs Delivered By Post Complications Tubal Sterilization Discharge Date Comments 7 1996 miscarria ge Discharge Information Feeding Method Contraceptive Method Maternal HG B and HCT Levels Ob Episode Information Episode Created Date Number of Fetuses Patient Bloodtype Patient rh Status Prepregnancy Weight lbs Domestic Partner Domestic Partner Phone Father Name Timber Rider Status 11/11/19 20 1 CLOSED Fetus Data First Name Last Name Admitted to NICU Weight (g) Sex Living Outcome Pediatric Complications Fetus ID Race Codes Race Delivery Type , Spontane ous [id number] Umair Calculation Initial Umair Date Initial Exam Date Initial Exam Provider Initial Ultrasound Date Last Menstrual Period Date Ultra Sound Weeks Gestation 0 Eighteen To Twenty Week Umair Update Ultra Sound Date Fundal Height At Umbil Quickening Date Ultra Sound Latest Weeks Gestation Final Umair Confirmed By Final Umair Confirmed Date Final Umair Date Ultra Sound Latest Days Gestation 0 0 Menstrual History Last Menstrual Date Menses Monthly On Bcp Conception Prior Menses Frequency Hcg Plus Date Menarche Onset Age Delivery Information Delivery Date Delivery Type Labor Anesthesia Weeks Gestation Incision Type Labor Labor Length Hrs Delivered By Post Complications Tubal Sterilization Discharge Date Comments 8 1997 miscarria ge Discharge Information Feeding Method Contraceptive Method Maternal HG B and HCT Levels Ob Episode Information Episode Created Date Number of Fetuses Patient Bloodtype Patient rh Status Prepregnancy Weight lbs Domestic Partner Domestic Partner Phone Father Name Timber Rider Status 11/11/19 20 1 CLOSED Fetus Data First Name Last Name Admitted to NICU Weight (g) Sex Living Outcome Pediatric Complications Fetus ID Race Codes Race Delivery Type , Induced [id number] Umair Calculation Initial Umair Date Initial Exam Date Initial Exam Provider Initial Ultrasound Date Last Menstrual Period Date Ultra Sound Weeks Gestation 0 Eighteen To Twenty Week Umair Update Ultra Sound Date Fundal Height At Umbil Quickening Date Ultra Sound Latest Weeks Gestation Final Umair Confirmed By Final Umair Confirmed Date Final Umair Date Ultra Sound Latest Days Gestation 0 0 Menstrual History Last Menstrual Date Menses Monthly On Bcp Conception Prior Menses Frequency Hcg Plus Date Menarche Onset Age Delivery Information Delivery Date Delivery Type Labor Anesthesia Weeks Gestation Incision Type Labor Labor Length Hrs Delivered By Post Complications Tubal Sterilization Discharge Date Comments 0 2000 induced Discharge Information Feeding Method Contraceptive Method Maternal HG B and HCT Levels Ob Episode Information Episode Created Date Number of Fetuses Patient Bloodtype Patient rh Status Prepregnancy Weight lbs Domestic Partner Domestic Partner Phone Father Name Timber Rider Status 11/11/19 20 1 CLOSED Fetus Data First Name Last Name Admitted to NICU Weight (g) Sex Living Outcome Pediatric Complications Fetus ID Race Codes Race Delivery Type 3203.26 [id number] M Full Term [id number] Vaginal Delivery Umair Calculation Initial Umair Date Initial Exam Date Initial Exam Provider Initial Ultrasound Date Last Menstrual Period Date Ultra Sound Weeks Gestation 0 Eighteen To Twenty Week Umair Update Ultra Sound Date Fundal Height At Umbil Quickening Date Ultra Sound Latest Weeks Gestation Final Umair Confirmed By Final Umair Confirmed Date Final Umair Date Ultra Sound Latest Days Gestation 0 0 Menstrual History Last Menstrual Date Menses Monthly On Bcp Conception Prior Menses Frequency Hcg Plus Date Menarche Onset Age Delivery Information Delivery Date Delivery Type Labor Anesthesia Weeks Gestation Incision Type Labor Labor Length Hrs Delivered By Post Complications Tubal Sterilization Discharge Date Comments 6 40 Discharge Information Feeding Method Contraceptive Method Maternal HG B and HCT Levels
--- OUTSIDE RECORDS SUMMARY | 2024-07-20 17:38 | XMS_ITS | Referral Summary ---
Author Organization [facility] Address [address] [place] [address] Care Team Providers Care Gas Main Fitter Helper Name Role Phone Jeff Duque MD Primary Care Provider [phone] Jeff Duque MD Unavailable Source Comments [facility],non-owned Affiliates and Associated Physician Practices is amultiple site organization consisting of ambulatory clinics and hospital sitesin [place], [place], [place]. This disclosure is being madepursuant to the Care Everywhere program and may not contain all information available regarding this patient. Last updated 18.[facility] Encounters Date Type Department Care Team Description 07/12/2024 3:00 PM ALARM SERVICE TECHNICIAN Office Visit [facility] - Rheumatology [address], [address] [place] [address] Mikala العلي MD 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 factor (HCC) (Primary Dx) 07/08/2024 Telephone [facility] - Rheumatology [address], [address] [place] [address] Mikala العلي MD Appointment 07/06/2024 Travel 07/06/2024 1:00 PM ALARM SERVICE TECHNICIAN Office Visit [facility] - Family Medicine [address] [place] [address] [place] [address] Darion Camp MD Pain of both hip joints (Primary Dx) 07/05/2024 Travel 07/05/2024 3:30 PM ALARM SERVICE TECHNICIAN Office Visit [facility] - GI [address] [place] [phone] Generalized abdominal pain (Primary Dx) 06/17/2024 11:00 AM ALARM SERVICE TECHNICIAN Clinical Support [facility] - Ophthalmology [address] [place] [phone] Jose Newby MD Long-term use of Plaquenil (Primary Dx) 06/17/2024 10:25 AM ALARM SERVICE TECHNICIAN Clinical Support [facility] - Ophthalmology [address] [place] [phone] Jose Newby MD Long-term use of Plaquenil (Primary Dx) 06/17/2024 10:20 AM ALARM SERVICE TECHNICIAN Clinical Support [facility] - Ophthalmology [address] [place] [phone] Jose Newby MD Long-term use of Plaquenil (Primary Dx) 06/17/2024 10:30 AM ALARM SERVICE TECHNICIAN Office Visit [facility] - Ophthalmology [address] [place] [phone] Jose Newby MD Long-term use of Plaquenil (Primary Dx); Diabetes mellitus without ophthalmic manifestations (HCC) 06/15/2024 12:32 PM ALARM SERVICE TECHNICIAN - 06/15/2024 11:59 PM ALARM SERVICE TECHNICIAN Hospital Encounter [facility] [address] [place] [address] Frantz Nicole MD Discharge Disposition: Home or Self Care 06/15/2024 12:31 PM ALARM SERVICE TECHNICIAN Hospital Encounter [facility] [address] [place] [address] Frantz Nicole MD Discharge Disposition: Home or Self Care 06/15/2024 11:19 AM ALARM SERVICE TECHNICIAN - 06/15/2024 12:30 PM ALARM SERVICE TECHNICIAN Hospital Encounter [facility] [address] [facility] [place] [address] Frantz Nicole MD Discharge Disposition: Home or Self Care 06/15/2024 Travel 06/15/2024 10:30 AM ALARM SERVICE TECHNICIAN Office Visit [facility] - Orthopedics [address] [place] [phone] Frantz Nicole MD Low back pain, unspecified back pain laterality, unspecified chronicity, unspecified whether sciatica present (Primary Dx); Groin pain, right 06/14/2024 Orders Only [facility] - Orthopedics [address] [place] [phone] Frantz Nicole MD Low back pain, unspecified back pain laterality, unspecified chronicity, unspecified whether sciatica present 06/03/2024 Travel 06/03/2024 2:00 PM ALARM SERVICE TECHNICIAN Office Visit [facility] - Allergy [address] [place] [phone] Eleno Montoya MD Non-seasonal allergic rhinitis due to other allergic trigger (Primary Dx); Angioedema, subsequent encounter; Asthma-COPD overlap syndrome (HCC) 05/24/2024 Telephone [facility] - Rheumatology [address] [place] [address], [address] [place] [address] Mikala العلي MD Medication Problem 05/21/2024 12:00 PM ALARM SERVICE TECHNICIAN Clinical Support [facility] - Ophthalmology [address] [place] [phone] Reina Beckford MD Retinal lesion of both eyes (Primary Dx) 05/21/2024 11:00 AM ALARM SERVICE TECHNICIAN Clinical Support [facility] - Ophthalmology [address] [place] [phone] Reina Beckford MD Retinal lesion of both eyes (Primary Dx); Choroiditis of both eyes 05/21/2024 10:55 AM ALARM SERVICE TECHNICIAN Clinical Support [facility] - Ophthalmology [address] [place] [phone] Reina Beckford MD Choroiditis of both eyes (Primary Dx) 05/21/2024 8:50 AM ALARM SERVICE TECHNICIAN Clinical Support [facility] - Ophthalmology [address] [place] [phone] Reina Beckford MD Retinal lesion of both eyes (Primary Dx); Choroiditis of both eyes 05/21/2024 Travel 05/21/2024 9:15 AM ALARM SERVICE TECHNICIAN Office Visit [facility] - Ophthalmology [address] [place] [phone] Reina Beckford MD Retinal lesion of both eyes (Primary Dx); Diabetes mellitus without ophthalmic manifestations (HCC) 05/18/2024 Travel 05/18/2024 1:20 PM ALARM SERVICE TECHNICIAN Office Visit [facility] - Dermatology [address] [place] [phone] Torie Holm MD Lupus erythematosus tumidus (Primary Dx) from Last 3 Months Allergies Active Allergy [...] fluticasone propionate (Flonase) 50 MCG/ACT nasal spray [place] 2 (two) sprays into each nostril once [...] Reasons: Heartburn 15 tablet 02/18/20 24 025 Discontinued(Li st Clean-Up) famotidine (Pepcid) 20 MG tabletIndications :Urticaria,angioe [...] file Gender Identity Female 05/10/2021 10:24 PM ALARM SERVICE TECHNICIAN Sexual Orientation Not on file Last Filed Vital Signs Vital Sign Reading Time Taken Comments Blood Pressure 126/82 07/12/2024 3:00 PM ALARM SERVICE TECHNICIAN Pulse 90 07/12/2024 3:00 PM ALARM SERVICE TECHNICIAN Temperature 36.3 C (97.3 F) 07/12/2024 3:00 PM ALARM SERVICE TECHNICIAN Respiratory Rate 16 07/12/2024 3:00 PM ALARM SERVICE TECHNICIAN Oxygen Saturation 95% 07/12/2024 3:00 PM ALARM SERVICE TECHNICIAN Inhaled Oxygen Concentration - - Weight 83 kg (183 lb) 07/12/2024 3:00 PM ALARM SERVICE TECHNICIAN Height 170.2 cm (5' 7 ) 07/06/2024 1:24 PM ALARM SERVICE TECHNICIAN Body Mass Index 28.66 07/06/2024 1:24 PM ALARM SERVICE TECHNICIAN Functional Status Functional Status Response Date of [...] person have difficulty concentrating/remembering/making decisions? No 01/13/2024 Plan of Treatment Upcoming Encounters Date Type Department Care Team (Late st Contact Info) Description 08/05/2024 3:00 PM CDT Office Visit [facility] - Allergy [address] [place] [phone] Eleno Montoya MD [address] [place] [address] 08/17/2024 11:30 AM CDT Office Visit [facility] - Orthopedics [address] [place] [phone] Frantz Nicole MD [facility] [place] [address] 08/19/2024 10:30 AM CDT Office Visit [facility] - Neurology [address] [place] [phone] Moiz Briones, BEATER HEAD-DECORATING KILN OPERATOR [address] [place] [address] [address] [place] [phone] 08/19/2024 11:20 AM CDT Office Visit [facility] - Endocrinology [address] [place] [phone] Naseem Garcia MD [address] [place] [address] [address] [place] [phone] 10/21/2024 10:00 AM CDT Office Visit [facility] - ENT [address] [place] [phone] Vinny Milner MD [address] [place] [address] [place] [address] 11/01/2024 3:20 PM CDT Office Visit [facility] - Rheumatology [address] [place] [address], [address] [place] [phone] Mikala العلي MD [address] [place] [phone] 11/16/2024 1:00 PM CDT Office Visit [facility] - Dermatology [address] [place] [phone] Torie Holm MD [address] [place] [address] [place] [phone] 11/19/2024 9:45 AM CDT Office Visit [facility] - Ophthalmology [address] [place] [address], [place] [phone] Reina Beckford MD [address] [place] [address] [place] [phone] 01/20/2025 10:00 AM CDT Office Visit [facility] - Ophthalmology [address] [place] [phone] Jose Newby MD [address] [place] [address] [place] [phone] 01/24/2025 3:00 PM CDT Office Visit [facility] - GI [address] [place] [phone] Goals Goal Patient Goal Type Associated Problems Recent Progress Patient-Stated? Author Medication Management General On track( 025 3:22 PM ALARM SERVICE TECHNICIAN) Melonie Castillo, RN Note: Expected end date: Ongoing Interventions: Take all medications as prescribed Let your doctor know right away about any changes in your medications Make sure to request a refill of your medication at least one week prior to your last dose Procedures Procedure Name Priority Date/Time Associated Diagnosis Comments ND DRAIN INJ MAJOR JOINT BURSA W US Routine 07/06/2024 1:53 PM ALARM SERVICE TECHNICIAN Pain of both hip joints FUNDUS PHOTO BOTH EYES Routine 11:00 AM ALARM SERVICE TECHNICIAN Long-term use of Plaquenil DORMAN AUTO VISUAL FIELD EXTENDED Routine 06/17/2024 10:17 AM ALARM SERVICE TECHNICIAN Long-term use of Plaquenil RETINAL ANALYSIS OCT Routine 06/17/2024 10:17 AM ALARM SERVICE TECHNICIAN Long-term use of Plaquenil XR HIP RIGHT 2VW OR MORE Routine 06/15/2024 12:42 PM ALARM SERVICE TECHNICIAN Groin pain, right XR HIP LEFT 2VW OR MORE Routine 06/15/2024 12:42 PM ALARM SERVICE TECHNICIAN Groin pain, right XR LUMBAR SPINE 2 OR 3VW Routine 06/15/2024 11:26 AM ALARM SERVICE TECHNICIAN Low back pain, unspecified back pain laterality, unspecified chronicity, unspecified whether sciatica present FA ICG ANGIOGRAPHY Routine 05/21/2024 11 :56 AM ALARM SERVICE TECHNICIAN Retinal lesion of both eyes FUNDUS PHOTO BOTH EYES Routine 10:51 AM ALARM SERVICE TECHNICIAN Retinal lesion of both eyes RETINAL ANALYSIS OCT Routine 05/21/2024 8:50 AM ALARM SERVICE TECHNICIAN Retinal lesion of both eyes ENDOSCOPY, COLON, DIAGNOSTIC Routine 01/13/2024 11:04 AM CDT COMPREHENSIVE METABOLIC PANEL Routine 11/18/2023 8:13 AM CDT 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 factor (HCC) HEPATITIS SCREEN ACUTE Routine 8:13 AM CDT 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 factor (HCC) from Last 3 Months or Most Recently Relevant to Health Maintenance Results * ND DRAIN INJ MAJOR JOINT BURSA W US (07/06/2024 1:53 PM ALARM SERVICE TECHNICIAN) Narrative Darion Camp MD - 07/06/2024 1:53 PM ALARM SERVICE TECHNICIAN Darion Camp MD 07/07/2024 5:11 PM U/S-GUIDED [...] FUNDUS PHOTO BOTH EYES (06/17/2024 11:00 AM ALARM SERVICE TECHNICIAN) Anatomical Region Laterality Modality Head External-Camera Photography Narrative 06/17/2024 12:40 PM ALARM SERVICE TECHNICIAN Images from the original result were not included. Jose Newby MD OPHTHALMOLOGY SCHED ORD W PACS * DORMAN AUTO VISUAL FIELD EXTENDED (06/17/2024 10:17 AM ALARM SERVICE TECHNICIAN) Anatomical Region Laterality Modality Head External-Camera Photography Narrative 06/17/2024 12:40 PM ALARM SERVICE TECHNICIAN Images from the original result were not included. Jose Newby MD OPHTHALMOLOGY SCHED ORD W PACS * RETINAL ANALYSIS OCT (06/17/2024 10:17 AM ALARM SERVICE TECHNICIAN) Anatomical Region Laterality Modality Head External-Camera Photography Narrative 06/17/2024 12:32 PM ALARM SERVICE TECHNICIAN Images from the original result were not included. Jose Newby MD OPHTHALMOLOGY SCHED ORD W PACS * XR Hip Right 2Vw or More (06/15/2024 12:42 PM ALARM SERVICE TECHNICIAN) Anatomical Region Laterality Modality Pelvis, Lower Extremity Computed Radiography 06/15/2024 2:24 PM ALARM SERVICE TECHNICIAN Impressions 06/15/2024 2:27 PM ALARM SERVICE TECHNICIAN IMPRESSION: No acute osseous abnormality. Mild degenerative changes. Report dictated by Won Pastrana MD (residential roofer helper). I, Risa No MD have personally reviewed and interpreted this examination/study. > Interpreting Provider: Risa No MD on 06/15/2024 2:27 PM Narrative 06/15/2024 2:27 PM ALARM SERVICE TECHNICIAN PROCEDURE: XR HIP RIGHT 2VW OR MORE, DATE/TIME OF EXAM: 06/15/2024 12:43 PM, LOCATION [facility] INDICATION: R10.31: Groin pain, right ADDITIONAL CLINICAL [...] DATE/TIME OF EXAM: 06/15/2024 12:43 PM, LOCATION [facility] INDICATION: R10.31: Groin pain, right ADDITIONAL CLINICAL INFORMATION: Ordering Provider Reason For Exam: right hip pain COMPARISON: None. FINDINGS: No acute fracture or dislocation. Mild degenerative changes smallspurring along the lateral acetabular margin. The hip joint space is preserved.Bone density and texture are normal. IMPRESSION: No acute osseous abnormality. Mild degenerative changes. Report dictated by Won Pastrana MD (residential roofer helper). Risa Prescott MD have personally reviewed and interpreted this examination/study. > Interpreting Provider: Risa No MD on 06/15/2024 2:27 PM Frantz Nicole MD DIAGNOSTIC IMAGING O RDERABLES * XR Hip Left 2Vw or More (06/15/2024 12:42 PM ALARM SERVICE TECHNICIAN) Anatomical Region Laterality Modality Pelvis, Lower Extremity Computed Radiography 06/15/2024 2:23 PM ALARM SERVICE TECHNICIAN Impressions 06/15/2024 2:28 PM ALARM SERVICE TECHNICIAN IMPRESSION: No acute osseous abnormality. Mild degenerative changes. Report dictated by Won Pastrana MD (residential roofer helper). Risa Prescott MD have personally reviewed and interpreted this examination/study. > Interpreting Provider: Risa No MD on 06/15/2024 2:28 PM Narrative 06/15/2024 2:28 PM ALARM SERVICE TECHNICIAN PROCEDURE: XR HIP LEFT 2VW OR MORE, DATE/TIME OF EXAM: 06/15/2024 12:42 PM, LOCATION [facility] INDICATION: R10.31: Groin pain, right ADDITIONAL CLINICAL [...] MORE, DATE/TIME OF EXAM: 06/15/2024 12:42PM, LOCATION [facility] INDICATION: R10.31: Groin pain, right ADDITIONAL CLINICAL INFORMATION: Ordering Provider Reason For Exam: left hip pain COMPARISON: None. FINDINGS: No acute fracture or dislocation. Mild degenerative changes with small osteophytosis along the superior acetabular margin. The hip joint spaceis preserved. Bone density is normal. IMPRESSION: No acute osseous abnormality. Mild degenerative changes. Report dictated by Won Pastrana MD (residential roofer helper). Risa Prescott MD have personally reviewed and interpreted this examination/study. > Interpreting Provider: Risa No MD on 06/15/2024 2:28 PM Frantz Nicole MD DIAGNOSTIC IMAGING O RDERABLES * XR Lumbar Spine 2 or 3Vw (06/15/2024 11:26 AM ALARM SERVICE TECHNICIAN) Anatomical Region Laterality Modality Spine Computed Radiogr aphy 06/15/2024 11:5 1 AM ALARM SERVICE TECHNICIAN Impressions 06/15/2024 1:00 PM ALARM SERVICE TECHNICIAN IMPRESSION: Grade 1 anterolisthesis of L5 on S1, unchanged. Mild multilevel degenerative changes. Report dictated by Won Pastrana MD, (residential roofer helper). Risa Prescott MD have personally reviewed and interpreted this examination/study. > Interpreting Provider: Risa No MD on 06/15/2024 1:00 PM Narrative 06/15/2024 1:00 PM ALARM SERVICE TECHNICIAN PROCEDURE: XR LUMBAR SPINE 2 OR 3VW, DATE/TIME OF EXAM: 06/15/2024 11:26 AM, LOCATION [facility] INDICATION: M54.50: Low back pain, unspecified back [...] DATE/TIME OF EXAM: 06/15/2024 11:26 AM, LOCATION [facility] INDICATION: M54.50: Low back pain, unspecified back [...] changes. Report dictated by Won Pastrana MD, (residential roofer helper). I, Risa No MD have personally reviewed and interpreted this examination/study. > Interpreting Provider: Risa No MD on 06/15/2024 1:00 PM Frantz Nicole MD DIAGNOSTIC IMAGING O RDERABLES * FA ICG ANGIOGRAPHY (05/21/2024 11:56 AM ALARM SERVICE TECHNICIAN) Anatomical Region Laterality Modality Head External-Camera Photography Narrative 05/22/2024 3:51 PM ALARM SERVICE TECHNICIAN Images from the original result were not included. indocyanine green angiography (05/21/2024) - no hypocyanescence seen in late stage- these findings confirm no choroiditis where lesions are seen in retina Fluorescein Angiography (05/21/2024) - no vascular leakage seen Reina Beckford MD OPHTHALMOLOGY SCHED ORD W PACS * FUNDUS PHOTO BOTH EYES (05/21/2024 10:51 AM ALARM SERVICE TECHNICIAN) Anatomical Region Laterality Modality Head External-Camera Photography Narrative 05/22/2024 3:51 PM ALARM SERVICE TECHNICIAN Images from the original result were not included. Fundus photo (05/21/2024) - Yellow stippling seen nasally OU- stable Reina Beckford MD OPHTHALMOLOGY SCHED ORD W PACS * RETINAL ANALYSIS OCT (05/21/2024 8:50 AM ALARM SERVICE TECHNICIAN) Anatomical Region Laterality Modality Head External-Camera Photography Narrative 05/22/2024 3:52 PM ALARM SERVICE TECHNICIAN Images from the original result were not [...] bowel preparation was evaluated using the BBPS ([place] Bowel Preparation Scale) with scores of: Right [...] non-mcfarland portions. Procedure Code(s): --- Professional --- 15369, Colonoscopy, flexible; with removal of tumor(s), polyp(s), or other lesion(s) by snare technique Diagnosis Code(s): --- Professional --- Z12.11, Encounter for screening for malignant neoplasm of colon D12.0, Benign neoplasm of cecum D12.5, Benign neoplasm of sigmoid colon D12.2, Benign neoplasm of ascending colon CPT copyright 2021 [employer]. All rights reserved. The codes documented in this report are preliminary and upon radiology transcriptionist review may be revised to meet current compliance requirements. Dylan Jessica, 01/13/2024 11:59:59 AM Note Initiated On: 01/13/2024 11:04 AM Number of Addenda: [id number] [place] [address] PROVATION 01/13/2024 11:0 4 AM CDT Dylan Jessica MD GI PROCEDURE O RDERABLES [facility] PROVATION * (ABNORMAL) COMPREHENSIVE METABOLIC PANEL (11/18/2023 8:13 [...] 29 U/L [facility] Comment: Test Performed at: [facility] [id number] [place] [address] ASIF BLACKWOOD MD Blood BLOOD SPECIMEN / Unknown 11/18/2023 8:13 AM CDT 11/18/2023 8:14 AM CDT Mikala العلي MD LAB - CHEMISTRY MICHAEL NELSON [address] [address] * HEPATITIS SCREEN ACUTE (11/18/2023 8:13 AM CDT) Hepatitis A Virus Antibody IgM NON-REACTI VE NON-REACT [facility] Comment: For additional information, please refer to http://Ezeecube/faq/NBP331 (This link is being provided for informational/ educational purposes only.) Hepatitis B Virus Surface Antigen NON-REACTI VE NON-REACT [facility] Comment: For additional information, please refer to http://Ezeecube/faq/BTV527 (This link is being provided for informational/ educational purposes only.) Hepatitis B Core Virus Antibody IgM NON-REACTI VE NON-REACT [facility] Comment: For additional information, please refer to http://Ezeecube/faq/NEZ555 (This link is being provided for informational/ educational purposes only.) Hepatitis C Antibody NON-REACTI VE NON-REACT [facility] Comment: HCV antibody was non-reactive. There is no laboratory evidence of HCV infection. In most cases, no further action is required. However, if recent HCV exposure is suspected, a test for HCV RNA (test code 01924) is suggested. For additional information please refer to http://[employer].Xitronix/faq/UXQ35s4 (This link is being provided for informational/ educational purposes only.) Test Performed at: [facility] [address] [place] [address] ASIF BLACKWOOD MD Blood BLOOD SPECIMEN / Unknown 11/18/2023 8:13 AM CDT 11/18/2023 8:14 AM CDT Mikala العلي MD LAB - CHEMISTRY MICHAEL Rhodes Organization Address City/State/ZIP Co de Phone Number [facility] [address] [place] [address] from Last 3 Months or Most Recently Relevant to Health Maintenance Insurance Payer Benefit Plan / Group Subscriber ID Effective Dates Phone Address Type [facility] MEDICAID [id number] 02/15/2020-Pre sent [address] CLAIMS [address]PARTMENT [address] [place] [address] Medicaid Managed Care [facility] MEDICAID [id number] 02/15/2020-Pre sent 132 ATTN CLAIMS DEPARTMENT [address] [place] [address] Medicaid Managed Care [facility] MEDICAID [id number] 02/15/2020-Pre sent 132 ATTN CLAIMS DEPARTMENT [address] [place] [address] Medicaid Managed Care [facility] MEDICAID [id number] 02/15/2020-Pre sent 132 ATTN CLAIMS DEPARTMENT [address] [place] [address] Medicaid Managed Care [facility] MEDICAID [id number] 02/15/2020-Pre sent 132 ATTN CLAIMS DEPARTMENT [address] [place] [address] Medicaid Managed Care [facility] MEDICAID [id number] 02/15/2020-Pre sent 132 ATTN CLAIMS DEPARTMENT [address] [place] [address] Medicaid Managed Care [facility] MEDICAID [id number] 02/15/2020-Pre sent 132 ATTN CLAIMS DEPARTMENT [address] [place] [address] Medicaid Managed Care [facility] MEDICAID [id number] 02/15/2020-Pre sent 132 ATTN CLAIMS DEPARTMENT [address] [place] [address] Medicaid Managed Care [facility] MEDICAID [id number] 02/15/2020-Pre sent ATTN CLAIMS DEPARTMENT [address] [place] [address] Medicaid Managed Care [facility] MEDICAID [id number] 02/15/2020-Pre sent ATTN CLAIMS DEPARTMENT [address] [place] [address] Medicaid Managed Care [facility] MEDICAID [id number] 11/09/2020-Pres ent ATTN CLAIMS DEPARTMENT [address] [place] [address] Medicaid Managed Care Care Teams Gas Main Fitter Helper Relationship Specialty Start Date End Date Jeff Duque MD [address] [address] PCP - General 08/30/21 Jeff Duque MD [address] [address] Family Medicine 08/30/21
--- OUTSIDE RECORDS SUMMARY | 2024-07-20 17:39 | XMS_ITS | Clinical Summary ---
Author Organization [facility] Address [address] [place] [address] Phone Care Team Providers Care Channel Lip Wetter Name Role Phone Jeff Duque MD Primary Care Provider [phone] Allergies Active Allergy Reactions Criticality Noted Date Comments Omeprazole Rash,Nausea and Vomiting Medium 12/18/2020 Medications simvastatin (ZOCOR) 40 mg tablet TAKE 1 TABLET BY MOUTH EVERY DAY IN THE EVENING 0 Active metFORMIN (GLUCOPHAGE) 500 mg tablet TAKE 1 TABLET BY MOUTH DAILY WITH A MEAL 0 Active fluticasone propionate (FLONASE) 50 mcg/spray [place], Suspension nasal inhaler Administer 1 [place] in each nostril. 0 Active hydrOXYchloroQU INE (PLAQUENIL) 200 mg tablet Take 400 mg by mouth daily. 1 Active meloxicam (MOBIC) 7.5 mg tablet Take 1 tablet PO BID PRN 2 Active gabapentin (NEURONTIN) 100 mg capsule Take 1 capsule PO TID 2 Active Symbicort 160-4.5 mcg/actuation HFA Aerosol Inhaler INHALE 2 PUFFS 2 (TWO) TIMES A DAY RINSE MOUTH WITH WATER AFTER USE. DO NOT SWALLOW. 2 Active leflunomide (ARAVA) 10 mg tablet Take 10 mg by mouth daily. 3 Active rOPINIRole (REQUIP) 0.25 mg tablet Take 1 Tablet by mouth daily. 3 Active SUMAtriptan (IMITREX) 50 mg tablet Take 50 mg by mouth. 3 Active golimumab (Simponi) 50 mg/0.5 mL injector Inject 50 mg by subcutaneous injection every 30 days. Active Active Problems Problem Noted Date Diagnosed Date Fatigue 09/05/2021 Leukocytosis (leucocytosis) 08/29/2020 Encounters Date Type Department Care Team Description 07/17/2024 External Device Data [facility] ABSTRACTION Provider, Abstract 07/16/2024 External Device Data [facility] ABSTRACTION Provider, Abstract 07/14/2024 External Device Data [facility] ABSTRACTION Provider, Abstract 06/30/2024 External Device Data [facility] ABSTRACTION Provider, Abstract 06/03/2024 External Device Data [facility] ABSTRACTION Provider, Abstract from Last 3 Months Family History Medical History Relation Name Comments Healthy Brother Cancer Father Diabetes Father Diabetes Mother Heart Disease Mother Healthy Son 1 Healthy Son 2 Relation Name Status Comments Brother Alive 3 BROTHERS TOTA L Father Mother Alive Sister Alive 4 SISTERS TOTAL Son 1 Alive Son 2 Alive Social History Tobacco Use Types Packs/Day Years Used Date Smoking Tobacco: Every Day Cigarettes 1 25 Smokeless Tobacco: Never Tobacco Cessation:Ready to Q uit: Not Asked; Counseling Given: Not Answered Alcohol Use Standard Drinks/Week Comments Never 0 (1 standard drink = 0.6 oz pur e alcohol) Comments No Sex and Gender Information Value Date Recorded Sex Assigned at Not on file Legal Sex Female 10:35 AM CDT Gender Identity Not on file Sexual Orientation Not on file Last Filed Vital Signs Vital Sign Reading Time Taken Comments Blood Pressure 122/78 04/13/2024 9:58 AM 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 TRUCK DRIVER Pulse 80 04/13/2024 9:58 AM FUEL TRUCK DRIVER Temperature 36.7 C (98 F) 04/13/2024 9:58 AM FUEL TRUCK DRIVER Respiratory Rate 16 04/13/2024 9:58 AM FUEL TRUCK DRIVER Oxygen Saturation 96% 04/13/2024 9:58 AM FUEL TRUCK DRIVER Inhaled Oxygen Concentration - - Weight 79.3 kg (174 lb 12.8 oz) 04/13/2024 9:58 AM FUEL TRUCK DRIVER Height 170.2 cm (5' 7 ) 09/05/2021 2:01 PM CDT Body Mass Index 27.38 09/05/2021 2:01 PM CDT Plan of Treatment Health Maintenance Due Date Last Done Comments DIABETES ANNUAL FOOT EXAM 09/05/1991 DIABETES MICROALBUMIN ANNUAL SCREEN 09/05/1991 LDL CHOLESTEROL ANNUAL 09/05/1991 DTAP/TDAP/TD VACCINES (1 - Tdap) 1992 HEPATITIS B VACCINES (1 of 3 - 19+ 3-dose series) 1992 ZOSTER VACCINE (1 of 2) 1992 CERVICAL CANCER SCREENING 09/05/2003 BREAST CANCER SCREENING 2013 FIT-DNA Q 3 years 2018 FIT/FOBT Q 1 year 2018 Flex Sig/CT Colonography Q 5 years 2018 COVID-19 Vaccine (3 - Pfizer risk series) 10/07/2020 09/09/2020, 08/19/2020 DIABETES HBA1C Q 6 MONTHS 07/18/2022 01/18/2022 INFLUENZA VACCINE (#1) 2023 Lung Cancer Screening 01/15/2025 01/16/2024 DIABETES ANNUAL RETINAL EXAM 06/17/202510/2024, 06/17/2024, 06/17/2024, Additional history exists COLORECTAL SCREENING 01/12/2034 01/13/2024, 01/13/20 24 Colorectal Cancer Screening 01/12/2034 Insurance [facility] MEDICAID Care Teams Channel Lip Wetter Relationship Specialty Start Date End Date Jeff Duque MD [address] [place] [phone] PCP - General Emergency Medicine 12/27/19
--- OUTSIDE RECORDS SUMMARY | 2024-07-20 17:39 | XMS_ITS | Encounter Summary ---
Author Organization [facility] Address [address] [place] [address] Care Team Providers Care Welder Apprentice Name Role Phone Jeff Duque MD Primary Care Provider [phone] Encounter Details Date Type Department Care Team (Late st Contact Info) Description 07/17/2024 External Device Data [facility] ABSTRACTION Provider, Abstract NO ADDRESS ON FILE Social History Tobacco Use Types Packs/Day Years Used Date Smoking Tobacco: Every Day Cigarettes 1 25 Smokeless Tobacco: Never Alcohol Use Standard Drinks/Week Comments Never 0 (1 standard drink = 0.6 oz pur e alcohol) Comments No Sex and Gender Information Value Date Recorded Sex Assigned at Not on file Legal Sex Female 10:35 AM CDT Gender Identity Not on file Sexual Orientation Not on file documented as of this encounter Plan of Treatment Not on file documented as of this encounter Visit Diagnoses Not on filedocumented in this encounter Care Teams Welder Apprentice Relationship Specialty Start Date End Date Jeff Duque MD [address] [place] [phone] PCP - General Emergency Medicine 12/27/19 documented as of this encounter
[2024-07-20 19:53] VITALS: BP 114/68; PULSE 91; RESP 16; TEMP 36.6; O2SAT 100
[2024-07-20 20:04] LABS: Pregnancy On Board Control Positive; Urine Pregnancy Test Negative
[2024-07-20] MEDS: SULFAMETHOXAZOLE/TRIMETHOPRIM 800/160 MG DS TABLET 1 TAB PO (20:44)
--- OUTSIDE RECORDS SUMMARY | 2024-07-20 20:44 | XMS_ITS | CONTINUITY OF CARE DOCUMENT ---
Author Name kyle pollyemily Address Unknown Organization [facility] Address [address] [facility] [address] [place] [address] Phone [phone] Care Team Providers Care Network Systems Administrator Name Role Phone Bassam Wright MD Unavailable LETICIA KEY MD Unavailable [phone] LETICIA KEY MD Unavailable [phone] PROBLEMS Condition Status Date Provider Notes Family [...] In-person encounter Office Visit Bassam Wright MD [facility] - In-person encounter Office Visit Bassam Wright MD [facility] Abnormal routine stress - In-person encounter Office Visit Bassam Wright MD [facility] Diabetes mellitus, Type II - In-person encounter Office Visit Bassam Wright MD [facility] - In-person encounter Office Visit Bassam Wright MD [facility] Mental confusion - In-person encounter Office Visit Bassam Wright MD [facility] Hyperlipidemia - In-person encounter Office Visit Bassam Wright MD [facility] High blood pressure - In-person encounter Office Visit Humaira Damon MD [facility] Family History of CVA or Stroke:Family [...] Wright MD blood pressure, cuff size regular [facility] blood pressure, diastolic 73 mm[Hg] [...] blood pressure, systolic 116 mm[Hg] Vito negron [place] oxygen saturation, oximetry 96 % Ivelisse Echevarriaman [...] blood pressure, cuff size regular Kr isty [place] blood pressure, diastolic 80 mm[Hg] Kr isty Antonella blood pressure, systolic 110 mm[Hg] Kri stroni [place] oxygen saturation, oximetry 97 % Marlene Antonella pulse rate 87 /min Marlene [place] respiratory rate E&M 18 /min Marlene Berman [...] 0-149 1 cholesterol, serum 162 mg/dL [employer] [phone]/05/0 1 platelet count 377 X10E3/UL [employer] [phone]/05/0 1 red blood cell distribution width 13.6 [...] 3.5-5.2 1 sodium, serum 138 mmol/L [employer] [phone]/05/0 1 urea nitrogen/creatinine ratio, serum 21 [employer] [...] cess ation, patient education and counseling yes Bassma Wright MD smoking status Current every day smoker U hiwot Wright MD social history revie wed E&M reviewed - no changes required Bassam Wright MD social history E&M S moking History: P atient currently smokes every day. P atient has been counseled to quit. Bassam Wright MD number of years as a smoker 30 a Marlene [place] smoking history, tot al pack/day 1 Marlene [place] cigarette use yes Marlene [place] social history E&M S moking History: P [...] Payer name Policy type / Coverage type [place] [employer] [place] (2) Medicaid [id number] ADVANCE DIRECTIVES Name Date DISCUSSED - NO DECISION MADE TREATMENT PLAN Date Name Performer [id number],C,none today Us piedad Wright MD [id number],C, H er updated medication list for this problem includes: Simvastatin 20 Mg Tablet (Simvastatin) ..... Take 1 tablet by mouth once a day Bassam Wright MD [id number],C,w ell controlled today B P today: 107/77 P rior BP: 116/84 (07/12/2022) Labs Reviewed: C reat: 0.85 (09/09/2020) C hol: 162 (09/09/2020) HDL: 36 (09/09/2020) Bassam Wright MD [id number],C,T he Patient was reencouraged to stop smoking. Bassam Wright MD [id number],C,t his is spisodic and I ordered a ct head to rule out a cva but delicia denied and told us to order an mri. I ordered that and they denied that. so they are not interested in diagnosing a possible structural brain issue. Not sure what to do. Bassam Wright MD [id number],S,T he Patient was reencouraged to stop smoking. Bassam Wright MD [id number],B, B P today: 116/84 P rior BP: 110/76 (06/21/2022) Labs Reviewed: C reat: 0.85 (09/09/2020) C hol: 162 (09/09/2020) HDL: 36 (09/09/2020) Bassam Wright MD [id number],C,c ouldn't tolerate her lipitor but will restart her simva Bassam Wright MD [id number],C,W ill check an echo and carotid H er updated medication list for this problem includes: Aspirin Low Dose 81 Mg Oral Tablet Chewable (Aspirin) ..... Take one tablet by mouth once daily Aspirin 81 Mg Chw Tab (Aspirin) ..... Take one (1) tablet by mouth daily Losartan Potassium 50 Mg Oral Tablet (Losartan potassium) ..... One tablet each night Bassam Wright MD [id number],S,W ill STOP simvastatin and START atorvastatin 40mg once daily The following medications were removed from the medication list: Simvastatin 40 Mg Tablet (Simvastatin) ..... Take 1 tablet by mouth once a day Her updated medication list for this problem includes: Atorvastatin 40 Mg Tablet (Atorvastatin) ..... Take 1 tablet by mouth once a day Bassam Wright MD [id number],S, H er updated medication list for this [...] pulmonary Orders: 9 9204 MOD 45-59 min (CPT-45666) C omplete Echo (CPT-33662) S tress Regadenoson (CPT-08072) C OMPREHENSIVE METABOLIC PANEL, W/EGFR (90620) L IPID PANEL (7600) C BC (H/H, [...]
--- OUTSIDE RECORDS SUMMARY | 2024-07-20 20:44 | XMS_ITS | Referral Summary ---
Author Organization [facility] Address [address] [place] [address] Care Team Providers Care Slot Router Name Role Phone Jeff Duque MD Primary Care Provider [phone] Encounters Date Type Department Care Team Description 06/01/2024 3:00 PM OFFICE COORDINATOR RECEPTIONIST Imaging Exam [facility] Ophthalmology [facility] Outpatient [address] [phone] Retinal lesion 05/24/2024 Telephone [facility] Ophthalmology [address] [phone] Alexandre Ames MD 04/27/2024 11:30 AM OFFICE COORDINATOR RECEPTIONIST Office Visit [facility] Pulmonology [address] [facility] [address] [place] [phone] Danny Cunningham MD Obstructive sleep apnea [...] 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 Not on file Not on file Not on file Last Filed Vital Signs Vital Sign Reading Time Taken Comments Blood Pressure 118/62 04/27/2024 11:26 AM OFFICE COORDINATOR RECEPTIONIST Pulse 90 04/27/2024 11:26 AM OFFICE COORDINATOR RECEPTIONIST Temperature 36.2 C (97.2 F) 04/27/2024 11:26 AM OFFICE COORDINATOR RECEPTIONIST Respiratory Rate 16 04/27/2024 11:26 AM OFFICE COORDINATOR RECEPTIONIST Oxygen Saturation 93% 04/27/2024 11:26 AM OFFICE COORDINATOR RECEPTIONIST Inhaled Oxygen Concentration - - Weight 80.9 kg (178 lb 6.4 oz) 04/27/2024 11:26 AM OFFICE COORDINATOR RECEPTIONIST Height 170.2 cm (5' 7 ) 04/27/2024 11:26 AM OFFICE COORDINATOR RECEPTIONIST Body Mass Index 27.94 04/27/2024 11:26 AM OFFICE COORDINATOR RECEPTIONIST Plan of Treatment Not on file Procedures Procedure Name Priority Date/Time Associated Diagnosis Comments MULTIFOCAL ELECTRORETINOGRAPHY (ERG) - OU - BOTH EYES Routine 06/01/2024 3:48 PM OFFICE COORDINATOR RECEPTIONIST Retinal lesion CT CHEST WO CONTRAST F/U LUNG SCREEN PROTOCOL Schedule Routine, Read Routine (OP Routine) 04/20/2024 10:31 AM OFFICE COORDINATOR RECEPTIONIST Abnormal CT lung screening EGFR STAT 08/29/2022 1:38 PM CDT HEMOGLOBIN A1C Routine 01/18/2022 9:11 AM CDT LIPID PANEL Routine 01/18/2022 9:11 AM CDT ALBUMIN CREATININE RATIO, URINE Routine 01/18/2022 9:11 AM CDT from Last 3 Months or Most Recently Relevant to Health Maintenance Results * Multifocal Electroretinography (ERG) - OU - Both Eyes (06/01/2024 3:48 PM OFFICE COORDINATOR RECEPTIONIST) Anatomical Region Laterality Modality Head Other Narrative 06/08/2024 2:31 PM OFFICE COORDINATOR RECEPTIONIST VISUAL DIAGNOSTIC REPORT: Patient: Yanick Dan : 71 Referring Physician: Reina Beckford MD Date of Examination: 06/01/24 Clinical History: This is a 48 y/o woman referred for Visual Diagnostic testing 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 Multi-focal ERG was performed. Multi-focal ERG: Multifocal ERG testing was conducted using the Sync[employer]ak Electrodiagnostic Imaging System with 61hexagons covering the [...] this study, please contact our office at [phone], and we would be happy to send these to your office. Please feel free to contact my office if you would like to discuss these results further. Alexandre Ames M.D. Professor, Departments of Ophthalmology and Visual Sciences and Neurology Director, Visual Electrophysiology Service [facility] E-mail: [email or web address] Alexandre Ames MD OPHTH ELECTRORETINOG GWENDOLYN Final Result * CT Chest WO Contrast F/U Lung Screen Protocol (04/20/2024 10:31 AM OFFICE COORDINATOR RECEPTIONIST) Anatomical Region Laterality Modality Chest N/A Computed Tomogra phy 04/26/2024 8:10 AM OFFICE COORDINATOR RECEPTIONIST Narrative 04/26/2024 8:56 AM OFFICE COORDINATOR RECEPTIONIST EXAM DESCRIPTION: CT CHEST WO CONTRAST F/U [...] Juan Novoa M.D. AG T: Report ID: [id number] Reading Location: [place] [address] [place] Danny Cunningham MD IMG CT PROCEDURES [...] LAB BLOOD ORDERABLES Final Resul t DINESH [address] [facility] Department [place] [address] * Albumin Creatinine Ratio, Urine [...] ORDERABLES Final Resul t Performing Organization Address City/[facility] de Phone Number [address] [place] [address] * (ABNORMAL) Hemoglobin A1c (01/18/2022 9:11 AM CDT) [facility] Hgb A1C 5.7(H) 4.0 - 5.6 % DINESH Estimated Average Glucose 117 mg/dL DINESH Comment: The ADA recommends reporting an estimated Average Glucose (eAG) with all Hemoglobin A1c results using the equation derived from a study of 507 normal and diabetic adults. Minority populations were underrepresented and children were not included. (Diabetes Care 31:3932-8291, 2008). The eAG is not equivalent to a fasting glucose. Blood 01/18/2022 9:11 AM CDT 01/18/2022 9:44 AM CDT Jeff Duque MD LAB BLOOD ORDERABLES Final Resul t Performing Organization Address City/[facility] Co de Phone Number [address] [place] [address] * (ABNORMAL) Lipid panel (01/18/2022 9:11 AM CDT) [facility] Cholesterol 169 30 - 199 mg/dL DINESH [...] ORDERABLES Final Resul t DINESH [place] [address] [facility] Department [place] [address] from Last 3 Months or Most Recently Relevant to Health Maintenance Insurance [facility] Care Teams Slot Router Relationship Specialty Start Date End Date Jeff Duque MD PCP - General 10/14/19
--- OUTSIDE RECORDS SUMMARY | 2024-07-20 20:44 | XMS_ITS | Clinical Summary ---
Author Organization [facility] Address [address] [place] [address] Care Team Providers Care Visual Arts Teacher Name Role Phone Jeff Duque MD Primary Care Provider [phone] Jeff Duque MD Unavailable Source Comments [facility],non-owned Affiliates and Associated Physician Practices is amultiple site organization consisting of ambulatory clinics and hospital sitesin [place], [place], [place] and [place]. This disclosure is being madepursuant to the Care Everywhere program and may not contain all information available regarding this patient. Last updated 18.[facility] Allergies Active Allergy Reactions Criticality Noted [...] fluticasone propionate (Flonase) 50 MCG/ACT nasal spray [place] 2 (two) sprays into each nostril once [...] Reasons: Heartburn 15 tablet 02/18/20 24 025 Discontinued([facility] Clean-Up) famotidine (Pepcid) 20 MG tabletIndications :Urticaria,angioe [...] Department Care Team Description 07/12/2024 3:00 PM BRIDGE GAME DIRECTOR Office Visit [facility] - Rheumatology [address], [address] [place] [phone] Mikala العلي MD 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 factor (HCC) (Primary Dx) 07/08/2024 Telephone [facility] - Rheumatology [address], [address] [place] [phone] Mikala العلي MD Appointment 07/06/2024 1:00 PM BRIDGE GAME DIRECTOR Office Visit [facility] - Family Medicine [address] [place] [phone] Darion Camp MD Pain of both hip joints (Primary Dx) 07/06/2024 Travel 07/05/2024 3:30 PM BRIDGE GAME DIRECTOR Office Visit [facility] - GI [address] [place] [phone] Generalized abdominal pain (Primary Dx) 07/05/2024 Travel 06/17/2024 11:00 AM BRIDGE GAME DIRECTOR Clinical Support [facility] - Ophthalmology [address] [place] [phone] Jose Newby MD Long-term use of Plaquenil (Primary Dx) 06/17/2024 10:30 AM BRIDGE GAME DIRECTOR Office Visit [facility] - Ophthalmology [address] [place] [phone] Jose Newby MD Long-term use of Plaquenil (Primary Dx); Diabetes mellitus without ophthalmic manifestations (HCC) 06/17/2024 10:25 AM BRIDGE GAME DIRECTOR Clinical Support [facility] - Ophthalmology [address] [place] [phone] Jose Newby MD Long-term use of Plaquenil (Primary Dx) 06/17/2024 10:20 AM BRIDGE GAME DIRECTOR Clinical Support [facility] - Ophthalmology [address] [place] [phone] Jose Newby MD Long-term use of Plaquenil (Primary Dx) 06/15/2024 12:32 PM BRIDGE GAME DIRECTOR - 06/15/2024 11:59 PM BRIDGE GAME DIRECTOR Hospital Encounter [facility] [address] [facility] [place] [address] Frantz Nicole MD Discharge Disposition: Home or Self Care 06/15/2024 12:31 PM BRIDGE GAME DIRECTOR Hospital Encounter [facility] [address] [facility]. [facility] [place] [address] Frantz Nicole MD Discharge Disposition: Home or Self Care 06/15/2024 11:19 AM BRIDGE GAME DIRECTOR - 06/15/2024 12:30 PM BRIDGE GAME DIRECTOR Hospital Encounter [facility] [address] [facility] [place] [address] Frantz Nicole MD Discharge Disposition: Home or Self Care 06/15/2024 10:30 AM BRIDGE GAME DIRECTOR Office Visit [facility] - Orthopedics [address] [place] [address], [place] [address] Frantz Nicole MD Low back pain, unspecified back pain laterality, unspecified chronicity, unspecified whether sciatica present (Primary Dx); Groin pain, right 06/15/2024 Travel 06/14/2024 Orders Only [facility] - Orthopedics [address] [place] [phone] Frantz Nicole MD Low back pain, unspecified back pain laterality, unspecified chronicity, unspecified whether sciatica present 06/03/2024 2:00 PM BRIDGE GAME DIRECTOR Office Visit [facility] - Allergy [address] [place] [address], [place] [phone] Eleno Montoya MD Non-seasonal allergic rhinitis due to other allergic trigger (Primary Dx); Angioedema, subsequent encounter; Asthma-COPD overlap syndrome (HCC) 06/03/2024 Travel 05/24/2024 Telephone [facility] - Rheumatology [address] [place] [address], [address] [place] [address] Mikala العلي MD Medication Problem 05/21/2024 12:00 PM BRIDGE GAME DIRECTOR Clinical Support [facility] - Ophthalmology [address] [place] [phone] Riena Beckford MD Retinal lesion of both eyes (Primary Dx) 05/21/2024 11:00 AM BRIDGE GAME DIRECTOR Clinical Support [facility] - Ophthalmology [address] [place] [phone] Reina Beckford MD Retinal lesion of both eyes (Primary Dx); Choroiditis of both eyes 05/21/2024 10:55 AM BRIDGE GAME DIRECTOR Clinical Support [facility] - Ophthalmology [address] [place] [phone] Reina Beckford MD Choroiditis of both eyes (Primary Dx) 05/21/2024 9:15 AM BRIDGE GAME DIRECTOR Office Visit [facility] - Ophthalmology [address] [place] [phone] Reina Beckford MD Retinal lesion of both eyes (Primary Dx); Diabetes mellitus without ophthalmic manifestations (HCC) 05/21/2024 8:50 AM BRIDGE GAME DIRECTOR Clinical Support [facility] - Ophthalmology [address] [place] [phone] Reina Beckford MD Retinal lesion of both eyes (Primary Dx); Choroiditis of both eyes 05/21/2024 Travel 05/18/2024 1:20 PM BRIDGE GAME DIRECTOR Office Visit [facility] - Dermatology [address] [place] [phone] Torie Holm MD Lupus erythematosus tumidus (Primary [...] file Gender Identity Female 05/10/2021 10:24 PM BRIDGE GAME DIRECTOR Sexual Orientation Not on file Last Filed Vital Signs Vital Sign Reading Time Taken Comments Blood Pressure 126/82 07/12/2024 3:00 PM BRIDGE GAME DIRECTOR Pulse 90 07/12/2024 3:00 PM BRIDGE GAME DIRECTOR Temperature 36.3 C (97.3 F) 07/12/2024 3:00 PM BRIDGE GAME DIRECTOR Respiratory Rate 16 07/12/2024 3:00 PM BRIDGE GAME DIRECTOR Oxygen Saturation 95% 07/12/2024 3:00 PM BRIDGE GAME DIRECTOR Inhaled Oxygen Concentration - - Weight 83 kg (183 lb) 07/12/2024 3:00 PM BRIDGE GAME DIRECTOR Height 170.2 cm (5' 7 ) 07/06/2024 1:24 PM BRIDGE GAME DIRECTOR Body Mass Index 28.66 07/06/2024 1:24 PM BRIDGE GAME DIRECTOR Plan of Treatment Upcoming Encounters Date Type Department Care Team (Late st Contact Info) Description 08/05/2024 3:00 PM CDT Office Visit [facility] - Allergy [address] [place] [phone] Eleno Montoya MD [address] [place] [address] 08/17/2024 11:30 AM CDT Office Visit [facility] - Orthopedics [address] [place] [phone] Frantz Nicole MD [address] [place] [address] 08/19/2024 10:30 AM CDT Office Visit [facility] - Neurology [address] [place] [phone] Moiz Briones, GRINDING ROOM SUPERVISOR-VAULT MECHANIC [address] [place] [address] 1L [place] [phone] 08/19/2024 11:20 AM CDT Office Visit [facility] - Endocrinology [address] [place] [address] [place] [phone] Naseem Garcia MD [address] [place] [address] 2L DIV [place] [phone] 10/21/2024 10:00 AM CDT Office Visit [facility] - ENT [address] [place] [phone] Vinny Milner MD [address] [place] [address] 2L DEPT [place] [address] 11/01/2024 3:20 PM CDT Office Visit [facility] - Rheumatology [address] [place] [address], [address] [place] [phone] Mikala العلي MD [address] [place] [phone] 11/16/2024 1:00 PM CDT Office Visit [facility] - Dermatology [address] [place] [phone] Torie Holm MD [address] [place], [place] [address]T [place] [phone] 11/19/2024 9:45 AM CDT Office Visit [facility] - Ophthalmology [address] [place] [phone] Reina Beckford MD [address] [place] [address] DEPT [place] [phone] 01/20/2025 10:00 AM CDT Office Visit [facility] - Ophthalmology [address] [address] [facility], [place] [phone] Jose Newby MD [address] [place] [address] DEPT [place] [phone] 01/24/2025 3:00 PM CDT Office Visit [facility] - GI [address] [place] [phone] Health Maintenance Due Date Last Done [...] Management General On track( 025 3:22 PM BRIDGE GAME DIRECTOR) No Melonie Lynch, RN Note: Expected end date: Ongoing Interventions: Take all medications as prescribed Let your doctor know right away about any changes in your medications Make sure to request a refill of your medication at least one week prior to your last dose Procedures Procedure Name Priority Date/Time Associated Diagnosis Comments IA DRAIN INJ MAJOR JOINT BURSA W US Routine 07/06/2024 1:53 PM BRIDGE GAME DIRECTOR Pain of both hip joints FUNDUS PHOTO BOTH EYES Routine 11:00 AM BRIDGE GAME DIRECTOR Long-term use of Plaquenil DORMAN AUTO VISUAL FIELD EXTENDED Routine 06/17/2024 10:17 AM BRIDGE GAME DIRECTOR Long-term use of Plaquenil RETINAL ANALYSIS OCT Routine 06/17/2024 10:17 AM BRIDGE GAME DIRECTOR Long-term use of Plaquenil XR HIP RIGHT 2VW OR MORE Routine 06/15/2024 12:42 PM BRIDGE GAME DIRECTOR Groin pain, right XR HIP LEFT 2VW OR MORE Routine 06/15/2024 12:42 PM BRIDGE GAME DIRECTOR Groin pain, right XR LUMBAR SPINE 2 OR 3VW Routine 06/15/2024 11:26 AM BRIDGE GAME DIRECTOR Low back pain, unspecified back pain laterality, unspecified chronicity, unspecified whether sciatica present FA ICG ANGIOGRAPHY Routine 05/21/2024 11 :56 AM BRIDGE GAME DIRECTOR Retinal lesion of both eyes FUNDUS PHOTO BOTH EYES Routine 10:51 AM BRIDGE GAME DIRECTOR Retinal lesion of both eyes RETINAL ANALYSIS OCT Routine 05/21/2024 8:50 AM BRIDGE GAME DIRECTOR Retinal lesion of both eyes ENDOSCOPY, COLON, DIAGNOSTIC Routine 01/13/2024 11:04 AM CDT COMPREHENSIVE METABOLIC PANEL Routine 11/18/2023 8:13 AM CDT 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 factor (HCC) HEPATITIS SCREEN ACUTE Routine 8:13 AM CDT 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 factor (HCC) from Last 3 Months or Most Recently Relevant to Health Maintenance Results * IA DRAIN INJ MAJOR JOINT BURSA W US (07/06/2024 1:53 PM BRIDGE GAME DIRECTOR) Narrative Darion Camp MD - 07/06/2024 1:53 PM BRIDGE GAME DIRECTOR Darion Camp MD 07/07/2024 5:11 PM U/S-GUIDED [...] FUNDUS PHOTO BOTH EYES (06/17/2024 11:00 AM BRIDGE GAME DIRECTOR) Anatomical Region Laterality Modality Head External-Camera Photography Narrative 06/17/2024 12:40 PM BRIDGE GAME DIRECTOR Images from the original result were not included. Jose Newby MD OPHTHALMOLOGY SCHED ORD W PACS * DORMAN AUTO VISUAL FIELD EXTENDED (06/17/2024 10:17 AM BRIDGE GAME DIRECTOR) Anatomical Region Laterality Modality Head External-Camera Photography Narrative 06/17/2024 12:40 PM BRIDGE GAME DIRECTOR Images from the original result were not included. Jose Newby MD OPHTHALMOLOGY SCHED ORD W PACS * RETINAL ANALYSIS OCT (06/17/2024 10:17 AM BRIDGE GAME DIRECTOR) Anatomical Region Laterality Modality Head External-Camera Photography Narrative 06/17/2024 12:32 PM BRIDGE GAME DIRECTOR Images from the original result were not included. Jose Newby MD OPHTHALMOLOGY SCHED ORD W PACS * XR Hip Right 2Vw or More (06/15/2024 12:42 PM BRIDGE GAME DIRECTOR) Anatomical Region Laterality Modality Pelvis, Lower Extremity Computed Radiography 06/15/2024 2:24 PM BRIDGE GAME DIRECTOR Impressions 06/15/2024 2:27 PM BRIDGE GAME DIRECTOR IMPRESSION: No acute osseous abnormality. Mild degenerative changes. Report dictated by Won Pastrana MD (international affairs vice president). IRisa MD have personally reviewed and interpreted this examination/study. > Interpreting Provider: Risa No MD on 06/15/2024 2:27 PM Narrative 06/15/2024 2:27 PM BRIDGE GAME DIRECTOR PROCEDURE: XR HIP RIGHT 2VW OR MORE, DATE/TIME OF EXAM: 06/15/2024 12:43 PM, LOCATION [facility] INDICATION: R10.31: Groin pain, right ADDITIONAL CLINICAL [...] DATE/TIME OF EXAM: 06/15/2024 12:43 PM, LOCATION [facility] INDICATION: R10.31: Groin pain, right ADDITIONAL CLINICAL INFORMATION: Ordering Provider Reason For Exam: right hip pain COMPARISON: None. FINDINGS: No acute fracture or dislocation. Mild degenerative changes smallspurring along the lateral acetabular margin. The hip joint space is preserved.Bone density and texture are normal. IMPRESSION: No acute osseous abnormality. Mild degenerative changes. Report dictated by Won Pastrana MD (international affairs vice president). Risa Prescott MD have personally reviewed and interpreted this examination/study. > Interpreting Provider: Risa No MD on 06/15/2024 2:27 PM Frantz Nicole MD DIAGNOSTIC IMAGING O RDERABLES * XR Hip Left 2Vw or More (06/15/2024 12:42 PM BRIDGE GAME DIRECTOR) Anatomical Region Laterality Modality Pelvis, Lower Extremity Computed Radiography 06/15/2024 2:23 PM BRIDGE GAME DIRECTOR Impressions 06/15/2024 2:28 PM BRIDGE GAME DIRECTOR IMPRESSION: No acute osseous abnormality. Mild degenerative changes. Report dictated by Wno Pastrana MD (international affairs vice president). Risa Prescott MD have personally reviewed and interpreted this examination/study. > Interpreting Provider: Risa No MD on 06/15/2024 2:28 PM Narrative 06/15/2024 2:28 PM BRIDGE GAME DIRECTOR PROCEDURE: XR HIP LEFT 2VW OR MORE, DATE/TIME OF EXAM: 06/15/2024 12:42 PM, LOCATION [facility] INDICATION: R10.31: Groin pain, right ADDITIONAL CLINICAL [...] MORE, DATE/TIME OF EXAM: 06/15/2024 12:42PM, LOCATION [facility] INDICATION: R10.31: Groin pain, right ADDITIONAL CLINICAL INFORMATION: Ordering Provider Reason For Exam: left hip pain COMPARISON: None. FINDINGS: No acute fracture or dislocation. Mild degenerative changes with small osteophytosis along the superior acetabular margin. The hip joint spaceis preserved. Bone density is normal. IMPRESSION: No acute osseous abnormality. Mild degenerative changes. Report dictated by Won Pastrana MD (international affairs vice president). Risa Prescott MD have personally reviewed and interpreted this examination/study. > Interpreting Provider: Risa No MD on 06/15/2024 2:28 PM Frantz Nicole MD DIAGNOSTIC IMAGING O RDERABLES * XR Lumbar Spine 2 or 3Vw (06/15/2024 11:26 AM BRIDGE GAME DIRECTOR) Anatomical Region Laterality Modality Spine Computed Radiogr aphy 06/15/2024 11:5 1 AM BRIDGE GAME DIRECTOR Impressions 06/15/2024 1:00 PM BRIDGE GAME DIRECTOR IMPRESSION: Grade 1 anterolisthesis of L5 on S1, unchanged. Mild multilevel degenerative changes. Report dictated by Won Pastrana MD, (international affairs vice president). Risa Prescott MD have personally reviewed and interpreted this examination/study. > Interpreting Provider: Risa No MD on 06/15/2024 1:00 PM Narrative 06/15/2024 1:00 PM BRIDGE GAME DIRECTOR PROCEDURE: XR LUMBAR SPINE 2 OR 3VW, DATE/TIME OF EXAM: 06/15/2024 11:26 AM, LOCATION [facility] INDICATION: M54.50: Low back pain, unspecified back [...] DATE/TIME OF EXAM: 06/15/2024 11:26 AM, LOCATION [facility] INDICATION: M54.50: Low back pain, unspecified back [...] changes. Report dictated by Won Pastrana MD, (international affairs vice president). I, Risa No MD have personally reviewed and interpreted this examination/study. > Interpreting Provider: Risa No MD on 06/15/2024 1:00 PM Frantz Nicole MD DIAGNOSTIC IMAGING O RDERABLES * FA ICG ANGIOGRAPHY (05/21/2024 11:56 AM BRIDGE GAME DIRECTOR) Anatomical Region Laterality Modality Head External-Camera Photography Narrative 05/22/2024 3:51 PM BRIDGE GAME DIRECTOR Images from the original result were not included. indocyanine green angiography (05/21/2024) - no hypocyanescence seen in late stage- these findings confirm no choroiditis where lesions are seen in retina Fluorescein Angiography (05/21/2024) - no vascular leakage seen Reina Beckford MD OPHTHALMOLOGY SCHED ORD W PACS * FUNDUS PHOTO BOTH EYES (05/21/2024 10:51 AM BRIDGE GAME DIRECTOR) Anatomical Region Laterality Modality Head External-Camera Photography Narrative 05/22/2024 3:51 PM BRIDGE GAME DIRECTOR Images from the original result were not included. Fundus photo (05/21/2024) - Yellow stippling seen nasally OU- stable Reina Beckford MD OPHTHALMOLOGY SCHED ORD W PACS * RETINAL ANALYSIS OCT (05/21/2024 8:50 AM BRIDGE GAME DIRECTOR) Anatomical Region Laterality Modality Head External-Camera Photography Narrative 05/22/2024 3:52 PM BRIDGE GAME DIRECTOR Images from the original result were not [...] bowel preparation was evaluated using the BBPS ([place] Bowel Preparation Scale) with scores of: Right [...] non-mcfarland portions. Procedure Code(s): --- Professional --- 89243, Colonoscopy, flexible; with removal of tumor(s), polyp(s), or other lesion(s) by snare technique Diagnosis Code(s): --- Professional --- Z12.11, Encounter for screening for malignant neoplasm of colon D12.0, Benign neoplasm of cecum D12.5, Benign neoplasm of sigmoid colon D12.2, Benign neoplasm of ascending colon CPT copyright 2021 [employer]. All rights reserved. The codes documented in this report are preliminary and upon casing flusher review may be revised to meet current compliance requirements. Dylan Jessica, 01/13/2024 11:59:59 AM Note Initiated On: 01/13/2024 11:04 AM Number of Addenda: [id number] [place] [address] BARB 01/13/2024 11:0 4 AM CDT Dylan Jessica MD GI PROCEDURE O RDERABLES [facility] BARB * (ABNORMAL) COMPREHENSIVE METABOLIC PANEL (11/18/2023 [...] 29 U/L QUEST Comment: Test Performed at: [facility] [id number] [place] [phone] ASIF BLACKWOOD MD Blood BLOOD SPECIMEN / Unknown 11/18/2023 8:13 AM CDT 11/18/2023 8:14 AM CDT Mikala العلي MD LAB - CHEMISTRY MICHAEL NELSON Performing Organization Address [facility] Co de Phone Number [employer] [address] [place] [address] * HEPATITIS SCREEN ACUTE (11/18/2023 8:13 AM CDT) Hepatitis A Virus Antibody IgM NON-REACTI VE NON-REACT AZUL QUEST Comment: For additional information, please refer to http://Joome/faq/KRD884 (This link is being provided for informational/ educational purposes only.) Hepatitis B Virus Surface Antigen NON-REACTI VE NON-REACT AZUL QUEST Comment: For additional information, please refer to http://Joome/faq/TZM484 (This link is being provided for informational/ educational purposes only.) Hepatitis B Core Virus Antibody IgM NON-REACTI VE NON-REACT AZUL [facility]ST Comment: For additional information, please refer to http://Joome/faq/JWK837 (This link is being provided for informational/ educational purposes only.) Hepatitis C Antibody NON-REACTI VE NON-REACT AZUL QUEST Comment: HCV antibody was non-reactive. There is no laboratory evidence of HCV infection. In most cases, no further action is required. However, if recent HCV exposure is suspected, a test for HCV RNA (test code 57921) is suggested. For additional information please refer to http://Joome/faq/DHX57l5 (This link is being provided for informational/ educational purposes only.) Test Performed at: [facility] [address] [place] [address] ASIF BLACKWOOD MD Blood BLOOD SPECIMEN / Unknown 11/18/2023 8:13 AM CDT 11/18/2023 8:14 AM CDT Mikala العلي MD LAB - CHEMISTRY MICHAEL NELSON Performing Organization Address [facility]/ZIP Co de Phone Number [employer] [address] [place] [address] from Last 3 Months or Most Recently Relevant to Health Maintenance Insurance Payer Benefit Plan / Group Subscriber ID Effective Dates Phone Address Type [facility] MEDICAID [id number] 02/15/2020-Pre sent [address] CLAIMS [address]PARTMENT [address] [place] [address] Medicaid Managed Care [facility] MEDICAID [id number] 02/15/2020-Pre sent 132 [address] CLAIMS [address]PARTMENT [address] [place] [address] Medicaid Managed Care [facility] MEDICAID [id number] 02/15/2020-Pre sent 132 ATTN CLAIMS DEPARTMENT [address] [place] [address] Medicaid Managed Care [facility] MEDICAID [id number] 02/15/2020-Pre sent 132 ATTN CLAIMS DEPARTMENT [address] [place] [address] Medicaid Managed Care [facility] MEDICAID [id number] 02/15/2020-Pre sent 132 ATTN CLAIMS DEPARTMENT [address] [place] [address] Medicaid Managed Care [facility] MEDICAID [id number] 02/15/2020-Pre sent 132 ATTN CLAIMS DEPARTMENT [address] [place] [address] Medicaid Managed Care [facility] MEDICAID [id number] 02/15/2020-Pre sent 132 ATTN CLAIMS DEPARTMENT [address] [place] [address] Medicaid Managed Care [facility] MEDICAID [id number] 02/15/2020-Pre sent 132 ATT[address] CLAIMS DEPARTMENT [address] [place] [address] Medicaid Managed Care [facility] MEDICAID [id number] 02/15/2020-Pre sent 132 ATT[address] CLAIMS DEPARTMENT [address] [place] [address] Medicaid Managed Care [facility] MEDICAID [id number] 02/15/2020-Pre sent ATTN CLAIMS DEPARTMENT [address] [place] [address] Medicaid Managed Care [facility] [place] MEDICA[place] [id number] 11/09/2020-Pres ent ATTN CLAIMS DEPARTMENT [address] [place] [address] Medicaid Managed Care Care Teams Visual Arts Teacher Relationship Specialty Start Date End Date Jeff Duque MD [address] [facility] [address] [place] [phone] PCP - General 08/30/21 Jeff Duque MD [address] [facility] [address] [place] [address] Family Medicine 08/30/21
--- OUTSIDE RECORDS SUMMARY | 2024-07-20 20:44 | XMS_ITS | Encounter Summary ---
Author Organization [facility] Address [address] [place] [address] Care Team Providers Care Assembling Inspector Name Role Phone Jeff Duque MD Primary Care Provider [phone] Jeff Duque MD Unavailable Reason for Referral * Consultation (Routine) - Closed Specialty Diagnoses / Procedures Referred By Contac t Referred To Contact Allergy and Immunology Diagnoses Swollen face Jeff Duque MD [address] [place] [phone] [facility] 2l [address] [place] [address] Referral ID Status Reason Start Date Expiration Date V isits Requested Visits Authorized [id number] Closed Specialty Services Required 04/12/2024 04/12/2025 1 1 GING MACHINE OPERATOR Encounter Details Date Type Department Care Team ([facility] st Contact Info) Description 04/12/2024 Transcribe Orders [facility] - Centralized Scheduling [address] [place] [phone] Jeff Duque MD [address] [place] [phone] Swollen face Social History Tobacco Use [...] file Gender Identity Female 05/10/2021 10:24 PM FLANGING MACHINE OPERATOR Sexual Orientation Not on file documented as [...] Office Visit [facility] - Allergy [address] [place] [phone] Eleno Montoya MD [address] [place] [address] 08/17/2024 11:30 AM CDT Office Visit [facility] - Orthopedics [address] [place] [phone] Frantz Nicole MD [address] [place] [address] 08/19/2024 10:30 AM CDT Office Visit [facility] - Neurology [address] [place] [phone] Moiz Briones, ORCHID SUPERINTENDENT-SECURITY ESCORT [address] [place] [address] [place] [phone] 08/19/2024 11:20 AM CDT Office Visit [facility] - Endocrinology [address] [place] [address] [place] [phone] Naseem Garcia MD [address] [place] [address] [address] [place] [phone] 10/21/2024 10:00 AM CDT Office Visit [facility] - ENT [address] [place] [phone] Vinny Milner MD [address] [place] [address] [place] [address] 11/01/2024 3:20 PM CDT Office Visit [facility] - Rheumatology [address] [place] [address], [address] [place] [phone] Mikala العلي MD [facility] [place] [phone] 11/16/2024 1:00 PM CDT Office Visit [facility] - Dermatology [address] [place] [phone] Torie Holm MD [address] [place] [address] [place] [phone] 11/19/2024 9:45 AM CDT Office Visit [facility] - Ophthalmology [address] [place] [phone] Reina Beckford MD [address] [place] [address] [place] [phone] 01/20/2025 10:00 AM CDT Office Visit [facility] - Ophthalmology [address] [facility] [place] [phone] Jose Newby MD [address] [place] [address] [place] [phone] 01/24/2025 3:00 PM CDT Office Visit [facility] - GI [address] [place] [phone] Scheduled Referrals Name Type Priority Associated Diagnoses Order Schedule AMB REFERRAL TO ALLERGY Outpatient Referral Routine Swollen face 1 Occurrences starting 04/12/2024 until 04/12/2025 documented as of this encounter Goals Goal Patient Goal Type Associated Problems Recent Progress Patient-Stated? Author Medication Management General On track( 025 3:22 PM FLANGING MACHINE OPERATOR) Melonie Castillo, RN Note: Expected end date: [...] neck documented in this encounter Care Teams Assembling Inspector Relationship Specialty Start Date End Date Jeff Duque MD [address] [address] PCP - General 08/30/21 Jeff Duque MD [address] [address] Family Medicine 08/30/21 documented as of this encounter
--- OUTSIDE RECORDS SUMMARY | 2024-07-20 20:44 | XMS_ITS | Clinical Summary ---
Author Organization [facility] Address [address] [place] [address] Care Team Providers Care Assistant Research Scientist Name Role Phone Jeff Duque MD Primary Care Provider [phone] Allergies No known active allergies Medications estradiol [...] complete this topic Insurance [employer] Care Teams Assistant Research Scientist Relationship Specialty Start Date End Date Jeff Duque MD [address] [address] PCP - General FAMILY PRACTICE 03/02/20
--- OUTSIDE RECORDS SUMMARY | 2024-07-20 20:44 | XMS_ITS | Encounter Summary ---
Author Organization [facility] Address [address] [place] [address] Care Team Providers Care Licensed Final Expense Agents Name Role Phone Jeff Duque MD Primary Care Provider [phone] Encounter Details Date Type Department Care Team [...] on filedocumented in this encounter Care Teams Licensed Final Expense Agents Relationship Specialty Start Date End Date Jeff Duque MD [address] [place] [phone] PCP - General Emergency Medicine 12/27/19 documented as of this encounter
--- OUTSIDE RECORDS SUMMARY | 2024-07-20 20:44 | XMS_ITS | Clinical Summary ---
Author Organization [facility] Address [address] [place] [address] Care Team Providers Care Digitizer Name Role Phone Jeff Duque MD Primary Care Provider [phone] Allergies Active Allergy Reactions Criticality Noted Date [...] Department Care Team Description 06/01/2024 3:00 PM POWDER LOADER Imaging Exam [facility] Ophthalmology [address] [phone] Retinal lesion 05/24/2024 Telephone [facility] Ophthalmology [address] [phone] Alexandre Ames MD 04/27/2024 11:30 AM POWDER LOADER Office Visit [facility] Pulmonology [facility] [address] [place] [phone] Danny Cunningham MD Obstructive sleep apnea (Primary [...] 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 Not on file Not on file Obstetrics History Last Filed Vital Signs Vital Sign Reading Time Taken Comments Blood Pressure 118/62 04/27/2024 11:26 AM POWDER LOADER Pulse 90 04/27/2024 11:26 AM POWDER LOADER Temperature 36.2 C (97.2 F) 04/27/2024 11:26 AM POWDER LOADER Respiratory Rate 16 04/27/2024 11:26 AM POWDER LOADER Oxygen Saturation 93% 04/27/2024 11:26 AM POWDER LOADER Inhaled Oxygen Concentration - - Weight 80.9 kg (178 lb 6.4 oz) 04/27/2024 11:26 AM POWDER LOADER Height 170.2 cm (5' 7 ) 04/27/2024 11:26 AM POWDER LOADER Body Mass Index 27.94 04/27/2024 11:26 AM POWDER LOADER Plan of Treatment Health Maintenance Due Date [...] - BOTH EYES Routine 06/01/2024 3:48 PM POWDER LOADER Retinal lesion CT CHEST WO CONTRAST F/U LUNG SCREEN PROTOCOL Schedule Routine, Read Routine (OP Routine) 04/20/2024 10:31 AM POWDER LOADER Abnormal CT lung screening EGFR STAT 08/29/2022 1:38 PM CDT HEMOGLOBIN A1C Routine 01/18/2022 9:11 AM CDT LIPID PANEL Routine 01/18/2022 9:11 AM CDT ALBUMIN CREATININE RATIO, URINE Routine 01/18/2022 9:11 AM CDT from Last 3 Months or Most Recently Relevant to Health Maintenance Results * Multifocal Electroretinography (ERG) - OU - Both Eyes (06/01/2024 3:48 PM POWDER LOADER) Anatomical Region Laterality Modality Head Other Narrative 06/08/2024 2:31 PM POWDER LOADER VISUAL DIAGNOSTIC REPORT: Patient: Yanick Dan : 71 Referring Physician: Reina Beckford MD Date of Examination: 06/01/24 Clinical History: This is a 48 y/o woman referred for Visual Diagnostic testing 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 Multi-focal ERG was performed. Multi-focal ERG: Multifocal ERG testing was conducted using the theBench Electrodiagnostic Imaging System with 61hexagons covering the [...] this study, please contact our office at [phone], and we would be happy to send these to your office. Please feel free to contact my office if you would like to discuss these results further. Alexandre Ames M.D. Professor, Departments of Ophthalmology and Visual Sciences and Neurology Director, Visual Electrophysiology Service [facility] [employer] E-mail: [email or web address] Alexandre Amse MD OPHTH ELECTRORETINOG GWENDOLYN Final Result * CT Chest WO Contrast F/U Lung Screen Protocol (04/20/2024 10:31 AM POWDER LOADER) Anatomical Region Laterality Modality Chest N/A Computed Tomogra phy 04/26/2024 8:10 AM POWDER LOADER Narrative 04/26/2024 8:56 AM POWDER LOADER EXAM DESCRIPTION: CT CHEST WO CONTRAST F/U [...] Juan Novoa M.D. AG T: Report ID: [id number] Reading Location: [place] [address] Danny Cunningham MD [facility] CT PROCEDURES Final Res ult * eGFR [...] LAB BLOOD ORDERABLES Final Resul t DINESH [address] [facility] Department of Laboratories [place], [place] [phone] * Albumin Creatinine Ratio, Urine (01/18/2022 9:11 [...] ORDERABLES Final Resul t Performing Organization Address [facility] Co de Phone Number DINESH [address] [employer] [place] [address] * (ABNORMAL) Hemoglobin A1c (01/18/2022 9:11 AM CDT) Hgb A1C 5.7(H) 4.0 - 5.6 % DINESH Estimated Average Glucose 117 mg/dL DINESH Comment: The ADA recommends reporting an estimated Average Glucose (eAG) with all Hemoglobin A1c results using the equation derived from a study of 507 normal and diabetic adults. Minority populations were underrepresented and children were not included. (Diabetes Care 31:7627-7874, 2008). The eAG is not equivalent to a fasting glucose. Blood 01/18/2022 9:11 AM CDT 01/18/2022 9:44 AM CDT Jeff Duque MD LAB BLOOD ORDERABLES Final Resul t Performing Organization Address [facility] Co de Phone Number DINESH [address] [employer] [place] [address] * (ABNORMAL) Lipid panel (01/18/2022 9:11 AM [...] BLOOD ORDERABLES Final Resul t DINESH [place] [address] [facility] Department [place] [address] from Last 3 Months or Most Recently Relevant to Health Maintenance Insurance [facility] Care Teams Digitizer Relationship Specialty Start Date End Date Jeff Duque MD PCP - General 10/14/19
--- OUTSIDE RECORDS SUMMARY | 2024-07-20 20:44 | XMS_ITS | Clinical Summary ---
Author Organization [facility] Address [address] [place] [address] Phone Care Team Providers Care Plant Biology Professor Name Role Phone Jeff Duque MD Primary Care Provider [phone] Allergies Active Allergy Reactions Criticality Noted Date Comments Omeprazole Rash,Nausea and Vomiting Medium 12/18/2020 Medications simvastatin (ZOCOR) 40 mg tablet TAKE 1 TABLET BY MOUTH EVERY DAY IN THE EVENING 0 Active metFORMIN (GLUCOPHAGE) 500 mg tablet TAKE 1 TABLET BY MOUTH DAILY WITH A MEAL 0 Active fluticasone propionate (FLONASE) 50 mcg/spray [place], Suspension nasal inhaler Administer 1 [place] in each nostril. 0 Active hydrOXYchloroQU INE [...] Comments Blood Pressure 122/78 04/13/2024 9:58 AM SERVICE OR WORK DISPATCHER CHIEF Pulse 80 04/13/2024 9:58 AM SERVICE OR WORK DISPATCHER CHIEF Temperature 36.7 C (98 F) 04/13/2024 9:58 AM SERVICE OR WORK DISPATCHER CHIEF Respiratory Rate 16 04/13/2024 9:58 AM SERVICE OR WORK DISPATCHER CHIEF Oxygen Saturation 96% 04/13/2024 9:58 AM SERVICE OR WORK DISPATCHER CHIEF Inhaled Oxygen Concentration - - Weight 79.3 kg (174 lb 12.8 oz) 04/13/2024 9:58 AM SERVICE OR WORK DISPATCHER CHIEF Height 170.2 cm (5' 7 ) 09/05/2021 [...] 01/13/20 24 Colorectal Cancer Screening 01/12/2034 Insurance [facility] MEDICAID Care Teams Plant Biology Professor Relationship Specialty Start Date End Date Jeff Duque MD [address] [place] [phone] PCP - General Emergency Medicine 12/27/19
--- OUTSIDE RECORDS SUMMARY | 2024-07-20 20:44 | XMS_ITS | Patient Health Summary ---
Author Organization [facility] Address [address] [place] [address] Care Team Providers Care Geothermal Field Technician Name Role Phone Jeff Duque MD Primary Care Provider [phone] Jeff Duque MD Unavailable Note from [facility] [place] [facility] [place]non-owned Affiliates and Associated Physician Practices is amultiple site organization consisting of ambulatory clinics and hospital sitesin [place], [place] and [place]. This disclosure is being madepursuant to the Care Everywhere program and may not contain all information available regarding this patient. Last updated 18.[facility] Allergies * Omeprazole(Rash,Nausea and/or Vomiting,Dizziness) -Medium Criticality [...] fluticasone propionate (Flonase) 50 MCG/ACT nasal spray Whitestone 2 (two) sprays into each nostril once [...] file Gender Identity Female 05/10/2021 10:24 PM UX DESIGN LEAD Sexual Orientation Not on file Last Filed Vital Signs Vital Sign Reading Time Taken Comments Blood Pressure 126/82 07/12/2024 3:00 PM UX DESIGN LEAD Pulse 90 07/12/2024 3:00 PM UX DESIGN LEAD Temperature 36.3 C (97.3 F) 07/12/2024 3:00 PM UX DESIGN LEAD Respiratory Rate 16 07/12/2024 3:00 PM UX DESIGN LEAD Oxygen Saturation 95% 07/12/2024 3:00 PM UX DESIGN LEAD Inhaled Oxygen Concentration - - Weight 83 kg (183 lb) 07/12/2024 3:00 PM UX DESIGN LEAD Height 170.2 cm (5' 7 ) 07/06/2024 1:24 PM UX DESIGN LEAD Body Mass Index 28.66 07/06/2024 1:24 PM UX DESIGN LEAD Procedures * UT DRAIN INJ MAJOR JOINT BURSA W US(Performed [...] Generalized abdominal pain * EGD(Performed 01/13/2024) * UT COLONOSCOPY, DIAGNOSTIC(Performed 01/13/2024) Performed for Generalized abdominal pain * UT ED EGD FLEX TRANSORAL DX(Performed 01/13/2024) Performed [...] SLU(Performed 08/14/2023) Performed for Gross hematuria * UT PUNCH BX SKIN SINGLE LESION(Performed 08/06/2023) Performed for Rash and other nonspecific skin eruption * UT PUNCH BX SKIN EA SEP ADDL(Performed 08/06/2023) [...] sites with negative rheumatoid factor (HCC) * UT LARYNGOSCOPY,FLEX FIBER,DIAGNOSTIC(Performed 04/14/2023) Performed for Hoarseness, Malika's [...] sites with negative rheumatoid factor (HCC) * UT LARYNGOSCOPY,FLEX FIBER,DIAGNOSTIC(Performed 10/28/2022) Performed for Hoarseness, Malika's edema of vocal folds, Smoking * UT LARYNGOSCOPY,FLEX FIBER,DIAGNOSTIC(Performed 08/01/2022) Performed for Hoarseness, Malika's [...] DIFFERENTIAL(Performed 05/09/2021) Performed for Inflammatory arthritis * UT MSR PVR U&/BLADD CAPCTY US NON(Performed 04/12/2021) Performed for Hematuria, unspecified type * PROC UROFLOWMETRY(Performed 04/12/2021) Performed for Hematuria, unspecified type * UT CYSTOURETHROSCOPY(Performed 04/12/2021) Performed for Hematuria, unspecified type [...] DIFFERENTIAL(Performed 10/11/2020) Performed for Polyarthralgia Results * UT DRAIN INJ MAJOR JOINT BURSA W US (07/06/2024 1:53 PM UX DESIGN LEAD) Narrative Darion Camp MD - 07/06/2024 1:53 PM UX DESIGN LEAD Darion Camp MD 07/07/2024 5:11 PM U/S-GUIDED [...] FUNDUS PHOTO BOTH EYES (06/17/2024 11:00 AM UX DESIGN LEAD) Anatomical Region Laterality Modality Head External-Camera Photography Narrative 06/17/2024 12:40 PM UX DESIGN LEAD Images from the original result were not included. Jose Newby MD OPHTHALMOLOGY SCHED ORD W PACS * DORMAN AUTO VISUAL FIELD EXTENDED (06/17/2024 10:17 AM UX DESIGN LEAD) Anatomical Region Laterality Modality Head External-Camera Photography Narrative 06/17/2024 12:40 PM UX DESIGN LEAD Images from the original result were not included. Jose Newby MD OPHTHALMOLOGY SCHED ORD W PACS * RETINAL ANALYSIS OCT (06/17/2024 10:17 AM UX DESIGN LEAD) Anatomical Region Laterality Modality Head External-Camera Photography Narrative 06/17/2024 12:32 PM UX DESIGN LEAD Images from the original result were not included. Jose Newby MD OPHTHALMOLOGY SCHED ORD W PACS * XR Hip Right 2Vw or More (06/15/2024 12:42 PM UX DESIGN LEAD) Anatomical Region Laterality Modality Pelvis, Lower Extremity Computed Radiography 06/15/2024 2:24 PM UX DESIGN LEAD Impressions 06/15/2024 2:27 PM UX DESIGN LEAD IMPRESSION: No acute osseous abnormality. Mild degenerative changes. Report dictated by Won Pastrana MD (vice president of news). IRisa MD have personally reviewed and interpreted this examination/study. > Interpreting Provider: Rias No MD on 06/15/2024 2:27 PM Narrative 06/15/2024 2:27 PM UX DESIGN LEAD PROCEDURE: XR HIP RIGHT 2VW OR MORE, DATE/TIME OF EXAM: 06/15/2024 12:43 PM, LOCATION [facility] INDICATION: R10.31: Groin pain, right ADDITIONAL CLINICAL [...] DATE/TIME OF EXAM: 06/15/2024 12:43 PM, LOCATION [facility] INDICATION: R10.31: Groin pain, right ADDITIONAL CLINICAL INFORMATION: Ordering Provider Reason For Exam: right hip pain COMPARISON: None. FINDINGS: No acute fracture or dislocation. Mild degenerative changes smallspurring along the lateral acetabular margin. The hip joint space is preserved.Bone density and texture are normal. IMPRESSION: No acute osseous abnormality. Mild degenerative changes. Report dictated by Won Pastrana MD (vice president of news). Risa Prescott MD have personally reviewed and interpreted this examination/study. > Interpreting Provider: Risa No MD on 06/15/2024 2:27 PM Frantz Nicole MD DIAGNOSTIC IMAGING O RDERABLES * XR Hip Left 2Vw or More (06/15/2024 12:42 PM UX DESIGN LEAD) Anatomical Region Laterality Modality Pelvis, Lower Extremity Computed Radiography 06/15/2024 2:23 PM UX DESIGN LEAD Impressions 06/15/2024 2:28 PM UX DESIGN LEAD IMPRESSION: No acute osseous abnormality. Mild degenerative changes. Report dictated by Won Pastrana MD (vice president of news). Risa Prescott MD have personally reviewed and interpreted this examination/study. > Interpreting Provider: Risa No MD on 06/15/2024 2:28 PM Narrative 06/15/2024 2:28 PM UX DESIGN LEAD PROCEDURE: XR HIP LEFT 2VW OR MORE, DATE/TIME OF EXAM: 06/15/2024 12:42 PM, LOCATION [facility] INDICATION: R10.31: Groin pain, right ADDITIONAL CLINICAL [...] MORE, DATE/TIME OF EXAM: 06/15/2024 12:42PM, LOCATION [facility] INDICATION: R10.31: Groin pain, right ADDITIONAL CLINICAL INFORMATION: Ordering Provider Reason For Exam: left hip pain COMPARISON: None. FINDINGS: No acute fracture or dislocation. Mild degenerative changes with small osteophytosis along the superior acetabular margin. The hip joint spaceis preserved. Bone density is normal. IMPRESSION: No acute osseous abnormality. Mild degenerative changes. Report dictated by Won Pastrana MD (vice president of news). Risa Prescott MD have personally reviewed and interpreted this examination/study. > Interpreting Provider: Risa No MD on 06/15/2024 2:28 PM Frantz Nicole MD DIAGNOSTIC IMAGING O RDERABLES * XR Lumbar Spine 2 or 3Vw (06/15/2024 11:26 AM UX DESIGN LEAD) Only the most recent of2 resultswithin the time period is included. Anatomical Region Laterality Modality Spine Computed Radiogr aphy 06/15/2024 11:5 1 AM UX DESIGN LEAD Impressions 06/15/2024 1:00 PM UX DESIGN LEAD IMPRESSION: Grade 1 anterolisthesis of L5 on S1, unchanged. Mild multilevel degenerative changes. Report dictated by Won Pastrana MD, (vice president of news). Risa Prescott MD have personally reviewed and interpreted this examination/study. > Interpreting Provider: Risa No MD on 06/15/2024 1:00 PM Narrative 06/15/2024 1:00 PM UX DESIGN LEAD PROCEDURE: XR LUMBAR SPINE 2 OR 3VW, DATE/TIME OF EXAM: 06/15/2024 11:26 AM, LOCATION [facility] INDICATION: M54.50: Low back pain, unspecified back [...] DATE/TIME OF EXAM: 06/15/2024 11:26 AM, LOCATION [facility] INDICATION: M54.50: Low back pain, unspecified back [...] changes. Report dictated by Won Pastrana MD, (vice president of news). I, Risa No MD have personally reviewed and interpreted this examination/study. > Interpreting Provider: Risa No MD on 06/15/2024 1:00 PM Frantz Nicole MD DIAGNOSTIC IMAGING O RDERABLES * FA ICG ANGIOGRAPHY (05/21/2024 11:56 AM UX DESIGN LEAD) Anatomical Region Laterality Modality Head External-Camera Photography Narrative 05/22/2024 3:51 PM UX DESIGN LEAD Images from the original result were not included. indocyanine green angiography (05/21/2024) - no hypocyanescence seen in late stage- these findings confirm no choroiditis where lesions are seen in retina Fluorescein Angiography (05/21/2024) - no vascular leakage seen Reina Beckford MD OPHTHALMOLOGY SCHED ORD W PACS * FUNDUS PHOTO BOTH EYES (05/21/2024 10:51 AM UX DESIGN LEAD) Anatomical Region Laterality Modality Head External-Camera Photography Narrative 05/22/2024 3:51 PM UX DESIGN LEAD Images from the original result were not included. Fundus photo (05/21/2024) - Yellow stippling seen nasally OU- stable Reina Beckford MD OPHTHALMOLOGY SCHED ORD W PACS * RETINAL ANALYSIS OCT (05/21/2024 8:50 AM UX DESIGN LEAD) Anatomical Region Laterality Modality Head External-Camera Photography Narrative 05/22/2024 3:52 PM UX DESIGN LEAD Images from the original result were not included. OD (top 02/02/24, bottom 05/21/2024) Normal retina crosssection with preservation of fovea, clivus, and cellular lamina OS (top 02/02/24, bottom 05/21/2024) Normal retina crosssection with preservation of fovea, clivus, and cellular lamina Reina Beckford MD OPHTHALMOLOGY SCHED ORD W PACS * ACTH (04/20/2024 7:58 AM UX DESIGN LEAD) ACTH 29 6 - 50 pg/mL [facility] Comment: Reference range applies only to specimens collected between 7am-10am. Test Performed at: [facility]/[address] [address] TAMERA ADKINS MD,PHD 04/20/2024 7:58 AM UX DESIGN LEAD 04/20/2024 7:59 AM UX DESIGN LEAD Naseem Garcia MD LAB - CHEMISTRY MICHAEL NELSON [facility] [address] [place] [address] * TSH (04/20/2024 7:58 AM UX DESIGN LEAD) TSH 2.45 mIU/L JOSE Comment: Reference Range > or = 20 Years 0.40-4.50 Ranges First trimester 0.26-2.66 Second trimester 0.55-2.73 Third trimester 0.43-2.91 Test Performed at: [facility] [address] ASIF BLACKWOOD MD 04/20/2024 7:58 AM UX DESIGN LEAD 04/20/2024 7:59 AM UX DESIGN LEAD Naseem Garcia MD LAB - CHEMISTRY MICHAEL NELSON Performing Organization Address [facility] Co de Phone Number [address] [address] * T4 FREE (04/20/2024 7:58 AM UX DESIGN LEAD) T4 Free 1.1 0.8 - 1.8 ng/dL [facility] Comment: Test Performed at: [facility] [address] ASIF BLACKWOOD MD 04/20/2024 7:58 AM UX DESIGN LEAD 04/20/2024 7:59 AM UX DESIGN LEAD Naseem Garcia MD LAB - CHEMISTRY MICHAEL NELSON Performing Organization Address [facility] de Phone Number [address] [address] * CORTISOL BLOOD AM (04/20/2024 7:58 AM UX DESIGN LEAD) Only the most recent of2 resultswithin the time period is included. Cortisol AM 16.9 mcg/dL [facility] Comment: Reference Range 8 a.m. (7-9 a.m.) Specimen: 4.0-22.0 Test Performed at: [facility] [address] [address] ASIF BLACKWOOD MD 04/20/2024 7:58 AM UX DESIGN LEAD 04/20/2024 7:59 AM UX DESIGN LEAD Naseem Garcia MD LAB - CHEMISTRY MICHAEL NELSON Performing Organization Address [facility] Co de Phone Number [address] [address] * FUNDUS PHOTO BOTH EYES (02/02/2024 1:52 [...] bowel preparation was evaluated using the BBPS ([place] Bowel Preparation Scale) with scores of: Right [...] non-mcfarland portions. Procedure Code(s): --- Professional --- 59817, Colonoscopy, flexible; with removal of tumor(s), polyp(s), or other lesion(s) by snare technique Diagnosis Code(s): --- Professional --- Z12.11, Encounter for screening for malignant neoplasm of colon D12.0, Benign neoplasm of cecum D12.5, Benign neoplasm of sigmoid colon D12.2, Benign neoplasm of ascending colon CPT copyright 2021 [employer]. All rights reserved. The codes documented in this report are preliminary and upon grease worker review may be revised to meet current compliance requirements. Dylan Jessica, 01/13/2024 11:59:59 AM Note Initiated On: 01/13/2024 11:04 AM Number of Addenda: [id number] [place] [address] PROVATION 01/13/2024 11:0 4 AM CDT Dylan Jessica MD GI PROCEDURE O RDERABLES [facility] PROVATION * PATHOLOGY TISSUE (01/13/2024 10:55 AM CDT) Case Report Surgical Pathology Report Case: [id number] Authorizing Provider: Dylan Jessica, Collected: 01/13/2024 10:55 AM Ordering Location: [facility] ENDOSCOPY Received: 01/13/2024 01:42 PM Pathologist: Taya Currie MD Specimens: A) - Duodenum, duodenal biopsies B) - Gastric, gastric biopsies r/o H. Pylori C) - Polyp Rectal, rectal polyps D) - Polyp Cecum, cecal polyps 01/14/2024 1:55 PM CDT [facility] Final Diagnosis Small intestine, duodenum, biopsy (A): - Focal peptic injury (scant sample) Stomach, biopsy (B): - No histopathologic abnormality - No active inflammation or H. pylori organisms (H&E examination) Large intestine, rectal polyps, biopsy (C): - Hyperplastic polyp Large intestine, cecal polyps, biopsy (D): - Tubular adenoma(s), fragmented 01/14/2024 1:55 PM CDT [facility] Microscopic Description and Comment Microscopic examination including multiple deeper levels on parts C and D substantiates the final diagnosis. 01/14/2024 1:55 PM CDT [facility] Clinical History The patient [...] all resected and retrieved. 01/14/2024 1:55 PM [facility] Gross Description The requisition and [...] toto in cassette D1. 01/14/2024 1:55 PM [facility] Pathologist Location at [facility] 01/14/2024 1:55 PM [facility] Disclaimer The performance characteristics of all immunohistochemical and indirect immunofluorescence stains (if any) cited in this report were determined by the Histopathology Laboratory of [facility]. Some of these tests were developed by [...] attending (teaching) pathologist. 01/14/2024 1:55 PM CDT [facility] Embedded Images 01/14/2024 1:55 PM CDT [facility] Biopsy, NOS PART OF [...] - PATHOLOG Y/CYTOLOGY ORDERABLES Performing Organization Address City/State/[facility] Co de Phone Number [facility] [address] [phone] * EGD (01/13/2024 10:41 AM CDT) Report [...] non-mcfarland portions. Procedure Code(s): --- Professional --- 24971, Esophagogastroduo denoscopy, flexible, transoral; with biopsy, single or multiple Diagnosis Code(s): --- Professional --- K44.9, Diaphragmatic hernia without obstruction or gangrene K29.70, Gastritis, unspecified, without bleeding K31.89, Other diseases of stomach and duodenum R10.84, Generalized abdominal pain CPT copyright 2021 [employer]. All rights reserved. The codes documented in this report are preliminary and upon grease worker review may be revised to meet current compliance requirements. Dylan Jessica, 01/13/2024 11:06:04 AM Note Initiated On: 01/13/2024 10:41 AM Number of Addenda: [id number] [place] [address] 01/13/2024 10:4 1 AM CDT Dylan Jessica MD GI PROCEDURE O RDERABLES Performing Organization Address [facility] Co de Phone Number [facility] * GLUCOSE - POINT OF CARE (01/13/2024 9:10 AM CDT) Glucose WB/POC 109 70 - 115 mg/dL 01/13/2024 9:38 AM CDT [facility] Specimen Type Venous 01/13/2024 9:38 AM CDT [facility] Blood BLOOD SPECIMEN / Unknown 01/13/2024 9:10 AM CDT 01/13/2024 9:38 AM CDT Dylan Jessica MD LAB - POINT OF CARE ORDERABLES Performing Organization Address [facility]/ZIP Co de Phone Number [address] [phone] [phone] * QUANTIFERON-TB GOLD PLUS 1-TUBE (11/18/2023 8:13 AM CDT) [facility] QuantiFERON TB Gold Plus NEGATIVE NEGATIVE [...] T-lymphocytes. For additional information, please refer to https://education.Xenapto/faq/BHQ747 (This link is being provided for informational/ educational purposes only.) REPORT COMMENT: FASTING:YES Test Performed at: [facility] [address] [place] [address] ASIF BLACKWOOD MD 11/18/2023 8:13 AM CDT 11/18/2023 8:14 AM CDT Mikala العلي MD LAB - CHEMISTRY MICHAEL NELSON [facility] Organization Address City/State/ZIP Co de Phone Number [facility] [address] [place] [address] * HOLDEN PANEL COMPREHENSIVE (11/18/2023 8:13 AM CDT) Only the most recent of2 resultswithin the time period is included. [facility] OHLDEN Screen NEGATIVE NEGATIVE [facility] Comment: HOLDEN IFA [...] AC-0: Negative International Consensus on HOLDEN Patterns (https://doi.org/10.1515/ftxn-7901-9424) For additional information, please refer to http://education.Maestro/faq/QGR148 (This link is being provided for informational/ educational purposes only.) dsDNA Antibody 4 IU/mL [facility] Comment: IU/mL Interpretation < or = 4 Negative 5-9 Indeterminate > or = 10 Positive SCL-70 Antibody <1.0 NEG <1.0 NEG AI [facility] SM Antibody <1.0 NEG <1.0 NEG AI [facility] SM/PROFESSIONAL SKATEBOARDER Antibody <1.0 NEG <1.0 NEG AI [facility] Sjogren's Antibodies (SSA) <1.0 NEG <1.0 NEG AI [facility] Sjogren's Antibodies (SSB) <1.0 NEG <1.0 NEG AI [facility] Comment: Test Performed at: [employer] [place] [address] ASIF BLACKWOOD MD Blood BLOOD SPECIMEN / Unknown 11/18/2023 8:13 AM CDT 11/18/2023 8:14 AM CDT Mikala العلي MD LAB - SEROLOGY ORDER OLAMIDE [facility] [address] [place] [address] * C-REACTIVE PROTEIN (11/18/2023 8:13 AM CDT) Only the most recent of8 resultswithin the time period is included. C-Reactive Protein <3.0 <8.0 mg/L [facility] Comment: Test Performed at: [facility] [id number] [place] [address] ASIF BLACKWOOD MD Blood BLOOD SPECIMEN / Unknown 11/18/2023 8:13 AM CDT 11/18/2023 8:14 AM CDT Mikala العلي MD LAB - CHEMISTRY MICHAEL NELSON Performing Organization Address [facility]/ZIP Co de Phone Number [address] [address] * ERYTHROCYTE SEDIMENTATION RATE (11/18/2023 8:13 AM CDT) Only the most recent of8 resultswithin the time period is included. [facility] Erythrocyte Sedimentation Rate Westergren 11 < OR = 20 mm/h [facility] Comment: Test Performed at: [facility] [address] ASIF BLACKWOOD MD Blood BLOOD SPECIMEN / Unknown 11/18/2023 8:13 AM CDT 11/18/2023 8:14 AM CDT Mikala العلي MD LAB - HEMATOLOGY RAMÓN BRITT Performing Organization Address [facility] Co de Phone Number [address] [address] * CBC WITH DIFFERENTIAL (11/18/2023 8:13 AM CDT) Only the most recent of12 resultswithin the time period is included. [facility] White Blood Cell Count 8.9 3.8 [...] 0.7 % [facility] Comment: Test Performed at: [facility] [address] [place] [address] ASIF BLACKWOOD MD Blood BLOOD SPECIMEN / Unknown 11/18/2023 8:13 AM CDT 11/18/2023 8:14 AM CDT Mikala العلي MD LAB - HEMATOLOGY ORD ERABLES [address] [address] * (ABNORMAL) COMPREHENSIVE METABOLIC PANEL (11/18/2023 8:13 [...] 29 U/L [facility] Comment: Test Performed at: [facility] [address] ASIF BLACKWOOD MD Blood BLOOD SPECIMEN / Unknown 11/18/2023 8:13 AM CDT 11/18/2023 8:14 AM CDT Mikala العلي MD LAB - CHEMISTRY MICHAEL NELSON Performing Organization Address [facility]/ZIP Co de Phone Number [employer] [address] [place] [address] * VITAMIN B12 (11/18/2023 8:13 AM CDT) Only the most recent of2 resultswithin the time period is included. Pathologist [facility] Vitamin B12 572 200 - 1100 pg/mL [facility] Comment: Test Performed at: [facility] [address] [place] [address] ASIF BLACKWOOD MD Blood BLOOD SPECIMEN / Unknown 11/18/2023 8:13 AM CDT 11/18/2023 8:14 AM CDT Mikala العلي MD LAB - CHEMISTRY MICHAEL NELSON Performing Organization Address [facility] de Phone Number [address] [address] * COMPLEMENT C3 C4 PANEL (11/18/2023 8:13 AM CDT) Only the most recent of2 resultswithin the time period is included. Pathologist [facility] Complement C3 100 83 - 193 mg/dL [facility] Complement C4 25 15 - 57 mg/dL [facility] Comment: Test Performed at: [employer] [address] [facility] [place] [address] ASIF BLACKWOOD MD Blood BLOOD SPECIMEN / Unknown 11/18/2023 8:13 AM CDT 11/18/2023 8:14 AM CDT Mikala العلي MD LAB - CHEMISTRY MICHAEL NELSON Performing Organization Address [facility] Co de Phone Number [employer] [address] [place] [address] * HEPATITIS SCREEN ACUTE (11/18/2023 8:13 AM CDT) Only the most recent of2 resultswithin the time period is included. Hepatitis A Virus Antibody IgM NON-REACTI VE NON-REACT AZUL [facility] Comment: For additional information, please refer to http://Flipps/faq/PNC154 (This link is being provided for informational/ educational purposes only.) Hepatitis B Virus Surface Antigen NON-REACTI VE NON-REACT AZUL [facility] Comment: For additional information, please refer to http://Flipps/faq/GOC188 (This link is being provided for informational/ educational purposes only.) Hepatitis B Core Virus Antibody IgM NON-REACTI VE NON-REACT AZUL [facility] Comment: For additional information, please refer to http://Flipps/faq/DNC139 (This link is being provided for informational/ educational purposes only.) Hepatitis C Antibody NON-REACTI VE NON-REACT AZUL [facility] Comment: HCV antibody was non-reactive. There is no laboratory evidence of HCV infection. In most cases, no further action is required. However, if recent HCV exposure is suspected, a test for HCV RNA (test code 12952) is suggested. For additional information please refer to http://Flipps/faq/BQI61y3 (This link is being provided for informational/ educational purposes only.) Test Performed at: [facility] [place] [address] [place] [address] ASIF BLACKWOOD MD Blood BLOOD SPECIMEN / Unknown 11/18/2023 8:13 AM CDT 11/18/2023 8:14 AM CDT Mikala العلي MD LAB - CHEMISTRY MICHAEL NELSON [facility] Organization Address City/State/ZIP Co de Phone Number [facility] [address] [place] [address] * VAS ARTERIAL ANKLE ARM INDEX (11/14/2023 [...] examination. Report dictated by Christiano Gallo MD (vice president of news). IZen MD have personally reviewed and interpreted this examination/study. > Interpreting Provider: Zen Hudson MD on 10/14/2023 1:25 PM Narrative 10/14/2023 1:25 PM CDT PROCEDURE: XR CERVICAL SPINE 2 OR 3VW, DATE/TIME OF EXAM: 10/14/2023 8:28 AM, LOCATION [facility] INDICATION: M54.50: Low back pain, unspecified back [...] 3VW, DATE/TIME OF EXAM: 48:28 AM, LOCATION [facility] INDICATION: M54.50: Low back pain, unspecified back [...] examination. Report dictated by Christiano Gallo MD (vice president of news). I, Zen Hudson MD have personally reviewed [...] noted. Report dictated by Christiano Gallo MD (vice president of news). Zen Prescott MD have personally reviewed and interpreted this examination/study. > Interpreting Provider: Zen Hudson MD on 10/14/2023 1:22 PM Narrative 10/14/2023 1:22 PM CDT PROCEDURE: XR THORACIC SPINE 2VW, DATE/TIME OF EXAM: 10/14/2023 8:27 AM, LOCATION [facility] INDICATION: M54.50: Low back pain, unspecified back [...] DATE/TIME OF EXAM: 10/14/2023 8:27 AM, LOCATION [facility] INDICATION: M54.50: Low back pain, unspecified back [...] noted. Report dictated by Christiano Gallo MD (vice president of news). Zen Prescott MD have personally reviewed and [...] - [facility] [address] Specific [place] UA 1.[address] [facility] [address] Blood [...] MEENU [address] [place] [address], [facility] [phone] * METANEPHRINES FRACTIONATED PLASMA (08/29/2023 8:31 AM CDT) Pathologist [facility] Metanephrine Fract Free <25 <=57 pg/mL [facility] Comment: This test was developed and its analytical performance characteristics have been determined by [employer] [place], [place]. It has not been cleared or approved by the U.S. Food and Drug Administration. This assay has been validated pursuant to the CLIA regulations and is used for clinical purposes. Normetanephrine Free 45 <=148 pg/mL [facility] Comment: This test was developed and its analytical performance characteristics have been determined by [employer] [place], [place]. It has not been cleared or approved by the U.S. Food and Drug Administration. This assay has been validated pursuant to the CLIA regulations and is used for clinical purposes. Free Metanephrine + Normetanephrine 45 <=205 pg/mL [facility] Comment: For additional information, please refer to http://education.Decisyon.Turpitude/faq/MetFractFree (This link is being provided for informational/educatio [...] analytical performance characteristics have been determined by [facility] [place], [place]. It has not been cleared or approved by the U.S. Food and Drug Administration. This assay has been validated pursuant to the CLIA regulations and is used for clinical purposes. Test Performed at: [facility] [address] TAMERA ADKINS MD,PHD 08/29/2023 8:31 AM CDT 08/29/2023 8:32 AM CDT Courtney Palumbo DO LAB - CHEMISTRY OR DERABLES Performing Organization Address City/State/[facility] Co de Phone Number [facility] [address] [place] [address] * ALDOSTERONE/RENIN RATIO PANEL (08/29/2023 8:31 AM CDT) Aldosterone 8 ng/dL [facility] Comment: Adult Reference Ranges for Aldosterone: Upright 8:00-10:00 am < or = 28 ng/dL Upright 4:00-6:00 pm < or = 21 ng/dL Supine 8:00-10:00 am 3-16 ng/dL This test was developed and its analytical performance characteristics have been determined by [facility]. It has not been cleared or approved by FDA. This assay has been validated pursuant to the CLIA regulations and is used for clinical purposes. Plasma Renin Activity 2.03 0.25 - 5.82 ng/mL/h [facility] DOUG/PRA Ratio 3.9 0.9 - 28.9 Ratio [facility] Comment: Test Performed at: [facility] [address] [place] [address] MARTA KESSLER MD,PHD,JAQUI 08/29/2023 8:31 AM CDT 08/29/2023 8:32 AM CDT Courtney Palumbo DO LAB - CHEMISTRY OR DERABLES [facility] [address] [place] [address] * EXTENDED MYOSITIS PANEL (08/26/2023 11:56 AM CDT) Wendy-1 Antibody <11 <[address]-7 Antibody <11 <[address]-12 Antibody <11 <11 SI [facility] EJ Antibody <11 <11 SI [facility] OJ Antibody <11 <11 SI [facility] SRP Antibody <11 <11 SI [facility] ME-2 Alpha Antibody <11 <11 SI [facility] ME-2 Beta Antibody <11 <11 SI [facility] MDA-5 [...] with a rash. Additionally, MSAs to MDA5 ([id number]) have been identified in patients with clinically [...] analytical performance characteristics have been determined by [facility]. It has not been cleared or approved by the FDA. This assay has been validated pursuant to the CLIA regulations and is used for clinical purposes. HMGCR AB IGG <2 <20 CU [facility] Comment: 4-Pqeeiey-1-Methylglutaryl-Coenzyme A Reductase (HMGCR) Ab is associated with [...] analytical performance characteristics have been determined by [facility]. It has not been cleared or approved by FDA. This assay has been validated pursuant to the CLIA regulations and is used for clinical purposes. Test Performed at: [facility] [address] [place] [address] MARTA KESSLER MD,PHD,JAQUI Blood BLOOD SPECIMEN / Unknown 08/26/2023 11:56 AM CDT 08/26/2023 11:56 AM CDT Mikala Song MD LAB - CHEMISTRY MICHAEL NELSON Performing Organization Address [facility] Co de Phone Number [facility] [address] [place] [address] * (ABNORMAL) HOLDEN BLOOD TITER (08/26/2023 11:56 [...] AC-2,4,5,29: Spe[employer] International Consensus on HOLDEN Patterns (https://doi.org/10.1515/wciw-3581-6142) HOLDEN Titer 1:80(H) titer [facility] Comment: A [...] AC-24: [employer] International Consensus on HOLDEN Patterns (https://doi.org/10.1515/yora-4677-0751) Test Performed at: [facility] [address] [address] ASIF BLACKWOOD MD 08/26/2023 11:5 6 AM CDT 08/26/2023 11:56 AM CDT Mikala العلي MD LAB - CHEMISTRY MICHAEL NELSON Performing Organization Address [facility]/ZIP Co de Phone Number [facility] [address] [place] [address] * HISTONE ANTIBODY (08/26/2023 11:56 AM CDT) Pathologist [facility] Histone Antibodies <1.0 U [facility] Comment: Value Explanation of Results ------ <1.0 Negative 1.0-1.5 Weak Positive 1.6-2.5 Moderate Positive >2.5 Strong Positive Test Performed at: [facility] [address] [place] [phone] ALLEN HENDRIX Blood BLOOD SPECIMEN / Unknown 08/26/2023 11:56 AM CDT 08/26/2023 11:56 AM CDT Mikala العلي MD LAB - CHEMISTRY MICHAEL NELSON Performing Organization Address [facility] Co de Phone Number [address] [address] * CK BLOOD (08/26/2023 11:56 AM CDT) Pathologist [facility] CK 42 29 - 143 U/L [facility] Comment: Test Performed at: [address] [address] ASIF BLACKWOOD MD Blood BLOOD SPECIMEN / Unknown 08/26/2023 11:56 AM CDT 08/26/2023 11:56 AM CDT Mikala العلي MD LAB - CHEMISTRY MICHAEL NELSON Performing Organization Address [facility] Co de Phone Number [address] [address] * UT PUNCH BX SKIN EA SEP ADDL, UT PUNCH BX SKIN SINGLE LESION (08/06/2023 9:35 [...] a patient labeled container and sent to [facility]. Patient agrees to phone call for results and message if not available. Zay Chavez DO PGY-4 Dermatology Resident Torie Holm MD PROCEDURE/MINOR SURG ICAL ORDERABLES * DERMATOPATHOLOGY (08/05/2023 3:30 PM CDT) Case Report Dermatopathology Report Case: [id number] Authorizing Provider: Torie Holm MD Collected: 08/05/2023 03:30 PM Ordering Location: [facility] - Received: 08/06/2023 07:04 AM Dermatology Pathologist: Flro Sharma MD Specimens: A) - Skin, left [...] characteristic determined by the Dermatopathology Laboratory at [facility], directed by Dr. Stephanie Sharma. These tests need not be, and therefore are not, approved by the [place] Food and Drug Administration. The tests are used for clinical purposes. Billing Codes Specimen Charges Stain Charges 63930 33680 1 1 65035 49694 1 1 4 5:11 PM CDT DERMATOPATHOLOGY LABORATORY Embedded Images 4 5:11 PM CDT DERMATOPATHOLOGY LABORATORY Pathology/Cytology TISSUE SPECIMEN FROM SKIN / Unknown 08/05/2023 3:30 PM CDT 08/06/2023 7:04 AM CDT Miscellaneous samples (specimen) TISSUE SPECIMEN FROM SKIN / Unknown 08/05/2023 3:30 PM CDT 08/06/2023 7:04 AM CDT Torie Holm MD LAB - PATHOLOGY/CYTO LOGY ORDERABLES DERMATOPATHOLOGY LABORATORY [facility] - Department of Dermatology [address], [address] [phone] * CT ABDOMEN PELVIS W CONTRAST (07/11/2023 7:15 AM UX DESIGN LEAD) Anatomical Region Laterality Modality Abdomen, Pelvis Computed Tomogra phy 07/11/2023 7:24 AM UX DESIGN LEAD Impressions 07/11/2023 9:20 AM UX DESIGN LEAD Impression: 1.No acute process identified in the abdomen or pelvis. > Dictated by Garth Mera MD (vice president of news). I, Brandon Andersen MD have personally reviewed and interpreted this examination/study. > Interpreting Provider: Brandon Andersen MD on 07/11/2023 9:20 AM Narrative 07/11/2023 9:20 AM UX DESIGN LEAD PROCEDURE: CT ABDOMEN PELVIS W CONTRAST, DATE/TIME OF EXAM: 07/11/2023 7:16 AM, LOCATION [facility] INDICATION: R10.84: Generalized abdominal pain ADDITIONAL CLINICAL [...] CONTRAST, DATE/TIME OF EXAM: 47:16 AM, LOCATION [facility] INDICATION: R10.84: Generalized abdominal pain ADDITIONAL CLINICAL [...] pelvis. > Dictated by Garth Mera MD (vice president of news). I, Brandon Andersen MD have personally reviewed and interpreted this examination/study. > Interpreting Provider: Brandon Andersen MD on 07/11/2023 9:20AM Provider Unknown CT ORDERABLES * CALPROTECTIN FECAL (07/11/2023 6:58 AM UX DESIGN LEAD) Calprotectin Fecal 9 <=49 ug/g 07/14/2023 9:25 PM UX DESIGN LEAD [facility] ([facility]) Comment: REFERENCE INTERVAL: Calprotectin, Fecal by Immunoassay Less than 50 ug/g.........Normal 50-120 ug/g...............Borderline elevated, test should be re-evaluated in 4-6 weeks. 121 ug/g or greater.......Elevated Performed By: [facility] [address] [place] [address] Melter Clerk: Iker Fraga MD, PhD CLIA Number: [id number] Stool STOOL SPECIMEN / Unknown Collection / Unknown 07/11/2023 6:58 AM UX DESIGN LEAD 07/11/2023 7:58 AM UX DESIGN LEAD Provider Unknown LAB - BODY FLUID ORD ERABLES [facility]) [address] [place] [address], [facility] * CELIAC DISEASE PROFILE W RFLX (07/04/2023 9:15 AM UX DESIGN LEAD) Endomysial Antibody IgA Negative Negative 07/07/2023 2:09 PM UX DESIGN LEAD [facility] ([facility]) TTG Antibody IgA <2 0 - 3 U/mL 07/07/19 2:09 PM [facility] ([facility]) Comment: Negative 0 - 3 Weak Positive 4 - 10 Positive >10 Tissue Transglutaminase (tTG) has been identified as the endomysial antigen. Studies have demonstr- ated that endomysial IgA antibodies have over 99% specificity for gluten sensitive enteropathy. IgA Quantitative 230 87 - 352 mg/dL 07/07/2023 2:09 PM UX DESIGN LEAD [facility] ([facility]) Blood BLOOD SPECIMEN / Unknown Lab Venipuncture / Unknown 07/04/2023 9:15 AM UX DESIGN LEAD 07/04/2023 9:19 AM UX DESIGN LEAD Narrative [facility] ([facility]) - 07/07/2023 2:09 PM UX DESIGN LEAD Performed at: [address] [place] [id number] Bin Filler: Jr Be PhD, Phone: [phone] Provider Unknown LAB - CHEMISTRY ORDE OMAR [facility] ([facility]) [address] [place] [address] * HEPATITIS B CORE ANTIBODY TOTAL (07/04/2023 9:15 AM UX DESIGN LEAD) HBc Antibody Total Non-reacti ve Non-reacti ve 07/04/2023 11:23 AM UX DESIGN LEAD [facility] Blood BLOOD SPECIMEN / Unknown Lab Venipuncture / Unknown 07/04/2023 9:15 AM UX DESIGN LEAD 07/04/2023 9:19 AM UX DESIGN LEAD Provider Unknown LAB - CHEMISTRY ORDE OMAR Performing Organization Address City/[facility] Co de Phone Number [address] [address], [facility] [phone] * (ABNORMAL) HEPATITIS A ANTIBODY (07/04/2023 9:15 AM UX DESIGN LEAD) Pathologist [facility] Hepatitis A Virus Antibody Total Positive( A) Negative 07/05/2023 5:04 PM UX DESIGN LEAD [facility] ([facility]) Comment: The positive anti-HAV is consistent with recent or remote Hepatitis A infection or antibody response to HAV vaccination. False positive anti-HAV can occur. Performed By: [facility] [address] [place] [address] Melter Clerk: Iker Fraga MD, PhD CLIA Number: [id number] Blood BLOOD SPECIMEN / Unknown Lab Venipuncture / Unknown 07/04/2023 9:15 AM UX DESIGN LEAD 07/04/2023 9:19 AM UX DESIGN LEAD Provider Unknown LAB - CHEMISTRY ORDE OMRA Performing Organization Address City/[facility]/ZIP Co de Phone Number [facility]) [address] [place] [address] * CT SINUS WO CONTRAST (04/28/2023 1:22 PM UX DESIGN LEAD) Anatomical Region Laterality Modality Head Computed Tomogra phy 04/28/2023 3:19 PM UX DESIGN LEAD Impressions 04/28/2023 3:22 PM UX DESIGN LEAD IMPRESSION: 1. No acute facial bone fractures identified. 2. Mild left preseptal periorbital soft tissue swelling, which could represent mild cellulitis. 3. Mild mucosal thickening in the dependent portion of the left maxillary sinus. The paranasal sinuses are otherwise clear. > Interpreting Provider: Loan Meyer MD on 04/28/2023 3:22 PM Narrative 04/28/2023 3:22 PM UX DESIGN LEAD PROCEDURE: CT SINUS WO CONTRAST, DATE/TIME OF EXAM: 04/28/2023 1:22 PM, LOCATION [facility] INDICATION: R49.0: Hoarseness J38.1: Malika's edema of [...] CONTRAST, DATE/TIME OF EXAM: 04/28/2023 1:22PM, LOCATION [facility] INDICATION: R49.0: Hoarseness J38.1: Malika's edema of [...] ANGIOTENSIN CONVERTING ENZYME BLOOD (04/25/2023 11:59 AM UX DESIGN LEAD) Only the most recent of2 resultswithin the time period is included. Angiotensin-Conv erting Enzyme 39 9 - 67 U/L [facility] Comment: Test Performed at: [facility] [place] [id number] [place] [phone] ASIF BLACKWOOD MD Blood BLOOD SPECIMEN / Unknown 04/25/2023 11:59 AM UX DESIGN LEAD 04/25/2023 12:00 PM UX DESIGN LEAD Mikala العلي MD LAB - CHEMISTRY MICHAEL NELSON [facility] [address] [place] [address] * UT LARYNGOSCOPY,FLEX FIBER,DIAGNOSTIC (04/14/2023 1:20 PM UX DESIGN LEAD) Narrative Vinny Milner MD - 04/14/2023 1:20 PM UX DESIGN LEAD Vinny Milner MD 04/14/2023 1:24 PM Due [...] Milner MD PROCEDURE/MINOR LAINEZ RGICAL ORDERABLES * UT LARYNGOSCOPY,FLEX FIBER,DIAGNOSTIC (10/28/2022 3:37 PM CDT) Narrative [...] Milner MD PROCEDURE/MINOR LAINEZ RGICAL ORDERABLES * UT LARYNGOSCOPY,FLEX FIBER,DIAGNOSTIC (08/01/2022 9:23 AM CDT) Narrative Larisa Segura MD - 08/01/2022 9:23 AM CDT Larisa Segura MD 08/01/2022 9:31 AM Due to [...] ORDERABLES * QUANTIFERON TB-GOLD (07/15/2022 3:46 PM UX DESIGN LEAD) Only the most recent of2 resultswithin the [...] BLOOD SPECIMEN / Unknown 07/15/2022 3:46 PM UX DESIGN LEAD 07/15/2022 Narrative Resulting Agency Comment Lab Testing performed at: [facility] [address] [place] [phone] Mikala العلي MD LAB - CHEMISTRY MICHAEL NELSON [facility] Organization Address City/State/ZIP Co de Phone Number [facility] ACCOUNT BILL [address] [place] [address] * HEPATITIS SCREEN ACUTE ([facility]) (07/15/2022 3:45 PM UX DESIGN LEAD) Pathologist [facility] Hepatitis A Virus Antibody IgM Negative Negative [facility] INSURANCE BILL Hepatitis B Virus Surface Antigen Negative Negative [facility] INSURANCE BILL Hepatitis B Core Virus Antibody IgM Negative Negative [facility] INSURANCE BILL Hepatitis C Antibody Non Reactive Non Reactive [facility] INSURANCE BILL Blood BLOOD SPECIMEN / Unknown 07/15/2022 3:45 PM UX DESIGN LEAD 07/15/2022 Narrative Resulting Agency Comment Lab Testing performed at: [facility] [place] [address] [facility] [phone] Mikala العلي MD LAB - CHEMISTRY ORDE RABLES [facility] INSURANCE BILL [address] [place] [address] * INTERPRETATION REFLEXED (07/15/2022 3:45 PM UX DESIGN LEAD) Interpretation [facility] INSURANCE BILL Comment: Not infected with HCV unless early or acute infection is suspected (which may be delayed in an immunocompromised individual), or other evidence exists to indicate HCV infection. 07/15/2022 3:45 PM UX DESIGN LEAD 07/15/2022 Narrative Resulting Agency Comment Lab Testing performed at: [facility] [place] [address] [place] [phone] Mikala العلي MD LAB - SEROLOGY ORDER OLAMIDE Performing Organization Address [facility] Co de Phone Number [facility] INSURANCE BILL [address] [place] [address] * VITAMIN D 25-HYDROXY (07/15/2022 3:45 PM UX DESIGN LEAD) Only the most recent of2 resultswithin the time period is included. Vitamin D, 25 Hydroxy 45.9 30.0 - 100.0 ng/mL [facility] ACCOUNT BILL Comment: Vitamin D deficiency has been defined by the [place] of [employer] and an Endocrine Society practice guideline as a level of serum 25-OH vitamin D less than 20 ng/mL (1,2). The Endocrine Society went on to further define vitamin D insufficiency as a level between 21 and 29 ng/mL (2). 1. IOM ([place] of Medicine). 2010. Dietary reference intakes for calcium and D. [place]brahim [place]: The National Academies Press. 2. Julianne MF, Madeline BENITO, Kieran JAIME, et al. Evaluation, treatment, and prevention of vitamin D deficiency: an Endocrine Society clinical practice guideline. JCEM. 2010; 96(7):1911-30. Blood BLOOD SPECIMEN / Unknown 07/15/2022 3:45 PM UX DESIGN LEAD 07/15/2022 Narrative Resulting Agency Comment Lab Testing performed at: [facility] [place] [address] [place] [phone] Mikala العلي MD LAB - CHEMISTRY MICHAEL NELSON [facility] ACCOUNT BILL [address] [place] [address] * LAB (02/12/2022) Only the most recent [...] up testing of positive sera with both UT-3 and MPO-ANCA enzyme immunoassays. As many as [...] Resulting Agency Comment Lab Testing performed at: [facility] [address] [phone] Mikala العلي MD LAB - CHEMISTRY MICHAEL NELSON [facility] INSURANCE BILL [address] [place] [address] * AUDIOLOGY/TYMPANOMETRY ORDER (09/06/2021 11:17 AM CDT) [...] hearing is suspected. Anna Arechiga. CCC-A Clinical Assistant Clinical Director [facility]-Department of Otolaryngology/[facility] [address] [place] [address] Gely Castillo AUDIOLOGY SERVICES O RDERABLES * UT MSR PVR U&/BLADD CAPCTY US NON (04/12/2021 11:59 AM UX DESIGN LEAD) Myah Middleton - 04/12/2021 11:59 AM UX DESIGN LEAD Myah Callahan 04/12/2021 12:00 PM PVR = 18 mL Courtney Palumbo DO PROCEDURE/MINOR LAINEZ RGICAL ORDERABLES * PROC UROFLOWMETRY (04/12/2021 11:59 AM UX DESIGN LEAD) Myah Middleton - 04/12/2021 11:59 AM UX DESIGN LEAD Myah Callahan 04/12/2021 11:59 AM Voided Volume (mL) = 241 (Qmax - mL/s) = 19 Avg. Flow (Qavg - mL/s) = 11 Voided Time (s) = 22 Flow Time (s) = 22 Time to Peak (s) = 6 Hesitancy (s) = 0 Courtney Palumbo DO PROCEDURE/MINOR LAINEZ RGICAL ORDERABLES * UT CYSTOURETHROSCOPY (04/12/2021 11:50 AM UX DESIGN LEAD) Narrative Courtney Palumbo DO - 04/12/2021 11:50 AM UX DESIGN LEAD Courtney Palumbo DO 04/12/2021 12:04 PM DOS [...] ORDERABLES * CULTURE URINE (03/22/2021 11:33 AM UX DESIGN LEAD) Culture [facility] Comment: CULTURE, URINE, ROUTINE Micro Number: [id number] Test Status: Final Specimen Source: Urine, clean catch Specimen Quality: Adequate Result: No Growth Test Performed at: [facility] [address] ASIF BLACKWOOD MD 03/22/2021 11:3 3 AM UX DESIGN LEAD 03/23/2021 5:29 AM UX DESIGN LEAD Courtney Ray [facility] - MICROBIOLOGY ORDERABLES [address] [address] * CT UROGRAM (03/21/2021 11:15 AM UX DESIGN LEAD) Anatomical Region Laterality Modality Abdomen, Pelvis Computed Tomogra phy 03/21/2021 2:06 PM UX DESIGN LEAD Impressions 03/21/2021 5:08 PM UX DESIGN LEAD Impression: 1.The CT urography shows features suggestive [...] 5:08 PM . Narrative 03/21/2021 5:08 PM UX DESIGN LEAD Procedure Information DATE: 03/21/2021 11:16 AM EXAMINATION: [...] MD, FRCR on 03/21/2021 5:08 PM . [facility] ORDERABLES * CREATININE - POCT INTERFACED (03/21/2021 10:48 AM UX DESIGN LEAD) Creatinine POCT 0.65 0.30 - 1.30 mg/dL 03/21/2021 10:50 AM [facility] eGFR >60 >60 mL/min/1.7 3 m2 03/21/2021 10:50 AM [facility] Blood BLOOD SPECIMEN / Unknown 03/21/2021 10:48 AM UX DESIGN LEAD 03/21/2021 10:50 AM UX DESIGN LEAD Courtney Palumbo DO LAB - POINT OF CAR E ORDERABLES [facility] [address] [place] [address], [facility] [phone] * LAB RESULTS ORDER (03/13/2021) Only the most recent of2 resultswithin the time period is included. 03/13/2021 Narrative 03/13/2021 Ordered by an unspecified provider. Scanned Document LAB - THERAPEUTIC DR BERTA MONITORING ORDERABLES * URINALYSIS W/MICROSCOPIC NO CULTURE (03/08/2021 9:33 AM CDT) Pathologist [facility] Color UA YELLOW YELLOW [facility] Appearance CLEAR CLEAR [facility] Specific [place] UA 1.004 1.001 - 1.035 [facility] pH [...] SEEN /LPF [facility] Comment: Test Performed at: [facility] [address] ASIF BLACKWOOD MD 03/08/2021 9:33 AM CDT 03/09/2021 5:13 AM CDT Courtney M Linwood DO LAB - URINALYSIS O RDERABLES [facility] [address] [place] [address] * EARLY SJOGREN'S SYNDROME PROFILE (11/22/2020 10:48 [...] in primary sjogren's syndrome. J Immunol; 185: 3210-5240. Aline Dias et al. (2012). Novel autoantibodies in Sjogren's syndrome. Clinical Immunology;145, 251-255. *This test has been developed and performance parameters have been validated by [employer]. This test has not been approved by the U.S. Food and Drug Administration (FDA); however, US FDA approval is not required for clinical use. It is not intended that clinical diagnosis and patient management decisions be made using these results alone. This test has been validated using serum samples. The stationary fireman has not determined the efficacy of this test when performed on CSF, plasma, joint or pleural fluid specimens. The performance characteristics of this test were determined by [employer]. Blood BLOOD SPECIMEN / Unknown 11/22/2020 10:48 AM CDT 11/22/2020 Narrative Resulting Agency Comment Lab Testing performed at: [facility] [address] [place] [phone] Mikala العلي MD LAB - SEROLOGY ORDER OLAMIDE [facility] INSURANCE [place]ILL [address] [place] [address] * IGG SUBCLASSES PANEL (11/22/2020 10:48 AM [...] Resulting Agency Comment Lab Testing performed [facility]: [facility] [address] [place] [phone] Mikala العلي MD LAB - CHEMISTRY MICHAEL NELSON Performing Organization Address City/[facility]/ZIP Co de Phone Number [facility] INSURANCE BILL [address] [place] [address] * TRYPTASE (11/22/2020 10:48 AM CDT) Pathologist [facility] Tryptase 6.9 2.2 - 13.2 ug/L [facility] INSURANCE BILL Blood BLOOD SPECIMEN / Unknown 11/22/2020 10:48 AM CDT 11/22/2020 Narrative Resulting Agency Comment Lab Testing performed at: [facility] [phone] Mikala العلي MD LAB - CHEMISTRY MICHAEL NELSON Performing Organization Address City/[facility]/ZIP Co de Phone Number [facility] INSURANCE BILL [address] [place] [address] * CYTOMEGALOVIRUS QUAL PCR (11/22/2020 10:47 AM CDT) Pathologist [facility] Cytomegalovirus Detection PCR Negative Negative [facility] INSURANCE BILL Comment: No Cytomegalovirus DNA Detected. This test was developed and its performance characteristics determined by [email or web address]. It has not been cleared or approved by the Food and Drug Administration. The FDA has determined that such clearance or approval is not necessary. Microbiology BLOOD SPECIMEN / Unknown 11/22/2020 10:47 AM CDT 11/22/2020 Narrative Resulting Agency Comment Lab Testing performed at: [facility] [address] [phone] Mikala العلي MD LAB - BODY FLUID ORD ERABLES [facility] INSURANCE BILL [address] [place] [address] * URINALYSIS MICROSCOPIC ONLY REFLEXED (11/22/2020 10:46 [...] Agency Comment Lab Testing performed at: [facility] [address] [place] [phone] Mikala العلي MD LAB - URINALYSIS ORD ERABLES Performing Organization Address City/[facility]/ZIP Co de Phone Number [facility] INSURANCE BILL [address] [place] [address] * URINALYSIS REFLEX MICROSCOPIC REFLEX CULTURE (11/22/2020 10:46 AM CDT) Only the most recent of2 resultswithin the time period is included. Specific [place] UA 1.012 1.005 - 1.030 [facility] INSURANCE [...] Resulting Agency Comment Lab Testing performed at: [email or web address] [address] [place] [phone] Mikala العلي MD LAB - URINALYSIS ORD ERABLES [facility] INSURANCE BILL [address] [place] [address] * XR WRIST BILAT 3VW OR MORE [...] Resulting Agency Comment Lab Testing performed at: [email or web address] [phone] Mikala العلي MD LAB - SEROLOGY ORDER OLAMIDE [facility] INSURANCE BILL [address] [place] [address] * URIC ACID BLOOD (10/11/2020 2:20 PM CDT) Uric Acid 3.0 2.6 - 6.2 mg/dL [facility] INSURANCE BILL Comment:Therapeutic target f or gout patients: <6.0 Blood BLOOD SPECIMEN / Unknown 10/11/2020 2:20 PM CDT 10/11/2020 Narrative Resulting Agency Comment Lab Testing performed at: [email or web address] [address] [place] [id number] Mikala العلي MD LAB - CHEMISTRY ORDE RABLES Performing Organization Address City/[facility]/ZIP Co de Phone Number [facility] INSURANCE BILL [address] [place] [address] * CARDIOLIPIN ANTIBODY IGG/IGM PANEL (10/11/2020 2:20 PM CDT) Pathologist [facility] Cardiolipin Antibody IgG <9 0 - 14 [...] Resulting Agency Comment Lab Testing performed at: [email or web address] [address] [place] [phone] Mikala العلي MD LAB - SEROLOGY ORDER OLAMIDE Performing Organization Address [facility] Co de Phone Number [facility] INSURANCE BILL [address] [place] [address] * LUPUS ANTICOAGULANT PANEL W RFLX (10/11/2020 2:20 PM CDT) Pathologist [facility] PTT-LA 33.7 0.0 - 51.9 sec [facility] INSURANCE BILL dRVVT 28.3 0.0 - 47.0 sec [facility] INSURANCE BILL Interpretation Comment: [facility] INSURANCE BILL Comment:No lupus anticoagula nt was detected. Blood BLOOD SPECIMEN / Unknown 10/11/2020 2:20 PM CDT 10/11/2020 Narrative Resulting Agency Comment Lab Testing performed at: [email or web address] [phone] Mikala العلي MD LAB - HEMATOLOGY ORD ERABLES Performing Organization Address City/[facility]/ZIP Co de Phone Number [facility] INSURANCE BILL [address] [place] [address] * RHEUMATOID FACTOR BLOOD QUANTITATIVE (10/11/2020 2:20 PM CDT) Pathologist [facility] Rheumatoid Factor <10.0 0.0 - 13.9 IU/mL [facility] INSURANCE BILL Blood BLOOD SPECIMEN / Unknown 10/11/2020 2:20 PM CDT 10/11/2020 Narrative Resulting Agency Comment Lab Testing performed at: [facility] [address] [place] [phone] Mikala العلي MD LAB - CHEMISTRY MICHAEL NELSON Performing Organization Address City/[facility]/ZIP Co de Phone Number [facility] INSURANCE BILL [address] [place] [address] * HOLDEN BLOOD SCREEN W/REFLEX TITER (10/11/2020 2:20 PM CDT) Pathologist [facility] HOLDEN Negative [facility] INSURANCE BILL Comment: Negative <1:80 Borderline 1:80 Positive >1:80 Blood BLOOD SPECIMEN / Unknown 10/11/2020 2:20 PM CDT 10/11/2020 Narrative Resulting Agency Comment Lab Testing performed at: [facility] [address] [place] [phone] Mikala العلي MD LAB - CHEMISTRY MICHAEL NELSON [facility] INSURANCE BILL [address] [place] [address] * NIES ANTIBODY PANEL (10/11/2020 2:20 PM CDT) Pathologist [facility] PROFESSIONAL SKATEBOARDER Antibody 0.3 0.0 - 0.9 AI [facility] INSURANCE BILL Holm (INES) Antibody <0.2 0.0 - 0.9 AI [facility] INSURANCE BILL Sjogren's Antibodies (SSA) <0.2 0.0 - 0.9 AI [facility] INSURANCE BILL Sjogren's Antibodies (SSB) <0.2 0.0 - 0.9 AI [facility] INSURANCE BILL Blood BLOOD SPECIMEN / Unknown 10/11/2020 2:20 PM CDT 10/11/2020 Narrative Resulting Agency Comment Lab Testing performed at: [facility] [address] [place] [phone] Mikala العلي MD LAB - CHEMISTRY MICHAEL NELSON Performing Organization Address [facility] de Phone Number [facility] INSURANCE BILL [address] [place] [address] * BETA-2 GLYCOPROTEIN 1 ANTIBODY IGG/IGM PANEL (10/11/2020 2:20 PM CDT) Beta-2 Glycoprotein I Antibody IgG <9 0 - 20 GPI IgG units [facility] Comment: The reference interval reflects a 3SD or 99th percentile interval, which is thought to represent a potentially clinically significant result in accordance with the International Consensus Statement on the classification criteria for definitive antiphospholipid syndrome (APS). J Thromb Haem 2006;4:295-306. Beta-2 Glycoprotein I Antibody IgM <9 0 - 32 GPI IgM units [facility] Comment: The reference interval reflects a 3SD or 99th percentile interval, which is thought to represent a potentially clinically significant result in accordance with the International Consensus Statement on the classification criteria for definitive antiphospholipid syndrome (APS). J Thromb Haem 2006;4:295-306. Blood BLOOD SPECIMEN / Unknown 10/11/2020 2:20 PM CDT 10/11/2020 Narrative Resulting Agency Comment Lab Testing performed at: Lab[address] [phone] Mikala العلي MD LAB - CHEMISTRY MICHAEL NELSON Performing Organization Address [facility] Co de Phone Number [facility] INSURANCE BILL [address] [place] [address] * HLA TYPING B27 (10/11/2020 2:19 PM CDT) HLA-B27 Negative [facility] Comment: HLA-B*27 Negative B27 allele interpretation for all loci based on IMGT/HLA database version 3.38 This test was developed and its performance characteristics determined by [employer]. It has not been cleared or approved by the Food and Drug Administration. [facility] CLIA ID Number [id number] . This test was performed using PCR [...] Resulting Agency Comment Lab Testing performed [facility]: [facility] [address] [facility] [phone] Mikala العلي MD LAB - CHEMISTRY MICHAEL NELSON [facility] INSURANCE BILL [address] [place] [address] Care Teams Geothermal Field Technician Relationship Specialty Start Date End Date Jeff Duque MD [address] [facility] [address] [place] [address] PCP - General 08/30/21 Jeff Duque MD [address] [facility] [address] [place] [address] Family Medicine 08/30/21
--- OUTSIDE RECORDS SUMMARY | 2024-07-20 20:44 | XMS_ITS | Referral Summary ---
Author Organization [facility] Address [address] [facility] [place] [address] Care Team Providers Care Appliance Parts Counter Clerk Name Role Phone Jeff Duque MD Primary Care Provider [phone] Jeff Duque MD Unavailable Source Comments [facility],non-owned Affiliates and Associated Physician Practices is amultiple site organization consisting of ambulatory clinics and hospital sitesin [place], [place], [place] and [place]. This disclosure is being madepursuant to the Care Everywhere program and may not contain all information available regarding this patient. Last updated 18.[facility] Encounters Date Type Department Care Team Description 07/12/2024 3:00 PM TRAVEL GUIDE Office Visit [facility] - Rheumatology [address], [address] [place] [address] Mikala العلي MD 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 factor (HCC) (Primary Dx) 07/08/2024 Telephone [facility] - Rheumatology [address], [address] [place] [address] Mikala العلي MD Appointment 07/06/2024 Travel 07/06/2024 1:00 PM TRAVEL GUIDE Office Visit [facility] - Family Medicine [address] [place] [address] [place] [address] Darion Camp MD Pain of both hip joints (Primary Dx) 07/05/2024 Travel 07/05/2024 3:30 PM TRAVEL GUIDE Office Visit [facility] - GI [address] [place] [phone] Generalized abdominal pain (Primary Dx) 06/17/2024 11:00 AM TRAVEL GUIDE Clinical Support [facility] - Ophthalmology [address] [place] [phone] Jose Newby MD Long-term use of Plaquenil (Primary Dx) 06/17/2024 10:25 AM TRAVEL GUIDE Clinical Support [facility] - Ophthalmology [address] [place] [phone] Jose Newby MD Long-term use of Plaquenil (Primary Dx) 06/17/2024 10:20 AM TRAVEL GUIDE Clinical Support [facility] - Ophthalmology [address] [place] [phone] Jose Newby MD Long-term use of Plaquenil (Primary Dx) 06/17/2024 10:30 AM TRAVEL GUIDE Office Visit [facility] - Ophthalmology [address] [place] [phone] Jose Newby MD Long-term use of Plaquenil (Primary Dx); Diabetes mellitus without ophthalmic manifestations (HCC) 06/15/2024 12:32 PM TRAVEL GUIDE - 06/15/2024 11:59 PM TRAVEL GUIDE Hospital Encounter [facility] [address] [place] [address] Frantz Nicole MD Discharge Disposition: Home or Self Care 06/15/2024 12:31 PM TRAVEL GUIDE Hospital Encounter [facility] [address] [place] [address] Frantz Nicole MD Discharge Disposition: Home or Self Care 06/15/2024 11:19 AM TRAVEL GUIDE - 06/15/2024 12:30 PM TRAVEL GUIDE Hospital Encounter [facility] [address] [facility] [place] [address] Frantz Nicole MD Discharge Disposition: Home or Self Care 06/15/2024 Travel 06/15/2024 10:30 AM TRAVEL GUIDE Office Visit [facility] - Orthopedics [address] [place] [phone] Frantz Nicole MD Low back pain, unspecified back pain laterality, unspecified chronicity, unspecified whether sciatica present (Primary Dx); Groin pain, right 06/14/2024 Orders Only [facility] - Orthopedics [address] [place] [phone] Frantz Nicole MD Low back pain, unspecified back pain laterality, unspecified chronicity, unspecified whether sciatica present 06/03/2024 Travel 06/03/2024 2:00 PM TRAVEL GUIDE Office Visit [facility] - Allergy [address] [place] [phone] Eleno Montoya MD Non-seasonal allergic rhinitis due to other allergic trigger (Primary Dx); Angioedema, subsequent encounter; Asthma-COPD overlap syndrome (HCC) 05/24/2024 Telephone [facility] Medical [facility] - Rheumatology [address] [place] [address], [address] [place] [address] Mikala العلي MD Medication Problem 05/21/2024 12:00 PM TRAVEL GUIDE Clinical Support [facility] - Ophthalmology [address] [place] [phone] Reina Beckford MD Retinal lesion of both eyes (Primary Dx) 05/21/2024 11:00 AM TRAVEL GUIDE Clinical Support [facility] - Ophthalmology [address] [place] [phone] Reina Beckford MD Retinal lesion of both eyes (Primary Dx); Choroiditis of both eyes 05/21/2024 10:55 AM TRAVEL GUIDE Clinical Support [facility] - Ophthalmology [address] [place] [phone] Reina Beckford MD Choroiditis of both eyes (Primary Dx) 05/21/2024 8:50 AM TRAVEL GUIDE Clinical Support [facility] - Ophthalmology [address] [place] [phone] Reina Beckford MD Retinal lesion of both eyes (Primary Dx); Choroiditis of both eyes 05/21/2024 Travel 05/21/2024 9:15 AM TRAVEL GUIDE Office Visit [facility] - Ophthalmology [address] [place] [phone] Reina Beckford MD Retinal lesion of both eyes (Primary Dx); Diabetes mellitus without ophthalmic manifestations (HCC) 05/18/2024 Travel 05/18/2024 1:20 PM TRAVEL GUIDE Office Visit [facility] - Dermatology [address] [place] [phone] Torie Holm MD Lupus erythematosus tumidus (Primary [...] fluticasone propionate (Flonase) 50 MCG/ACT nasal spray [place] 2 (two) sprays into each nostril once [...] Active famotidine (Pepcid) 20 MG tabletIndications :Urticaria,angioe shelya Take 1 (one) tablet by mouth 2 [...] file Gender Identity Female 05/10/2021 10:24 PM TRAVEL GUIDE Sexual Orientation Not on file Last Filed Vital Signs Vital Sign Reading Time Taken Comments Blood Pressure 126/82 07/12/2024 3:00 PM TRAVEL GUIDE Pulse 90 07/12/2024 3:00 PM TRAVEL GUIDE Temperature 36.3 C (97.3 F) 07/12/2024 3:00 PM TRAVEL GUIDE Respiratory Rate 16 07/12/2024 3:00 PM TRAVEL GUIDE Oxygen Saturation 95% 07/12/2024 3:00 PM TRAVEL GUIDE Inhaled Oxygen Concentration - - Weight 83 kg (183 lb) 07/12/2024 3:00 PM TRAVEL GUIDE Height 170.2 cm (5' 7 ) 07/06/2024 1:24 PM TRAVEL GUIDE Body Mass Index 28.66 07/06/2024 1:24 PM TRAVEL GUIDE Functional Status Functional Status Response Date of [...] Office Visit [facility] - Allergy [address] [place] [phone] Eleno Montoya MD [address] [place] [address] 08/17/2024 11:30 AM CDT Office Visit [facility] - Orthopedics [address] [place] [phone] Frantz Nicole MD [facility] [place] [address] 08/19/2024 10:30 AM CDT Office Visit [facility] - Neurology [address] [place] [phone] Moiz Briones, GREETER GUEST SERVICES-HABILITATION WORKER [address] [place] [address] [address] [place] [phone] 08/19/2024 11:20 AM CDT Office Visit [facility] - Endocrinology [address] [place] [phone] Naseem Garcia MD [address] [place] [address] [address] [place] [phone] 10/21/2024 10:00 AM CDT Office Visit [facility] - ENT [address] [place] [phone] Vinny Milner MD [address] [place] [address] [place] [address] 11/01/2024 3:20 PM CDT Office Visit [facility] - Rheumatology [address] [place] [address], [address] [place] [phone] Mikala العلي MD [address] [place] [phone] 11/16/2024 1:00 PM CDT Office Visit [facility] - Dermatology [address] [place] [phone] Torie Holm MD [address] [place] [address] [place] [phone] 11/19/2024 9:45 AM CDT Office Visit [facility] - Ophthalmology [address] [place] [address], [place] [phone] Reina Beckford MD [address] [place] [address] [place] [phone] 01/20/2025 10:00 AM CDT Office Visit [facility] - Ophthalmology [address] [place] [phone] Jose Newby MD [address] [place] [address] [place] [phone] 01/24/2025 3:00 PM CDT Office Visit [facility] - GI [address] [place] [phone] Goals Goal Patient Goal Type Associated Problems Recent Progress Patient-Stated? Author Medication Management General On track( 025 3:22 PM TRAVEL GUIDE) Melonie Castillo, RN Note: Expected end date: Ongoing Interventions: Take all medications as prescribed Let your doctor know right away about any changes in your medications Make sure to request a refill of your medication at least one week prior to your last dose Procedures Procedure Name Priority Date/Time Associated Diagnosis Comments [place] DRAIN INJ MAJOR JOINT BURSA W US Routine 07/06/2024 1:53 PM TRAVEL GUIDE Pain of both hip joints FUNDUS PHOTO BOTH EYES Routine 11:00 AM TRAVEL GUIDE Long-term use of Plaquenil DORMAN AUTO VISUAL FIELD EXTENDED Routine 06/17/2024 10:17 AM TRAVEL GUIDE Long-term use of Plaquenil RETINAL ANALYSIS OCT Routine 06/17/2024 10:17 AM TRAVEL GUIDE Long-term use of Plaquenil XR HIP RIGHT 2VW OR MORE Routine 06/15/2024 12:42 PM TRAVEL GUIDE Groin pain, right XR HIP LEFT 2VW OR MORE Routine 06/15/2024 12:42 PM TRAVEL GUIDE Groin pain, right XR LUMBAR SPINE 2 OR 3VW Routine 06/15/2024 11:26 AM TRAVEL GUIDE Low back pain, unspecified back pain laterality, unspecified chronicity, unspecified whether sciatica present FA ICG ANGIOGRAPHY Routine 05/21/2024 11 :56 AM TRAVEL GUIDE Retinal lesion of both eyes FUNDUS PHOTO BOTH EYES Routine 10:51 AM TRAVEL GUIDE Retinal lesion of both eyes RETINAL ANALYSIS OCT Routine 05/21/2024 8:50 AM TRAVEL GUIDE Retinal lesion of both eyes ENDOSCOPY, COLON, DIAGNOSTIC Routine 01/13/2024 11:04 AM CDT COMPREHENSIVE METABOLIC PANEL Routine 11/18/2023 8:13 AM CDT 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 factor (HCC) HEPATITIS SCREEN ACUTE Routine 8:13 AM CDT 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 factor (HCC) from Last 3 Months or Most Recently Relevant to Health Maintenance Results * [place] DRAIN INJ MAJOR JOINT BURSA W US (07/06/2024 1:53 PM TRAVEL GUIDE) Narrative Darion Camp MD - 07/06/2024 1:53 PM TRAVEL GUIDE Darion Camp MD 07/07/2024 5:11 PM U/S-GUIDED [...] FUNDUS PHOTO BOTH EYES (06/17/2024 11:00 AM TRAVEL GUIDE) Anatomical Region Laterality Modality Head External-Camera Photography Narrative 06/17/2024 12:40 PM TRAVEL GUIDE Images from the original result were not included. Jose Newby MD OPHTHALMOLOGY SCHED ORD W PACS * DORMAN AUTO VISUAL FIELD EXTENDED (06/17/2024 10:17 AM TRAVEL GUIDE) Anatomical Region Laterality Modality Head External-Camera Photography Narrative 06/17/2024 12:40 PM TRAVEL GUIDE Images from the original result were not included. Jose Newby MD OPHTHALMOLOGY SCHED ORD W PACS * RETINAL ANALYSIS OCT (06/17/2024 10:17 AM TRAVEL GUIDE) Anatomical Region Laterality Modality Head External-Camera Photography Narrative 06/17/2024 12:32 PM TRAVEL GUIDE Images from the original result were not included. Jose Newby MD OPHTHALMOLOGY SCHED ORD W PACS * XR Hip Right 2Vw or More (06/15/2024 12:42 PM TRAVEL GUIDE) Anatomical Region Laterality Modality Pelvis, Lower Extremity Computed Radiography 06/15/2024 2:24 PM TRAVEL GUIDE Impressions 06/15/2024 2:27 PM TRAVEL GUIDE IMPRESSION: No acute osseous abnormality. Mild degenerative changes. Report dictated by Won Pastrana MD (outside residential sales professional). I, Risa No MD have personally reviewed and interpreted this examination/study. > Interpreting Provider: Risa No MD on 06/15/2024 2:27 PM Narrative 06/15/2024 2:27 PM TRAVEL GUIDE PROCEDURE: XR HIP RIGHT 2VW OR MORE, DATE/TIME OF EXAM: 06/15/2024 12:43 PM, LOCATION [facility] INDICATION: R10.31: Groin pain, right ADDITIONAL [...] DATE/TIME OF EXAM: 06/15/2024 12:43 PM, LOCATION [facility] INDICATION: R10.31: Groin pain, right ADDITIONAL CLINICAL INFORMATION: Ordering Provider Reason For Exam: right hip pain COMPARISON: None. FINDINGS: No acute fracture or dislocation. Mild degenerative changes smallspurring along the lateral acetabular margin. The hip joint space is preserved.Bone density and texture are normal. IMPRESSION: No acute osseous abnormality. Mild degenerative changes. Report dictated by Won Pastrana MD (outside residential sales professional). Risa [place] MD have personally reviewed and interpreted this examination/study. > Interpreting Provider: Risa No MD on 06/15/2024 2:27 PM Frantz Nicole MD DIAGNOSTIC IMAGING O RDERABLES * XR Hip Left 2Vw or More (06/15/2024 12:42 PM TRAVEL GUIDE) Anatomical Region Laterality Modality Pelvis, Lower Extremity Computed Radiography 06/15/2024 2:23 PM TRAVEL GUIDE Impressions 06/15/2024 2:28 PM TRAVEL GUIDE IMPRESSION: No acute osseous abnormality. Mild degenerative changes. Report dictated by Won Pastrana MD (outside residential sales professional). Risa Prescott MD have personally reviewed and interpreted this examination/study. > Interpreting Provider: Risa No MD on 06/15/2024 2:28 PM Narrative 06/15/2024 2:28 PM TRAVEL GUIDE PROCEDURE: XR HIP LEFT 2VW OR MORE, DATE/TIME OF EXAM: 06/15/2024 12:42 PM, LOCATION [facility] INDICATION: R10.31: Groin pain, right ADDITIONAL [...] MORE, DATE/TIME OF EXAM: 06/15/2024 12:42PM, LOCATION [facility] INDICATION: R10.31: Groin pain, right ADDITIONAL CLINICAL INFORMATION: Ordering Provider Reason For Exam: left hip pain COMPARISON: None. FINDINGS: No acute fracture or dislocation. Mild degenerative changes with small osteophytosis along the superior acetabular margin. The hip joint spaceis preserved. Bone density is normal. IMPRESSION: No acute osseous abnormality. Mild degenerative changes. Report dictated by Won Pastrana MD (outside residential sales professional). Risa Prescott MD have personally reviewed and interpreted this examination/study. > Interpreting Provider: Risa No MD on 06/15/2024 2:28 PM Frantz Nicole MD DIAGNOSTIC IMAGING O RDERABLES * XR Lumbar Spine 2 or 3Vw (06/15/2024 11:26 AM TRAVEL GUIDE) Anatomical Region Laterality Modality Spine Computed Radiogr aphy 06/15/2024 11:5 1 AM TRAVEL GUIDE Impressions 06/15/2024 1:00 PM TRAVEL GUIDE IMPRESSION: Grade 1 anterolisthesis of L5 on S1, unchanged. Mild multilevel degenerative changes. Report dictated by Won Pastrana MD, (outside residential sales professional). Risa Prescott MD have personally reviewed and interpreted this examination/study. > Interpreting Provider: Risa No MD on 06/15/2024 1:00 PM Narrative 06/15/2024 1:00 PM TRAVEL GUIDE PROCEDURE: XR LUMBAR SPINE 2 OR 3VW, DATE/TIME OF EXAM: 06/15/2024 11:26 AM, LOCATION [facility] INDICATION: M54.50: Low back pain, unspecified [...] DATE/TIME OF EXAM: 06/15/2024 11:26 AM, LOCATION [facility] INDICATION: M54.50: Low back pain, unspecified [...] changes. Report dictated by Won Pastrana MD, (outside residential sales professional). I, Risa No MD have personally reviewed and interpreted this examination/study. > Interpreting Provider: Risa No MD on 06/15/2024 1:00 PM Frantz Nicole MD DIAGNOSTIC IMAGING O RDERABLES * FA ICG ANGIOGRAPHY (05/21/2024 11:56 AM TRAVEL GUIDE) Anatomical Region Laterality Modality Head External-Camera Photography Narrative 05/22/2024 3:51 PM TRAVEL GUIDE Images from the original result were not included. indocyanine green angiography (05/21/2024) - no hypocyanescence seen in late stage- these findings confirm no choroiditis where lesions are seen in retina Fluorescein Angiography (05/21/2024) - no vascular leakage seen Reina Beckford MD OPHTHALMOLOGY SCHED ORD W PACS * FUNDUS PHOTO BOTH EYES (05/21/2024 10:51 AM TRAVEL GUIDE) Anatomical Region Laterality Modality Head External-Camera Photography Narrative 05/22/2024 3:51 PM TRAVEL GUIDE Images from the original result were not included. Fundus photo (05/21/2024) - Yellow stippling seen nasally OU- stable Reina Beckford MD OPHTHALMOLOGY SCHED ORD W PACS * RETINAL ANALYSIS OCT (05/21/2024 8:50 AM TRAVEL GUIDE) Anatomical Region Laterality Modality Head External-Camera Photography Narrative 05/22/2024 3:52 PM TRAVEL GUIDE Images from the original result were not [...] bowel preparation was evaluated using the BBPS ([place] Bowel Preparation Scale) with scores of: Right [...] non-mcfarland portions. Procedure Code(s): --- Professional --- 74476, Colonoscopy, flexible; with removal of tumor(s), polyp(s), or other lesion(s) by snare technique Diagnosis Code(s): --- Professional --- Z12.11, Encounter for screening for malignant neoplasm of colon D12.0, Benign neoplasm of cecum D12.5, Benign neoplasm of sigmoid colon D12.2, Benign neoplasm of ascending colon CPT copyright 2021 [employer]. All rights reserved. The codes documented in this report are preliminary and upon general engineer review may be revised to meet current compliance requirements. Dylan Jessica, 01/13/2024 11:59:59 AM Note Initiated On: 01/13/2024 11:04 AM Number of Addenda: [id number] [place] [address] PROVATION 01/13/2024 11:0 4 AM CDT Dylan Jessica MD GI PROCEDURE O RDERABLES [facility] PROVATION * (ABNORMAL) COMPREHENSIVE METABOLIC PANEL (11/18/2023 [...] 29 U/L [facility] Comment: Test Performed at: [facility] [id number] [place] [address] ASIF BLACKWOOD MD Blood BLOOD SPECIMEN / Unknown 11/18/2023 8:13 AM CDT 11/18/2023 8:14 AM CDT Mikala العلي MD LAB - CHEMISTRY [facility]HAEL NELSON [address] [address] * HEPATITIS SCREEN ACUTE (11/18/2023 8:13 AM CDT) Hepatitis A Virus Antibody IgM NON-REACTI VE NON-REACT [facility] Comment: For additional information, please refer to http://[employer]/faq/MHV145 (This link is being provided for informational/ educational purposes only.) Hepatitis B Virus Surface Antigen NON-REACTI VE NON-REACT [facility] Comment: For additional information, please refer to http://[employer]/faq/VHR628 (This link is being provided for informational/ educational purposes only.) Hepatitis B Core Virus Antibody IgM NON-REACTI VE NON-REACT [facility] Comment: For additional information, please refer to http://[employer]/faq/XSU316 (This link is being provided for informational/ educational purposes only.) Hepatitis C Antibody NON-REACTI VE NON-REACT [facility] Comment: HCV antibody was non-reactive. There is no laboratory evidence of HCV infection. In most cases, no further action is required. However, if recent HCV exposure is suspected, a test for HCV RNA (test code 49541) is suggested. For additional information please refer to http://[employer]/faq/QNS10x8 (This link is being provided for informational/ educational purposes only.) Test Performed at: [facility] [address] [place] [address] ASIF BLACKWOOD MD Blood BLOOD SPECIMEN / Unknown 11/18/2023 8:13 AM CDT 11/18/2023 8:14 AM CDT Mikala العلي MD LAB - CHEMISTRY MICHAEL Rhodes Organization Address City/State/ZIP Co de Phone Number [facility] [address] [place] [address] from Last 3 Months or Most Recently Relevant to Health Maintenance Insurance Payer Benefit Plan / Group Subscriber ID Effective Dates Phone Address Type [facility] MEDICAID [id number] 02/15/2020-Pre sent [address] CLAIMS [address]PARTMENT [address] [place] [address] Medicaid Managed Care [facility] MEDICAID [id number] 02/15/2020-Pre sent 132 ATT[address] CLAIMS DEPARTMENT [address] [place] [address] Medicaid Managed Care [facility] MEDICAID [id number] 02/15/2020-Pre sent 132 ATTN CLAIMS [address]PARTMENT [address] [place] [address] Medicaid Managed Care [facility] MEDICAID [id number] 02/15/2020-Pre sent 132 ATTN CLAIMS DEPARTMENT [address] [place] [address] Medicaid Managed Care [facility] MEDICAID [id number] 02/15/2020-Pre sent 132 ATTN CLAIMS DEPARTMENT [address] [place] [address] Medicaid Managed Care [facility] MEDICAID [id number] 02/15/2020-Pre sent 132 ATTN CLAIMS DEPARTMENT [address] [place] [address] Medicaid Managed Care [facility] MEDICAID [id number] 02/15/2020-Pre sent 132 ATTN CLAIMS DEPARTMENT [address] [place] [address] Medicaid Managed Care [facility] MEDICAID [id number] 02/15/2020-Pre sent 132 ATTN CLAIMS DEPARTMENT [address] [place] [address] [facility] MEDICAID [id number] 02/15/2020-Pre sent ATTN CLAIMS DEPARTMENT [address] [place] [address] [facility] MEDICAID [id number] 02/15/2020-Pre sent ATTN CLAIMS DEPARTMENT [address] [place] [address] [facility] MEDICAID [id number] 11/09/2020-Pres ent ATTN CLAIMS DEPARTMENT [address] [place] [address] Medicaid Managed Care Care Teams Appliance [employer] Counter Clerk Relationship Specialty Start Date End Date Jeff Duque MD [address] [address] PCP - General 08/30/21 Jeff Duque MD [address] [address] Family Medicine 08/30/21
== END 2024-07-20 20:47 | disposition home or self-care (01) ==
LOC: ANHED 20:41
PROVIDERS: Physician Assistant; Emergency Provider Student in an Organized Health Care Education/Training Program; PCP Emergency Medicine
DX: N30.00 Acute cystitis without hematuria (principal); I10 Essential (primary) hypertension; E78.5 Hyperlipidemia, unspecified; E11.9 Type 2 diabetes mellitus without complications; Z79.84 Long term (current) use of oral hypoglycemic drugs
CPT/HCPCS: 36415; 80053; 81001; 81025; 83690; 85025; 87086; 87186; 99283; A9270

== ENCOUNTER 2024-09-27 16:34 | Emergency (ER) | payer OTHER, SELFPAY ==
[2024-09-27 16:43] VITALS: BP 121/72; PULSE 90; RESP 18; TEMP 36.4; O2SAT 96
--- NOTE | 2024-09-27 17:01 | ED_ITS ---
HPI - Ear Problem General Chief complaint: Ear Stated complaint: something in right ear Source: patient Mode of arrival: ambulatory Limitations: no limitations History of Present Illness HPI Narrative: Patient is a 49 year old female who presents to the clinic with complaints of a foreign body in her right ear since today. While patient was sitting in triage, nurse reported that an ant crawled out. She endorses that she has had some pain, but has not taken anything over the counter. Denies any hearing loss. Related Data Home Medications Medication Instructions Recorded Confirmed Last Taken Type metformin 500 mg tablet 500 mg PO DAILY 06/19/20 04/30/21 Unknown History fluticasone propionate 50 1 spray intranasal BID 07/05/20 04/30/21 Unknown History mcg/actuation nasal spray,suspension hydroxychloroquine 200 mg tablet 200 mg PO BID 04/30/21 04/30/21 Unknown History famotidine 40 mg tablet mg 01/28/23 Unknown History gabapentin 300 mg capsule mg 01/28/23 Unknown History ropinirole 0.25 mg tablet 0.25 mg PO DAILY 01/28/23 01/28/23 Unknown History abatacept 125 mg/mL subcutaneous 125 mg subcut WEEKLY 09/27/24 09/27/24 Unknown History syringe (Orencia) azelastine intranasal 09/27/24 Unknown History cetirizine 10 mg tablet (24Hour 10 mg PO DAILY PRN allergy symptoms 09/27/24 09/27/24 Unknown History Allergy) omalizumab 300 mg/2 mL 300 mg subcut ONCE 09/27/24 09/27/24 Unknown History subcutaneous auto-injector (Xolair) sumatriptan succinate 50 mg PO PRN 09/27/24 09/27/24 Unknown History triamcinolone acetonide 0.1 % 1 applic topical BID 09/27/24 09/27/24 Unknown History topical cream Allergies Allergy/AdvReac Type Severity Reaction Status Date / Time omeprazole Allergy Hives Verified 09/27/24 17:06 Review of Systems Review of Systems: CONSTITUTIONAL: Denies malaise, chills, or fever.EYES: Denies visual changes, redness, or discharge. ENT: Denies rhinorrhea, congestion, sinus pain, and sore throat. Reports right ear pain. CARDIOVASCULAR: Denies chest pain, palpitations, or edema. RESPIRATORY: Denies cough or dyspnea. GASTROINTESTINAL: Denies abdominal pain, nausea, vomiting, diarrhea SKIN: Denies rash or itching. MUSCULOSKELETAL: Denies myalgia. NEUROLOGIC: Denies headache. All systems reviewed & are unremarkable except as noted in HPI and below PMFSH Past Medical History Medical History Plantar fasciitis, bilateral Bulging disc Allergic rhinitis Hypercholesterolemia Hypertension Diabetes mellitus Surgical History Surgical History H/O tubal ligation History of partial hysterectomy Family History Family History Mother Heart disease Hypertension Diabetes mellitus COPD (chronic obstructive pulmonary disease) Kidney disease Father Heart disease Diabetes mellitus Cancer Sibling Lupus Other Acute myocardial infarction Social History Social History Smoking status: Current every day smoker Tobacco type: cigarettes Alcohol intake: never Substance use: never Occupation/Education: occupation Additional occupation/education comments: [employer] Comments At time of signature, I have reviewed and agree with nursing past medical, shanae gical, social and family history unless otherwise noted. Please see nursing chart for further information. There is no relevant family history pertinent to the presenting complaint. 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 HEAD: Normocephalic EYES: PERRLA, conjunctivae clear ENT: Nares clear. Mucous membranes moist. TM intact with normal light reflex; canal not erythematous, no drainage, no tragal tenderness. Oropharynx not erythematous without lesions. no drooling, no hoarseness, no trismus, uvula midline. NECK: Supple. No lymphadenopathy CHEST: Clear to auscultation, breath sounds equal. No wheezing, rhonchi, rales, or stridor. No respiratory distress, speaks in full sentences. HEART: Regular rate and rhythm. No murmur heard. SKIN: Warm, dry, no rash. NEURO: Alert and oriented x3. PSYCH: Normal mood and affect. Course Course Level of Care: Express Care Visit Vital Signs Vital signs: Vital Signs Temperature 97.5 F L 09/27/24 16:43 Pulse Rate 90 09/27/24 16:43 Respiratory Rate 18 09/27/24 16:43 Blood Pressure 121/72 09/27/24 16:43 Pulse Oximetry 96 09/27/24 16:43 Oxygen Delivery Room Air 09/27/24 16:43 Temperature 97.5 F L 09/27/24 16:43 Pulse Rate 90 09/27/24 16:43 Respiratory Rate 18 09/27/24 16:43 Blood Pressure 121/72 09/27/24 16:43 Pulse Oximetry 96 09/27/24 16:43 Oxygen Delivery Room Air 09/27/24 16:43 Reviewed Medical Decision Making MDM Narrative Medical decision making narrative: Discussed physical exam findings. Ear drops for infection prevention. Advised supportive measures and signs/symptoms to go to the ER. Pt is appropriate for outpatient treatment and follow up. Vital Signs Vital Signs: Vital Signs Temperature 97.5 F L 09/27/24 16:43 Pulse Rate 90 09/27/24 16:43 Respiratory Rate 18 09/27/24 16:43 Blood Pressure 121/72 09/27/24 16:43 Pulse Oximetry 96 09/27/24 16:43 Oxygen Delivery Room Air 09/27/24 16:43 Temperature 97.5 F L 09/27/24 16:43 Pulse Rate 90 09/27/24 16:43 Respiratory Rate 18 09/27/24 16:43 Blood Pressure 121/72 09/27/24 16:43 Pulse Oximetry 96 09/27/24 16:43 Oxygen Delivery Room Air 09/27/24 16:43 Reviewed. Critical Care Time Critical Care Time Critical Care Time: No Discharge Plan Discharge Clinical Impression: Foreign body in ear Qualifiers: Encounter type: initial encounter Laterality: right Qualified Code(s): T16.1XXA - Foreign body in right ear, initial encounter Patient Disposition: Home Condition: Stable Instructions: Antibiotic Form, Earache (ED) Additional Instructions: -Ear drops as directed for 7-10 days until the pain and swelling are gone. -When administer drug into the affected ear; make sure to lay down with the affected ear facing upward, massage the ear canal to help the drops reach the medial end of the canal, then remain in that position for at least 5 minutes. -Avoid using cotton tipped applicator for ears cleaning -Avoid swimming or exposing the affected ear to water during the treatment period Take or alternate tylenol or ibuprofen every 4 - 6 hours if needed for pain. Follow up with primary care provider if condition is not improving in 7 days or sooner if there is new concern. Patient Language: German Prescriptions: New [id number] 3.5-10,000-1 mg/mL-unit/mL-% drops,suspension 4 drp RIGHT EAR TID 7 Days Qty: 10 0RF No Action famotidine 40 mg tablet leflunomide 10 mg tablet meloxicam 7.5 mg Tablet 7.5 mg PO BID ropinirole 0.25 mg Tablet 0.25 mg PO DAILY gabapentin 300 mg capsule Enbrel 50 mg/mL (1 mL) Syringe 50 mg SUBCUT WEEKLY sumatriptan [id number]-jaujsuw 50 mg- 10 %-4 % Kit,Gel And Tablet hydroxychloroquine 200 mg tablet 200 mg PO BID simvastatin 40 mg tablet 40 mg PO DAILY metformin 500 mg tablet 500 mg PO DAILY loratadine 10 mg capsule 10 mg PO DAILY fluticasone propionate 50 mcg/actuation spray,suspension 1 spray intranasal BID Rx Instructions: administer into each nostril cyclobenzaprine 10 mg tablet 10 mg PO TID PRN (Reason: muscle spasm) Qty: 14 0RF sulfamethoxazole-trimethoprim [Bactrim DS] 800-160 mg tablet 1 tablet PO Q12H Qty: 14 0RF albuterol sulfate 90 mcg/actuation HFA aerosol inhaler See Rx Instructions .ROUTE .COMPLEX Qty: 8.5 3RF Dose Instruction: INHALE 2 PUFFS EVERY 4 HOURS NEEDED FOR SHORTNESS OF BREATH OR WHEEZING Rx Instructions: INHALE 2 PUFFS EVERY 4 HOURS NEEDED FOR SHORTNESS OF BREATH OR WHEEZING Follow-up/Referrals: Jeff Duque MD [Primary Care Provider] - Time of Disposition: 17:15
== END 2024-09-27 17:22 | disposition home or self-care (01) ==
PROVIDERS: PCP Emergency Medicine
DX: T16.1XXA Foreign body in right ear, initial encounter (principal); W44.F4XA Insect entering into or through a natural orifice, initial encounter; I10 Essential (primary) hypertension; E11.9 Type 2 diabetes mellitus without complications; Z79.84 Long term (current) use of oral hypoglycemic drugs; E78.00 Pure hypercholesterolemia, unspecified; Z90.711 Acquired absence of uterus with remaining cervical stump; F17.210 Nicotine dependence, cigarettes, uncomplicated
CPT/HCPCS: 99211; G0463

== ENCOUNTER 2024-10-09 12:35 | Emergency (ER) | payer OTHER, SELFPAY ==
[2024-10-09 12:42] VITALS: BP 118/67; PULSE 93; RESP 16; TEMP 36.6; O2SAT 97
--- NOTE | 2024-10-09 12:56 | ED.SKABFB ---
HPI - Skin/Abscess/Foreign Bdy General Chief complaint: Skin/Abscess/Foreign Body Stated complaint: bite in finger Source: patient and family (son) Mode of arrival: ambulatory Limitations: no limitations History of Present Illness HPI narrative: 49-year-old female presents to [facility] accompanied by her son for complaints of possible spider bite to right index finger. Patient reports that she was cleaning 2 hours ago, taking her curtains off the [employer]jeoma when she felt a possible spider bite her finger. Patient reports that she noticed other live spiders in the window. Patient reports pain, bruising and swelling to right index finger since. Patient denies numbness, tingling, fever, body aches, chills, nausea vomiting or diarrhea. Patient denies injury to her finger. Onset (ago): hour(s) (2) Location: R hand (right index finger ) Relieving factors: none Treatments prior to arrival: none Related Data Home Medications ?Medication ?Instructions ?Recorded ?Confirmed ?Last Taken ?Type metformin 500 mg tablet 500 mg PO DAILY 06/19/20 09/27/24 Unknown History fluticasone propionate 50 1 spray intranasal BID 07/05/20 09/27/24 Unknown History mcg/actuation nasal spray,suspension hydroxychloroquine 200 mg tablet 200 mg PO BID 04/30/21 09/27/24 Unknown History famotidine 40 mg tablet 20 mg PO DAILY 01/28/23 09/27/24 Unknown History gabapentin 300 mg capsule 300 mg PO TID 01/28/23 09/27/24 Unknown History ropinirole 0.25 mg tablet 0.25 mg PO DAILY 01/28/23 09/27/24 Unknown History abatacept 125 mg/mL subcutaneous 125 mg subcut WEEKLY 09/27/24 09/27/24 Unknown History syringe (Orencia) azelastine intranasal 09/27/24 Unknown History cetirizine 10 mg tablet (24Hour 10 mg PO DAILY PRN allergy symptoms 09/27/24 09/27/24 Unknown History Allergy) omalizumab 300 mg/2 mL 300 mg subcut ONCE 09/27/24 09/27/24 Unknown History subcutaneous auto-injector (Xolair) sumatriptan succinate 50 mg PO PRN 09/27/24 09/27/24 Unknown History triamcinolone acetonide 0.1 % 1 applic topical BID 09/27/24 09/27/24 Unknown History topical cream Allergies Allergy/AdvReac Type Severity Reaction Status Date / Time omeprazole Allergy Hives Verified 10/09/24 12:50 Review of Systems Constitutional: Constitutional: Denies chills, Denies fatigue, Denies fever(s) and Denies weakness ENT: Denies dizziness, Denies epistaxis, Denies nasal congestion and Denies sore throat Cardiovascular: Cardiovascular: Denies chest pain Respiratory: Respiratory: Denies cough, Denies dyspnea and Denies wheezing Gastrointestinal: Gastrointestinal: Denies diarrhea, Denies nausea and Denies vomiting Musculoskeletal: Musculoskeletal: Denies myalgias, Reports arthralgias, Reports joint swelling and Denies muscle cramps Comments: Possible spider bite to right index finger Integumentary/Breasts: Comments: possible spider bite to right index finger Neurologic: Denies dizziness, Denies syncope and Denies headache(s) PMFSH Past Medical History Medical History Plantar fasciitis, bilateral Bulging disc Allergic rhinitis Hypercholesterolemia Hypertension Diabetes mellitus Surgical History Surgical History H/O tubal ligation History of partial hysterectomy Family History Family History Mother Heart disease Hypertension Diabetes mellitus COPD (chronic obstructive pulmonary disease) Kidney disease Father Heart disease Diabetes mellitus Cancer Sibling Lupus Other Acute myocardial infarction Social History Social History Smoking status: Current every day smoker Tobacco type: cigarettes Alcohol intake: never Substance use: never Occupation/Education: occupation 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 There is no relevant family history pertinent to the presenting complaint. Exam Const: General: healthy appearing and no acute distress Nutritional Appearance: well nourished Orientation/consciousness: patient oriented x3 Limitations: no limitations HENMT: Head: normal to inspection Eyes: Conjunctivae: conjunctivae normal Neck: Neck: normal visual inspection Resp: Effort & Inspection: normal respiratory effort and not labored Auscultation: clear to auscultation bilaterally, no crackles, no rales, no rhonchi and no wheezes Cardio: Rate: regular rate Rhythm: regular rhythm Heart sounds: no murmurs Skin: Other: There is a 2 cm area of swelling and mild bruising noted to palmar aspect of distal right index finger. There is no obvious puncture wound noted. No necrotic tissue, bruising or bleeding noted. Range of motion is within normal limits. Neuro: General: patient oriented x3 and moves all extremities Cranial nerves: Yes Nystagmus not present Extrem: General: abnormal to inspection ( See skin assessment) Psych: Mental Status: mental status grossly normal Affect: normal affect Attitude: cooperative Course Course Level of Care: Express Care Visit Vital Signs Vital signs: Vital Signs Temperature 36.6 C 10/09/24 12:42 Pulse Rate 93 10/09/24 12:42 Respiratory Rate 16 10/09/24 12:42 Blood Pressure 118/67 10/09/24 12:42 Pulse Oximetry 97 10/09/24 12:42 Oxygen Delivery Room Air 10/09/24 12:42 Temperature 36.6 C 10/09/24 12:42 Pulse Rate 93 10/09/24 12:42 Respiratory Rate 16 10/09/24 12:42 Blood Pressure 118/67 10/09/24 12:42 Pulse Oximetry 97 10/09/24 12:42 Oxygen Delivery Room Air 10/09/24 12:42 MDM - Skin/Abscess/Foreign Bdy MDM Narrative Medical decision making narrative: encouraged patient to apply cool compresses to area. Educated patient and son on importance of monitoring symptoms very closely and they both agree to proceed immediately to the emergency room if symptoms worsen or if patient would notice necrotic tissue, numbness, tingling or worsening symptoms. Will place patient on antibiotic due to possible spider bite. Differential Diagnosis Differential diagnosis: Likely other (cellulitis, blood vessel injury) Critical Care Time Critical Care Time Critical Care Time: No Discharge Plan Discharge Clinical Impression: Insect bite of finger of right hand Patient Disposition: Home Condition: Stable Instructions: Antibiotic Form, Insect Bite or Sting (ED) Additional Instructions: Apply cool compresses to area [id number] Tylenol as needed for pain Take antibiotic as prescribed Follow-up with primary care provider in 48 hours to re-evaluate symptoms Monitor symptoms very closely and proceed to the emergency room if you notice worsening symptoms Patient Language: Greek Prescriptions: New doxycycline hyclate 100 mg capsule 100 mg PO BID 7 Days Qty: 14 0RF No Action famotidine 40 mg tablet 20 mg PO DAILY ropinirole 0.25 mg Tablet 0.25 mg PO DAILY gabapentin 300 mg capsule 300 mg PO TID Orencia 125 mg/mL syringe 125 mg subcut WEEKLY Xolair 300 mg/2 mL auto-injector 300 mg subcut ONCE azelastine intranasal cetirizine [24Hour Allergy] 10 mg tablet 10 mg PO DAILY PRN (Reason: allergy symptoms) triamcinolone acetonide 0.1 % cream 1 applic topical BID [id number] 3.5-10,000-1 mg/mL-unit/mL-% drops,suspension 4 drp RIGHT EAR TID 7 Days Qty: 10 0RF sumatriptan succinate 50 mg PO PRN hydroxychloroquine 200 mg tablet 200 mg PO BID metformin 500 mg tablet 500 mg PO DAILY fluticasone propionate 50 mcg/actuation spray,suspension 1 spray intranasal BID Rx Instructions: administer into each nostril albuterol sulfate 90 mcg/actuation HFA aerosol inhaler See Rx Instructions .ROUTE .COMPLEX Qty: 8.5 3RF Dose Instruction: INHALE 2 PUFFS EVERY 4 HOURS NEEDED FOR SHORTNESS OF BREATH OR WHEEZING Rx Instructions: INHALE 2 PUFFS EVERY 4 HOURS NEEDED FOR SHORTNESS OF BREATH OR WHEEZING Follow-up/Referrals: Jeff Duque MD [Primary Care Provider] - Time of Disposition: 13:04
== END 2024-10-09 13:07 | disposition home or self-care (01) ==
PROVIDERS: Emergency Provider Nurse Practitioner Family; PCP Emergency Medicine
DX: S60.460A Insect bite (nonvenomous) of right index finger, initial encounter (principal); I10 Essential (primary) hypertension; E11.9 Type 2 diabetes mellitus without complications; F17.210 Nicotine dependence, cigarettes, uncomplicated; W57.XXXA Bitten or stung by nonvenomous insect and other nonvenomous arthropods, initial encounter
CPT/HCPCS: 99213; G0463

== ENCOUNTER 2025-02-23 07:42 | Outpatient (CLI) | payer OTHER, SELFPAY ==
--- NOTE | ~2025-02-23 | MM_ITS ---
EXAMINATION: MM screening mariana BI w hiram HISTORY: Screening TECHNIQUE: Craniocaudal and mediolateral oblique 3-D tomosynthesis images were obtained and synthetic 2-D images were generated. CAD analysis was submitted and interpreted. COMPARISON: 01/30/2023 BREAST PARENCHYMAL COMPOSITION: The breasts are heterogeneously dense, which may obscure small masses. FINDINGS: There is no evidence of suspicious mass, calcification, or architectural distortion to suggest malignancy. There has been no suspicious interval change. IMPRESSION: 1. No mammographic evidence of malignancy. Recommend routine screening mammography in one year. BI-RADS Category 2: Benign finding(s) Reviewed, dictated and finalized at location Q. IMPRESSION: 1. No mammographic evidence of malignancy. Recommend routine screening mammogra phy in one year. BI-RADS Category 2: Benign finding(s)
--- OUTSIDE RECORDS SUMMARY | 2025-02-23 07:48 | XMS_ITS | Clinical Summary ---
Author Organization [facility] Address [address] [place] [address] Care Team Providers Care Freight Handler Name Role Phone Jeff Duque MD Primary Care Provider [phone] Allergies Active Allergy Reactions Criticality Noted Date [...] EVERY DAY 30 tablet 3 3 Active meloxicam (MOBIC) 7.5 mg tabletIndicatio ns:Chronic neck and back pain TAKE 1 TABLET BY MOUTH TWICE A DAY NEEDED 60 tablet 3 4 Active loratadine (CLARITIN) 10 mg tablet TAKE 1 TABLET BY MOUTH EVERY DAY 30 tablet 3 4 Active fluticasone propionate (FLONASE) 50 mcg/actuation nasal spray ADMINISTER 1 SPRAY INTO EACH NOSTRIL 2 TIMES A DAY. 48 mL 2 5 Active cetirizine (ZyrTEC) 10 mg tablet Take 1 tablet (10 mg total) by mouth 2 (two) times a day 5 Active EPINEPHrine 0.3 mg/0.3 mL auto-injection syringe Inject 0.3 mL (0.3 mg total) into the muscle as instructed daily as needed 5 Active rosuvastatin (CRESTOR) 20 mg tablet 4 Active rOPINIRole (REQUIP) 0.5 mg tablet TAKE 1 TABLET BY MOUTH EVERY DAY 30 tablet 6 5 Active Symbicort 160-4.5 mcg/actuation inhaler INHALE 2 PUFFS BY MOUTH 2 TIMES A DAY RINSE MOUTH WITH WATER AFTER USE. DO NOT SWALLOW. 10.2 each 4 5 Active Active Problems Problem Noted Date Diagnosed [...] Encounters Date Type Department Care Team Description 01/18/2025 9:44 AM CDT - 01/18/2025 11:59 PM CDT Hospital Encounter [facility] [address] [place] [address] Mucopurulent chronic bronchitis (HCC); Obstructive sleep apnea; Psychophysiological insomnia; Restless legs; Chest wall pain Discharge Disposition: Discharge to home or self care 01/18/2025 8:30 AM CDT Office Visit [facility] Pulmonology [address] [place] [phone] Danny Cunningham MD Mucopurulent chronic bronchitis (HCC) (Primary Dx); Obstructive sleep apnea; Psychophysiological insomnia; Restless legs; Chest wall pain; Cigarette nicotine dependence without complication; Chronic cough; Multiple pulmonary nodules; Teeth grinding; Periodic limb movement; Pulmonary air trapping; Hyperinflation of lungs; Non-seasonal allergic rhinitis due to pollen from Last 3 Months Immunizations Immunization Administration Dates Next Due Pfizer SARS-CoV-2 Monovalent Vaccination (12+ Yrs) PURPLE 09/09/2020,08/19/2020 Surgical History Surgery Date Site/Laterality Comments HYSTERECTOMY APPENDECTOMY BREAST BIOPSY 09/21/2018 Right Medical History Medical History Date Comments Diabetes Asthma DDD (degenerative disc disease), thoracic 2020 Multilevel, mild Arterial atherosclerosis DDD (degenerative disc disease), lumbar Cigarette nicotine dependence Emphysema of lung DDD (degenerative disc disease), cervical Family History Medical History Relation Name Comments Cancer Father Diabetes Father Heart disease Father Pancreatic cancer Father Stroke Father Arthritis Mother Diabetes Mother Heart disease Mother Hypertension Mother Stroke Mother Lupus Sister Relation Name Status Comments Father Mother Sister Social History Tobacco Use Types Packs/Day Years Used Date Smoking Tobacco: Every Day Cigarettes 1 31.1 Started: 01/01/1994 Smokeless Tobacco: Never Tobacco Cessation:Ready [...] 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 Not on file Not on file Obstetrics History Last Filed Vital Signs Vital Sign Reading Time Taken Comments Blood Pressure 115/78 01/18/2025 8:19 AM CDT Pulse 84 01/18/2025 8:19 AM CDT Temperature 36.1 C (97 F) 01/18/2025 8:19 AM CDT Respiratory Rate 18 01/18/2025 8:19 AM CDT Oxygen Saturation 95% 01/18/2025 8:19 AM CDT Inhaled Oxygen Concentration - - Weight 80.3 kg (177 lb) 01/18/2025 8:19 AM CDT Height 170.2 cm (5' 7.01) 01/18/2025 8:19 AM CD T Body Mass Index 27.72 01/18/2025 8:19 AM CDT Plan of Treatment Health Maintenance Due [...] Lipid Panel 01/18/2023 01/18/2022 eGFR 08/30/2023 08/29/2022, 0901/2022, 01/08/2022 Influenza Vaccine (#1) 2025 Lung Cancer Screening 04/21/2025 04/20/2024, 024 Procedures Procedure Name Priority Date/Time Associated Diagnosis Comments CTA CHEST W CONTRAST Schedule MARVIN, Read MARVIN (Appt Today, Awaiting Results) 01/18/2025 10:17 AM CDT Mucopurulent chronic bronchitis (HCC) Obstructive sleep apnea Psychophysiologic al insomnia Restless legs Chest wall pain CT CHEST WO CONTRAST F/U LUNG SCREEN PROTOCOL Schedule Routine, Read Routine (OP Routine) 04/20/2024 10:31 AM MATHEMATICS FACULTY MEMBER Abnormal CT lung screening EGFR STAT 08/29/2022 1:38 PM CDT HEMOGLOBIN A1C Routine 01/18/2022 9:11 AM CDT LIPID PANEL Routine 01/18/2022 9:11 AM CDT ALBUMIN CREATININE RATIO, URINE Routine 01/18/2022 9:11 AM CDT from Last 3 Months or Most Recently Relevant to Health Maintenance Results * CTA Chest W Contrast (01/18/2025 10:17 AM CDT) Anatomical Region Laterality Modality Chest N/A Computed Tomogra phy 01/18/2025 11:5 2 AM CDT Narrative 01/18/2025 11:58 AM CDT EXAM DESCRIPTION: CTA CHEST W CONTRAST REASON FOR STUDY: Chest pain, nonspecific 1 week SOB and cough with chest pain and congestion TECHNIQUE: CTA scan of the chest performed without and with intravenous contrast using helical scanning technique with dynamic intravenous contrast injection. Precontrast and arterial phase images of the chest were acquired. Reconstructed coronal and sagittal MPR images reviewed. 3D MIP images rendered on scanning unit and reviewed at time of interpretation. All images stored on PACS. Automated exposure control was used as a dose optimization technique for this examination. CONTRAST TYPE/DOSE: 90mL of IOVERSOL 350 MG IODINE/ML INTRAVENOUS SYRINGE injected via intravenous COMPARISON: 04/20/2024 REFERENCE: Per ACR white paper recommendations, unless otherwise specified no follow-up imaging is recommended for incidental renal and adrenal lesions per consensus recommendations based on imaging criteria. Further lab evaluation could be pursued based on clinical findings. FINDINGS: VASCULATURE: No dissection, aneurysm, intramural hematoma, rupture, or penetrating atherosclerotic ulcer. No large vessel occlusion. No pulmonary embolus. No acute aortic abnormality. LUNGS: No nodules or masses. No pneumonia. PLEURA: Central airways are patent. No dense consolidation. Bibasilar ground-glass opacities most suggestive of atelectasis. Cjga-xm-jztwdoil emphysematous change. MEDIASTINUM/LYNN: No identified masses or abnormal nodes. HEART: Heart size is normal with no pericardial effusion. Coronary arterial calcifications are present. AXILLA: No adenopathy. CHEST WALL: No masses. No subcutaneous air. HARDWARE/LINES/TUBES: None. UPPER ABDOMEN: No significant abnormality. MUSCULOSKELETAL: No significant abnormality. OTHER: No other significant abnormality. IMPRESSION: 1. No acute aortic abnormality. 2. No pulmonary embolus. 3. Bibasilar ground-glass opacities most suggestive of atelectasis. THIS IS AN ELECTRONICALLY VERIFIED FINAL REPORT 01/18/2025 11:58 AM - Electronically signed by Zen Howell M.D. RB T: Report ID: [id number] Reading Location: [id number] Procedure Note Zen Howell MD - 01/18/2025 EXAM DESCRIPTION: CTA CHEST W CONTRAST REASON FOR STUDY: Chest pain, nonspecific 1 week SOB and cough with chest pain and congestion TECHNIQUE: CTA scan of the chest performed without and with intravenous contrast using helical scanning technique with dynamic intravenouscontrast injection. Precontrast and arterial phase images of the chest were acquired. Reconstructed coronal and sagittal MPR images reviewed.3D MIP images rendered on scanning unit and reviewed at time ofinterpretation. All images stored on PACS. Automated exposure control was used as a dose optimization technique for this examination. CONTRAST TYPE/DOSE: 90mL of IOVERSOL 350 MG IODINE/ML INTRAVENOUSSYRINGE injected via intravenous COMPARISON: 04/20/2024 REFERENCE: Per ACR white paper recommendations, unless otherwise specifiedno follow-up imaging is recommended for incidental renal and adrenal lesionsper consensus recommendations based on imaging criteria. Further labevaluation could be pursued based on clinical findings. FINDINGS: VASCULATURE: No dissection, aneurysm, intramural hematoma, rupture, or penetrating atherosclerotic ulcer. No large vessel occlusion. No pulmonary embolus. No acute aortic abnormality. LUNGS: No nodules or masses. No pneumonia. PLEURA: Central airways are patent. No dense consolidation. Bibasilar ground-glass opacities most suggestive of atelectasis. Axvr-fw-yjnkklme emphysematous change. MEDIASTINUM/LYNN: No identified masses or abnormal nodes. HEART: Heart size is normal with no pericardial effusion. Coronary arterial calcifications are present. AXILLA: No adenopathy. CHEST WALL: No masses. No subcutaneous air. HARDWARE/LINES/TUBES: None. UPPER ABDOMEN: No significant abnormality. MUSCULOSKELETAL: No significant abnormality. OTHER: No other significant abnormality. IMPRESSION: 1. No acute aortic abnormality. 2. No pulmonary embolus. 3. Bibasilar ground-glass opacities most suggestive of atelectasis. THIS IS AN ELECTRONICALLY VERIFIED FINAL REPORT 01/18/2025 11:58 AM - Electronically signed by Zen YUNG T: Report ID: [id number] Reading Location: [place] [address] [facility] [place]ED[place] Final Res ult * CT Chest WO Contrast F/U Lung Screen Protocol (04/20/2024 10:31 AM MATHEMATICS FACULTY MEMBER) Anatomical Region Laterality Modality Chest N/A Computed Tomogra phy 04/26/2024 8:10 AM MATHEMATICS FACULTY MEMBER Narrative 04/26/2024 8:56 AM MATHEMATICS FACULTY MEMBER EXAM DESCRIPTION: CT CHEST WO CONTRAST F/U [...] Juan Novoa M.D. AG T: Report ID: [id number] Reading Location: [id number] Danny Cunningham MD IMG CT PROCEDURES Final Res ult * eGFR (08/29/2022 1:38 PM CDT) eGFR 107 mL/min/1. 73 m2 DINESH Comment: Interpretive Data Reference Interval Normal >/= [...] CDT 08/29/2022 1:42 PM CDT us Misty María PA LAB BLOOD ORDERABLES Final Resul t Performing Organization Address [facility] de Phone Number [address] [address] * Albumin Creatinine Ratio, Urine (01/18/2022 9:11 AM CDT) Albumin Ur <12.0 mg/L [facility] Comment: Interpretive Data No reference range established. Current interpretive data was last revised 2018. Creatinine Ur 120.0 mg/dL [facility] Comment: Interpretive Data No reference range established. Current interpretive data was last revised 2018. Albumin Creatinine Ratio, Ur <10 1 - 29 mg/g [facility] Urine 01/18/2022 9:11 AM CDT 01/18/2022 9:17 AM CDT Jeff Duque MD LAB URINE ORDERABLES Final Resul t Performing Organization Address [facility] de Phone Number [address] [address] * (ABNORMAL) Hemoglobin A1c (01/18/2022 9:11 AM CDT) Hgb A1C 5.7(H) 4.0 - 5.6 % [facility] Estimated Average Glucose 117 mg/dL [facility] Comment: The ADA recommends reporting an estimated Average Glucose (eAG) with all Hemoglobin A1c results using the equation derived from a study of 507 normal and diabetic adults. Minority populations were underrepresented and children were not included. (Diabetes Care 31:1687-8763, 2008). The eAG is not equivalent to a fasting glucose. Blood 01/18/2022 9:11 AM CDT 01/18/2022 9:44 AM CDT Jeff Duque MD LAB BLOOD ORDERABLES Final Resul t Performing Organization Address [facility] Co de Phone Number [address] [address] * (ABNORMAL) Lipid panel (01/18/2022 9:11 AM [...] revised on 2017. Chol/HDL ratio 4 DINESH Blood 01/18/2022 9:11 AM CDT 01/18/2022 9:44 AM CDT us Jeff Duque MD LAB BLOOD ORDERABLES Final Resul t DINESH [address] Department [place] [address] from Last 3 Months or Most Recently Relevant to Health Maintenance Insurance [facility] Member Subscriber Plan / Payer (Ef fective 2024-Present) Name:Yanick Dan Relation to Subscriber:Self Name:Yanick Dan Payer ID:[id number] (NAIC) Group ID:Not on file Type:MEDICAID RISK OTHER Address: ATTN: CLAIMS DEPT [address] [place] [phone] Care Teams Freight Handler Relationship Specialty Start Date End Date Jeff Duque MD PCP - General 10/14/19
--- OUTSIDE RECORDS SUMMARY | 2025-02-23 07:48 | XMS_ITS | Encounter Summary ---
Author Organization [facility] Address [address] [facility] [address] Care Team Providers Care Assembler Wire Group Name Role Phone Jeff Duque MD Primary Care Provider [phone] Jeff Duque MD Unavailable Reason for Referral * Consultation (Routine) - Closed Specialty Diagnoses / Procedures Referred By Contac t Referred To Contact Allergy and Immunology Diagnoses Swollen face Jeff Duque MD [address] [place] [address] Phone: tel: fax: [facility] - Allergy [address] [place] [address] Phone: tel: fax: Referral ID Status Reason Start Date Expiration Date V isits Requested Visits Authorized [id number] Closed Specialty Services Required 04/12/2024 04/12/2025 1 1 DDED SOFTWARE TEST ENGINEER Encounter Details Date Type Department Care Team ([facility] st Contact Info) Description 04/12/2024 Transcribe Orders [facility] - Centralized Scheduling [facility] [place] [phone] Jeff Duque MD [address] [facility] [address] [place] [address] Swollen face Social History Tobacco Use Types Packs/Day Years Used Date Smoking Tobacco: Every Day Cigarettes Smokeless Tobacco: Never Alcohol Use Standard Drinks/Week Comments Never 0 (1 standard drink = 0.6 oz pur e alcohol) PHQ-2 Answer Date Recorded Patient Health Questionnaire-2 Score 6 10/28/2023 Comments No Sex and Gender Information Value Date Recorded Sex Assigned at Not on file Legal Sex Female 1:59 PM CDT Gender Identity Female 05/10/2021 10:24 PM EMBEDDED SOFTWARE TEST ENGINEER Sexual Orientation Not on file documented as of this encounter Functional Status * Is person deaf or have serious hearing difficulty? Answer Date of Assessment Author No 01/13/2024 12:25 PM CDT Azucena Garcia i, RN * Is person blind or have serious difficulty seeing? Answer Date of Assessment Author No 01/13/2024 12:25 PM CDT Azucena Garcia i, RN * Does person have serious difficulty walking/climbing stairs? Answer Date of Assessment Author No 01/13/2024 12:25 PM BUTCHT Azucena Garcia i, RN * Does person have difficulty dressing/bathing? Answer Date of Assessment Author No 01/13/2024 12:25 PM Azucena Boudreaux i, RN * Does person have difficulty doing errands alone? Answer Date of Assessment Author No 01/13/2024 12:25 PM Azucena Boudreaux i RN documented as of this encounter Mental Status * Does person have difficulty concentrating/remembering/making decisions? Answer Entry Date Author No 01/13/2024 12:25 PM Azucena Boudreaux i RN documented in this encounter Plan of Treatment Upcoming Encounters Date Type Department Care Team (Late st Contact Info) Description 03/21/2025 9:20 AM EMBEDDED SOFTWARE TEST ENGINEER Office Visit [facility] - Rheumatology [address] [facility] [address] [place] [phone] Mikala العلي MD [address] [place] [address] 05/20/2025 10:00 AM EMBEDDED SOFTWARE TEST ENGINEER Office Visit [facility] - Allergy [address] [place] [phone] Eleno Montoya MD [address] [place] [address] 07/22/2025 8:30 AM CDT Office Visit [facility] - Neurology [address] [place] [phone] Moiz Briones, AGRICULTURAL EXTENSION AGENT-WIRE CHARGER [address] [place] [address] [place] [address] 07/25/2025 2:30 PM CDT Office Visit [facility] - GI [address] [place] [phone] 11/07/2025 10:30 AM CDT Office Visit [facility] - ENT [address] [place] [phone] Vinny Milner MD [address] [place] [address] DE[place] [address] 11/15/2025 1:10 PM CDT Office Visit [facility] - Dermatology [address] [place] [phone] Torie Holm MD [address] [place], [place] [address]T [place] [phone] 11/21/2025 9:00 AM CDT Office Visit [facility] - Ophthalmology [address] [place] [phone] Reina Beckford MD [address] [place] [address] DEPT [place] [phone] 01/24/2026 9:00 AM CDT Office Visit [facility] - Ophthalmology [address] [place] [address], [place] [phone] Jose Newby MD [address] [place] [address] DEPT [place] [phone] 01/31/2026 1:00 PM CDT Office Visit [facility] - Neurology [address] [place] [address], [place] [phone] Malena Joaquin MD [address] [place] [address] [place] [address] Scheduled Referrals Name Type Priority Associated Diagnoses Order Schedule AMB REFERRAL TO ALLERGY Outpatient Referral Routine Swollen face 1 Occurrences starting 04/12/2024 until 04/12/2025 documented as of this encounter Goals Goal Patient Goal Type Associated Problems Recent Progress Patient-Stated? Author Medication Management General On track( 025 3:21 PM CDT) Melonie Castillo, RN Note: Expected end date: [...] neck documented in this encounter Care Teams Assembler Wire Group Relationship Specialty Start Date End Date Jeff Duque MD [address] [address] PCP - General 08/30/21 Jeff Duque MD [address] [address] Family Medicine 08/30/21 documented as of this encounter
--- OUTSIDE RECORDS SUMMARY | 2025-02-23 07:48 | XMS_ITS | Clinical Summary ---
Author Organization [facility] Address [address] [place] [address] Care Team Providers Care Signal Operator Linguist Name Role Phone Jeff Duque MD Primary Care Provider [phone] Jeff Duque MD Unavailable Source Comments [facility],non-owned Affiliates and Associated Physician Practices is amultiple site organization consisting of ambulatory clinics and hospital sitesin [place], [place], [place] and [place]. This disclosure is being madepursuant to the Care Everywhere program and may not contain all information available regarding this patient. Last updated 18.[facility] Allergies Active Allergy Reactions Criticality Noted Date Comments Omeprazole Rash,Nausea and/or Vomiting,Dizziness Medium 12/18/2020 Medications * This document contains information received from the source organization and may not represent a complete record from that organization. * Be aware that medications may not be up to date on this document. Alwaysverify current medications with the patient. albuterol HFA (PROVENTIL;VENTOL IN;PROAIR) 108 (90 Base) MCG/ACT inhaler Inhale 2 (two) puffs by mouth every 6 hours as needed 11/12/19 20 Active metFORMIN (Glucophage) 500 MG tablet Take 1 (one) tablet by mouth once daily Active fluticasone propionate (Flonase) 50 MCG/ACT nasal spray [place] 2 (two) sprays into each nostril once daily Active Symbicort 160-4.5 MCG/ACT inhaler Inhale 2 (two) puffs by mouth 2 times daily 07/27/19 24 Active rOPINIRole (Requip) 0.5 MG tablet Take 1 (one) tablet by mouth once daily 01/20/20 24 Active hydroxychloroquin e (Plaquenil) 200 MG tabletIndications :Inflammatory arthritis Take 2 (two) tablets by mouth once daily 180 tablet 3 03/15/20 24 Active rosuvastatin (Crestor) 20 MG tablet Take 1 (one) tablet by mouth once daily 04/30/20 24 Active abatacept (Orencia ClickJect) 125 MG/ML auto-injector penIndications:Rh eumatoid arthritis of multiple sites with negative rheumatoid factor (HCC) Inject 1 mL subcutaneously every 7 days Pen 4 mL 5 07/13/19 25 Active azelastine (Optivar) 0.05 % ophthalmic solution Instill 1 (one) drop into both eyes 2 times daily 6 mL 08/06/19 25 Active EPINEPHrine (Epipen) 0.3 MG/0.3ML auto-injector pen Inject 0.3 mL into muscle once as needed for Anaphylaxis 0.6 mL 1 08/06/19 25 Active triamcinolone acetonide (Kenalog) 0.1 % ointmentIndicatio ns:Lupus erythematosus tumidus Apply to affected area on body twice daily for 2 weeks. 30 day supply 80 g 11 11/17/19 25 Active cetirizine (ZyrTEC) 10 MG tabletIndications :Seasonal Allergic Rhinitis Take 1 (one) tablet by mouth once daily Reasons: Hayfever 01/21/20 25 Active gabapentin (Neurontin) 300 MG capsuleIndication s:Rebound headache,Migraine without aura and without status migrainosus, not intractable,Cervi cogenic headache,Migraine equivalent,Cervic algia Take 600 mg in am, 300 mg in afternoon and 600 mg at night 150 capsule 5 01/22/20 25 Active SUMAtriptan (Imitrex) 50 MG tabletIndications :Rebound headache,Migraine without aura and without status migrainosus, not intractable,Cervi cogenic headache,Migraine equivalent,Cervic algia 1 tablet at the onset of migraine; may repeat after 2 hours once in a 24 hour period if needed 9 tablet 5 01/22/20 25 Active fremanezumab-vfrm (Ajovy) 225 MG/1.5ML injectionIndicati ons:Rebound headache,Migraine without aura and without status migrainosus, not intractable,Cervi cogenic headache,Migraine equivalent,Cervic algia Inject 1.5 mL subcutaneously every 30 days 1.5 mL 11 01/22/20 25 Active famotidine (Pepcid) 20 MG tabletIndications :Urticaria,angioe sheyla Take 1 (one) tablet by mouth 2 times daily Reasons: Hives, angioedema 180 tablet 4 01/25/20 25 Active amitriptyline (Elavil) 10 MG tablet Take 1 (one) tablet by mouth at bedtime 30 tablet 2 01/25/20 25 Active Active Problems Problem Noted Date Diagnosed Date Arthralgia of hip, left 01/21/2025 COPD (chronic obstructive pulmonary disease) 04/2025 Diffuse abdominal pain 01/21/2025 Acute left eye pain 01/21/2025 History of tobacco abuse 01/21/2025 Left facial swelling 01/21/2025 Migraine 01/21/2025 Periodic limb movement 01/08/2022 Hypersomnia 05/30/2021 Obstructive sleep apnea 05/30/2021 Psychophysiological insomnia 05/30/2021 Teeth grinding 05/30/2021 Inflammatory arthritis 03/05/2021 Asthma 09/08/2020 Chest pain 09/08/2020 Family history of stroke 09/08/2020 Fatigue 09/08/2020 Leg edema 09/08/2020 Nicotine dependence 09/08/2020 Palpitations 09/08/2020 Dyspnea on exertion 09/08/2020 Type 2 diabetes mellitus without complications 0 09/08/2020 Overview (02/09/2025): IMO 08/11/2024 IMO 02/09/2025 Leukocytosis (leucocytosis) 08/29/2020 Chronic cough 03/02/2020 Pulmonary nodules 03/02/2020 Resolved Problems Problem Noted Date Diagnosed Date Resolved Date Urinary tract infection 01/21/2025 09/2 10/2024 High blood pressure 10/19/2020 02/02/20 24 Encounters Date Type Department Care Team Description 01/24/2025 3:00 PM CDT Office Visit [facility] - GI [address] [place] [phone] Chucky Kerr MD Generalized abdominal pain (Primary Dx) 01/24/2025 Travel 01/21/2025 10:00 AM CDT Office Visit [facility] - Neurology [address] [place] [phone] Moiz Briones, TREE FARMER-V/STOL LANDING SIGNAL OFFICER Migraine without aura and without status migrainosus, not intractable (Primary Dx); Rebound headache; Cervicogenic headache; Migraine equivalent; Cervicalgia; Paresthesia 01/21/2025 Travel 01/20/2025 10:15 AM CDT Clinical Support [facility] - Ophthalmology [address] [place] [phone] Jose Newby MD Retinal lesion of both eyes (Primary Dx) 01/20/2025 10:10 AM CDT Clinical Support [facility] - Ophthalmology [address] [place] [phone] Jose Newby MD Retinal lesion of both eyes (Primary Dx) 01/20/2025 10:05 AM CDT Clinical Support [facility] - Ophthalmology [address] [place] [phone] Jose Newby MD Retinal lesion of both eyes (Primary Dx) 01/20/2025 10:00 AM CDT Office Visit [facility] - Ophthalmology [address] [place] [phone] Jose Newby MD Long-term use of Plaquenil (Primary Dx); Diabetes mellitus without ophthalmic manifestations (HCC); Retinal lesion of both eyes 01/20/2025 8:30 AM CDT Office Visit [facility] - Allergy [address] [place] [phone] lEeno Montoya MD Angioedema, subsequent encounter (Primary Dx); Inflammatory arthritis; Nasal congestion; Lupus erythematosus tumidus 01/20/2025 Travel 12/13/2024 Results Follow-Up [facility] - Endocrinology [address], [place] [address] Naseem Garcia MD 12/06/2024 Results [facility] [address], [place] [address] Eleno Montoya MD 11/29/2024 Orders Only [facility] - Endocrinology [address], [place] [address] Naseem Garcia MD 11/28/2024 Results Follow-Up [facility] - Rheumatology [address], [address] [place] [address] Mikala العلي MD Results from Last 3 Months Family History Medical [...] Date Smoking Tobacco: Every Day Cigarettes 1 37.8 Started: 1987 Smokeless Tobacco: Never Alcohol Use Standard Drinks/Week Comments Never 0 (1 standard drink = 0.6 oz pur e alcohol) PHQ-2 Answer Date Recorded Patient Health Questionnaire-2 Score 0 08/19/2024 Comments No Sex and Gender Information Value Date Recorded Sex Assigned at Not on file Legal Sex Female 1:59 PM CDT Gender Identity Female 05/10/2021 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 Sexual Orientation Not on file Last Filed Vital Signs Vital Sign Reading Time Taken Comments Blood Pressure 112/72 01/24/2025 2:50 PM CDT Pulse 95 01/24/2025 2:50 PM CDT Temperature 36.6 C (97.8 F) 01/24/2025 2:50 PM CDT Respiratory Rate 18 01/20/2025 8:07 AM CDT Oxygen Saturation 97% 01/24/2025 2:50 PM CDT Inhaled Oxygen Concentration - - Weight 81.1 kg (178 lb 12.8 oz) 01/24/2025 2:50 PM CDT Height 175.3 cm (5' 9) 01/24/2025 2:50 PM CDT Body Mass Index 26.4 01/24/2025 2:50 PM CDT Plan of Treatment Upcoming Encounters Date Type Department Care Team (Late st Contact Info) Description 03/21/2025 9:20 AM MARKETING DEVELOPER Office Visit [facility] - Rheumatology [address], [address] [place] [address] Mikala العلي MD [address] [place] [address] 05/20/2025 10:00 AM MARKETING DEVELOPER Office Visit [facility] - Allergy [address] [place] [address], [place] [phone] Eleno Montoya MD [address] [place] [address] 07/22/2025 8:30 AM CDT Office Visit [facility] - Neurology [address] [place] [address] [place] [address] Moiz Briones, TREE FARMER-V/[employer]OL LANDING SIGNAL OFFICER [address] [place] [address] [place] [address] 07/25/2025 2:30 PM CDT Office Visit [facility] - GI [address] [place] [address], [place] [address] 11/07/2025 10:30 AM CDT Office Visit [facility] - ENT [address] [place] [address], [place] [phone] Vinny Milner MD [address] [place] [address] DEPT [place] [address] 11/15/2025 1:10 PM CDT Office Visit [facility] - Dermatology [address] [place] [phone] Torie Holm MD [address] [place] [address] [place] [phone] 11/21/2025 9:00 AM CDT [facility] Ophthalmology [address] [place] [phone] Reina Beckford MD [address] [place] [address] DEPT [place] [phone] 01/24/2026 9:00 AM CDT Office Visit [facility] - Ophthalmology [address] [place] [phone] Jose Newby MD [address] [place], [place] [address]T [place] [phone] 01/31/2026 1:00 PM CDT [facility]rology [address] [place] [phone] Malena Joaquin MD [address] [place] [address] [place] [phone] Health Maintenance Due Date Last Done Comments COLOGUARD (AGES 45-75) - COLON CA SCREENING 1973 CT COLONOGRAPHY - COLON CA SCREENING 1973 FIT - COLON CA SCREENING 1973 FLEX SIG - COLON CA SCREENING 1973 MAMMOGRAM 1973 HIV SCREENING 1988 DTAP/TDAP/TD VACCINES (1 - Tdap) 1992 HEPATITIS B VACCINE (1 of 3 - 19+ 3-dose series) 1992 PNEUMOCOCCAL VACCINE 50+ (1 of 2 - PCV) 1992 PAP SMEAR 1994 DIABETES-FOOT EXAM WITH MONOFILAMENT 03/14/2022 ZOSTER VACCINE (1 of 2) 09/05/2023 COVID-19 VACCINE (3 - season) 2025 09/09/2020, 08/19/2020 INFLUENZA VACCINE (#1) 2025 LUNG CANCER SCREENING 01/15/2025 01/16/2024, 024 DIABETES-HGB A1C 02/18/2025 08/19/2024, 01/18/2022 DIABETES - URINE PROTEIN SCREENING 11/26/2025 11/26/2024, 03/12/2022 DIABETES-SERUM CREATININE 11/26/20252024, 07/21/2024, 11/18/2023, Additional history exists DIABETES RETINOPATHY SCREENING 01/20/2027 01/20/2025, 01/20/2025, 11/19/2024, Additional history exists COLON MONITORING 01/12/2034 01/13/2024, 01/13/2024 COLONOSCOPY - COLON CA SCREENING 01/12/2034 01/13/2024, 01/13/2024 Colorectal Cancer Screening 01/12/2034 DEPRESSION SCREENING Completed 07/12/2024, 07/15/2022, 05/08/2022 HEPATITIS C SCREENING Completed 11/26/2024 , 11/18/2023, 07/15/2022, Additional history exists HIB VACCINE Aged Out No longer eligi ble based on patient's age to complete this topic HPV VACCINE Aged Out No longer eligi ble based on patient's age to complete this topic MENINGOCOCCAL (Group B) VACCINE SHARED DECISION-MAKING Aged Out No longer eligible based on patient's age to complete this topic MENINGOCOCCAL GROUPS A/C/Y/W VACCINE Aged Out No longer eligible based [...] Procedure Name Priority Date/Time Associated Diagnosis Comments FUNDUS PHOTO BOTH EYES Routine 9:55 AM CDT Retinal lesion of both eyes RETINAL ANALYSIS OCT Routine 01/20/2025 9:55 AM CDT Retinal lesion of both eyes DORMAN AUTO VISUAL FIELD EXTENDED Routine 01/20/2025 9:55 AM CDT Retinal lesion of both eyes CORTISOL FREE TIMED URINE 11/29/2024 9:00 AM CDT CREATININE URINE TIMED 9:00 AM CDT CORTISOL BLOOD AM 11/29/2024 8:5 8 AM CDT DHEA SULFATE 11/29/2024 8:58 AM CDT ACTH 11/29/2024 8:58 AM CDT QUANTIFERON-TB GOLD PLUS 1-TUBE 11/26/2024 7:28 AM CDT HOLDEN BLOOD SCREEN W/REFLEX TITER Routine 11/26/2024 7:28 AM CDT 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 factor (HCC) COMPLEMENT C3 C4 PANEL Routine 7:28 AM CDT 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 factor (HCC) HEPATITIS SCREEN ACUTE Routine 7:28 AM CDT 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 factor (HCC) C-REACTIVE PROTEIN Routine 11/26/2024 7: 28 AM CDT 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 factor (HCC) ERYTHROCYTE SEDIMENTATION RATE Routine 11/26/2024 7:28 AM CDT 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 factor (HCC) COMPREHENSIVE METABOLIC PANEL Routine 11/26/2024 7:28 AM CDT 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 factor (HCC) CBC W AUTO DIFFERENTIAL Routine 11/26/2024 7:28 AM CDT 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 factor (HCC) PROTEIN CREATININE RATIO URINE RANDOM PNL Routine 11/26/2024 7:27 AM CDT Dysuria URINALYSIS W/MICROSCOPIC REFLEX TO CULTURE Routine 11/26/2024 7:27 AM CDT Dysuria CULTURE URINE 11/26/2024 7:27 AM CDT CULTURE URINE REFLEXED II 11/26/2024 7:27 AM CDT CHRONIC URTICARIA PANEL Routine 11/26/2024 7:26 AM CDT Chronic idiopathic urticaria Angioedema, subsequent encounter COMPLEMENT C1 ESTERASE INHIBITOR ANTIGEN Routine 11/26/2024 7:26 AM CDT Chronic idiopathic urticaria Angioedema, subsequent encounter COMPLEMENT C1 ESTERASE INHIBITOR FUNCTION ACTIVITY Routine 11/26/2024 7:24 AM CDT Chronic idiopathic urticaria Angioedema, subsequent encounter HEMOGLOBIN A1C - POINT OF CARE (AMB) [facility] Routine 08/19/2024 11:11 AM CDT Type 2 diabetes mellitus without complication, unspecified whether fdc insulin use (HCC) ENDOSCOPY, COLON, DIAGNOSTIC Routine 01/13/2024 11:04 AM CDT from Last 3 Months or Most Recently Relevant to Health Maintenance Results * FUNDUS PHOTO BOTH EYES (01/20/2025 9:55 AM CDT) Anatomical Region Laterality Modality Head External-Camera Photography Narrative 01/20/2025 11:38 AM CDT Images from the original result were not included. us Jose Newby MD OPHTHALMOLOGY SCHED ORD W PAC S Final Result * RETINAL ANALYSIS OCT (01/20/2025 9:55 AM CDT) Anatomical Region Laterality Modality Head External-Camera Photography Narrative 01/20/2025 11:36 AM CDT Images from the original result were not included. Jose Newby MD OPHTHALMOLOGY SCHED ORD W PAC S Edited Result - Final * DORMAN AUTO VISUAL FIELD EXTENDED (01/20/2025 9:55 AM CDT) Anatomical Region Laterality Modality Head External-Camera Photography Narrative 01/20/2025 11:38 AM CDT Images from the original result were not included. OD: Full field, fair reliability OS: full field, limited reliability Jose Newby MD OPHTHALMOLOGY SCHED ORD W PAC S Final Result * CREATININE URINE TIMED (11/29/2024 9:00 AM CDT) Creatinine 24 Hour Urine 1.05 0.50 - 2.15 g/24 h [facility] Comment: TOTAL URINE VOLUME: 2500/24 Test Performed at: [facility] [address] ASIF BLACKWOOD MD 11/29/2024 9:00 AM CDT 11/29/2024 3:12 PM CDT Naseem Garcia MD LAB - URINE CHEMISTRY ORDERABLES Final Result [address] [address] * CORTISOL FREE TIMED URINE (11/29/2024 9:00 AM CDT) Total Volume 2500 mL [facility] Cortisol Free Urine 13.6 4.0 - 50.0 mcg/24 h [facility] Cortisol Free Urine 12.5 mcg/g creat [facility] Comment: Reference Range: ADULTS: 3.1-42.3 Creatinine Urine 1.08 0.50 - 2.15 g/24 h [facility] Comment: This test was developed and its analytical performance characteristics have been determined by [facility]. It has not been cleared or approved by the FDA. This assay has been validated pursuant to the CLIA regulations and is used for clinical purposes. REPORT COMMENT: SPLIT 11/29/2024 FROM [id number] Test Performed at: [facility] [address] [place] [address] MARTA KESSLER MD,PHD,JAQUI 11/29/2024 9:00 AM CDT 11/29/2024 3:12 PM CDT Naseem Garcia MD LAB - URINE CHEMISTRY ORDERABLES Final Result Performing Organization Address City/[facility]/ZIP Co de Phone Number [facility] [id number] [place] [address] * ACTH (11/29/2024 8:58 AM CDT) Pathologist [facility] ACTH 18 6 - 50 pg/mL [facility] Comment: Reference range applies only to specimens collected between 7am-10am. Test Performed at: [facility] [facility] [id number] [place] [address] TAMERA ADKINS MD,PHD 11/29/2024 8:58 AM CDT 11/29/2024 8:59 AM CDT Naseem Garcia MD LAB - CHEMISTRY ORDERABLES Final Result Performing Organization Address [facility] Co de Phone Number [facility] [address] [place] [address] * DHEA SULFATE (11/29/2024 8:58 AM CDT) Dehydroepiandrosterone Sulfate (DHEAS) 50 5 - 167 mcg/dL [facility] Comment: Test Performed at: [facility] [place] [address] [place] [address] ASIF BLACKWOOD MD 11/29/2024 8:58 AM CDT 11/29/2024 8:59 AM CDT Naseem Garcia MD LAB - CHEMISTRY ORDERABLES Final Result Performing Organization Address City/[facility]/ZIP Co de Phone Number [facility] [address] [place] [address] * CORTISOL BLOOD AM (11/29/2024 8:58 AM CDT) Pathologist [facility] Cortisol AM 13.0 mcg/dL [facility] Comment: Reference Range 8 a.m. (7-9 a.m.) Specimen: 4.0-22.0 REPORT COMMENT: FASTING:YES COLLECTION KIT GIVEN TO PATIENT. PATIENT ADVISED TO RETURN. Test Performed at: [facility] [address] [place] [address] ASIF BLACKWOOD MD 11/29/2024 8:58 AM CDT 11/29/2024 8:59 AM CDT Naseem Garcia MD LAB - CHEMISTRY ORDERABLES Final Result [facility] [address] [place] [address] * QUANTIFERON-TB GOLD PLUS 1-TUBE (11/26/2024 7:28 AM CDT) [facility] QuantiFERON TB Gold Plus NEGATIVE NEGATIVE [facility] Comment: Negative test result. M. tuberculosis complex infection unlikely. NIL 0.02 IU/mL [facility] MITOGEN MINUS NIL RESULT >10.00 IU/mL [facility] TB1-NIL 0.00 IU/mL [facility] TB2-NIL 0.00 IU/mL [facility] Comment: [...] T-lymphocytes. For additional information, please refer to https://education.PlaceFull.VideoIQ/faq/QSG624 (This link is being provided for informational/ educational purposes only.) REPORT COMMENT: FASTING:YES Test Performed at: [facility] [address] [facility] [place] [address] ASIF BLACKWOOD MD 11/26/2024 7:28 AM CDT 11/26/2024 7:29 AM CDT Mikala العلي MD LAB - CHEMISTRY ORDERABLES Final Result Performing Organization Address [facility]/ZIP Co de Phone Number [address] [address] * C-REACTIVE PROTEIN (11/26/2024 7:28 AM CDT) Pathologist [facility] C-Reactive Protein 5.7 <8.0 mg/L [facility] Comment: Test Performed at: [facility] [address] ASIF BLACKWOOD MD Blood BLOOD SPECIMEN / Unknown 11/26/2024 7:28 AM CDT 11/26/2024 7:29 AM CDT Mikala العلي MD LAB - CHEMISTRY ORDERABLES Final Result Performing Organization Address [facility] de Phone Number [address] [address] * HOLDEN BLOOD SCREEN W/REFLEX TITER (11/26/2024 7:28 AM CDT) Pathologist [facility] HOLDEN Screen NEGATIVE NEGATIVE [facility] Comment: HOLDEN [...] AC-0: Negative International Consensus on HOLDEN Patterns (https://doi.org/10.1515/wnht-5653-4057) For additional information, please refer to http://education.Ticket Mavrix/faq/CPF510 (This link is being provided for informational/ educational purposes only.) Test Performed at: [facility] [address] [facility] [place] [address] ASIF BLACKWOOD MD Blood BLOOD SPECIMEN / Unknown 11/26/2024 7:28 AM CDT 11/26/2024 7:29 AM CDT Mikala العلي MD LAB - CHEMISTRY ORDERABLES Final Result Performing Organization Address [facility] Co de Phone Number [address] [address] * ERYTHROCYTE SEDIMENTATION RATE (11/26/2024 7:28 AM CDT) Pathologist [facility] Erythrocyte Sedimentation Rate Westergren 14 < OR = 30 mm/h [facility] Comment: Test Performed at: [facility] [address] ASIF BLACKWOOD MD Blood BLOOD SPECIMEN / Unknown 11/26/2024 7:28 AM CDT 11/26/2024 7:29 AM CDT Mikala العلي MD LAB - HEMATOLOGY ORDERABLES Glo l Result Performing Organization Address [facility] de Phone Number [address] [address] * (ABNORMAL) CBC WITH DIFFERENTIAL (11/26/2024 7:28 AM CDT) Pathologist [facility] White Blood Cell Count 10.0 3.8 - 10.8 Thousand/ uL [facility] RBC 4.54 3.80 - 5.10 Million/u L [facility] Hemoglobin 13.4 11.7 - 15.5 g/dL [facility] Hematocrit 41.7 35.0 - 45.0 % [facility] MCV 91.9 80.0 - 100.0 fL [facility] MCH 29.5 27.0 - 33.0 pg [facility] MCHC 32.1 32.0 - 36.0 g/dL [facility] Comment: For adults, a slight decrease in the calculated MCHC value (in the range of 30 to 32 g/dL) is most likely not clinically significant; however, it should be interpreted with caution in correlation with other red cell parameters and the patient's clinical condition. RDW 13.8 11.0 - 15.0 % [facility] Platelet Count 334 140 - 400 Thousand/ uL [facility] MPV 9.3 7.5 - 12.5 fL [facility] Neutrophil Absolute 4610 1500 - 7800 cells/uL [facility] Lymphocytes Absolute 4510(H) 850 - 3900 cells/uL [facility] Absolute Monocytes 690 200 - 950 cells/uL [facility] Eosinophils Absolute 140 15 - 500 cells/uL [facility] Basophils Absolute 50 0 - 200 cells/uL [facility] Granulocytes % 46.1 % [facility] Lymphocytes % 45.1 % [facility] Monocytes % 6.9 % [facility] Eosinophils % 1.4 % [facility] Basophils % 0.5 % [facility] Comment: Test Performed at: [facility] [address] ASIF BLACKWOOD MD Blood BLOOD SPECIMEN / Unknown 11/26/2024 7:28 AM CDT 11/26/2024 7:29 AM CDT Mikala العلي MD LAB - HEMATOLOGY ORDERABLES Glo l Result [address] [address] * (ABNORMAL) COMPREHENSIVE METABOLIC PANEL (11/26/2024 7:28 AM CDT) Glucose 107(H) 65 - 99 mg/dL [facility] Comment: Fasting reference interval For someone without known diabetes, a glucose value between 100 and 125 mg/dL is consistent with prediabetes and should be confirmed with a follow-up test. BUN 13 7 - 25 mg/dL [facility] Creatinine 0.70 0.50 - 1.03 mg/dL [facility] eGFR by Cystatin C 105 > OR = 60 mL/min/1. 73m2 [facility] BUN/Creatinine Ratio SEE NOTE: 6 - 22 (calc) [facility] Comment: Not Reported: BUN and Creatinine are within reference range. Sodium 143 135 - 146 mmol/L [facility] Potassium 4.1 3.5 - 5.3 mmol/L [facility] Chloride 107 98 - 110 mmol/L [facility] CO2 27 20 - 32 mmol/L [facility] Calcium 9.5 8.6 - 10.4 mg/dL [facility] Protein Total 6.8 6.1 - 8.1 g/dL [facility] Albumin 4.3 3.6 - 5.1 g/dL [facility] Globulin Total 2.5 1.9 - 3.7 g/dL (calc) [facility] Albumin/Globulin Ratio 1.7 1.0 - 2.5 (calc) [facility] Bilirubin Total 0.4 0.2 - 1.2 mg/dL [facility] Alkaline Phosphatase 65 37 - 153 U/L [facility] AST 18 10 - 35 U/L [facility] ALT 27 6 - 29 U/L [facility] Comment: Test Performed at: [facility] [address] ASIF BLACKWOOD MD Blood BLOOD SPECIMEN / Unknown 11/26/2024 7:28 AM CDT 11/26/2024 7:29 AM CDT Mikala العلي MD LAB - CHEMISTRY ORDERABLES Final Result Performing Organization Address City/[facility]/ZIP Co de Phone Number [address] [address] * COMPLEMENT C3 C4 PANEL (11/26/2024 7:28 AM CDT) Complement C3 134 83 - 193 mg/dL [facility] Complement C4 30 15 - 57 mg/dL [facility] Comment: Test Performed at: [facility] [address] [address] ASIF BLACKWOOD MD Blood BLOOD SPECIMEN / Unknown 11/26/2024 7:28 AM CDT 11/26/2024 7:29 AM CDT Mikala العلي MD LAB - CHEMISTRY ORDERABLES Final Result Performing Organization Address [facility] Co de Phone Number [address] [address] * HEPATITIS SCREEN ACUTE (11/26/2024 7:28 AM CDT) Hepatitis A Virus Antibody IgM NON-REACTI VE NON-REACT AZUL [facility] Comment: For additional information, please refer to http://Anavex.PlaceFull.VideoIQ/faq/AZO174 (This link is being provided for informational/ educational purposes only.) Hepatitis B Virus Surface Antigen NON-REACTI VE NON-REACT AZUL [facility] Comment: For additional information, please refer to http://Anavex.PlaceFull.VideoIQ/faq/YVC840 (This link is being provided for informational/ educational purposes only.) Hepatitis B Core Virus Antibody IgM NON-REACTI VE NON-REACT AZUL [facility] Comment: For additional information, please refer to http://education.Lengow/faq/LVI554 (This link is being provided for informational/ educational purposes only.) Hepatitis C Antibody NON-REACTI VE NON-REACT AZUL [facility] Comment: HCV antibody was non-reactive. There is no laboratory evidence of HCV infection. In most cases, no further action is required. However, if recent HCV exposure is suspected, a test for HCV RNA (test code 57374) is suggested. For additional information please refer to http://Anavex.Lengow/faq/BCV83s1 (This link is being provided for informational/ educational purposes only.) Test Performed at: [facility] [address] [place] [address] ASIF BLACKWOOD MD Blood BLOOD SPECIMEN / Unknown 11/26/2024 7:28 AM CDT 11/26/2024 7:29 AM CDT Mikala العلي MD LAB - CHEMISTRY ORDERABLES Final Result Performing Organization Address [facility] de Phone Number [address] [address] * CULTURE URINE REFLEXED II (11/26/2024 7:27 AM CDT) Reflexive Urine Culture See Below [facility] Comment: CULTURE INDICATED - RESULTS TO FOLLOW Test Performed at: [facility] [address] ASIF BLACKWOOD MD 11/26/2024 7:27 AM CDT 11/26/2024 7:28 AM CDT Mikala العلي MD LAB - MICROBIOLOGY ORDERABLES Fi nal Result Performing Organization Address [facility] Co de Phone Number [address] [address] * (ABNORMAL) URINALYSIS W/MICROSCOPIC REFLEX TO CULTURE (11/26/2024 7:27 AM CDT) Color UA YELLOW YELLOW [facility] Appearance CLEAR CLEAR [facility] Specific Cotton UA 1.010 1.001 - 1.035 [facility] pH UA 6.5 5.0 - 8.0 [facility] Glucose UA NEGATIVE NEGATIVE [facility] Bilirubin UA NEGATIVE NEGATIVE [facility] Ketone UA NEGATIVE NEGATIVE [facility] Blood UA 1+(A) NEGATIVE [facility] Protein UA NEGATIVE NEGATIVE [facility] Nitrite NEGATIVE NEGATIVE [facility] Leukocyte Esterase 1+(A) NEGATIVE [facility] WBC UA 0-5 < OR = 5 /HPF [facility] RBC UA NONE SEEN < OR = 2 /HPF [facility] Epithelial Cell UA 0-5 < OR = 5 /HPF [facility] Bacteria UA NONE SEEN NONE SEEN /HPF [facility] Hyaline Casts NONE SEEN NONE SEEN /LPF [facility] Note See Below [facility] Comment: This urine was analyzed for the presence of WBC, RBC, bacteria, casts, and other formed elements. Only those elements seen were reported. Test Performed at: [facility] [address] [address] ASIF BLACKWOOD MD Urine URINE SPECIMEN OBTAINED BY CLEAN CATCH PROCEDURE / Unknown 11/26/2024 7:27 AM CDT 11/26/2024 7:28 AM CDT Mikala العلي MD LAB - URINALYSIS ORDERABLES Glo l Result Performing Organization Address [facility] de Phone Number [address] [address] * (ABNORMAL) CULTURE URINE (11/26/2024 7:27 AM CDT) Culture (A) [facility] Comment: CULTURE, URINE, ROUTINE Micro Number: [id number] Test Status: Final Specimen Source: Urine Specimen Quality: Adequate Result: 10,000-49,000 CFU/mL of Monet krusei Susceptibility testing not routinely performed on this isolate. Test Performed at: [facility] [address] ASIF BLACKWOOD MD 11/26/2024 7:27 AM CDT 11/26/2024 7:28 AM CDT Mikala العلي MD LAB - MICROBIOLOGY ORDERABLES Fi nal Result Performing Organization Address [facility] de Phone Number [facility] [address] [place] [address] * PROTEIN CREATININE RATIO URINE RANDOM PNL (11/26/2024 7:27 AM CDT) Creatinine Urine 86 20 - 275 mg/dL [facility] Protein/Creatinine Ratio 93 24 - 184 mg/g creat [facility] Protein/Creatinine Ratio 0.093 0.024 - 0.184 mg/mg creat [facility] Protein Random Urine 8 5 - 24 mg/dL [facility] Comment: Test Performed at: [facility] [address] ASIF BLACKWOOD MD Urine URINE SPECIMEN OBTAINED BY CLEAN CATCH PROCEDURE / Unknown 11/26/2024 7:27 AM CDT 11/26/2024 7:28 AM CDT Mikala العلي MD LAB - URINE CHEMISTRY ORDERABLES Final Result Performing Organization Address [facility] de Phone Number [address] [address] * CHRONIC URTICARIA PANEL (11/26/2024 7:26 AM CDT) Histamine Release <16 <16 % [facility] Comment: This test was developed and its analytical performance characteristics have been determined by [employer]. It has not been cleared or approved by the FDA. This assay has been validated pursuant to the CLIA regulations and is used for clinical purposes. Thyroid Peroxidase TPO Antibody 1 <9 IU/mL [facility] Thyroglobulin Antibody <1 < OR = 1 IU/mL [facility] TSH 3.97 0.40 - 4.50 mIU/L [facility] Comment: Female Reference Ranges for TSH: Premature Infants, (28-36) weeks 1st week of life 0.20-27.90 mIU/L Term infants, (>37 weeks) Serum or Cord Blood 1.00-39.00 mIU/L 1-2 days 3.20-34.60 mIU/L 3-4 days 0.70-15.40 mIU/L 5 days-4 weeks 1.70-9.10 mIU/L 1-11 months 0.80-8.20 mIU/L 1-19 years 0.50-4.30 mIU/L > or = 20 years 0.40-4.50 mIU/L TSH levels decline rapidly during the first week of life in most children, but may remain transiently elevated in a few individuals despite normal free T4 levels. For proper interpretation of an abnormal TSH from a thyroid screen, a Free T4 by [place]ialysis (TC [address]) or T4, Total (Thyroxine) (TC [address]) should be considered. Ranges First Trimester 0.26-2.66 mIU/L Second Trimester 0.55-2.73 mIU/L Third Trimester 0.43-2.91 mIU/L For additional information, please refer to http://education.Ticket Mavrix/faq/AXT633 (This link is being provided for informational/educational purposes only.) Test Performed at: [email or web address] [address] [place] [address] MARTA KESSLER MD,PHD,JAQUI Blood BLOOD SPECIMEN / Unknown 11/26/2024 7:26 AM CDT 11/26/2024 7:26 AM CDT Eleno Montoya MD LAB - CHEMISTRY ORDERABLES Glo l Result Performing Organization Address [facility] de Phone Number [place] [phone] [place] [address] * COMPLEMENT C1 ESTERASE INHIBITOR ANTIGEN (11/26/2024 7:26 AM CDT) [facility] C1 Inhibitor Protein 35 21 - 39 mg/dL [facility] Comment: A normal C1 esterase inhibitor protein level does not rule out the possibility of a functional C1 esterase inhibitor deficiency. Consider further testing of C1 esterase inhibitor functional activity, if clinically indicated. REPORT COMMENT: FASTING:YES Test Performed at: [email or web address] [address] [place], [place] TAMERA ADKINS MD,PHD Blood BLOOD SPECIMEN / Unknown 11/26/2024 7:26 AM CDT 11/26/2024 7:26 AM CDT Eleno Montoya MD LAB - CHEMISTRY ORDERABLES Glo l Result Performing Organization Address City/[facility]/ZIP Co de Phone Number [facility] [address] [place] [phone] * COMPLEMENT C1 ESTERASE INHIBITOR FUNCTION ACTIVITY (11/26/2024 7:24 AM CDT) Pathologist [facility] Complement C1 Esterase Inhibitor Functional >100 >=68 % [facility] Comment: Reference Range: > or = 68%: Normal 41-67%: Equivocal < or = 40%: Abnormal Less than 40% of the reference functional activity indicates a likely diagnosis of hereditary angioedema or acquired C1 Inhibitor deficiency. For additional information, please refer to: http://education.Lengow/faq/FAQ54 (This link is being provided for informational/ educational purposes only.) REPORT COMMENT: FASTING:YES Test Performed at: [email or web address] TAMERA ADKINS MD,PHD Blood BLOOD SPECIMEN / Unknown 11/26/2024 7:24 AM CDT 11/26/2024 7:25 AM CDT us Eleno Montoya MD LAB - CHEMISTRY ORDERABLES Glo l Result Performing Organization Address [facility] [place] [address] * HEMOGLOBIN A1C - POINT OF CARE (AMB) [facility] (08/19/2024 11:11 AM CDT) [facility] Hemoglobin A1c POCT 6.7 % [address] BLOOD SPECIMEN / Unknown 08/19/2024 11:11 AM CDT Naseem Garcia MD LAB - POINT OF CARE ORDERABLES F inal Result Performing Organization Address [facility] Co de Phone Number [address] [facility] [place] [address], [facility] [phone] * ENDOSCOPY, COLON, DIAGNOSTIC (01/13/2024 11:04 AM CDT) Pathologist [facility] Report Endoscopy POC Endoscopy Department Report _ Patient Name: Steve Chou Procedure Date: 01/13/2024 11:04 AM Date [...] bowel preparation was evaluated using the BBPS (Pratt Bowel Preparation Scale) with scores of: Right [...] non-mcfarland portions. Procedure Code(s): --- Professional --- 15230, Colonoscopy, flexible; with removal of tumor(s), polyp(s), or other lesion(s) by snare technique Diagnosis Code(s): --- Professional --- Z12.11, Encounter for screening for malignant neoplasm of colon D12.0, Benign neoplasm of cecum D12.5, Benign neoplasm of sigmoid colon D12.2, Benign neoplasm of ascending colon CPT copyright 2021 [employer]. All rights reserved. The codes documented in this report are preliminary and upon pump oiler review may be revised to meet current compliance requirements. Dylan Jessica, 01/13/2024 11:59:59 AM Note Initiated On: 01/13/2024 11:04 AM Number of Addenda: [id number] [place] [address] PROVATION 01/13/2024 11:0 4 AM CDT us Dylan Jessica MD GI PROCEDURE ORDERABLE S Edited Result - Final [facility] PROVATION from Last 3 Months or Most Recently Relevant to Health Maintenance [place] [address] [address] [place] [phone] [place] [address] Care Teams Signal Operator Linguist Relationship Specialty Start Date End Date Jeff Duque MD [address] [address] PCP - General 08/30/21 Jeff Duque MD [address] [place] [address] Family Medicine 08/30/21
--- OUTSIDE RECORDS SUMMARY | 2025-02-23 07:48 | XMS_ITS | Clinical Summary ---
Author Organization [facility] Address [address] [place] [address] Phone Care Team Providers Care Children'S Lunchroom Supervisor Name Role Phone Jeff Duque MD Primary Care Provider [phone] Allergies Active Allergy Reactions Criticality Noted Date Comments Omeprazole Rash,Nausea and Vomiting Medium 12/18/2020 Medications simvastatin (ZOCOR) 40 mg tablet TAKE 1 TABLET BY MOUTH EVERY DAY IN THE EVENING 0 Active metFORMIN (GLUCOPHAGE) 500 mg tablet TAKE 1 TABLET BY MOUTH DAILY WITH A MEAL 0 Active fluticasone propionate (FLONASE) 50 mcg/spray [place], Suspension nasal inhaler Administer 1 [place] in each nostril. 0 Active hydrOXYchloroQU INE [...] Encounters Date Type Department Care Team Description 01/26/2025 External Device Data STL ABSTRACTION Provider, Abstract 01/25/2025 External Device Data STL ABSTRACTION Provider, Abstract 12/14/2024 External Device Data STL ABSTRACTION Provider, Abstract 11/24/2024 External Device Data STL ABSTRACTION Provider, Abstract 11/24/2024 External Device Data STL ABSTRACTION Provider, Abstract [...] Comments Blood Pressure 122/78 04/13/2024 9:58 AM MACHINE STOPPAGE FREQUENCY CHECKER Pulse 80 04/13/2024 9:58 AM MACHINE STOPPAGE FREQUENCY CHECKER Temperature 36.7 C (98 F) 04/13/2024 9:58 AM MACHINE STOPPAGE FREQUENCY CHECKER Respiratory Rate 16 04/13/2024 9:58 AM MACHINE STOPPAGE FREQUENCY CHECKER Oxygen Saturation 96% 04/13/2024 9:58 AM MACHINE STOPPAGE FREQUENCY CHECKER Inhaled Oxygen Concentration - - Weight 79.3 kg (174 lb 12.8 oz) 04/13/2024 9:58 AM MACHINE STOPPAGE FREQUENCY CHECKER Height 170.2 cm (5' 7) 09/05/2021 2:01 PM CDT Body Mass Index 27.38 09/05/2021 2:01 PM CDT Plan of Treatment Health Maintenance Due Date Last Done Comments DIABETES ANNUAL FOOT EXAM 09/05/1991 DIABETES MICROALBUMIN ANNUAL SCREEN 09/05/1991 LDL CHOLESTEROL ANNUAL 09/05/1991 DTAP/TDAP/TD VACCINES (1 - Tdap) 1992 HEPATITIS B VACCINES (1 of 3 - 19+ 3-dose series) 1992 ZOSTER VACCINE (1 of 2) 1992 BREAST CANCER SCREENING 2013 FIT-DNA Q 3 years 2018 FIT/FOBT Q 1 year 2018 Flex Sig/CT Colonography Q 5 years 2018 COVID-19 Vaccine (3 - Pfizer risk series) 10/07/2020 09/09/2020, 08/19/2020 INFLUENZA VACCINE (#1) 2024 Lung Cancer Screening 01/15/2025 01/16/2024 DIABETES HBA1C Q 6 MONTHS 02/18/2025 08/19/2024, 01/2022 DIABETES ANNUAL RETINAL EXAM 01/20/202603/2025, 01/20/2025, 01/20/2025, Additional history exists COLORECTAL SCREENING 01/12/2034 01/13/2024, 01/13/20 24 Colorectal Cancer Screening 01/12/2034 Insurance [facility] MEDICAID Care Teams Children'S Lunchroom Supervisor Relationship Specialty Start Date End Date Jeff Duque MD [address] [place] [phone] PCP - General Emergency Medicine 12/27/19
--- OUTSIDE RECORDS SUMMARY | 2025-02-23 07:48 | XMS_ITS | Encounter Summary ---
Author Organization [facility] Address [address] [place] [address] Care Team Providers Care Nutritional Services Director Name Role Phone Jeff Duque MD Primary Care Provider [phone] Jeff Duque MD Unavailable Encounter Details Date Type Department Care Team (Late st Contact Info) Description 10/05/2024 Telephone [facility] - Allergy [address] [facility] [place] [address] Eleno Montoya MD [address] [place] [phone] Social History Tobacco Use Types Packs/Day Years [...] CDT Gender Identity Female 05/10/2021 10:24 PM SALES SUPPORT REP Sexual Orientation Not on file documented as [...] 12:25 PM BUTCHT Azucena Garcia i, RN documented as of this encounter Mental Status * Does person have difficulty concentrating/remembering/making decisions? Answer Entry Date Author No 01/13/2024 12:25 PM Azucena Boudreaux i, RN documented in this encounter Miscellaneous Notes * Telephone Encounter - Tianna Smith - 10/05/2024 12:06 PM CDT Current Provider: Dr. Montoya Reason for Call: Mrs. Yanick Dan had her first XOLAIR Infection 09/06/24 and she was to be scheduled MONTHLY. There is no appt, I don't know if you all have the vaccine for her in office. Please call to schedule her next monthly infection Patient Call Back Number: [phone] Kenya King documented in this encounter Plan of Treatment Upcoming Encounters Date Type Department Care Team (Late st Contact Info) Description 03/21/2025 9:20 AM SALES SUPPORT REP Office Visit [facility] - Rheumatology [address] [facility], [address] [place] [address] Mikala العلي MD [address] [place] [address] 05/20/2025 10:00 AM SALES SUPPORT REP Office Visit [facility] - Allergy [address] [place] [address], [place] [address] Eleno Montoya MD [address] [place] [address] 07/22/2025 8:30 AM CDT Office Visit [facility] - Neurology [address] [place] [address] [place] [address] Moiz Briones, ACCOUNT SUPPORT SPECIALIST-DIETITIAN TEACHER [address] [place] [address] [place] [address] 07/25/2025 2:30 PM CDT Office Visit [facility] - GI [address] [place] [phone] 11/07/2025 10:30 AM CDT Office Visit [facility] - ENT [address] [place] [phone] Vinny Milner MD [address] [place] [address] [place] [address] 11/15/2025 1:10 PM CDT Office Visit [facility] - Dermatology [address] [place] [phone] Torie Holm MD [address] [place] [address] [place] [address] 11/21/2025 9:00 AM CDT Office Visit [facility] - Ophthalmology [address] [place] [phone] Reina Beckford MD [address] [place] [address] [place] [address] 01/24/2026 9:00 AM CDT Office Visit [facility] - Ophthalmology [address] [facility] [place] [address] Jose Newby MD [address] [facility] DEPT [place] [address] 01/31/2026 1:00 PM CDT Office Visit [facility] - Neurology [address] [place] [address], [place] [phone] Malena Joaquin MD [address] [place] [address] documented as of this encounter Goals Goal [...] on filedocumented in this encounter Care Teams Nutritional Services Director Relationship Specialty Start Date End Date Jeff Duque MD [address] [address] PCP - General 08/30/21 Jeff Duque MD [address] [address] Family Medicine 08/30/21 documented as of this encounter
--- OUTSIDE RECORDS SUMMARY | 2025-02-23 07:48 | XMS_ITS | Clinical Summary ---
Author Organization [facility] Address [address] [place] [address] Care Team Providers Care Maintenance Mechanic Helper Name Role Phone Jeff Duque MD Primary Care Provider [phone] Allergies No known active allergies Medications estradiol [...] 2:07 PM CDT Height 170.2 cm (5' 7) 03/02/2020 2:07 PM CDT Body Mass Index 28.19 03/02/2020 2:07 PM CDT Plan of Treatment Health Maintenance Due Date Last Done Comments Colorectal Cancer Screening Colonoscopy (10 Years) 1973 Annual Physical 1976 Hepatitis C 09/05/1991 DTaP, Tdap and Td Vaccines ( 1 - Tdap) 1992 Hepatitis B Vaccines (1 of 3 - 19+ 3-dose series) 1992 Pneumococcal Vaccine: 50+ Ye ars (1 of 2 - PCV) 1992 Mammogram Screening 2013 Zoster Vaccines (1 of 2) 09/05/2023 COVID-19 Vaccine (2023-2 5 season) 2025 Influenza Adult (#1) 2025 Hepatitis A Vaccines Aged Out No long er eligible based on patient's age to complete this topic Meningococcal B Vaccine Aged Out No l onger eligible based on patient's age to complete this topic Meningococcal Vaccine Aged Out No maura sissy eligible based on patient's age to complete this topic RSV Immunizations Under 20 Months Aged Out No longer eligible based on patient's age to complete this topic Insurance [employer] Care Teams Maintenance Mechanic Helper Relationship Specialty Start Date End Date Jeff Duque MD [address] [address] PCP - General FAMILY PRACTICE 03/02/20
== END 2025-02-23 07:43 | disposition home or self-care (01) ==
LOC: ANHFOHIMG 07:44
PROVIDERS: PCP Emergency Medicine; Visit Provider Emergency Medicine
DX: Z12.31 Encounter for screening mammogram for malignant neoplasm of breast (principal)
CPT/HCPCS: 77063; 77067

== ENCOUNTER 2025-04-17 16:18 | Emergency (ER) | payer OTHER, SELFPAY ==
[2025-04-17 16:28] VITALS: BP 121/68; PULSE 93; RESP 18; TEMP 36.7; O2SAT 98
--- NOTE | 2025-04-17 16:40 | ED.NECK ---
HPI - Neck Pain/Injury General Chief Complaint: Neck Pain/Injury Stated Complaint: Left Side Neck/Shoulder Pain Time Seen by Provider: 04/17/25 16:30 Source: patient and family Mode of arrival: ambulatory Limitations: no limitations History of Present Illness HPI Narrative: Yanick is a 49-year-old female patient presenting to the clinic today with complaints of left-sided neck and shoulder pain times 2 months. She reports pain has gotten worse over last week. Has not seen her primary care provider or her orthopedic provider about her symptoms. No known injury. Has been taking ibuprofen without much relief. Pain with movement of the left arm. Pain is sharp and dull. Rates pain 7 to a 8/10. Denies any chest pain or shortness of breath. History of RA, type 2 diabetes, COPD, degenerative disc disease, and osteoarthritis Related Data Home Medications ?Medication ?Instructions ?Recorded ?Confirmed ?Last Taken ?Type metformin 500 mg tablet 500 mg PO DAILY 06/19/20 09/27/24 Unknown History fluticasone propionate 50 1 spray intranasal BID 07/05/20 09/27/24 Unknown History mcg/actuation nasal spray,suspension famotidine 40 mg tablet 20 mg PO DAILY 01/28/23 09/27/24 Unknown History ropinirole 0.25 mg tablet 0.25 mg PO DAILY 01/28/23 09/27/24 Unknown History abatacept 125 mg/mL subcutaneous 125 mg subcut WEEKLY 09/27/24 09/27/24 Unknown History syringe (Orencia) azelastine intranasal 09/27/24 Unknown History cetirizine 10 mg tablet (24Hour 10 mg PO DAILY PRN allergy symptoms 09/27/24 09/27/24 Unknown History Allergy) omalizumab 300 mg/2 mL 300 mg subcut ONCE 09/27/24 09/27/24 Unknown History subcutaneous auto-injector (Xolair) sumatriptan succinate 50 mg PO PRN 09/27/24 09/27/24 Unknown History Allergies Allergy/AdvReac Type Severity Reaction Status Date / Time omeprazole Allergy Hives Verified 04/17/25 16:26 Review of Systems Review of Systems: Pertinent positives per HPI. Patient denies any fever, chills, rash, headache, visual changes, dizziness, cough, runny nose, sore throat, shortness of breath, chest pain, palpitations, nausea, vomiting, diarrhea, constipation, abdominal pain, or any urinary issues. [facility] Past Medical History Medical History Plantar fasciitis, bilateral Bulging disc Allergic rhinitis Hypercholesterolemia Hypertension Diabetes mellitus Surgical History Surgical History H/O tubal ligation History of partial hysterectomy Family History Family History Mother Heart disease Hypertension Diabetes mellitus COPD (chronic obstructive pulmonary disease) Kidney disease Father Heart disease Diabetes mellitus Cancer Sibling Lupus Other Acute myocardial infarction Social History Social History Smoking status: Current every day smoker Tobacco type: cigarettes Alcohol intake: never Substance use: never Occupation/Education: occupation 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 There is no relevant family history pertinent to the patient complaint. Exam Narrative: General: Well-developed, well nourished, in no apparent distress Head: Normocephalic, atraumatic. Cardio: Regular rate and rhythm, s1 and s2 normal, no murmur appreciated. Resp: Clear to auscultation bilaterally, no rhonchi, rales, wheezing or rubs. Musculoskeletal: No deformity, tender to palpation over the paraspinous musculature of the left neck and over the trapezius musculature, pain with raising arm above head and a with holding arm up against resistance, negative drop-arm test, pain with empty can of full can testing, limited range of motion of this left shoulder, muscle strength strong and equal, peripheral pulse strong, no edema, no cyanosis, normal gait and station Course Course Level of Care: Express Care Visit Vital Signs Vital signs: Vital Signs Temperature 36.7 C 04/17/25 16:28 Pulse Rate 93 04/17/25 16:28 Respiratory Rate 18 04/17/25 16:28 Blood Pressure 121/68 04/17/25 16:28 Pulse Oximetry 98 04/17/25 16:28 Oxygen Delivery Room Air 04/17/25 16:28 Temperature 36.7 C 04/17/25 16:28 Pulse Rate 93 04/17/25 16:28 Respiratory Rate 18 04/17/25 16:28 Blood Pressure 121/68 04/17/25 16:28 Pulse Oximetry 98 04/17/25 16:28 Oxygen Delivery Room Air 04/17/25 16:28 [facility] MDM Narrative Medical decision making narrative: At the time of visit patient is resting comfortably on the exam table. Patient appears to be nontoxic. Complaints of left-sided neck and shoulder pain times 2 months. She reports pain has gotten worse over last week. Has not seen her primary care provider or her orthopedic provider about her symptoms. No known injury. Has been taking ibuprofen without much relief. Pain with movement of the left arm. Pain is sharp and dull. Rates pain 7 to a 8/10. Denies any chest pain or shortness of breath. History of RA, COPD, degenerative disc disease, and osteoarthritis. On exam patient tender to palpation over the paraspinous musculature of the left neck and over the trapezius musculature, pain with raising arm above head and a with holding arm up against resistance, negative drop-arm test, pain with empty can of full can testing, limited range of motion of this left shoulder, Plan: I suspect patient has posterior lateral cervical strain/trapezius muscle strain. Prescription for Medrol Dosepak and baclofen was sent to the pharmacy. Follow-up with your PCP next week. Supportive measures were discussed with the patient and they voiced understanding discharge instructions and agrees to treatment plan. Return precautions reviewed Differential Diagnosis Differential Diagnosis: Differential diagnostic considerations for neck injury/pain include disc disorder of cervical region, whiplash injury to neck, closed subluxation of cervical spine, fracture of cervical spine without lesion of spinal cord, cervical radiculopathy, vertebral artery dissection torticollis, cervical spondylosis, strain of neck muscle. Discharge Plan Discharge Clinical Impression: Spasm of left trapezius muscle Posterolateral cervical muscle strain Qualifiers: Encounter type: initial encounter Qualified Code(s): S16.1XXA - Strain of muscle, fascia and tendon at neck level, initial encounter Patient Disposition: Home Condition: Stable Instructions: Antibiotic Form, Muscle Strain (ED), Acute Neck Pain (ED) Additional Instructions: Take any prescription medication only as prescribed-Medrol Dosepak and baclofen as prescribed Be mindful of sedation precautions given to you if taking a muscle relaxer. May use heat or ice to the affected area Consider massage or chiropractor adjustment if this was discussed with provider May use blue emu, lidocaine patches, or asper cream to affected area- do not apply heat or ice directly over cream- can cause burn. Complete appropriate neck and back stretching exercises. Follow up with your PCP in 3-5 days if symptom persist. Patient Language: Danish Prescriptions: New methylprednisolone [Medrol (Conor)] 4 mg tablets,dose pack See Rx Instructions .ROUTE .COMPLEX Qty: 21 0RF Rx Instructions: orally per package directions albuterol sulfate 90 mcg/actuation HFA aerosol inhaler 2 puff inhalation Q4-6H PRN (Reason: shortness of breath or wheezing) 30 Days Qty: 8.5 0RF baclofen 10 mg tablet 10 mg PO TID PRN (Reason: muscle spasm) 7 Days Qty: 21 0RF No Action famotidine 40 mg tablet 20 mg PO DAILY ropinirole 0.25 mg Tablet 0.25 mg PO DAILY Orencia 125 mg/mL syringe 125 mg subcut WEEKLY Xolair 300 mg/2 mL auto-injector 300 mg subcut ONCE azelastine intranasal cetirizine [24Hour Allergy] 10 mg tablet 10 mg PO DAILY PRN (Reason: allergy symptoms) sumatriptan succinate 50 mg PO PRN metformin 500 mg tablet 500 mg PO DAILY fluticasone propionate 50 mcg/actuation spray,suspension 1 spray intranasal BID Rx Instructions: administer into each nostril albuterol sulfate 90 mcg/actuation HFA aerosol inhaler See Rx Instructions .ROUTE .COMPLEX Qty: 8.5 3RF Dose Instruction: INHALE 2 PUFFS EVERY 4 HOURS NEEDED FOR SHORTNESS OF BREATH OR WHEEZING Rx Instructions: INHALE 2 PUFFS EVERY 4 HOURS NEEDED FOR SHORTNESS OF BREATH OR WHEEZING Follow-up/Referrals: Jeff Duque MD [Primary Care Provider, Family Practice] Time of Disposition: 16:35 Quality NIHSS Nursing Documentation ED NIHSS nursing documentation: reviewed/agree
== END 2025-04-17 17:00 | disposition home or self-care (01) ==
PROVIDERS: Emergency Provider Nurse Practitioner Family; PCP Emergency Medicine
DX: M62.838 Other muscle spasm (principal); S16.1XXA Strain of muscle, fascia and tendon at neck level, initial encounter; X58.XXXA Exposure to other specified factors, initial encounter; E11.9 Type 2 diabetes mellitus without complications; Z79.84 Long term (current) use of oral hypoglycemic drugs; I10 Essential (primary) hypertension; J44.9 Chronic obstructive pulmonary disease, unspecified; M06.9 Rheumatoid arthritis, unspecified; E78.00 Pure hypercholesterolemia, unspecified; M19.90 Unspecified osteoarthritis, unspecified site; Z90.711 Acquired absence of uterus with remaining cervical stump
CPT/HCPCS: 99213; G0463